=== PATIENT | male | born 1965 ===

== ENCOUNTER 2016-08-01 16:55 | Inpatient (IN) | payer OTHER ==
[2016-08-01] MEDS ORDERED: SODIUM CHLORIDE 0.9% 1,000 ML IV STA ×2 (17:42)
[2016-08-01] MEDS ORDERED: PANTOPRAZOLE 40 MG/10 ML VIAL IVP STA (17:42)
[2016-08-01] MEDS ORDERED: HYDROmorphone 1 MG/ML 1 ML SYRINGE IVP STA ×3 (17:42→20:09)
[2016-08-01] MEDS ORDERED: METOCLOPRAMIDE 5 MG/ML 2 ML VIAL IVP STA (17:42)
[2016-08-01 18:05] LABS: Basophils # (A) 0.1 k/uL (0-0.2); Basophils % (A) 0 %; CH 32.2; Eosinophils # (A) 0.1 k/uL (0-0.7); Eosinophils % (A) 1 %; HCT 42.8 % (39.0-53.0); HDW 2.71; HGB 14.6 gm/dL (13.0-17.5); Luc # (Auto) 0.19; Luc % (Auto) 1; Lymphocytes # (A) 3.1 k/uL (1.0-4.8); Lymphocytes % (A) 17 %; MCH 31.6 pg (25.0-35.0); MCHC 34.1 g/dL (31.0-37.0); MCV 92.5 fL (80.0-100.0); Mean Platelet Volume 9.6; Monocytes # (A) 0.9 k/uL (0-1.0); Monocytes % (A) 5 %; Neutrophils # (A) 14.1 k/uL (1.3-7.7); Neutrophils % (A) 76 %; RBC 4.63 m/uL (4.30-5.90); RDW 12.3 % (11.5-15.5); WBC 18.5 k/uL (3.8-10.6); WBC (Perox) 17.97
[2016-08-01 18:11] LABS: Appearance,Urine Clear (Clear); Bilirubin,Urine Negative (Negative); Glucose,Urine (UA) Negative (Negative); Ketones,Urine Negative (Negative); Leukocyte Esterase,Urine Trace (Negative); Mucus,Urine Rare /hpf; Nitrite,Urine Negative (Negative); PH, Urine 6.5 (5.0-8.0); Particle Count 2218; Protein,Urine Trace (Negative); RBC,Urine 19 /hpf (0-5); Specific Gravity,Urine 1.019 (1.001-1.035); Squamous Epithelial Cell,Urine 1 /hpf (0-4); UA Billing (MACRO vs. MICRO) MICRO; WBC,Urine 2 /hpf (0-5)
[2016-08-01 18:15] LABS: ALT 33 U/L (21-72); AST 21 U/L (17-59); Alkaline Phosphatase 75 U/L (38-126); Amylase 42 U/L (30-110); Anion Gap 11 mmol/L; Blood Urea Nitrogen 9 mg/dL (9-20); Calcium 9.3 mg/dL (8.4-10.2); Carbon Dioxide 23 mmol/L (22-30); Chloride 105 mmol/L (98-107); Glucose 114 mg/dL (74-99); Non-African American GFR(MDRD) >60 (>60 ml/min/1.73 sqM); Potassium 3.8 mmol/L (3.5-5.1); Sodium 139 mmol/L (137-145); Total Bilirubin 0.7 mg/dL (0.2-1.3); Total Protein 7.5 g/dL (6.3-8.2)
--- NOTE | 2016-08-01 18:34 | XR ---
EXAMINATION TYPE: XR abdomen 2V DATE OF EXAM: 08/01/2016 6:22 PM CLINICAL HISTORY: Left-sided abdominal pain for 3 days. TECHNIQUE: Supine and upright views of the abdomen are obtained COMPARISON: Abdominal x-ray series August 24, 2013. CT abdomen and pelvis August 25, 2013. FINDINGS: Scattered gas is seen in non-distended stomach and small bowel loops. Gas is seen in non- distended colon and rectum. No pneumoperitoneum is present. The lung bases are clear. No suspicious c alcifications are seen. IMPRESSION: Overall nonspecific felt to be nonobstructive bowel gas pattern.
[2016-08-01] MEDS ORDERED: IOHEXOL 350 MG/ML 25 ML BOTTLE (ORAL USE) PO PRN (18:54)
[2016-08-01] MEDS ORDERED: RX INFO: IV CONTRAST WAS GIVEN 1 EACH MISC MISCELLANE PRN (18:54)
--- NOTE | 2016-08-01 18:58 | ED ---
General Adult HPI - General Chief complaint: Abdominal Pain Stated complaint: Abd Pain Time Seen by Provider: 08/01/16 17:03 Source: patient, family, RN notes reviewed Mode of arrival: ambulatory Limitations: no limitations - History of Present Illness Initial comments: Chief complaint and history of present illness this is a 50-year-old male here with a complaint of left lower quadrant pain for 3 days. No nausea no vomiting has had diarrhea. No blood in the stool. Appetite on occasion makes her feel nauseated but not entirely loss. No change in urination no change in color of urine. - Related Data Home Medications Medication Instructions Recorded Confirmed Multivitamins, Thera [Multivitamin] 1 tab PO DAILY 08/01/16 08/01/16 Naproxen Sodium [Aleve] 440 mg PO BID PRN 08/01/16 08/01/16 Allergies Allergy/AdvReac Type Severity Reaction Status Date / Time No Known Allergies Allergy Verified 08/01/16 18:11 Review of Systems ROS Statement: Those systems with pertinent positive or pertinent negative responses have been documented in the HPI. Review of systems no headache or visual acuity changes no chest pain or shortness of breath. He has discomfort to the left lower quadrant sometimes wraps around towards the left lower back area. No complaint of a neuro deficits. Appetite slightly decreased. He's had diarrhea. No difficulty urinating. All systems otherwise reviewed. Past medical problems stomach ulcer with surgery for same. Surgeries as noted above stomach ulcer. This happened over 20 years ago. Family history sister had stomach cancer. Patient denies ALLERGIES she does smoke strongly encouraged to stop denies alcohol use. ROS Other: All systems not noted in ROS Statement are negative. Past Medical History Past Medical History: No Reported History History of Any Multi-Drug Resistant Organisms: None Reported Additional Past Surgical History / Comment(s): ulcer surgery Past Psychological History: No Psychological Hx Reported Smoking Status: Current every day smoker Past Alcohol Use History: Rare Past Drug Use History: None Reported General Exam - General Exam Comments Initial Comments: General: The patient is awake and alert, walking slowly and holding his hand on his left lower quadrant. Vital signs temp 99.5 pulse 105 respiratory rate 20 pulse ox 90 % room air blood pressure 134/88. Patient elevated systolic and diastolic noted. The patient has low-grade fever and is in pain. He will also be following up with a family physician and X1 to 4 weeks. Eye: Pupils are equal, round and reactive to light, extra-ocular movements are intact ; there is normal conjunctiva bilaterally. No signs of icterus. Ears, nose, mouth and throat: There are moist mucous membranes and no oral lesions. Neck: The neck is supple, there is no tenderness or JVD. Cardiovascular: There is a regular rate and rhythm. No murmur, rub or gallop is appreciated. Respiratory: Lungs are clear to auscultation, respirations are non-labored, breath sounds are equal. No wheezes, stridor, rales, or rhonchi. Gastrointestinal: Voluntary guarding with rebound or referred pain to the left side of the abdomen. Unable to push hard enough to discern any organomegaly. Decreased bowel sounds. He does report she had diarrhea for several days. Back: There is no tenderness to palpation in the midline. There is no obvious deformity. No rashes noted. Musculoskeletal: Normal ROM, no tenderness, There is no pedal edema. There is no calf tenderness or swelling. Sensation intact. Pulses equal bilaterally 2+. Neurological: No neuro deficits complained of or noted. Skin: Skin is warm and dry and no rashes or lesions are noted. Limitations: no limitations Course Vital Signs 08/01/16 08/01/16 16:58 18:50 Temperature 99.5 F 97.9 F Pulse Rate 115 H 95 Respiratory 20 16 Rate Blood Pressure 134/88 121/80 O2 Sat by Pulse 98 96 Oximetry Medical Decision Making - Medical Decision Making Medical decision making; the patient's white count is elevated 18.5 hemoglobin 14 hematocrit of 42. Urine shows red blood cells 19 and 2 WBCs. No signs of infection. Potassium is 3.8 BUN 9 creatinine 0.9 the GFR greater than 60. Glucose 114. X-ray of the abdomen was done and reviewed by radiologist his overall impression is; overall nonobstructive bowel gas pattern. As read by Dr. ruiz CT of the abdomen was done with IV and oral contrast. The findings include liver is diffusely hypodense suggesting fatty infiltration. There are several subcentimeter low density lesions that are too small for further characterization for presumed benign. Pancreas no significant abnormality is seen. Kidneys there is a simple appearing 1.5 assist posteriorly mid to lower pole level left kidney. Additional 7 cm low dense lesions scattered throughout the left kidney 2 small to further characterize and presumed benign. Bowel; the oral contrast reaches level of the terminal ileum. There is no suspicious small or large bowel dilatation seen. There is some diverticula scattered throughout the colon most pronounced at sigmoid colon level. There is mild to moderate ill-defined fluid and fat stranding in the proximal sigmoid colon in the left upper pelvis centered axial image 73. CT findings are consistent with acute diverticulitis. Moderate wall thickening at this level is present. No free air is seen. No well formed stool fluid collection or abscess is noted. Impression; there is fairly moderate acute diverticulitis in the proximal sigmoid colon. No free air or well-formed abscess is present. As read by Dr. ruiz The case discussed with Dr. Felix on-call for the [facility]. Patient be admitted to his service with antibiotics include Levaquin and Flagyl and pain medication. - Lab Data Result diagrams: 08/01/16 17:20 08/01/16 17:20 Lab Results 08/01/16 08/01/16 08/01/16 Range/Units 17:20 17:20 17:20 WBC 18.5 H (3.8-10.6) k/uL RBC 4.63 (4.30-5.90) m/uL Hgb 14.6 (13.0-17.5) gm/dL Hct 42.8 (39.0-53.0) % MCV 92.5 (80.0-100.0) fL MCH 31.6 (25.0-35.0) pg MCHC 34.1 (31.0-37.0) g/dL RDW 12.3 (11.5-15.5) % Plt Count 202 (150-450) k/uL Neutrophils % 76 % Lymphocytes % 17 % Monocytes % 5 % Eosinophils % 1 % Basophils % 0 % Neutrophils # 14.1 H (1.3-7.7) k/uL Lymphocytes # 3.1 (1.0-4.8) k/uL Monocytes # 0.9 (0-1.0) k/uL Eosinophils # 0.1 (0-0.7) k/uL Basophils # 0.1 (0-0.2) k/uL Sodium 139 (137-145) mmol/L Potassium 3.8 (3.5-5.1) mmol/L Chloride 105 (98-107) mmol/L Carbon Dioxide 23 (22-30) mmol/L Anion Gap 11 mmol/L BUN 9 (9-20) mg/dL Creatinine 0.90 (0.66-1.25) mg/dL Est GFR (MDRD) Af Amer >60 (>60 ml/min/1.73 sqM) Est GFR (MDRD) Non-Af >60 (>60 ml/min/1.73 sqM) Glucose 114 H (74-99) mg/dL Plasma Lactic Acid John 1.2 (0.7-2.0) mmol/L Calcium 9.3 (8.4-10.2) mg/dL Total Bilirubin 0.7 (0.2-1.3) mg/dL AST 21 (17-59) U/L ALT 33 (21-72) U/L Alkaline Phosphatase 75 (38-126) U/L Total Protein 7.5 (6.3-8.2) g/dL Albumin 4.3 (3.5-5.0) g/dL Amylase 42 (30-110) U/L Lipase 51 (23-300) U/L Urine Color Urine Appearance (Clear) Urine pH (5.0-8.0) Ur Specific [place] (1.001-1.035) Urine Protein (Negative) Urine Glucose (UA) (Negative) Urine Ketones (Negative) Urine Blood (Negative) Urine Nitrate (Negative) Urine Bilirubin (Negative) Urine Urobilinogen (<2.0) mg/dL Ur Leukocyte Esterase (Negative) Urine RBC (0-5) /hpf Urine WBC (0-5) /hpf Ur Squamous Epith Cells (0-4) /hpf Urine Mucus (None) /hpf 08/01/16 Range/Units 17:20 WBC (3.8-10.6) k/uL RBC (4.30-5.90) m/uL Hgb (13.0-17.5) gm/dL Hct (39.0-53.0) % MCV (80.0-100.0) fL MCH (25.0-35.0) pg MCHC (31.0-37.0) g/dL RDW (11.5-15.5) % Plt Count (150-450) k/uL Neutrophils % % Lymphocytes % % Monocytes % % Eosinophils % % Basophils % % Neutrophils # (1.3-7.7) k/uL Lymphocytes # (1.0-4.8) k/uL Monocytes # (0-1.0) k/uL Eosinophils # (0-0.7) k/uL Basophils # (0-0.2) k/uL Sodium (137-145) mmol/L Potassium (3.5-5.1) mmol/L Chloride (98-107) mmol/L Carbon Dioxide (22-30) mmol/L Anion Gap mmol/L BUN (9-20) mg/dL Creatinine (0.66-1.25) mg/dL Est GFR (MDRD) Af Amer (>60 ml/min/1.73 sqM) Est GFR (MDRD) Non-Af (>60 ml/min/1.73 sqM) Glucose (74-99) mg/dL Plasma Lactic Acid John (0.7-2.0) mmol/L Calcium (8.4-10.2) mg/dL Total Bilirubin (0.2-1.3) mg/dL AST (17-59) U/L ALT (21-72) U/L Alkaline Phosphatase (38-126) U/L Total Protein (6.3-8.2) g/dL Albumin (3.5-5.0) g/dL Amylase (30-110) U/L Lipase (23-300) U/L Urine Color Yellow Urine Appearance Clear (Clear) Urine pH 6.5 (5.0-8.0) Ur Specific [place] 1.019 (1.001-1.035) Urine Protein Trace H (Negative) Urine Glucose (UA) Negative (Negative) Urine Ketones Negative (Negative) Urine Blood Trace H (Negative) Urine Nitrate Negative (Negative) Urine Bilirubin Negative (Negative) Urine Urobilinogen 3.0 (<2.0) mg/dL Ur Leukocyte Esterase Trace H (Negative) Urine RBC 19 H (0-5) /hpf Urine WBC 2 (0-5) /hpf Ur Squamous Epith Cells 1 (0-4) /hpf Urine Mucus Rare H (None) /hpf Disposition Clinical Impression: Acute diverticulitis of intestine Disposition: ADMITTED IP TO THIS [facility] Condition: Stable
--- NOTE | 2016-08-01 21:33 | CT ---
EXAMINATION TYPE: CT abdomen pelvis w con DATE OF EXAM: 08/01/2016 9:17 PM COMPARISON: None. HISTORY: LT side ABD pain x3 days. Hx of stomach ulcer surgery CT DLP: 1514.00 mGycm Automated exposure control for dose reduction was used. TECHNIQUE: Helical acquisition of images was performed from the lung bases through the pelvis. CONTRAST: Performed with Oral Contrast and with IV Contrast, patient injected with 100 mL of Omnipaque 300. FINDINGS: LUNG BASES: Linear atelectatic change in left lung base is present.. LIVER/GB: Liver is diffusely hypodense suggesting fatty infiltration. There are several subcentimet er low dense lesions that are too small to further characterize but presumed benign. PANCREAS: No significant abnormality is seen. SPLEEN: No significant abnormality is seen. ADRENALS: No significant abnormality is seen. KIDNEYS: There is a simple appearing 1.5 cm cyst posteriorly mid to lower pole level left kidney. Add itional subcentimeter low dense lesions scattered throughout left kidney are too small to further pedro luis racterize per presumed benign. REPRODUCTIVE ORGANS: Central zone calcification is seen in normal size prostate gland URINARY BLADDER: No significant abnormality is seen. PELVIC ADENOPATHY: None visualized. OSSEOUS STRUCTURES: Multilevel spurring in the spine is present. BOWEL: The oral contrast reaches level of the terminal ileum. There is no suspicious small or large bowel dilatation seen. There are some diverticula scattered throughout the colon most pronounced at s igmoid colon level. There is mild to moderate ill-defined fluid and fat stranding in the proximal sig moid colon in the left upper pelvis centered axial image 73. CT findings are consistent with acute di verticulitis. Moderate wall thickening at this level is present. No free air is seen. No well-formed fluid collection or abscess is noted. IMPRESSION: THERE IS FAIRLY MODERATE ACUTE DIVERTICULITIS IN THE PROXIMAL SIGMOID COLON. NO FREE AIR OR WELL-FORM ED ABSCESS IS PRESENT.
[2016-08-01] MEDS ORDERED: metroNIDAZOLE-NS PMX 500 MG in SALINE 1 100ML.BAG IVPB STA (22:22)
[2016-08-01] MEDS ORDERED: LEVOFLOXACIN 500MG-D5W PMX 500 MG in DEXTROSE/WATER 1 100ML.BAG IVPB STA (22:22)
[2016-08-01] MEDS ORDERED: NALOXONE 0.4 MG/ML 1 ML VIAL IV PRN (22:23)
[2016-08-01] MEDS: metroNIDAZOLE-NS PMX 500 MG in SALINE 1 100ML.BAG IVPB SCH (22:35)
[2016-08-01] MEDS: HYDROmorphone 1 MG/ML 1 ML SYRINGE IV PRN (23:06)
[2016-08-02 00:20] VITALS: BMI 64.8
[2016-08-02] MEDS ORDERED: diphenhydrAMINE 50 MG/ML 1 ML VIAL IVP PRN (01:11)
[2016-08-02] MEDS: LEVOFLOXACIN 500MG-D5W PMX 500 MG in DEXTROSE/WATER 1 100ML.BAG IVPB SCH ×2 (01:35→21:09)
[2016-08-02] MEDS: SODIUM CHLORIDE 0.9% 1,000 ML IV SCH ×4 (01:37→19:27)
[2016-08-02] MEDS ORDERED: methylPREDNISolone SOD SUCCI 125 MG/2 ML VIAL IV STA (02:28)
[2016-08-02] MEDS: diphenhydrAMINE 50 MG/ML 1 ML VIAL IVP SCH ×5 (03:21→22:56)
[2016-08-02] MEDS: HYDROmorphone 1 MG/ML 1 ML SYRINGE IV PRN (07:38)
[2016-08-02 08:28] LABS: Basophils % (A) 0 %; CH 31.8; CHCM 34.3; Eosinophils % (A) 0 %; HCT 40.6 % (39.0-53.0); HDW 2.62; HGB 13.8 gm/dL (13.0-17.5); Luc # (Auto) 0.07; Luc % (Auto) 1; Lymphocytes # (A) 1.3 k/uL (1.0-4.8); Lymphocytes % (A) 12 %; MCH 31.7 pg (25.0-35.0); MCHC 34.1 g/dL (31.0-37.0); MCV 92.9 fL (80.0-100.0); Mean Platelet Volume 8.4; Monocytes # (A) 0.2 k/uL (0-1.0); Monocytes % (A) 2 %; Neutrophils # (A) 9.2 k/uL (1.3-7.7); Neutrophils % (A) 86 %; RBC 4.37 m/uL (4.30-5.90); RDW 12.2 % (11.5-15.5); WBC 10.7 k/uL (3.8-10.6)
[2016-08-02 08:34] LABS: ALT 34 U/L (21-72); AST 20 U/L (17-59); Alkaline Phosphatase 66 U/L (38-126); Anion Gap 11 mmol/L; Blood Urea Nitrogen 11 mg/dL (9-20); Calcium 8.9 mg/dL (8.4-10.2); Carbon Dioxide 22 mmol/L (22-30); Chloride 108 mmol/L (98-107); Glucose 121 mg/dL (74-99); Non-African American GFR(MDRD) >60 (>60 ml/min/1.73 sqM); Sodium 141 mmol/L (137-145); Total Bilirubin 0.9 mg/dL (0.2-1.3); Total Protein 6.8 g/dL (6.3-8.2)
[2016-08-02] MEDS: metroNIDAZOLE-NS PMX 500 MG in SALINE 1 100ML.BAG IVPB SCH ×4 (12:09→22:56)
[2016-08-02] MEDS: PANTOPRAZOLE 40 MG/10 ML VIAL IVP SCH (12:10)
[2016-08-02] MEDS: KETOROLAC 30 MG/ML 1 ML VIAL IVP PRN ×2 (14:35→21:21)
--- NOTE | 2016-08-02 15:29 | HP ---
DATE OF ADMISSION: Patient is a 50-year-old gentleman with no significant past medical history, came in with left lower quadrant abdominal pain, sharp in nature /, which is better now and patient was found to have sigmoid diverticulitis and patient denied any constipation. Patient was having diarrhea, which improved at this point of time. Patient denied any nausea or vomiting and patient denied any fever, chills and patient is found to have moderate amount of diverticulitis because of which I believe he will need one more day of IV antibiotics. Patient had leukocytosis which improved and patient appears to have had sepsis from diverticulitis, which improved at this point of time. The patient's pain did significantly improve. There are some issues regarding his pain medication. Patient has started itching because of Dilaudid that is being discontinued and patient was started on ketorolac. Patient is also on proton pump inhibitor. REVIEW OF SYSTEMS: CONSTITUTIONAL: No fever, no malaise, no fatigue. HEENT: No recent visual problems or hearing problems. Denied any sore throat. CARDIOVASCULAR: No chest pain, orthopnea, PND, no palpitations, no syncope. PULMONARY: No shortness of breath, no cough, no hemoptysis. GASTROINTESTINAL: As described in HPI. NEUROLOGICAL: No headaches, no weakness, no numbness. HEMATOLOGICAL: Denies any bleeding or petechiae. GENITOURINARY: Denies any burning micturition, frequency, or urgency. MUSCULOSKELETAL/RHEUMATOLOGICAL: Denies any joint pain, swelling, or any muscle pain. ENDOCRINE: Denies any polyuria or polydipsia. The rest of the 14 point review of systems is negative. Home medications include multivitamin and naproxen. ALLERGIES: No known allergies and possible allergy to DILAUDID which is itching. PAST MEDICAL HISTORY: None. PAST SURGICAL HISTORY: Ulcer surgery. SOCIAL HISTORY: Patient does smoke a pack per day. Denied any alcohol abuse or any other any drug abuse. FAMILY HISTORY: A sister with stomach cancer. PHYSICAL EXAMINATION: Temperature 97.8, pulse of 92, respiratory rate of 16, blood pressure is 109/68, saturating at 96% on room air. ABDOMINAL EXAMINATION: Left lower quadrant minimal abdominal tenderness. No rebound or rigidity. No hepatic organomegaly or splenomegaly. GENERAL: The patient is alert and oriented x3, not in any acute distress. Well developed, well nourished. HEENT: Pupils are round and equally reacting to light. EOMI. No scleral icterus. No conjunctival pallor. Normocephalic, atraumatic. No pharyngeal erythema. No thyromegaly. CARDIOVASCULAR: S1 and S2 present. No murmurs, rubs, or gallops. PULMONARY: Chest is clear to auscultation, no wheezing or crackles. MUSCULOSKELETAL: No joint swelling or deformity. EXTREMITIES: No cyanosis, clubbing, or pedal edema. NEUROLOGICAL: Gross neurological examination did not reveal any focal deficits. SKIN: No rashes. LABORATORY DATA: CBC and BMP are abnormal for elevated WBC count of 18,500 which has come down to 10,700 and patient's chloride is elevated because of IV normal saline and which we are going to continue. Although accelerated, it is in acceptable limits. Patient is on metronidazole and levofloxacin. ASSESSMENT AND PLAN: 1. Sepsis secondary to sigmoid diverticulitis which appears to be improving and patient is on IV antibiotics in the form of levofloxacin and metronidazole. If patient improves, patient can be discharged tomorrow. Will advance the diet to soft diet at this time. Dietary counseling was provided for diverticulitis. 2. Leukocytosis due to assessment #1. 3. Nicotine abuse history, counseling was provided regarding that. 4. Diarrhea secondary to diverticulitis, which improved. Patient's primary care physician: None.
[2016-08-02] MEDS ORDERED: HYDROcodone/APAP 5-325MG 1 EACH TAB PO PRN (17:01)
[2016-08-03] MEDS: metroNIDAZOLE-NS PMX 500 MG in SALINE 1 100ML.BAG IVPB SCH ×2 (05:35→11:21)
[2016-08-03] MEDS: diphenhydrAMINE 50 MG/ML 1 ML VIAL IVP SCH ×2 (05:35→12:00)
[2016-08-03] MEDS: KETOROLAC 30 MG/ML 1 ML VIAL IVP PRN (05:40)
[2016-08-03 07:32] VITALS: BP 136/78; PULSE 65; RESP 20; TEMP 96.9
[2016-08-03] MEDS: PANTOPRAZOLE 40 MG/10 ML VIAL IVP SCH (11:16)
[2016-08-03] MEDS: SODIUM CHLORIDE 0.9% 1,000 ML IV SCH (14:25)
--- NOTE | 2016-08-04 08:20 | DS ---
DATE OF ADMISSION: 08/01/2016 DATE OF DISCHARGE: 08/03/2016 The patient is a 50-year-old admitted with sigmoid diverticulitis. Patient symptoms significantly improved and patient is clinically doing well and patient will be discharged on 10 more days, because of the moderate diverticulitis, we will go ahead and discharge him on 10 days of Metronidazole and ciprofloxacin. Patient will be discharged on Tramadol and the patient will be referred to Dr. Alfred. The patient was then examined on the day of discharge. Vital signs are stable. PHYSICAL EXAMINATION: GENERAL: The patient is alert and oriented x3, not in any acute distress. Well developed, well nourished. HEENT: Pupils are round and equally reacting to light. EOMI. No scleral icterus. No conjunctival pallor. Normocephalic, atraumatic. No pharyngeal erythema. No thyromegaly. CARDIOVASCULAR: S1 and S2 present. No murmurs, rubs, or gallops. PULMONARY: Chest is clear to auscultation, no wheezing or crackles. ABDOMEN: Soft, nontender, nondistended, normoactive bowel sounds. No palpable organomegaly. MUSCULOSKELETAL: No joint swelling or deformity. EXTREMITIES: No cyanosis, clubbing, or pedal edema. NEUROLOGICAL: Gross neurological examination did not reveal any focal deficits. SKIN: No rashes. FINAL DIAGNOSIS(ES): 1. Sepsis secondary to sigmoid diverticulitis improved symptoms. 2. Nicotine abuse history. 3. Diarrhea secondary to diverticulitis. DISCHARGE MEDICATIONS: 1. Ciprofloxacin 500 p.o. q.12 hourly for 10 days. 2. Metronidazole 500 p.o. q.8 hourly for 10 days. 3. Tramadol 50 p.o. q.4 hourly and since he is taking Metronidazole, if he is taking tramadol, patient cannot take naproxen. Patient will follow with Dr. Alfred in 3 to 7 days. Activity as tolerated. High fiber diet once the diverticulitis improves. Until then, patient will take soft diet.
== END 2016-08-03 14:30 | disposition home or self-care (01) | DRG 872 ==
LOC: EC 16:55 → 5MS5E 22:23
PROVIDERS: ADMIT Hospitalist; ATTEND Internal Medicine
DX: A41.9 Sepsis, unspecified organism (principal); K57.32 Diverticulitis of large intestine without perforation or abscess without bleeding; R19.7 Diarrhea, unspecified; N28.1 Cyst of kidney, acquired; R11.0 Nausea; T40.2X5A Adverse effect of other opioids, initial encounter; L29.9 Pruritus, unspecified; F17.200 Nicotine dependence, unspecified, uncomplicated; Z80.0 Family history of malignant neoplasm of digestive organs; Z88.5 Allergy status to narcotic agent; Z79.1 Long term (current) use of non-steroidal anti-inflammatories (NSAID); Z71.6 Tobacco abuse counseling; Z87.11 Personal history of peptic ulcer disease
CPT/HCPCS: 36415; 74020; 74177; 80053; 81001; 82150; 83605; 83690; 85025; 87086; 96361; 96365; 96375; 96376; 99285

== ENCOUNTER 2016-08-03 20:26 | Inpatient (IN) | payer OTHER ==
[2016-08-03] MEDS ORDERED: SODIUM CHLORIDE 0.9% 1,000 ML IV STA (21:06)
[2016-08-03] MEDS ORDERED: LEVOFLOXACIN 750MG-D5W PMX 750 MG in DEXTROSE/WATER 1 150ML.BAG IVPB STA (21:06)
[2016-08-03] MEDS ORDERED: ACETAMINOPHEN IV (For NPO) 1,000 MG in EMPTY BAG 1 BAG IVPB STA (21:10)
[2016-08-03] MEDS ORDERED: ACETAMINOPHEN TAB 500 MG TAB PO STA (21:16)
[2016-08-03] MEDS ORDERED: KETOROLAC 30 MG/ML 1 ML VIAL IVP STA (21:20)
[2016-08-03 21:23] LABS: Basophils # (A) 0.1 k/uL (0-0.2); Basophils % (A) 0 %; CH 32.3; CHCM 35.4; Eosinophils % (A) 0 %; HCT 42.2 % (39.0-53.0); HDW 2.69; HGB 14.5 gm/dL (13.0-17.5); Luc % (Auto) 1; Lymphocytes # (A) 2.3 k/uL (1.0-4.8); Lymphocytes % (A) 13 %; MCH 31.4 pg (25.0-35.0); MCHC 34.3 g/dL (31.0-37.0); MCV 91.6 fL (80.0-100.0); Mean Platelet Volume 9.1; Monocytes % (A) 6 %; Neutrophils # (A) 14.3 k/uL (1.3-7.7); Neutrophils % (A) 80 %; RBC 4.61 m/uL (4.30-5.90); RDW 12.3 % (11.5-15.5); WBC 17.8 k/uL (3.8-10.6); WBC (Perox) 17.95
--- NOTE | 2016-08-03 21:33 | XR ---
EXAMINATION TYPE: XR KUB DATE OF EXAM: 08/03/2016 9:29 PM COMPARISON: NONE HISTORY: Pain TECHNIQUE: Single supine KUB image of the abdomen is obtained FINDINGS: Small bowel demonstrates no evidence for dilatation or air fluid levels. Gas and fecal material is seen in non-distended colon. No convincing evidence for pneumoperitoneum. No unusual calcifications. The lung bases are clear. The osseous structures are intact. IMPRESSION: 1. Overall nonobstructive bowel gas pattern.
[2016-08-03 21:35] LABS: ALT 31 U/L (21-72); AST 17 U/L (17-59); Alkaline Phosphatase 61 U/L (38-126); Amylase 46 U/L (30-110); Anion Gap 13 mmol/L; Blood Urea Nitrogen 13 mg/dL (9-20); Carbon Dioxide 21 mmol/L (22-30); Chloride 105 mmol/L (98-107); Glucose 113 mg/dL (74-99); Non-African American GFR(MDRD) >60 (>60 ml/min/1.73 sqM); Potassium 3.9 mmol/L (3.5-5.1); Sodium 139 mmol/L (137-145); Total Bilirubin 0.6 mg/dL (0.2-1.3); Total Protein 6.9 g/dL (6.3-8.2)
[2016-08-03 21:36] LABS: Appearance,Urine Clear (Clear); Bilirubin,Urine Negative (Negative); Glucose,Urine (UA) Negative (Negative); Ketones,Urine Negative (Negative); Leukocyte Esterase,Urine Negative (Negative); Mucus,Urine Rare /hpf; Nitrite,Urine Negative (Negative); Particle Count 257; Protein,Urine Negative (Negative); RBC,Urine 4 /hpf (0-5); Specific Gravity,Urine 1.009 (1.001-1.035); Squamous Epithelial Cell,Urine <1 /hpf (0-4); UA Billing (MACRO vs. MICRO) MICRO; Urobilinogen,Urine <2.0 mg/dL (<2.0); WBC,Urine <1 /hpf (0-5)
[2016-08-03] MEDS ORDERED: RX INFO: IV CONTRAST WAS GIVEN 1 EACH MISC MISCELLANE PRN (21:50)
--- NOTE | 2016-08-03 22:15 | ED ---
Abdominal Pain HPI - General Chief Complaint: Abdominal Pain Stated Complaint: revisit Diverticulosis Pain Time Seen by Provider: 08/03/16 20:58 Source: patient, family, RN notes reviewed Mode of arrival: ambulatory Limitations: no limitations - History of Present Illness Initial Comments: Patient is a 80-year-old male presenting to the with a revisit for diverticulitis pain. Patient was admitted on Wednesday and discharged today. Patient reports that since he was discharged today he has been feeling worse. He states he took his at home pain medication however has not helped. He comes in today with a fever. States that the pain is mainly over the left lower quadrant and radiates more towards the suprapubic region. He denies any nausea or vomiting. He reports he has taken his antibiotics as directed. - Related Data Home Medications Medication Instructions Recorded Confirmed Multivitamins, Thera [Multivitamin] 1 tab PO DAILY 08/01/16 08/03/16 Previous Rx's Medication Instructions Recorded Ciprofloxacin HCl [Cipro] 500 mg PO Q12HR #20 tablet 08/03/16 metroNIDAZOLE [Flagyl] 500 mg PO Q8HR #30 tab 08/03/16 traMADol HCL [Ultram] 50 mg PO Q4HR PRN #30 tab 08/03/16 Allergies Allergy/AdvReac Type Severity Reaction Status Date / Time No Known Allergies Allergy Verified 08/03/16 20:48 Review of Systems ROS Statement: Those systems with pertinent positive or pertinent negative responses have been documented in the HPI. ROS Other: All systems not noted in ROS Statement are negative. Past Medical History Past Medical History: No Reported History Additional Past Medical History / Comment(s): diverticulitis History of Any Multi-Drug Resistant Organisms: None Reported Additional Past Surgical History / Comment(s): ulcer surgery Past Anesthesia/Blood Transfusion Reactions: No Reported Reaction Past Psychological History: No Psychological Hx Reported Smoking Status: Current every day smoker Past Alcohol Use History: Rare Past Drug Use History: None Reported - Past Family History Father Family Medical History: No Reported History Mother Family Medical History: CVA/TIA Sister(s) Family Medical History: Cancer Additional Family Medical History / Comment(s): pt sister from stomach cancer. General Exam - General Exam Comments Initial Comments: Patient is a 50-year-old male. He does appear to be in significant discomfort. Limitations: no limitations General appearance: alert, in no apparent distress Head exam: Present: atraumatic, normocephalic, normal inspection Eye exam: Present: normal appearance, PERRL, EOMI. Absent: scleral icterus, conjunctival injection, periorbital swelling ENT exam: Present: normal exam, mucous membranes moist Neck exam: Present: normal inspection. Absent: tenderness, meningismus, lymphadenopathy Respiratory exam: Present: normal lung sounds bilaterally. Absent: respiratory distress, wheezes, rales, rhonchi, stridor Cardiovascular Exam: Present: normal rhythm, tachycardia, normal heart sounds. Absent: systolic murmur, diastolic murmur, rubs, gallop, clicks GI/Abdominal exam: Present: soft, tenderness (She has significant tenderness of the left lower quadrant.), normal bowel sounds. Absent: distended, guarding, rebound, rigid Extremities exam: Present: normal inspection, full ROM, normal capillary refill. Absent: tenderness, pedal edema, joint swelling, calf tenderness Back exam: Present: normal inspection Neurological exam: Present: alert, oriented X3, CN II-XII intact Psychiatric exam: Present: normal affect, normal mood Skin exam: Present: warm, dry, intact, normal color. Absent: rash Course Vital Signs 08/03/16 08/03/16 20:35 23:39 Temperature 100.9 F H 99.1 F Pulse Rate 136 H 106 H Respiratory 20 20 Rate Blood Pressure 133/86 122/66 O2 Sat by Pulse 98 97 Oximetry Medical Decision Making - Medical Decision Making Patient is 48-year-old male presenting to the with left lower quadrant pain this is read as a for his diverticulitis. He was discharged today. He comes in with a fever for 100.2. Labs are obtained and reveal evidence of leukocytosis. This is a significant change from yesterday. His has a white count of 17.1. Patient was given a 2 L bolus due to tachycardia and sepsis protocol. He was also started on IV antibiotics. Dr. Bueno was consulted and did a physical exam of the patient. She was Significant abdominal tenderness. Pain she instructed to do CT abdomen and pelvis with IV contrast. CT abdomen and pelvis shows sigmoid diverticulitis with small amount of soft tissue air anterior and lateral to the sigmoid colon consistent with a perforation compared to exam 2 days ago. There is no drainable fluid collection. There is mild this dilation of the small bowel consistent with localized ileus adjacent to sigmoid colon. Patient will be taken to surgery tonight by Dr. Bueno. - Lab Data Result diagrams: 08/03/16 21:15 08/03/16 21:15 Lab Results 08/03/16 08/03/16 08/03/16 Range/Units 21:15 21:15 21:15 WBC 17.8 H (3.8-10.6) k/uL RBC 4.61 (4.30-5.90) m/uL Hgb 14.5 (13.0-17.5) gm/dL Hct 42.2 (39.0-53.0) % MCV 91.6 (80.0-100.0) fL MCH 31.4 (25.0-35.0) pg MCHC 34.3 (31.0-37.0) g/dL RDW 12.3 (11.5-15.5) % Plt Count 227 (150-450) k/uL Neutrophils % 80 % Lymphocytes % 13 % Monocytes % 6 % Eosinophils % 0 % Basophils % 0 % Neutrophils # 14.3 H (1.3-7.7) k/uL Lymphocytes # 2.3 (1.0-4.8) k/uL Monocytes # 1.0 (0-1.0) k/uL Eosinophils # 0.0 (0-0.7) k/uL Basophils # 0.1 (0-0.2) k/uL Sodium 139 (137-145) mmol/L Potassium 3.9 (3.5-5.1) mmol/L Chloride 105 (98-107) mmol/L Carbon Dioxide 21 L (22-30) mmol/L Anion Gap 13 mmol/L BUN 13 (9-20) mg/dL Creatinine 0.80 (0.66-1.25) mg/dL Est GFR (MDRD) Af Amer >60 (>60 ml/min/1.73 sqM) Est GFR (MDRD) Non-Af >60 (>60 ml/min/1.73 sqM) Glucose 113 H (74-99) mg/dL Plasma Lactic Acid John (0.7-2.0) mmol/L Calcium 9.0 (8.4-10.2) mg/dL Total Bilirubin 0.6 (0.2-1.3) mg/dL AST 17 (17-59) U/L ALT 31 (21-72) U/L Alkaline Phosphatase 61 (38-126) U/L Total Protein 6.9 (6.3-8.2) g/dL Albumin 4.1 (3.5-5.0) g/dL Amylase 46 (30-110) U/L Lipase 41 (23-300) U/L Urine Color Light Yellow Urine Appearance Clear (Clear) Urine pH 6.0 (5.0-8.0) Ur Specific Wisdom 1.009 (1.001-1.035) Urine Protein Negative (Negative) Urine Glucose (UA) Negative (Negative) Urine Ketones Negative (Negative) Urine Blood Trace H (Negative) Urine Nitrate Negative (Negative) Urine Bilirubin Negative (Negative) Urine Urobilinogen <2.0 (<2.0) mg/dL Ur Leukocyte Esterase Negative (Negative) Urine RBC 4 (0-5) /hpf Urine WBC <1 (0-5) /hpf Ur Squamous Epith Cells <1 (0-4) /hpf Urine Mucus Rare H (None) /hpf 08/03/16 Range/Units 21:15 WBC (3.8-10.6) k/uL RBC (4.30-5.90) m/uL Hgb (13.0-17.5) gm/dL Hct (39.0-53.0) % MCV (80.0-100.0) fL MCH (25.0-35.0) pg MCHC (31.0-37.0) g/dL RDW (11.5-15.5) % Plt Count (150-450) k/uL Neutrophils % % Lymphocytes % % Monocytes % % Eosinophils % % Basophils % % Neutrophils # (1.3-7.7) k/uL Lymphocytes # (1.0-4.8) k/uL Monocytes # (0-1.0) k/uL Eosinophils # (0-0.7) k/uL Basophils # (0-0.2) k/uL Sodium (137-145) mmol/L Potassium (3.5-5.1) mmol/L Chloride (98-107) mmol/L Carbon Dioxide (22-30) mmol/L Anion Gap mmol/L BUN (9-20) mg/dL Creatinine (0.66-1.25) mg/dL Est GFR (MDRD) Af Amer (>60 ml/min/1.73 sqM) Est GFR (MDRD) Non-Af (>60 ml/min/1.73 sqM) Glucose (74-99) mg/dL Plasma Lactic Acid John 1.8 (0.7-2.0) mmol/L Calcium (8.4-10.2) mg/dL Total Bilirubin (0.2-1.3) mg/dL AST (17-59) U/L ALT (21-72) U/L Alkaline Phosphatase (38-126) U/L Total Protein (6.3-8.2) g/dL Albumin (3.5-5.0) g/dL Amylase (30-110) U/L Lipase (23-300) U/L Urine Color Urine Appearance (Clear) Urine pH (5.0-8.0) Ur Specific Wisdom (1.001-1.035) Urine Protein (Negative) Urine Glucose (UA) (Negative) Urine Ketones (Negative) Urine Blood (Negative) Urine Nitrate (Negative) Urine Bilirubin (Negative) Urine Urobilinogen (<2.0) mg/dL Ur Leukocyte Esterase (Negative) Urine RBC (0-5) /hpf Urine WBC (0-5) /hpf Ur Squamous Epith Cells (0-4) /hpf Urine Mucus (None) /hpf - Radiology Data Radiology results: report reviewed CT abdomen and pelvis shows evidence of a perforated diverticula. Disposition Clinical Impression: Perforated diverticulum of large intestine, Peritonitis, Sepsis Disposition: ADMITTED IP TO THIS [facility] Referrals: None,Stated [Primary Care Provider] - 1-2 days Time of Disposition: 00:39
--- NOTE | 2016-08-03 22:22 | CT ---
EXAMINATION TYPE: CT abdomen pelvis w con DATE OF EXAM: 08/03/2016 10:10 PM COMPARISON: 08/11/2016 HISTORY: PT states of abdominal pain and distention. CT DLP: 1237.2 mGycm Automated exposure control for dose reduction was used. TECHNIQUE: Helical acquisition of images was performed from the lung bases through the pelvis. CONTRAST: Performed without Oral Contrast and with IV Contrast, patient injected with 100 mL of Omnipaque 300. FINDINGS: Lung bases are clear. There is no pleural effusion. There is a small hiatal hernia. There is a 1 cm c yst in the right lower liver. There are other smaller hepatic cysts. Bile ducts are not dilated. Sple en appears normal. There is no pancreatic mass. Gallbladder appears normal. There is no adrenal mass. Kidneys have normal size and contour. There is satisfactory contrast opacif ication. There is no hydronephrosis. There is no retroperitoneal adenopathy. There is extensive inflammatory changes around the sigmoid colon with numerous sigmoid diverticula. T here is some soft tissue air anterior and lateral to the proximal sigmoid colon. The bladder distends smoothly. There is no free fluid in the pelvis. There is no pelvic lymphadenopathy. There is mild di lation of the mid small bowel up to 3.5 cm. The bony structures are intact. CONCLUSION: There is sigmoid diverticulitis with a small amount of soft tissue air anterior and lateral to the si gmoid colon consistent with new perforation compared to exam 2 days ago. There is no drainable fluid collection. There is mild dilation of mid small bowel consistent with localized ileus adjacent to the sigmoid colon.
[2016-08-03] MEDS ORDERED: PIPERACILLIN-TAZOBACTAM 3.375 GM in DEXTROSE/WATER 1 50ML.BAG IVPB STA (22:33)
[2016-08-03] MEDS ORDERED: ACETAMINOPHEN IV (For NPO) 1,000 MG in EMPTY BAG 1 BAG IVPB ONE (23:02)
[2016-08-03] MEDS ORDERED: HEPARIN SODIUM,PORCINE 5,000 UNIT/ML 1 ML VIAL SQ ONE (23:02)
--- NOTE | 2016-08-03 23:02 | P.GSHP ---
History of Present Illness H&P Date: 08/03/16 Chief Complaint: Pneumoperitoneum, perforated diverticulitis with peritonitis The patient is a 50-year-old gentleman who was recently discharged from the hospital 3 PM this afternoon, approximately 8 hours ago after being admitted for diverticulitis. He had been placed on ciprofloxacin including Flagyl for oral antibiotics. Later on this evening he returned back to the emergency room with worsening abdominal pain. He presented with fevers including tachycardia. He describes this pain as being the most severe. He has a notable history of stomach ulcer surgery almost 14 years ago. His last colonoscopy was also 14 years ago for which he cannot recollect the details. Now, he presents with sepsis. A CT of the abdomen pelvis have confirmed new changes including perforated diverticulitis with pneumoperitoneum hence his re-admission. - Review of Systems Comment: CONSTITUTIONAL: Has fever and chills. HEENT: Denies any trouble with vision, hearing or nosebleeds. No difficulty swallowing. LYMPHATIC: The patient denies any lumps and bumps around the neck. ENDOCRINE: Denies any thyroid disorders. Has blood sugar glucose intolerance. RESPIRATORY: Denies pneumonia. Denies any troubles with breathing or dyspnea on exertion. CARDIOVASCULAR: Denies any chest pain, palpitations, or recent heart attacks. GASTROINTESTINAL: Has heart burn. Denies bright red blood per rectum. History of constipation and diarrhea. GENITOURINARY: Has recent blood in urine. No increased urinary frequency. MUSCULOSKELETAL: Has occassional back pain, stiffness, joint arthritis. NEUROLOGIC: Denies any numbness or tingling along the distal extremities. No seizure disorders or headaches. PSYCHIATRIC: Denies depression or suidical ideation. HEMATOLOGIC: Denies any abnormal bleeding or bruising. Past Medical History Past Medical History: No Reported History, GERD/Reflux Additional Past Medical History / Comment(s): Diverticulitis, gastric ulcer History of Any Multi-Drug Resistant Organisms: None Reported Additional Past Surgical History / Comment(s): Ulcer surgery, colonoscopy Past Anesthesia/Blood Transfusion Reactions: No Reported Reaction Past Psychological History: No Psychological Hx Reported Smoking Status: Current every day smoker Past Alcohol Use History: Rare Past Drug Use History: None Reported - Past Family History Father Family Medical History: No Reported History Mother Family Medical History: CVA/TIA Sister(s) Family Medical History: Cancer Additional Family Medical History / Comment(s): pt sister from stomach cancer. Medications and Allergies Home Medications Medication Instructions Recorded Confirmed Type Multivitamins, Thera [Multivitamin] 1 tab PO DAILY 08/01/16 08/03/16 History Allergies Allergy/AdvReac Type Severity Reaction Status Date / Time No Known Allergies Allergy Verified 08/03/16 20:48 Surgical - Exam Vital Signs Temp Pulse Resp BP Pulse Ox 100.9 F H 136 H 20 133/86 98 08/03/16 20:35 08/03/16 20:35 08/03/16 20:35 08/03/16 20:35 08/03/16 20:35 GENERAL: Well developed and in mild to moderate acute distress. HEENT: No sclera icterus. Extraocular movements grossly intact. Moist buccal mucosa. Head is atraumatic, normocephalic. Hears conversational speech. No nasal drainage. NECK: Supple without lymphadenopathy. No JV distention. CHEST: Non-labored respirations and equal bilateral excursions. CARDIOVASCULAR: Tachycardic. Palpable 2+ radial pulses. ABDOMEN: Distended with diffuse peritonitis including rigidity and guarding MUSCULOSKELETAL: No clubbing, cyanosis or edema. NEUROLOGIC: No focal or lateralizing signs. Cranial nerves II through XII grossly within normal limits. PSYCH: Appropriate affect. Alert and oriented to person, place and time. Results - Labs 08/03/16 21:15 08/03/16 21:15 Abnormal Lab Results - Last 24 Hours (Table) 08/03/16 08/03/16 08/03/16 Range/Units 21:15 21:15 21:15 WBC 17.8 H (3.8-10.6) k/uL Neutrophils # 14.3 H (1.3-7.7) k/uL Carbon Dioxide 21 L (22-30) mmol/L Glucose 113 H (74-99) mg/dL Urine Blood Trace H (Negative) Urine Mucus Rare H (None) /hpf Diabetes panel 08/03/16 Range/Units 21:15 Sodium 139 (137-145) mmol/L Potassium 3.9 (3.5-5.1) mmol/L Chloride 105 (98-107) mmol/L Carbon Dioxide 21 L (22-30) mmol/L BUN 13 (9-20) mg/dL Creatinine 0.80 (0.66-1.25) mg/dL Glucose 113 H (74-99) mg/dL Calcium 9.0 (8.4-10.2) mg/dL AST 17 (17-59) U/L ALT 31 (21-72) U/L Alkaline Phosphatase 61 (38-126) U/L Total Protein 6.9 (6.3-8.2) g/dL Albumin 4.1 (3.5-5.0) g/dL Calcium panel 08/03/16 Range/Units 21:15 Calcium 9.0 (8.4-10.2) mg/dL Albumin 4.1 (3.5-5.0) g/dL Pituitary panel 08/03/16 Range/Units 21:15 Sodium 139 (137-145) mmol/L Potassium 3.9 (3.5-5.1) mmol/L Chloride 105 (98-107) mmol/L Carbon Dioxide 21 L (22-30) mmol/L BUN 13 (9-20) mg/dL Creatinine 0.80 (0.66-1.25) mg/dL Glucose 113 H (74-99) mg/dL Calcium 9.0 (8.4-10.2) mg/dL Adrenal panel 08/03/16 Range/Units 21:15 Sodium 139 (137-145) mmol/L Potassium 3.9 (3.5-5.1) mmol/L Chloride 105 (98-107) mmol/L Carbon Dioxide 21 L (22-30) mmol/L BUN 13 (9-20) mg/dL Creatinine 0.80 (0.66-1.25) mg/dL Glucose 113 H (74-99) mg/dL Calcium 9.0 (8.4-10.2) mg/dL Total Bilirubin 0.6 (0.2-1.3) mg/dL AST 17 (17-59) U/L ALT 31 (21-72) U/L Alkaline Phosphatase 61 (38-126) U/L Total Protein 6.9 (6.3-8.2) g/dL Albumin 4.1 (3.5-5.0) g/dL - Imaging CT scan - abdomen: report reviewed, image reviewed CT scan - pelvis: report reviewed, image reviewed (Features are consistent with phlegmon including inflammatory changes, sigmoid colon and perforated diverticulitis with pneumoperitoneum for which are my personal interpretation.) Assessment and Plan (1) High risk for readmission Status: Acute (2) Perforation of sigmoid colon due to diverticulitis Status: Acute (3) Sepsis Status: Acute (4) Peritonitis (acute) generalized Status: Acute (5) Tobacco abuse Status: Chronic (6) Obesity (BMI 30.0-34.9) Status: Chronic Plan: 1. Surgical intervention with exploratory laparotomy with colostomy was described in detail. 2. Inpatient hospitalization over 2 nights. 3. DVT prophylaxis. 4. Broad-spectrum antibiotics. 5. Pulmonary toilet. 6. Tobacco cessation and counseling over 3 minutes. 7. Social work services for readmission and financial assistance. Time with Patient: Greater than 30
[2016-08-03] MEDS ORDERED: MORPHINE SULFATE 4 MG/ML SYRINGE IVP STA (23:22)
[2016-08-03] MEDS: SODIUM CHLORIDE 0.9% 1,000 ML IV SCH (23:31)
[2016-08-04] MEDS ORDERED: BUPIVACAIN-EPI 0.25%-1:200,000 30 ML VIAL SQ ONE ×2 (00:16→02:22)
[2016-08-04] MEDS ORDERED: NEOSTIGMINE 1 MG/ML 10 ML VIAL ONE (01:36)
[2016-08-04] MEDS ORDERED: KETOROLAC 30 MG/ML 1 ML VIAL ONE (01:36)
[2016-08-04] MEDS ORDERED: ROCURONIUM BROMIDE 10 MG/ML 10 ML VIAL IV ONE (01:36)
[2016-08-04] MEDS: metroNIDAZOLE-NS PMX 500 MG in SALINE 100 100ML.BAG IVPB ONE ×2 (01:36→05:56)
[2016-08-04] MEDS ORDERED: SODIUM CHLORIDE 0.9% 1,000 ML IV ONE ×3 (01:36→20:27)
[2016-08-04] MEDS ORDERED: ONDANSETRON 4 MG/2 ML VIAL ONE (01:36)
[2016-08-04] MEDS ORDERED: MIDAZOLAM 2 MG/2 ML VIAL ONE (01:36)
[2016-08-04] MEDS ORDERED: GLYCOPYRROLATE 0.2 MG/ML 2 ML VIAL ONE (01:36)
[2016-08-04] MEDS ORDERED: LIDOCAINE 1% INJ 10MG/ML (20 ML MDV) ONE (01:36)
[2016-08-04] MEDS ORDERED: PROPOFOL 10 MG/ML 20 ML VIAL IV ONE (01:36)
[2016-08-04] MEDS ORDERED: SUCCINYLCHOLINE CHLORIDE 100 MG/5 ML SYR IV ONE (01:36)
[2016-08-04] MEDS ORDERED: fentaNYL (PF) 50 MCG/ML 2 ML AMP ONE (01:36)
[2016-08-04] MEDS ORDERED: metroNIDAZOLE-NS PMX 500 MG/100 ML BAG ONE (01:36)
[2016-08-04] MEDS ORDERED: HYDROmorphone (PF) 1 MG/ML ONE (01:36)
[2016-08-04] MEDS ORDERED: SODIUM CHLORIDE 0.9% 1,000 ML BAG ONE (01:36)
[2016-08-04] MEDS ORDERED: LACTATED RINGERS 1,000 ML BAG IV ONE (01:36)
[2016-08-04] MEDS ORDERED: SODIUM CHLORIDE 0.9% 500 ML BAG ONE (01:36)
[2016-08-04] MEDS ORDERED: LACTATED RINGERS 1,000 ML IV ONE ×3 (02:09→04:58)
[2016-08-04] MEDS ORDERED: SODIUM CHLORIDE 0.9% 500 ML IV ONE (03:01)
[2016-08-04] MEDS: HYDROmorphone 1 MG/ML 1 ML SYRINGE IVP ONE ×2 (05:15→05:20)
[2016-08-04] MEDS ORDERED: BENZOCAINE/MENTHOL LOZENG 1 EACH LOZENGE MUCOUS MEM PRN (05:21)
[2016-08-04] MEDS ORDERED: ONDANSETRON 4 MG/2 ML VIAL IVP PRN (05:21)
[2016-08-04] MEDS ORDERED: KETOROLAC 30 MG/ML 1 ML VIAL IVP PRN ×2 (05:21→12:00)
--- NOTE | 2016-08-04 05:21 | P.OP ---
Date of Procedure: 08/04/16 Description of Procedure: DATE OF SERVICE: 08/04/2016 SURGEON: KERRI BILLINGS MD PREOPERATIVE DIAGNOSES: 1. Acute perforated diverticulitis. 2. Generalized peritonitis. 3. Pneumoperitoneum from perforated viscus. 4. Leukocytosis. 5. Tachycardia. 6. Sepsis from intraabdominal infection. 7. History of chronic constipation with chronic diverticulitis. 8. Obesity. 9. Body mass index 34.1. 10. Previous history of exploratory laparotomy. 11. History of active tobacco abuse. POSTOPERATIVE DIAGNOSES: 1. Acute perforated diverticulitis. 2. Generalized peritonitis. 3. Pneumoperitoneum from perforated viscus. 4. Leukocytosis. 5. Tachycardia. 6. Sepsis from intraabdominal infection. 7. History of chronic constipation with chronic diverticulitis. 8. Obesity. 9. Body mass index 34.1. 10. Previous history of exploratory laparotomy. 11. History of active tobacco abuse. 12. Incarcerated incisional ventral hernia epigastric 4 cm. 13. Severe intra-abdominal adhesions. ANESTHESIA: General. ESTIMATED BLOOD LOSS: 50 mL. SPECIMENS REMOVED: Sigmoid colon. COMPLICATIONS: None. OPERATION: 1. Extensive lysis of adhesions over 1 hour. 2. Exploratory laparotomy with sigmoid resection for perforated diverticulitis. 3. Descending colostomy. 4. Devitalized rectal stump. 5. Tara's procedure for perforated diverticulitis. 6. Peritoneal lavage over 3 liters. 7. Placement of intraabdominal #19 Melvin drain along the right lower pelvis. 8. Placement of 0.25 inch [place] drain along the subcutaneous tissue. 9. Repair of incarcerated incisional ventral hernia ventral hernia epigastric, 4 cm. 10. Mobilization of splenic flexure. INDICATIONS: The patient is a 50-year-old gentleman who presents with known history of acute diverticulitis. He was recently hospitalized for 2 days and was subsequently discharged. He then immediately returned to the emergency room with acute onset abdominal pain. Clinical exam was consistent with peritonitis along with sepsis. CT of the abdomen and pelvis confirmed phlegmon with perforated sigmoid diverticulitis. Emergent surgical intervention with laparotomy and colostomy were discussed. All questions were answered and risks were reviewed with the patient including his at bedside. Informed consent was obtained. DESCRIPTION: Patient was brought to the operating room. He was previously hydrated and started on IV antibiotics as well. The patient was placed in supine position whereby general induction was performed. Abdomen had been prepped and draped in the standard sterile fashion with placement of Leija catheter. After timeout protocol, #10 blade abdomen was used to enter along the midline along his previous scar from the xiphoid to the pubis. An incarcerated incisional ventral hernia with omentum of 4 cm was divided and released. Moderate and dense omental and peritoneal adhesions were found along the anterior abdominal wall and carefully lysed for over an hour using electro- Bovie cautery including LigaSure. Internal hernias were found along the transverse mesocolon and addressed using LigaSure as well. The peritoneum was entered whereby immediate purulent peritonitis was identified. Next, self-retaining Braulio retractor was placed with a bladder blade. Diverticular adhesions of the sigmoid colon to the pelvic wall were mobilized using electro- Bovie cautery including LigaSure. The descending colon was also mobilized along the white line of Toldt just proximal to the sigmoid colon. The sigmoid colon was mobilized along the medial and lateral attachments with care to avoid any injury to the ureters along the usual anatomical landmarks. The sigmoid colon was twisted and torturous from the chronicity and severity of his diverticulitis. Carefully the sigmoid colon was identified and mobilized, whereby pinpoint perforation along the right lateral posterior aspect of the mid sigmoid was encountered. Moderate inflammation was found along the mesentery including of the bowel wall which was also thickened. A phlegmon was along the sigmoid mesentery and disrupted. Given the severity of his diverticulitis, proposed dissection was made above the rectum to the mid descending colon. To allow additional length for the proposed ostomy, mobilization of the splenic flexure was difficult as he had a high splenic flexure along the left upper chest. Mobilization of splenic flexure was performed using LigaSure. Suture ligatures using 2-0 silk was performed to control for bleeding as well. A window was made along the mesentery and the colon was divided such that the descending colon was prepared for maturation of a colostomy for its proximal resection. Next, the rest of the colon was mobilized down to the rectum for its distal resection. Just distal to the edematous changes of the mesenteric thickened bowel wall, along the sigmoid colon, the rectum was encountered. At this point the rest of the sigmoid colon was further mobilized. Using a contour bowel stapler, the stapler was fired for division of the sigmoid specimen. Specimen was passed off and the area of perforation was marked using a 2-0 Prolene. Hemostasis was checked with electro Bovie cautery including LigaSure. Next, attention was brought to the delivering and creating of the descending colostomy. A point along the abdominal wall and rectus muscle was selected for his colostomy. Leonardo was used to elevate the skin and Bovie cautery was taken across in tangential manner to create the skin defect of approximately quarter-size. The fat of the skin was mobilized using a small rich. The rectus muscle was identified and scored with a cruciate scoring of electro- Bovie cautery. Next, using a muscle-splitting technique with a hemostat, the peritoneum was entered. The peritoneum was widened such that 3 fingerbreadths could pass for delivering and evaginating the descending portion of the colon through the skin. The abdominal cavity was copiously irrigated using 3 liters of warm normal saline solution until completely clear. Round number #19 Melvin drain was entered along the right lower abdomen and exited through the skin. The drain was placed along the pelvis as all irrigation fluid was accounted for. Next, the CARRIE drain was tacked along the skin using a 2-0 nylon. The midline incision was closed using double-stranded 0 PDS. The midline epigastric incarcerated hernia was repaired with closure of the abdomen. Quarter-inch Angela drain was placed along the bed of the wound to minimize risk of surgical site infection, as the case was dirty from perforated colon. The [place] drain was tacked along the inferior portion using 2-0 nylon. About the umbilicus interrupted 3-0 Vicryl dermal sutures were placed as to avoid any angi around the umbilicus. For the rest of the incision, stainless steel skin angi were applied. The midline incision was covered and attention was brought to maturation of the colostomy. The staple edge was divided and removed. Next quadrant sutures at 12 o'clock, 3 o'clock, 6 o'clock, and 9 o'clock position was made using serosa, mucosal and dermal bites using 3-0 Vicryl. Interrupted 3-0 Vicryl was placed in between all quadrants sutures to completely mature the ostomy. Hemostasis was checked. A Coloplast was then placed. All incisions and hemostasis was checked. Midline incision was dressed using Aquacel Ag OptiFoam dressing. CHG Tegaderm was placed over the CARRIE insertion site. At the end of the procedure, needle, sponge, and instrument count had been verified correct by operating room surgical technologist. The patient's family was updated on level of care. FINDINGS: 1. Perforated viscus along the sigmoid colon with gross purulence with peritonitis. 2. Perforation of sigmoid colon along the mid sigmoid with phlegmon along the sigmoid mesentery. 3. Incarcerated incisional hernia epigastric 4 cm. 4. Moderate omental adhesions from previous surgery adding additional hour to the case. 5. Severe diverticulitis involving the descending colon and sigmoid colon requiring a descending colostomy. 6. Mobilization of the splenic flexure performed for creation of the ostomy.
[2016-08-04] MEDS: HYDROmorphone 1 MG/ML 1 ML SYRINGE IVP PRN ×2 (07:34→10:39)
[2016-08-04] MEDS: metroNIDAZOLE-NS PMX 500 MG in SALINE 1 100ML.BAG IVPB SCH ×2 (07:35→17:49)
[2016-08-04] MEDS ORDERED: KETOROLAC 30 MG/ML 1 ML VIAL IVP STA (07:44)
[2016-08-04] MEDS: HEPARIN SODIUM,PORCINE 5,000 UNIT/ML 1 ML VIAL SQ SCH ×2 (07:49→17:47)
[2016-08-04] MEDS: METOCLOPRAMIDE 5 MG/ML 2 ML VIAL IVP SCH ×3 (07:49→17:49)
[2016-08-04] MEDS: SODIUM CHLORIDE 0.9% 1,000 ML IV SCH ×6 (07:53→22:23)
[2016-08-04 08:24] LABS: Basophils # (A) 0.1 k/uL (0-0.2); Basophils % (A) 0 %; CHCM 34.2; Eosinophils % (A) 0 %; HDW 2.67; HGB 13.4 gm/dL (13.0-17.5); Luc # (Auto) 0.11; Luc % (Auto) 1; Lymphocytes # (A) 1.5 k/uL (1.0-4.8); Lymphocytes % (A) 9 %; MCH 30.8 pg (25.0-35.0); MCHC 32.7 g/dL (31.0-37.0); MCV 94.2 fL (80.0-100.0); Mean Platelet Volume 8.7; Monocytes # (A) 0.9 k/uL (0-1.0); Monocytes % (A) 6 %; Neutrophils # (A) 13.7 k/uL (1.3-7.7); Neutrophils % (A) 84 %; RBC 4.35 m/uL (4.30-5.90); RDW 12.5 % (11.5-15.5); WBC 16.3 k/uL (3.8-10.6); WBC (Perox) 17.34
[2016-08-04 08:39] LABS: Anion Gap 9 mmol/L; Blood Urea Nitrogen 14 mg/dL (9-20); Calcium 8.2 mg/dL (8.4-10.2); Carbon Dioxide 23 mmol/L (22-30); Chloride 107 mmol/L (98-107); Glucose 116 mg/dL (74-99); Non-African American GFR(MDRD) >60 (>60 ml/min/1.73 sqM); Potassium 3.9 mmol/L (3.5-5.1); Sodium 139 mmol/L (137-145)
[2016-08-04] MEDS: diphenhydrAMINE 50 MG/ML 1 ML VIAL IVP PRN (09:26)
[2016-08-04] MEDS: PIPERACILLIN-TAZOBACTAM 3.375 GM in DEXTROSE/WATER 1 50ML.BAG IVPB SCH ×2 (09:28→19:43)
[2016-08-04] MEDS: FAMOTIDINE 20 MG/2 ML VIAL IV SCH ×2 (09:30→22:30)
[2016-08-04] MEDS: NICOTINE 21MG/24HR PATCH TRANSDERM SCH (09:32)
[2016-08-04] MEDS: ACETAMINOPHEN IV (For NPO) 1,000 MG in EMPTY BAG 1 BAG IVPB SCH ×2 (11:56→19:45)
[2016-08-04] MEDS: ALVIMOPAN 12 MG CAPSULE PO SCH ×2 (12:03→22:30)
[2016-08-04] MEDS ORDERED: MORPHINE PCA 30 MG/30 ML SYRINGE IV PRN (13:45)
[2016-08-04] MEDS ORDERED: NALOXONE 0.4 MG/ML 1 ML VIAL IV PRN ×2 (13:45→17:50)
--- NOTE | 2016-08-04 18:26 | P.PN ---
Subjective Principal diagnosis: Perforated diverticulitis with peritonitis The patient is a 50-year-old gentleman who is postop day 0 from perforated diverticulitis with peritonitis and sepsis him. Clinically he is doing remarkably well. His pain medication has been adjusted from Dilaudid which gives him itch. He's tolerating morphine PATENTS EXAMINER. He denies any active nausea. He has low appetite. Objective - Vital Signs Vital signs: Vital Signs Temp 98.9 F 08/04/16 14:40 Pulse 92 08/04/16 14:40 Resp 16 08/04/16 14:40 BP 110/81 08/04/16 14:40 Pulse Ox 96 08/04/16 16:49 Intake & Output 08/03/16 08/04/16 08/04/16 18:59 06:59 18:59 Intake Total 2500 Output Total 490 Balance 2009 Intake: IV 2500 Output: Drainage 90 Abdomen 90 Urine 350 Estimated Blood Loss 50 Other: Voiding Method Indwelling Catheter - Exam GENERAL: Well developed and in no acute distress. Pleasant. HEENT: No sclera icterus. Extraocular movements grossly intact. Moist buccal mucosa. Head is atraumatic, normocephalic. Hears conversational speech. No nasal drainage. NECK: Supple without lymphadenopathy. No JV distention. CHEST: Non-labored respirations and equal bilateral excursions. CARDIOVASCULAR: Regular rate and rhythm. Palpable 2+ radial pulses. ABDOMEN: Soft, mildly distended. Hypoactive bowel sounds. No peritonitis. Appropriate mild citlali-incisional tenderness. Serosanguineous dressing inferior aspect. Stoma patent, jia-colored with serosanguineous drainage. MUSCULOSKELETAL: No clubbing, cyanosis or edema. NEUROLOGIC: No focal or lateralizing signs. PSYCH: Appropriate affect. Alert and oriented to person, place and time. - Labs CBC & Chem 7: 08/04/16 08:04 08/04/16 08:04 Labs: Abnormal Lab Results - Last 24 Hours (Table) 08/04/16 08/04/16 Range/Units 08:04 08:04 WBC 16.3 H (3.8-10.6) k/uL Neutrophils # 13.7 H (1.3-7.7) k/uL Glucose 116 H (74-99) mg/dL Calcium 8.2 L (8.4-10.2) mg/dL Microbiology - Last 24 Hours (Table) 08/04/16 14:52 Anaerobic Culture - Preliminary Peritoneal Fluid Assessment and Plan (1) High risk for readmission Status: Acute (2) Perforation of sigmoid colon due to diverticulitis Status: Acute (3) Sepsis Status: Acute (4) Peritonitis (acute) generalized Status: Acute (5) Tobacco abuse Status: Chronic (6) Obesity (BMI 30.0-34.9) Status: Chronic (7) S/P colectomy Status: Acute (8) Colostomy status Status: Acute Plan: 1. He has done very well compared to last night. 2. PATENTS EXAMINER has been started with morphine for which he's tolerating. 3. He has dark urine for which IV fluid boluses recommended. We'll discontinue Leija catheter tomorrow morning. 4. Continue with IV antibiotics. Cultures will be adjusted pending microbiology reports. 5. Await bowel function. 6. Medicine team consult to from his initial hospitalization. 7. CARRIE teaching and management. 8. Stoma nurse education. 9. Social work consult regarding financial assistance.
[2016-08-04] MEDS: MORPHINE PCA 30 MG/30 ML SYRINGE IV PRN ×2 (18:52→23:04)
--- NOTE | 2016-08-04 23:00 | CONS ---
REASON FOR CONSULTATION: Pneumoperitoneum, antibiotic management. Patient is a 50-year-old gentleman who was discharged from the hospital by me yesterday. Patient presented with sigmoid diverticulitis with significant improvement. Shortly after discharge, even before he left the hospital garage, patient started having severe abdominal pain and patient has peritoneal signs of rebound and rigidity. Patient was started on Zosyn and CT of the abdomen was obtained, which showed perforation in the bend of the sigmoid colon area with free air. Patient underwent emergent laparotomy. Patient was severely septic when he came in because of the bowel perforation. REVIEW OF SYSTEMS: CONSTITUTIONAL: No fever, no malaise, no fatigue. HEENT: No recent visual problems or hearing problems. Denied any sore throat. CARDIOVASCULAR: No chest pain, orthopnea, PND, no palpitations, no syncope. PULMONARY: No shortness of breath, no cough, no hemoptysis. GASTROINTESTINAL: As described in HPI. NEUROLOGICAL: No headaches, no weakness, no numbness. HEMATOLOGICAL: Denies any bleeding or petechiae. GENITOURINARY: Denies any burning micturition, frequency, or urgency. MUSCULOSKELETAL/RHEUMATOLOGICAL: Denies any joint pain, swelling, or any muscle pain. ENDOCRINE: Denies any polyuria or polydipsia. The rest of the 14 point review of systems is negative. Medications were reviewed. Home medications include: 1. Ciprofloxacin. 2. Metronidazole and 3. Hoffmeister for pain. FAMILY HISTORY: Mother had CVA, TIAs. Sister with cancer. SOCIAL HISTORY: Smoker, smokes about 1 pack per day. Denied any alcohol abuse or any drug abuse. PAST MEDICAL HISTORY: Gastroesophageal reflux disease, diverticulitis, peptic ulcer disease. PHYSICAL EXAMINATION: VITAL SIGNS: Pulse of 94, respiratory rate of 18, blood pressure is 130/78, saturating at 93% on 3L of O2 by nasal cannula. PHYSICAL EXAMINATION: GENERAL: The patient is alert and oriented x3, not in any acute distress. Well developed, well nourished. HEENT: Pupils are round and equally reacting to light. EOMI. No scleral icterus. No conjunctival pallor. Normocephalic, atraumatic. No pharyngeal erythema. No thyromegaly. CARDIOVASCULAR: S1 and S2 present. No murmurs, rubs, or gallops. PULMONARY: Chest is clear to auscultation, no wheezing or crackles. ABDOMEN: Patient's abdomen is still a little bit tender. Patient did not have any peritoneal signs now, with sluggish bowel sounds. MUSCULOSKELETAL: No joint swelling or deformity. EXTREMITIES: No cyanosis, clubbing, or pedal edema. NEUROLOGICAL: Gross neurological examination did not reveal any focal deficits. SKIN: No rashes. LABORATORY DATA: CBC, CMP are abnormal for elevated WBC count of 17,800. ASSESSMENT: 1. Severe sepsis secondary to peritonitis and perforated sigmoid colon. Zosyn as mentioned above. 2. Continued nicotine use. 3. Obesity. 4. Sigmoid diverticulitis. PLAN: Continue with broad-spectrum antibiotics, IV fluids and patient is on morphine GOLD MARKER pump for pain because of uncontrolled pain in spite of Dilaudid. Thanks for letting me participate in the patient's care. Will continue to follow the patient.
[2016-08-05] MEDS: ACETAMINOPHEN IV (For NPO) 1,000 MG in EMPTY BAG 1 BAG IVPB SCH ×2 (00:10→06:25)
[2016-08-05] MEDS: METOCLOPRAMIDE 5 MG/ML 2 ML VIAL IVP SCH ×5 (00:48→23:28)
[2016-08-05] MEDS: HEPARIN SODIUM,PORCINE 5,000 UNIT/ML 1 ML VIAL SQ SCH ×4 (00:49→23:28)
[2016-08-05] MEDS: metroNIDAZOLE-NS PMX 500 MG in SALINE 1 100ML.BAG IVPB SCH ×4 (00:49→23:28)
[2016-08-05] MEDS: diphenhydrAMINE 50 MG/ML 1 ML VIAL IVP PRN (01:01)
[2016-08-05] MEDS: PIPERACILLIN-TAZOBACTAM 3.375 GM in DEXTROSE/WATER 1 50ML.BAG IVPB SCH ×4 (02:02→23:28)
[2016-08-05] MEDS ORDERED: METOPROLOL TARTRATE 50 MG TAB PO STA (04:42)
[2016-08-05] MEDS: MORPHINE PCA 30 MG/30 ML SYRINGE IV PRN ×4 (05:25→19:01)
[2016-08-05] MEDS: SODIUM CHLORIDE 0.9% 1,000 ML IV SCH ×5 (05:38→20:02)
[2016-08-05 07:15] LABS: Basophils # (A) 0.1 k/uL (0-0.2); Basophils % (A) 0 %; CH 31.1; CHCM 32.2; Eosinophils % (A) 0 %; HCT 40.5 % (39.0-53.0); HDW 2.73; HGB 12.9 gm/dL (13.0-17.5); Luc # (Auto) 0.14; Luc % (Auto) 1; Lymphocytes # (A) 1.4 k/uL (1.0-4.8); Lymphocytes % (A) 9 %; MCH 31.1 pg (25.0-35.0); MCHC 31.9 g/dL (31.0-37.0); MCV 97.3 fL (80.0-100.0); Mean Platelet Volume 8.5; Monocytes % (A) 6 %; Neutrophils # (A) 12.9 k/uL (1.3-7.7); Neutrophils % (A) 83 %; RBC 4.16 m/uL (4.30-5.90); RDW 12.4 % (11.5-15.5); WBC 15.5 k/uL (3.8-10.6); WBC (Perox) 16.44
[2016-08-05] MEDS: FAMOTIDINE 20 MG/2 ML VIAL IV SCH ×2 (08:00→20:02)
[2016-08-05] MEDS: NICOTINE 21MG/24HR PATCH TRANSDERM SCH (08:01)
[2016-08-05] MEDS: MAGNESIUM SULFATE-D5W PMX 1 GM in DEXTROSE/WATER 1 100ML.BAG IVPB SCH ×3 (08:33→12:54)
[2016-08-05] MEDS ORDERED: METOPROLOL TARTRATE 50 MG TAB PO SCH ×2 (09:00→12:00)
[2016-08-05] MEDS ORDERED: TAMSULOSIN 0.4 MG CAP.ER.24H PO STA (12:32)
--- NOTE | 2016-08-05 12:40 | P.PN ---
Subjective Principal diagnosis: Perforated diverticulitis with peritonitis The patient is a 50-year-old gentleman who is postop day 1 from perforated diverticulitis with peritonitis and sepsis. Overnight, he spiked temperatures and became tachycardic however still comfortable. This morning he reports feeling a passage of flatus through his stoma. He denies any moderate abdominal pain. His pain is controlled with the C WPF DEVELOPER. He is ambulating. He received fluid boluses overnight. He reports minimal appetite. Overall, he is doing extraordinarily well over the last 48 hours. He is using his incentive spirometer. His family is at bedside. Objective - Vital Signs Vital signs: Vital Signs Temp 99.0 F 08/05/16 07:00 Pulse 110 H 08/05/16 07:00 Resp 16 08/05/16 07:00 BP 123/79 08/05/16 07:00 Pulse Ox 94 L 08/05/16 07:00 Intake & Output 08/04/16 08/05/16 08/05/16 18:59 06:59 18:59 Intake Total 3200 Output Total 160 1430 700 Balance -160 1770 -700 Intake: IV 3200 Sodium Chloride 0.9% 1, 2200 000 ml @ 200 mls/hr IV . Q5H CAMACHO Rx#:[id number] Sodium Chloride 0.9% 1, 1000 000 ml @ 999 mls/hr IV . Q1H1M ONE Rx#:[id number] Output: Drainage 160 290 Abdomen 160 220 Lower Abdomen 0 70 Urine 1140 700 Uretheral (Leija) 1140 700 Other: Voiding Method Indwelling Catheter Indwelling Catheter - Exam GENERAL: Well developed and in no acute distress. Pleasant. HEENT: No sclera icterus. Extraocular movements grossly intact. Moist buccal mucosa. Head is atraumatic, normocephalic. Hears conversational speech. No nasal drainage. NECK: Supple without lymphadenopathy. No JV distention. CHEST: Non-labored respirations and equal bilateral excursions. CARDIOVASCULAR: Tachycardic. Palpable 2+ radial pulses. ABDOMEN: Soft, with minimal distention. No peritoneal signs. Stoma dark red color and viable with serosanguineous drainage. A smear of stool noted along the os of the ostomy. Dressing with serosanguineous drainage and Dixon along the inferior aspect. CARRIE serous than sanguinous. MUSCULOSKELETAL: No clubbing, cyanosis or edema. NEUROLOGIC: No focal or lateralizing signs. - Labs CBC & Chem 7: 08/05/16 06:33 08/04/16 08:04 Labs: Abnormal Lab Results - Last 24 Hours (Table) 08/05/16 Range/Units 06:33 WBC 15.5 H (3.8-10.6) k/uL RBC 4.16 L (4.30-5.90) m/uL Hgb 12.9 L (13.0-17.5) gm/dL Neutrophils # 12.9 H (1.3-7.7) k/uL Microbiology - Last 24 Hours (Table) 08/04/16 14:52 Anaerobic Culture - Preliminary Peritoneal Fluid Assessment and Plan (1) High risk for readmission Status: Acute (2) Perforation of sigmoid colon due to diverticulitis Status: Acute (3) Sepsis Status: Acute (4) Peritonitis (acute) generalized Status: Acute (5) Tobacco abuse Status: Chronic (6) Obesity (BMI 30.0-34.9) Status: Chronic (7) S/P colectomy Status: Acute (8) Colostomy status Status: Acute (9) Tachycardia Status: Acute (10) Fever Status: Acute Plan: 1. He had moderate dehydration however with IV fluid boluses his urine output has improved as well as his tachycardia has improved. 2. Start of clear liquid diet. 3. As his heart rate was maintained over 120s for 4-6 hours, he has been started on metoprolol with excellent response. 4. Currently microbiology results are pending to address his IV antibiotics. 5. Pending social work services for indigent care. 6. Continue with CARRIE drain for moderate peritoneal fluid as expected from abdominal lavage. 7. Discontinue Leija. 8. Change antibiotic dressings including a long CARRIE site with CHG Tegaderm. 9. With his remarkable recovery, disposition pending resolution of leukocytosis and tolerating liquid diet. 10. Stoma education and stoma nurse for ostomy care. 11. Anticipated hospitalization and disposition home in another 4-5 days. 12. Sepsis is controlled.
--- NOTE | 2016-08-05 21:29 | P.PN ---
Progress Note - Text Patient reevaluated this evening. He had small emesis with liquids. Stoma care nurse education was performed. I discussed with him adjustment of his morphine with start of oral pain meds. He has expected ileus for which diet will be cautiously administered.
[2016-08-05] MEDS ORDERED: HYDROcodone/APAP 7.5-325MG 1 EACH TAB PO ONE (21:32)
[2016-08-05] MEDS: KETOROLAC 30 MG/ML 1 ML VIAL IVP SCH (23:29)
[2016-08-06] MEDS: 0.9% NACL WITH KCL 20 MEQ/L 1,000 ML IV SCH ×2 (01:39→10:59)
[2016-08-06] MEDS: diphenhydrAMINE 50 MG/ML 1 ML VIAL IVP PRN ×2 (02:27→10:59)
[2016-08-06] MEDS: MORPHINE PCA 30 MG/30 ML SYRINGE IV PRN ×2 (03:18→10:58)
[2016-08-06] MEDS: METOCLOPRAMIDE 5 MG/ML 2 ML VIAL IVP SCH ×4 (05:18→22:58)
[2016-08-06] MEDS: KETOROLAC 30 MG/ML 1 ML VIAL IVP SCH ×2 (05:18→12:30)
[2016-08-06 07:14] LABS: Basophils % (A) 0 %; CH 31.3; CHCM 33.2; Eosinophils # (A) 0.4 k/uL (0-0.7); Eosinophils % (A) 3 %; HDW 2.77; HGB 12.3 gm/dL (13.0-17.5); Luc % (Auto) 1; Lymphocytes # (A) 2.1 k/uL (1.0-4.8); Lymphocytes % (A) 15 %; MCH 30.6 pg (25.0-35.0); MCHC 32.4 g/dL (31.0-37.0); MCV 94.6 fL (80.0-100.0); Mean Platelet Volume 7.4; Monocytes # (A) 0.9 k/uL (0-1.0); Monocytes % (A) 6 %; Neutrophils # (A) 10.3 k/uL (1.3-7.7); Neutrophils % (A) 74 %; RBC 4.01 m/uL (4.30-5.90); RDW 12.1 % (11.5-15.5); WBC 13.9 k/uL (3.8-10.6); WBC (Perox) 15.26
[2016-08-06] MEDS ORDERED: TAMSULOSIN 0.4 MG CAP.ER.24H PO SCH (08:30)
[2016-08-06] MEDS ORDERED: METOPROLOL TARTRATE 50 MG TAB PO SCH ×2 (09:00)
[2016-08-06] MEDS: NICOTINE 21MG/24HR PATCH TRANSDERM SCH (10:59)
[2016-08-06] MEDS: metroNIDAZOLE-NS PMX 500 MG in SALINE 1 100ML.BAG IVPB SCH ×3 (11:00→22:58)
[2016-08-06] MEDS: HEPARIN SODIUM,PORCINE 5,000 UNIT/ML 1 ML VIAL SQ SCH ×3 (11:00→22:59)
[2016-08-06] MEDS: FAMOTIDINE 20 MG/2 ML VIAL IV SCH (11:01)
[2016-08-06] MEDS: PIPERACILLIN-TAZOBACTAM 3.375 GM in DEXTROSE/WATER 1 50ML.BAG IVPB SCH ×3 (12:40→22:58)
[2016-08-06] MEDS ORDERED: HYDROCORTISONE 1% CREAM 30 GM TUBE TOPICAL PRN (13:05)
[2016-08-06 13:51] LABS: Anion Gap 10 mmol/L; Blood Urea Nitrogen 9 mg/dL (9-20); Calcium 7.8 mg/dL (8.4-10.2); Carbon Dioxide 23 mmol/L (22-30); Chloride 104 mmol/L (98-107); Glucose 106 mg/dL (74-99); Non-African American GFR(MDRD) >60 (>60 ml/min/1.73 sqM); Potassium 3.5 mmol/L (3.5-5.1); Sodium 137 mmol/L (137-145)
--- NOTE | 2016-08-06 15:35 | P.PN ---
Subjective Principal diagnosis: Perforated diverticulitis with peritonitis and sepsis The patient is a 50-year-old gentleman who is postop day 2 from perforated diverticulitis with peritonitis and sepsis. His sepsis is resolving. He is ambulating much. No reports of nausea and vomiting today. No further fevers. He is urinating well. His pain is under better control. He is tolerating liquid diet. His stoma is working. Objective - Vital Signs Vital signs: Vital Signs Temp 96.8 F L 08/06/16 07:00 Pulse 93 08/06/16 07:00 Resp 16 08/06/16 07:00 BP 145/96 08/06/16 07:00 Pulse Ox 94 L 08/06/16 07:00 Intake & Output 08/05/16 08/06/16 08/06/16 18:59 06:59 18:59 Intake Total 1750 0 Output Total 1170 1925 280 Balance 580 -1925 -280 Intake: IV 1300 Sodium Chloride 0.9% 1, 1300 000 ml @ 200 mls/hr IV . Q5H [facility] Rx#:[id number] Intake, IV Titration 450 Amount Magnesium Sulfate-D5w Pmx 300 1 gm In Dextrose/Water 1 100ml.bag @ 100 mls/hr IVPB Q1H [facility] Rx#: [id number] Piperacillin-Tazobactam 3 50 .375 gm In Dextrose/Water 1 50ml.bag @ 12.5 mls/hr IVPB Q8HR [facility] Rx#: [id number] metroNIDAZOLE-NS PMX 500 100 mg In Saline 1 100ml.bag @ 100 mls/hr IVPB Q8HR [facility] Rx#:[id number] Oral 0 Output: Drainage 70 275 80 Lower Abdomen 70 275 80 Urine 1100 1650 200 Uretheral (Leija) 1100 Other: Voiding Method Indwelling Catheter Toilet Urinal # Voids 1 - Exam GENERAL: Well developed and in no acute distress. Pleasant. HEENT: No sclera icterus. Extraocular movements grossly intact. Moist buccal mucosa. Head is atraumatic, normocephalic. Hears conversational speech. No nasal drainage. NECK: Supple without lymphadenopathy. No JV distention. CHEST: Non-labored respirations and equal bilateral excursions. CARDIOVASCULAR: Regular rate. Palpable 2+ radial pulses. ABDOMEN: Soft without distention. Stoma dark red color and viable with serosanguineous drainage. Minimal air in ostomy appliance. Midline incision dressing was changed with serosanguineous drainage from Angela along the inferior abdomen. No signs of infection. CARRIE serous. MUSCULOSKELETAL: No clubbing, cyanosis or edema. NEUROLOGIC: No focal or lateralizing signs. SKIN: Erythema from nicotine patches including rash along posterior upper arm along the left side. - Labs CBC & Chem 7: 08/06/16 06:42 08/06/16 13:19 Labs: Abnormal Lab Results - Last 24 Hours (Table) 08/06/16 08/06/16 Range/Units 06:42 13:19 WBC 13.9 H (3.8-10.6) k/uL RBC 4.01 L (4.30-5.90) m/uL Hgb 12.3 L (13.0-17.5) gm/dL Hct 38.0 L (39.0-53.0) % Neutrophils # 10.3 H (1.3-7.7) k/uL Creatinine 0.62 L (0.66-1.25) mg/dL Glucose 106 H (74-99) mg/dL Calcium 7.8 L (8.4-10.2) mg/dL Microbiology - Last 24 Hours (Table) 08/04/16 14:52 Anaerobic Culture - Preliminary Peritoneal Fluid Assessment and Plan (1) High risk for readmission Status: Acute (2) Perforation of sigmoid colon due to diverticulitis Status: Acute (3) Sepsis Status: Acute (4) Peritonitis (acute) generalized Status: Acute (5) Tobacco abuse Status: Chronic (6) Obesity (BMI 30.0-34.9) Status: Chronic (7) S/P colectomy Status: Acute (8) Colostomy status Status: Acute (9) Tachycardia Status: Acute (10) Fever Status: Acute (11) Adverse reaction to nicotine patch Status: Acute Plan: 1. His tachycardia is resolved without additional medications. 2. His fever is also resolved. 3. His ostomy has flatus without moderate stool. 4. He is starting to tolerate liquid diet. We'll advance to full liquid diet. 5. Postoperative diet was discussed in detail. 6. CARRIE tube is discontinued in the office versus prior to discharge. 7. I personally discussed the care plan of the patient with the bacteriologist medical, Dr. Tay. Patient has remarkably recovered from sepsis. Anticipated discharge pending resolution of leukocytosis. 8. He has developed an ALLERGY to nicotine patch which has been discontinued. Hydrocortisone cream ordered per medicine team. 9. Disposition in 48 hours.
[2016-08-06] MEDS ORDERED: POTASSIUM CHLORIDE ER 20 MEQ TAB.ER PO STA (15:53)
--- NOTE | 2016-08-06 16:08 | P.PN ---
Subjective Date of service 08/05/2016. Personal being dictated for Dr. Tay Interval history: This is a 50-year-old gentleman admitted with severe sepsis secondary to peritonitis, perforated sigmoid colon, and multiple other medical issues in a patient who continues to smoke. Maintained on Zosyn, IV fluid hydration. Last night spiked fever of 100.7,, tachycardic, received fluid boluses. 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 Mild tachycardia today, heart rates in the 110s, blood pressure stable with MAP in the 90s. IV fluids running at 200 MLS per hour. No stooling in ostomy, passing flatus. Minimal intake of clears, denies nausea or emesis.Incentive spirometer up to 2500.ambulating , tolerating exertion well .denies chest pain, palpitations or increased shortness of breath. TSH 1.39. Magnesium 1.6. T-max 100.7, leukocytosis improving. Peritoneal fluid cultures pending, preliminary blood cultures negative. Objective - Vital Signs Vital signs: Vital Signs Temp 99.0 F 08/05/16 07:00 Pulse 92 08/05/16 13:10 Resp 16 08/05/16 07:00 BP 140/92 08/05/16 13:10 Pulse Ox 94 L 08/05/16 07:00 Intake & Output 08/04/16 08/05/16 08/05/16 18:59 06:59 18:59 Intake Total 3200 Output Total 160 1430 1100 Balance -160 1770 -1100 Intake: IV 3200 Sodium Chloride 0.9% 1, 2200 000 ml @ 200 mls/hr IV . Q5H [facility] Rx#:[id number] Sodium Chloride 0.9% 1, 1000 000 ml @ 999 mls/hr IV . Q1H1M [facility] Rx#:[id number] Output: Drainage 160 290 Abdomen 160 220 Lower Abdomen 0 70 Urine 1140 1100 Uretheral (Leija) 1140 1100 Other: Voiding Method Indwelling Catheter Indwelling Catheter - Exam PHYSICAL EXAM: VITAL SIGNS: As above GENERAL: [Sitting up in bed, no acute distress] HEENT: [Pupils equal conjunctiva normal.] NECK: [Supple, no JVD] RESPIRATORY EFFORT:[Normal] LUNGS: [Clear to auscultation, no wheezing, no crackles, no rhonchi] CARDIOVASCULAR[regular S1 and S2, tachycardic, no murmurs rubs or gallops, no edema] GI: [Abdomen soft, mildly distended, status post surgery, abdominal dressing- reinforced, ostomy with minimal serosanguineous drainage , [place] & CARRIE drains present, hypoactive bowel sounds.] PSYCH: [Alert and oriented -3, mood and affect normal.] NEURO: No focal deficits, moves all 4 extremities, strength and sensation grossly intact - Labs CBC & Chem 7: 08/06/16 06:42 08/06/16 13:19 Labs: Abnormal Lab Results - Last 24 Hours (Table) 08/05/16 Range/Units 06:33 WBC 15.5 H (3.8-10.6) k/uL RBC 4.16 L (4.30-5.90) m/uL Hgb 12.9 L (13.0-17.5) gm/dL Neutrophils # 12.9 H (1.3-7.7) k/uL Microbiology - Last 24 Hours (Table) 08/04/16 14:52 Anaerobic Culture - Preliminary Peritoneal Fluid Assessment and Plan Plan: 1. [Severe sepsis, secondary to peritonitis and perforated sigmoid colon, status post colectomy]. 2. [Continued nicotine use]. 3. [Obesity, BMI 30.3]. 4. [Sigmoid diverticulitis]. 5. [Tachycardia multifactorial secondary to expected hypovolemia related to abdominal surgery, pain, continue with pain management and IV fluid resuscitation. 6. [Hypomagnesemia]. Plan: Continue on current medication regime ,monitoring and symptomatic treatment. Tachycardia improving with IV fluid hydration, maintain IV fluids at 200 MLS per hour. No beta blockers, needs fluid resuscitation. Magnesium supplements as ordered. Aggressive pulmonary toileting, reinstructed patient to use every hour 10 while awake. Increase ambulation as tolerated. Smoking cessation readdressed. Continue following cultures closely. The impression and plan of care has been dictated as directed. : I performed a H&P examination of this patient and discussed the same with the dictator. I agree with the dictator's note. Any additional findings/opinions/ etc. will be noted.
--- NOTE | 2016-08-06 16:30 | P.PN ---
Subjective Date of service 08/06/2016. Personal being dictated for Dr. Tay Interval history: This is a 50-year-old gentleman admitted with severe sepsis secondary to peritonitis, perforated sigmoid colon, and multiple other medical issues in a patient who continues to smoke. Maintained on Zosyn, IV fluid hydration. Fevers subsided, tachycardia resolved. Pain better controlled today. No stooling in ostomy, passing flatus. Last night had a small emesis. Today ,25% intake of clears, denies nausea or emesis.Incentive spirometer up to 3000.ambulating , tolerating exertion well . Received ostomy teaching yesterday.Denies chest pain, palpitations or increased shortness of breath. Afebrile, WBC 13.9. Potassium 3.5. Objective - Vital Signs Vital signs: Vital Signs Temp 96.8 F L 08/06/16 07:00 Pulse 93 08/06/16 07:00 Resp 16 08/06/16 07:00 BP 145/96 08/06/16 07:00 Pulse Ox 94 L 08/06/16 07:00 Intake & Output 08/05/16 08/06/16 08/06/16 18:59 06:59 18:59 Intake Total 1750 0 Output Total 1170 1925 280 Balance 580 -1925 -280 Intake: IV 1300 Sodium Chloride 0.9% 1, 1300 000 ml @ 200 mls/hr IV . Q5H [facility] Rx#:[id number] Intake, IV Titration 450 Amount Magnesium Sulfate-D5w Pmx 300 1 gm In Dextrose/Water 1 100ml.bag @ 100 mls/hr IVPB Q1H [facility] Rx#: [id number] Piperacillin-Tazobactam 3 50 .375 gm In Dextrose/Water 1 50ml.bag @ 12.5 mls/hr IVPB Q8HR [facility] Rx#: [id number] metroNIDAZOLE-NS PMX 500 100 mg In Saline 1 100ml.bag @ 100 mls/hr IVPB Q8HR [facility] Rx#:[id number] Oral 0 Output: Drainage 70 275 80 Lower Abdomen 70 275 80 Urine 1100 1650 200 Uretheral (Leija) 1100 Other: Voiding Method Indwelling Catheter Toilet Urinal # Voids 1 - Exam PHYSICAL EXAM: VITAL SIGNS: As above GENERAL: [Sitting up in bed, no acute distress] HEENT: [Pupils equal conjunctiva normal.] NECK: [Supple, no JVD] RESPIRATORY EFFORT:[Normal] LUNGS: [Clear to auscultation, no wheezing, no crackles, no rhonchi] CARDIOVASCULAR[regular S1 and S2, tachycardic, no murmurs rubs or gallops, no edema] GI: [Abdomen soft, mildly distended, status post surgery, abdominal dressing, ostomy with minimal serosanguineous drainage , [place] & CARIRE drains present with serosanguineous drainage, hypoactive bowel sounds.] EXTREMITIES: Rash on bilateral arms, greater on left, itchy, clear drainage; redness at previous nicotine patch sites PSYCH: [Alert and oriented -3, mood and affect normal.] NEURO: No focal deficits, moves all 4 extremities, strength and sensation grossly intact - Labs CBC & Chem 7: 08/06/16 06:42 08/06/16 13:19 Labs: Abnormal Lab Results - Last 24 Hours (Table) 08/06/16 08/06/16 Range/Units 06:42 13:19 WBC 13.9 H (3.8-10.6) k/uL RBC 4.01 L (4.30-5.90) m/uL Hgb 12.3 L (13.0-17.5) gm/dL Hct 38.0 L (39.0-53.0) % Neutrophils # 10.3 H (1.3-7.7) k/uL Creatinine 0.62 L (0.66-1.25) mg/dL Glucose 106 H (74-99) mg/dL Calcium 7.8 L (8.4-10.2) mg/dL Microbiology - Last 24 Hours (Table) 08/04/16 14:52 Anaerobic Culture - Preliminary Peritoneal Fluid Assessment and Plan Plan: 1. [Severe sepsis, secondary to peritonitis and perforated sigmoid colon, status post colectomy]. 2. [Continued nicotine use]. 3. [Obesity, BMI 30.3]. 4. [Sigmoid diverticulitis]. 5. [Tachycardia multifactorial secondary to expected hypovolemia related to abdominal surgery, pain, continue with pain management and IV fluid resuscitation, resolved. 6. [Hypomagnesemia]. 7. Hypokalemia 8. Rash, bilateral arms, suspect contact/ALLERGIC dermatitis. Plan: Continue on current medication regime ,monitoring and symptomatic treatment. Hydrocortisone topical cream to rash, along with Benadryl .Maintain IV fluid hydration. Potassium supplements ordered. Close monitoring of electrolytes with repeat labs ordered for a.m. Aggressive pulmonary toileting, IS reinforced. Increase ambulation as tolerated. Pain management as per surgery.Continue following cultures closely. The impression and plan of care has been dictated as directed. : I performed a H&P examination of this patient and discussed the same with the dictator. I agree with the dictator's note. Any additional findings/opinions/ etc. will be noted.
[2016-08-06] MEDS: IBUPROFEN 600 MG TAB PO SCH ×2 (17:12→22:58)
[2016-08-06] MEDS: POTASSIUM CHLORIDE 20 MEQ, LIDOCAINE 2% INJ 20 MG in SODIUM CHLORIDE 0.9% 100 ML IVPB SCH ×2 (17:18→20:26)
[2016-08-06] MEDS ORDERED: KETOROLAC 30 MG/ML 1 ML VIAL IVP STA (19:00)
[2016-08-06] MEDS: MORPHINE SULFATE 4 MG/ML SYRINGE IVP PRN ×2 (19:03→23:31)
[2016-08-06] MEDS: ONDANSETRON 4 MG/2 ML VIAL IVP SCH ×2 (19:20→22:58)
[2016-08-07] MEDS: MORPHINE SULFATE 4 MG/ML SYRINGE IVP PRN ×4 (02:34→21:02)
[2016-08-07] MEDS: METOCLOPRAMIDE 5 MG/ML 2 ML VIAL IVP SCH ×4 (05:42→23:36)
[2016-08-07] MEDS: ONDANSETRON 4 MG/2 ML VIAL IVP SCH ×4 (05:42→17:21)
[2016-08-07 07:24] LABS: Basophils % (A) 0 %; CH 31.5; CHCM 34.3; Eosinophils # (A) 0.4 k/uL (0-0.7); Eosinophils % (A) 3 %; HCT 39.6 % (39.0-53.0); Luc # (Auto) 0.11; Luc % (Auto) 1; Lymphocytes # (A) 1.4 k/uL (1.0-4.8); Lymphocytes % (A) 10 %; MCH 30.3 pg (25.0-35.0); MCHC 32.9 g/dL (31.0-37.0); MCV 92.1 fL (80.0-100.0); Mean Platelet Volume 7.8; Monocytes % (A) 7 %; Neutrophils # (A) 10.4 k/uL (1.3-7.7); Neutrophils % (A) 78 %; RDW 12.2 % (11.5-15.5); WBC 13.2 k/uL (3.8-10.6); WBC (Perox) 13.76
[2016-08-07] MEDS: metroNIDAZOLE-NS PMX 500 MG in SALINE 1 100ML.BAG IVPB SCH ×3 (07:42→23:39)
[2016-08-07] MEDS: IBUPROFEN 600 MG TAB PO SCH ×2 (07:42→16:11)
[2016-08-07] MEDS: HEPARIN SODIUM,PORCINE 5,000 UNIT/ML 1 ML VIAL SQ SCH ×2 (07:42→16:21)
[2016-08-07] MEDS: FAMOTIDINE 20 MG TAB PO SCH (07:42)
[2016-08-07 07:47] LABS: Anion Gap 9 mmol/L; Blood Urea Nitrogen 7 mg/dL (9-20); Carbon Dioxide 24 mmol/L (22-30); Chloride 105 mmol/L (98-107); Glucose 103 mg/dL (74-99); Non-African American GFR(MDRD) >60 (>60 ml/min/1.73 sqM); Potassium 3.9 mmol/L (3.5-5.1); Sodium 138 mmol/L (137-145)
[2016-08-07] MEDS ORDERED: 0.9% NACL WITH KCL 20 MEQ/L 1,000 ML IV SCH (08:00)
[2016-08-07] MEDS: PIPERACILLIN-TAZOBACTAM 3.375 GM in DEXTROSE/WATER 1 50ML.BAG IVPB SCH ×2 (09:15→16:23)
[2016-08-07] MEDS: METOPROLOL TARTRATE 25 MG TAB PO SCH ×2 (13:13→21:12)
[2016-08-07] MEDS: HYDROCORTISONE 1% CREAM 30 GM TUBE TOPICAL SCH (16:11)
[2016-08-07 16:38] LABS: Basophils % (A) 0 %; CH 31.8; CHCM 34.7; Eosinophils # (A) 0.4 k/uL (0-0.7); Eosinophils % (A) 3 %; HCT 38.2 % (39.0-53.0); HDW 2.82; HGB 12.8 gm/dL (13.0-17.5); Luc # (Auto) 0.12; Luc % (Auto) 1; Lymphocytes # (A) 1.5 k/uL (1.0-4.8); Lymphocytes % (A) 12 %; MCH 30.7 pg (25.0-35.0); MCHC 33.4 g/dL (31.0-37.0); MCV 92.1 fL (80.0-100.0); Mean Platelet Volume 7.7; Monocytes % (A) 8 %; Neutrophils # (A) 9.3 k/uL (1.3-7.7); Neutrophils % (A) 76 %; RBC 4.15 m/uL (4.30-5.90); RDW 12.1 % (11.5-15.5); WBC 12.2 k/uL (3.8-10.6); WBC (Perox) 13.09
[2016-08-07] MEDS ORDERED: SODIUM CHLORIDE 0.9% 1,000 ML IV ONE (16:57)
--- NOTE | 2016-08-07 17:03 | P.PN ---
Subjective Principal diagnosis: Perforated diverticulitis with peritonitis and sepsis The patient is a 50-year-old gentleman who is postop day 3 from perforated diverticulitis with peritonitis and sepsis. Overnight, he had emesis and intolerance to full liquid diet as result of milk exposure. He became tachycardic. He reports that this morning he had more pain than yesterday. He has minimal appetite as he does not like his food choices. He is ambulating more than 4 times daily. He has some flatus in his ostomy. No reports of fevers or chills. He has nausea controlled with antiemetics. Objective - Vital Signs Vital signs: Vital Signs Temp 97.8 F 08/07/16 15:00 Pulse 101 H 08/07/16 16:00 Resp 16 08/07/16 16:00 BP 130/92 08/07/16 15:00 Pulse Ox 96 08/07/16 15:00 Intake & Output 08/06/16 08/07/16 08/07/16 18:59 06:59 18:59 Intake Total 240 Output Total 281 743 1738 Balance -995 -925 -1060 Intake: Oral 240 Output: Drainage 545 175 100 Abdomen 0 60 Lower Abdomen 545 175 40 Urine 153 535 3134 Stool 50 Other: Voiding Method Toilet Toilet Urinal Urinal # Voids 1 - Exam GENERAL: Well developed and in no acute distress. Pleasant. HEENT: No sclera icterus. Extraocular movements grossly intact. Moist buccal mucosa. Head is atraumatic, normocephalic. Hears conversational speech. No nasal drainage. NECK: Supple without lymphadenopathy. No JV distention. CHEST: Non-labored respirations and equal bilateral excursions. CARDIOVASCULAR: Tachycardic. Palpable 2+ radial pulses. ABDOMEN: Soft without distention. Stoma edges now pink with mproved color compared to yesterday. Ostomy mucosa is sloughing along the os as to be expected. Ostomy appliance with serosanguineous drainage and minimal flatus. Midline incision without erythema. Joss[place] intact. [place] drain intact. CARRIE is serous and sanguinous. MUSCULOSKELETAL: No clubbing, cyanosis or edema. NEUROLOGIC: No focal or lateralizing signs. SKIN: Rash along the arm moderately improved. - Labs CBC & Chem 7: 08/08/16 06:52 08/08/16 06:52 Labs: Abnormal Lab Results - Last 24 Hours (Table) 08/07/16 08/07/16 08/07/16 Range/Units 06:56 06:56 16:11 WBC 13.2 H 12.2 H (3.8-10.6) k/uL RBC 4.15 L (4.30-5.90) m/uL Hgb 12.8 L (13.0-17.5) gm/dL Hct 38.2 L (39.0-53.0) % Neutrophils # 10.4 H 9.3 H (1.3-7.7) k/uL BUN 7 L (9-20) mg/dL Glucose 103 H (74-99) mg/dL Calcium 8.0 L (8.4-10.2) mg/dL Microbiology - Last 24 Hours (Table) 08/04/16 14:52 Anaerobic Culture - Preliminary Peritoneal Fluid Assessment and Plan (1) High risk for readmission Status: Acute (2) Perforation of sigmoid colon due to diverticulitis Status: Acute (3) Sepsis Status: Acute (4) Peritonitis (acute) generalized Status: Acute (5) Tobacco abuse Status: Chronic (6) Obesity (BMI 30.0-34.9) Status: Chronic (7) S/P colectomy Status: Acute (8) Colostomy status Status: Acute (9) Tachycardia Status: Acute (10) Fever Status: Acute (11) Adverse reaction to nicotine patch Status: Acute (12) Essential hypertension Status: Acute Plan: 1. Medicine has now placed the patient on metoprolol from previous discussion. 2. Patient is not surgically clear for discharge given rebound tachycardia and rebound abdominal pain with trial of full liquid diet. 3. Will adjust diet to lactose-free including bariatric full liquid high- protein diet. Family may also bring in food of similar consistency. 4. Patient still has persistent leukocytosis as to be expected with history of sepsis. I have resent CARRIE cultures for bacterial organisms and adjustment of antibiotics. 5. Adjustment of pain medications to include [place] which he has tolerated in the past. 6. He has been placed back on Entereg protocol. 7. He is a high risk for readmission for history of sepsis and previous peritonitis. 8. Discharge pending vital signs stability with tolerance of pain medication including diet and normalization of leukocytosis.
--- NOTE | 2016-08-07 17:09 | P.PN ---
Subjective Date of service 08/07/2016. Personal being dictated for Dr. Tay Interval history: This is a 50-year-old gentleman admitted with severe sepsis secondary to peritonitis, perforated sigmoid colon, and multiple other medical issues. Maintained on Zosyn, IV fluid hydration. Despite fluid resuscitation, mild tachycardia resumed this morning .Less pain today. Passing flatus and serosanguineous drainage in colostomy bag. 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 Rash on arms improving .no further emesis, consuming 25% of full liquids, without nausea or emesis.Incentive Ambulating in hallway, multiple laps , tolerating exertion well. Preliminary peritoneal fluid cultures and blood cultures negative. Afebrile, leukocytosis improving. Objective - Vital Signs Vital signs: Vital Signs Temp 97.8 F 08/07/16 15:00 Pulse 101 H 08/07/16 15:00 Resp 16 08/07/16 15:00 BP 130/92 08/07/16 15:00 Pulse Ox 96 08/07/16 15:00 Intake & Output 08/06/16 08/07/16 08/07/16 18:59 06:59 18:59 Intake Total 240 Output Total 995 925 515 Balance -995 -925 -275 Intake: Oral 240 Output: Drainage 545 175 40 Abdomen 0 Lower Abdomen 545 175 40 Urine 450 750 450 Stool 25 Other: Voiding Method Toilet Toilet Urinal Urinal # Voids 1 - Exam PHYSICAL EXAM: VITAL SIGNS: As above GENERAL: [Sitting up in bed, no acute distress] HEENT: [Pupils equal conjunctiva normal.] NECK: [Supple, no JVD] RESPIRATORY EFFORT:[Normal] LUNGS: [Clear to auscultation, no wheezing, no crackles, no rhonchi] CARDIOVASCULAR[regular S1 and S2, tachycardic, no murmurs rubs or gallops, no edema] GI: [Abdomen soft, mildly distended, status post surgery, abdominal dressing, ostomy with serosanguineous drainage , [place] & CARRIE drains,hypoactive bowel sounds. EXTREMITIES: Rash on bilateral arms, greater on left, significantly improved PSYCH: [Alert and oriented -3, mood and affect normal.] NEURO: No focal deficits, moves all 4 extremities, strength and sensation grossly intact - Labs CBC & Chem 7: 08/07/16 16:11 08/07/16 06:56 Labs: Abnormal Lab Results - Last 24 Hours (Table) 08/07/16 08/07/16 08/07/16 Range/Units 06:56 06:56 16:11 WBC 13.2 H 12.2 H (3.8-10.6) k/uL RBC 4.15 L (4.30-5.90) m/uL Hgb 12.8 L (13.0-17.5) gm/dL Hct 38.2 L (39.0-53.0) % Neutrophils # 10.4 H 9.3 H (1.3-7.7) k/uL BUN 7 L (9-20) mg/dL Glucose 103 H (74-99) mg/dL Calcium 8.0 L (8.4-10.2) mg/dL Microbiology - Last 24 Hours (Table) 08/04/16 14:52 Anaerobic Culture - Preliminary Peritoneal Fluid Assessment and Plan Plan: 1. [Severe sepsis, secondary to peritonitis and perforated sigmoid colon, status post colectomy]. 2. [Continued nicotine use]. 3. [Obesity, BMI 30.3]. 4. [Sigmoid diverticulitis]. 5. [Tachycardia despite pain management and the fluid resuscitation. 6. [Hypomagnesemia]. 7. Hypokalemia 8. Rash, bilateral arms, suspect contact/ALLERGIC dermatitis. Plan: Continue on current medication regime , topical hydrocortisone , monitoring and symptomatic treatment. In addition to maintaining IV fluid hydration, we'll initiate beta adeola for now, anticipate can be weaned off in the outpatient setting. Aggressive pulmonary toileting, IS reinforced. Increase ambulation as tolerated. Pain management as per surgery.Continue following cultures closely. The impression and plan of care has been dictated as directed. : I performed a H&P examination of this patient and discussed the same with the dictator. I agree with the dictator's note. Any additional findings/opinions/ etc. will be noted.
[2016-08-07] MEDS: KETOROLAC 30 MG/ML 1 ML VIAL IVP SCH ×2 (17:18→23:33)
[2016-08-07] MEDS: HYDROcodone/APAP 5-325MG 1 EACH TAB PO SCH ×2 (17:19→23:33)
[2016-08-07] MEDS: 0.9% NACL WITH KCL 40 MEQ/L 1,000 ML IV SCH ×2 (17:36→21:00)
[2016-08-07] MEDS: ALVIMOPAN 12 MG CAPSULE PO SCH (21:12)
[2016-08-08] MEDS: HEPARIN SODIUM,PORCINE 5,000 UNIT/ML 1 ML VIAL SQ SCH ×4 (00:25→23:36)
[2016-08-08] MEDS: ONDANSETRON 4 MG/2 ML VIAL IVP SCH ×5 (01:47→23:28)
[2016-08-08] MEDS: PIPERACILLIN-TAZOBACTAM 3.375 GM in DEXTROSE/WATER 1 50ML.BAG IVPB SCH ×3 (01:50→15:49)
[2016-08-08] MEDS: 0.9% NACL WITH KCL 40 MEQ/L 1,000 ML IV SCH ×3 (03:58→16:49)
[2016-08-08] MEDS: KETOROLAC 30 MG/ML 1 ML VIAL IVP SCH ×4 (06:22→23:25)
[2016-08-08] MEDS: HYDROcodone/APAP 5-325MG 1 EACH TAB PO SCH ×4 (06:22→23:24)
[2016-08-08] MEDS: METOCLOPRAMIDE 5 MG/ML 2 ML VIAL IVP SCH ×4 (06:24→23:31)
[2016-08-08 07:02] LABS: Basophils % (A) 0 %; CH 31.3; CHCM 33.7; Eosinophils # (A) 0.5 k/uL (0-0.7); Eosinophils % (A) 4 %; HCT 37.6 % (39.0-53.0); HDW 2.81; HGB 12.6 gm/dL (13.0-17.5); Luc # (Auto) 0.21; Luc % (Auto) 2; Lymphocytes # (A) 1.8 k/uL (1.0-4.8); Lymphocytes % (A) 15 %; MCH 31.4 pg (25.0-35.0); MCHC 33.6 g/dL (31.0-37.0); MCV 93.4 fL (80.0-100.0); Monocytes # (A) 0.9 k/uL (0-1.0); Monocytes % (A) 7 %; Neutrophils # (A) 8.9 k/uL (1.3-7.7); Neutrophils % (A) 73 %; RBC 4.02 m/uL (4.30-5.90); RDW 12.1 % (11.5-15.5); WBC 12.3 k/uL (3.8-10.6)
[2016-08-08 07:34] LABS: ALT 33 U/L (21-72); AST 23 U/L (17-59); Alkaline Phosphatase 53 U/L (38-126); Anion Gap 9 mmol/L; Blood Urea Nitrogen 6 mg/dL (9-20); Calcium 7.9 mg/dL (8.4-10.2); Carbon Dioxide 21 mmol/L (22-30); Chloride 107 mmol/L (98-107); Glucose 83 mg/dL (74-99); Non-African American GFR(MDRD) >60 (>60 ml/min/1.73 sqM); Potassium 4.1 mmol/L (3.5-5.1); Sodium 137 mmol/L (137-145); Total Bilirubin 0.6 mg/dL (0.2-1.3)
--- NOTE | 2016-08-08 08:58 | P.DS ---
Providers Date of admission: 08/04/16 00:39 Expected date of discharge: 08/10/16 Attending physician: Estrella Raphael Consults: 08/04/16 07:51 Consult Physician Urgent Consulting Provider: Jose Tay Consult Reason/Comments: MEDICAL MANAGEMENT/ PAIN Do you want consulting provider notified?: Yes Primary care physician: Stated None - Discharge Diagnosis(es) (1) High risk for readmission Current Visit: Yes Status: Acute (2) Perforation of sigmoid colon due to diverticulitis Current Visit: Yes Status: Acute (3) Sepsis Current Visit: Yes Status: Acute (4) Peritonitis (acute) generalized Current Visit: Yes Status: Acute (5) Tobacco abuse Current Visit: Yes Status: Chronic (6) Obesity (BMI 30.0-34.9) Current Visit: Yes Status: Chronic (7) S/P colectomy Current Visit: Yes Status: Acute (8) Colostomy status Current Visit: Yes Status: Acute (9) Tachycardia Current Visit: Yes Status: Acute (10) Fever Current Visit: Yes Status: Acute (11) Adverse reaction to nicotine patch Current Visit: Yes Status: Acute (12) Essential hypertension Current Visit: Yes Status: Acute (13) Lactose intolerance in adult Current Visit: Yes Status: Acute Hospital Course: POSTOPERATIVE DIAGNOSES: 1. Acute perforated diverticulitis. 2. Generalized peritonitis. 3. Pneumoperitoneum from perforated viscus. 4. Leukocytosis. 5. Tachycardia. 6. Sepsis from intraabdominal infection. 7. History of chronic constipation with chronic diverticulitis. 8. Obesity. 9. Body mass index 34.1. 10. Previous history of exploratory laparotomy. 11. History of active tobacco abuse. 12. Incarcerated incisional ventral hernia epigastric 4 cm. 13. Severe intra-abdominal adhesions. COURSE: The patient is a 50-year-old gentleman who presents with known history of acute diverticulitis. He was recently hospitalized for 2 days and was discharged. He then immediately returned to the emergency room the same day with acute onset abdominal pain. Clinical exam was consistent with peritonitis along with sepsis. CT of the abdomen and pelvis confirmed phlegmon with perforated sigmoid diverticulitis. Emergent surgical intervention with laparotomy and colostomy were performed. Postoperatively, he had tachycardia controlled with IV fluid hydration including placement of metoprolol for newly diagnosed hypertension. Additionally, social work services were provided for incision care. Ostomy teaching ostomy nurse education was performed. Diet was adjusted for his lactose intolerance. Pain medications were adjusted for his intolerance to Dilaudid. He felt well prior to discharge. He was tolerating soft diet. He demonstrated understanding of changing his own ostomy appliance. His white blood cell count was also improving daily after exposure to Solu-Medrol. Prior to discharge, discharge instructions including no lifting over 4 pounds in 4 weeks were reviewed. His CARRIE drain and [place] drains will be discontinued in the office. [place] will also be discontinued in the office. He may sponge bath however no showering or bath tub soaks. Pertinent Studies: CT of the abdomen and pelvis demonstrated perforated diverticulitis. Procedures: OPERATION: 1. Extensive lysis of adhesions over 1 hour. 2. Exploratory laparotomy with sigmoid resection for perforated diverticulitis. 3. Descending colostomy. 4. Devitalized rectal stump. 5. Tara's procedure for perforated diverticulitis. 6. Peritoneal lavage over 3 liters. 7. Placement of intraabdominal #19 Melvin drain along the right lower pelvis. 8. Placement of 0.25 inch Angela drain along the subcutaneous tissue. 9. Repair of incarcerated incisional ventral hernia ventral hernia epigastric, 4 cm. 10. Mobilization of splenic flexure. Patient Condition at Discharge: Fair Plan - Discharge Summary New Discharge Prescriptions: Hydrocodone/Acetaminophen [[place] 5-325] 1 - 2 each PO Q6HR PRN #60 tab PRN Reason: Pain Ibuprofen [Motrin] 600 mg PO Q8HR PRN #30 tab PRN Reason: Pain Metoprolol Tartrate [Lopressor] 50 mg PO BID #60 tab Discharge Medication List Multivitamins, Thera [Multivitamin] 1 tab PO DAILY 08/01/16 [History] Ciprofloxacin HCl [Cipro] 500 mg PO Q12HR #20 tablet 08/03/16 [Rx] metroNIDAZOLE [Flagyl] 500 mg PO Q8HR #30 tab 08/03/16 [Rx] Ibuprofen [Motrin] 600 mg PO Q8HR PRN #30 tab 08/06/16 [Rx] Hydrocodone/Acetaminophen [[place] 5-325] 1 - 2 each PO Q6HR PRN #60 tab 08/08/16 [Rx] Metoprolol Tartrate [Lopressor] 50 mg PO BID #60 tab 08/09/16 [Rx] Follow up Appointment(s)/Referral(s): None,Stated [Primary Care Provider] - 1-2 days Estrella Raphael MD [STAFF PHYSICIAN] - 08/11/16 3:00 pm Patient Instructions/Handouts: Metoprolol (By mouth), Hydrocodone/ Acetaminophen (By mouth), Ibuprofen (By mouth), How to Stop Smoking (DC), Diverticulitis (GEN), Colostomy Care (GEN), High Protein Diet (GEN), Cigarette Smoking and Your Health (GEN) Activity/Diet/Wound Care/Special Instructions: No lifting over 4 pounds in 4 weeks. Full liquid diet including high protein shakes between 20-35 g 3 times daily. Drain to be discontinued by surgeon. May sponge bath. No bath tub soaks. Colostomy Care Instructions Last date of colostomy pouch: Current ostomy pouch # Current ostomy flange Discharge Disposition: HOME SELF-CARE
[2016-08-08] MEDS: METOPROLOL TARTRATE 25 MG TAB PO SCH (09:14)
[2016-08-08] MEDS: FAMOTIDINE 20 MG TAB PO SCH (09:14)
[2016-08-08] MEDS: ALVIMOPAN 12 MG CAPSULE PO SCH ×2 (09:15→20:18)
[2016-08-08] MEDS: HYDROCORTISONE 1% CREAM 30 GM TUBE TOPICAL SCH (09:15)
[2016-08-08 11:09] VITALS: BMI 30.2
[2016-08-08] MEDS: metroNIDAZOLE-NS PMX 500 MG in SALINE 1 100ML.BAG IVPB SCH ×3 (11:35→23:39)
[2016-08-08] MEDS: MORPHINE SULFATE 4 MG/ML SYRINGE IVP PRN ×2 (12:50→17:52)
--- NOTE | 2016-08-08 16:19 | PN ---
Patient is a 50-year-old admitted with peritonitis from sigmoid colon rupture and patient is on Zosyn. Patient is clinically doing well. Does have bowel sounds. Patient's pain is fairly well controlled and patient is tolerating full liquid diet. REVIEW OF SYSTEMS: CARDIOVASCULAR: No chest pain, no orthopnea, no PND, no palpitations. PULMONARY: Denied any shortness of breath. No cough or hemoptysis. GASTROINTESTINAL: No diarrhea, nausea or vomiting. No abdominal pain. Normoactive bowel sounds. NEUROLOGIC: No headaches, no weakness, no numbness. Medications were reviewed. PHYSICAL EXAMINATION: Temperature 97.0, pulse 107, respiratory rate of 16, blood pressure is 143/88, saturating at 95% on room air. GENERAL: The patient is alert and oriented x3, not in any acute distress. Well developed, well nourished. HEENT: Pupils are round and equally reacting to light. EOMI. No scleral icterus. No conjunctival pallor. Normocephalic, atraumatic. No pharyngeal erythema. No thyromegaly. CARDIOVASCULAR: S1 and S2 present, tachycardiac. Patient appears to have sinus tachycardia. PULMONARY: Chest is clear to auscultation, no wheezing or crackles. ABDOMINAL EXAMINATION: Bowel sounds are present. Patient's surgical site area appears to be clean. No rebound or rigidity. MUSCULOSKELETAL: No joint swelling or deformity. EXTREMITIES: No cyanosis, clubbing, or pedal edema. NEUROLOGICAL: Gross neurological examination did not reveal any focal deficits. SKIN: No rashes. ASSESSMENT AND PLAN: 1. Severe sepsis secondary to peritonitis, which improved. 2. Morbid obesity. 3. Tachycardia, unexplained. Patient's metoprolol dose will be increased. I do not believe patient has dehydration or sepsis at this point of time. In spite of which, patient remained tachycardic. TSH is essentially within normal limits. I do not believe patient has pulmonary embolism, although the patient is already on deep venous thrombosis prophylaxis. 4. Bilateral arms allergic rash, allergic dermatitis, which improved with topical corticosteroid, which is probably related to latex.
[2016-08-08] MEDS: diphenhydrAMINE 50 MG/ML 1 ML VIAL IVP PRN (20:18)
[2016-08-08] MEDS: METOPROLOL TARTRATE 50 MG TAB PO SCH (20:18)
[2016-08-08] MEDS ORDERED: diphenhydrAMINE 50 MG/ML 1 ML VIAL IVP STA (20:45)
[2016-08-08] MEDS ORDERED: methylPREDNISolone SOD SUCCI 125 MG/2 ML VIAL IV STA (20:46)
[2016-08-09] MEDS: PIPERACILLIN-TAZOBACTAM 3.375 GM in DEXTROSE/WATER 1 50ML.BAG IVPB SCH ×4 (01:28→23:52)
[2016-08-09] MEDS: 0.9% NACL WITH KCL 40 MEQ/L 1,000 ML IV SCH ×2 (03:54→12:47)
[2016-08-09] MEDS: diphenhydrAMINE 50 MG/ML 1 ML VIAL IVP PRN (04:42)
[2016-08-09] MEDS: KETOROLAC 30 MG/ML 1 ML VIAL IVP SCH ×4 (05:27→23:51)
[2016-08-09] MEDS: HYDROcodone/APAP 5-325MG 1 EACH TAB PO SCH ×2 (05:27→11:02)
[2016-08-09] MEDS: ONDANSETRON 4 MG/2 ML VIAL IVP SCH ×4 (06:12→23:51)
[2016-08-09] MEDS: METOCLOPRAMIDE 5 MG/ML 2 ML VIAL IVP SCH ×4 (06:14→23:51)
[2016-08-09] MEDS: HEPARIN SODIUM,PORCINE 5,000 UNIT/ML 1 ML VIAL SQ SCH ×3 (08:44→23:51)
[2016-08-09] MEDS: HYDROCORTISONE 1% CREAM 30 GM TUBE TOPICAL SCH (08:44)
[2016-08-09] MEDS: ALVIMOPAN 12 MG CAPSULE PO SCH ×2 (08:44→19:42)
[2016-08-09] MEDS: metroNIDAZOLE-NS PMX 500 MG in SALINE 1 100ML.BAG IVPB SCH ×3 (08:44→22:44)
[2016-08-09] MEDS: METOPROLOL TARTRATE 50 MG TAB PO SCH ×2 (08:45→19:41)
[2016-08-09] MEDS: FAMOTIDINE 20 MG TAB PO SCH (08:45)
[2016-08-09] MEDS: MORPHINE SULFATE 4 MG/ML SYRINGE IVP PRN (08:46)
[2016-08-09 09:53] LABS: Basophils # (A) 0.1 k/uL (0-0.2); Basophils % (A) 1 %; CH 31.4; CHCM 34.2; Eosinophils # (A) 0.1 k/uL (0-0.7); Eosinophils % (A) 0 %; HCT 39.1 % (39.0-53.0); HDW 2.76; HGB 12.9 gm/dL (13.0-17.5); Luc # (Auto) 0.11; Luc % (Auto) 1; Lymphocytes # (A) 1.4 k/uL (1.0-4.8); Lymphocytes % (A) 10 %; MCH 30.3 pg (25.0-35.0); MCHC 32.9 g/dL (31.0-37.0); MCV 92.1 fL (80.0-100.0); Monocytes # (A) 0.7 k/uL (0-1.0); Monocytes % (A) 5 %; Neutrophils # (A) 11.6 k/uL (1.3-7.7); Neutrophils % (A) 83 %; RBC 4.25 m/uL (4.30-5.90); RDW 12.3 % (11.5-15.5); WBC 13.9 k/uL (3.8-10.6); WBC (Perox) 14.49
--- NOTE | 2016-08-09 13:18 | P.PN ---
Subjective Principal diagnosis: S/P Devries procedure 50 years old male status post Tara procedure for perforated sigmoid diverticulitis. Pain is well controlled. No nausea or vomiting. Tolerating full liquid diet. Ostomy is productive. CARRIE drain has serosanguineous output. Leukocytosis 13.9, may be secondary to steroid injection given yesterday for rash. Otherwise patient reports no new complaints. Objective - Vital Signs Vital signs: Vital Signs Temp 98.2 F 08/09/16 07:00 Pulse 85 08/09/16 07:00 Resp 16 08/09/16 07:00 BP 161/85 08/09/16 07:00 Pulse Ox 95 08/09/16 07:00 Intake & Output 08/08/16 08/09/16 08/09/16 18:59 06:59 18:59 Intake Total 480 1050 720 Output Total 550 2260 240 Balance -70 -1210 480 Weight 92.986 kg Intake: Intake, IV Titration 1050 Amount 0.9% NaCl with KCl 40 Meq 1050 /l 1,000 ml @ 150 mls/hr IV .Q6H40M [facility] Rx#: [id number] Oral 480 720 Output: Drainage 150 240 40 Abdomen 200 Lower Abdomen 150 40 40 Urine 400 2020 200 Other: Voiding Method Urinal # Bowel Movements 1 2 - Exam Gen.: Patient is alert and oriented to time place and person and cooperative with exam. He is ambulatory in hallways. Chest: Bilaterally clear sounds present. Abdomen: CARRIE drain has serous drainage. Midline incision clean dry and intact. Hamilton drain in the low part of the incision. Ostomy is pink and productive - Labs CBC & Chem 7: 08/09/16 09:44 08/08/16 06:52 Labs: Abnormal Lab Results - Last 24 Hours (Table) 08/09/16 Range/Units 09:44 WBC 13.9 H (3.8-10.6) k/uL RBC 4.25 L (4.30-5.90) m/uL Hgb 12.9 L (13.0-17.5) gm/dL Neutrophils # 11.6 H (1.3-7.7) k/uL Microbiology - Last 24 Hours (Table) 08/04/16 14:52 Anaerobic Culture - Final Peritoneal Fluid 08/07/16 14:00 Gram Stain - Preliminary Peritoneal Fluid Body Fluid Culture - Preliminary Assessment and Plan (1) Obesity (BMI 30.0-34.9) Status: Chronic (2) Acute diverticulitis of intestine Status: Acute Plan: 1. Regular diet 2. Oral pain medications 3. Hep-Lock IV 4. Check CBC in a.m. If leukocytosis shows downward trend, plan discharge in a.m. on 08/10/2016 5. Continue Zosyn and Flagyl 6. Continue DVT and GI prophylaxis
[2016-08-09] MEDS: HYDROcodone/APAP 7.5-325MG 1 EACH TAB PO PRN ×3 (15:57→23:52)
--- NOTE | 2016-08-09 19:05 | PN ---
Patient is with sigmoid colitis followed by sigmoid colon rupture and patient underwent laparotomy and Angela drain in the lower border of the incision. Patient is otherwise clinically doing well. Patient from medical perspective can be discharged whenever Primary Service Surgery is okay with that. REVIEW OF SYSTEMS: CARDIOVASCULAR: No chest pain, no orthopnea, no PND, no palpitations. PULMONARY: Denied any shortness of breath. No cough or hemoptysis. GASTROINTESTINAL: No diarrhea, nausea or vomiting. No abdominal pain. Normoactive bowel sounds. NEUROLOGIC: No headaches, no weakness, no numbness. DERMATOLOGIC: Patient has a rash which appears to be secondary to lying in the bed for long time. Does not appear to be an allergic reaction, although he has an allergic rash in bilateral upper limbs. Medications were reviewed. On physical examination, vital signs, temperature 98.0, pulse of 71, respiratory rate of 16, blood pressure is 110/63, saturating at 93% on room air. GENERAL: The patient is alert and oriented x3, not in any acute distress. Well developed, well nourished. HEENT: Pupils are round and equally reacting to light. EOMI. No scleral icterus. No conjunctival pallor. Normocephalic, atraumatic. No pharyngeal erythema. No thyromegaly. CARDIOVASCULAR: S1 and S2 present. No murmurs, rubs, or gallops. PULMONARY: Chest is clear to auscultation, no wheezing or crackles. ABDOMEN: As described in the interval history. MUSCULOSKELETAL: No joint swelling or deformity. EXTREMITIES: No cyanosis, clubbing, or pedal edema. NEUROLOGICAL: Gross neurological examination did not reveal any focal deficits. DERMATOLOGIC: As described in HPI. ASSESSMENT AND PLAN: 1. Severe sepsis secondary to peritonitis which resolved and patient is on antibiotics as per Primary Service. Patient underwent a laparotomy. 2. Morbid obesity. 3. Tachycardia, unexplained, improved with symptomatic management with metoprolol. 4. Bilateral allergic rash in the arms which is secondary to allergic dermatitis improving with topical corticosteroid.
[2016-08-10] MEDS: 0.9% NACL WITH KCL 40 MEQ/L 1,000 ML IV SCH ×3 (02:30→05:20)
[2016-08-10] MEDS: METOCLOPRAMIDE 5 MG/ML 2 ML VIAL IVP SCH (05:00)
[2016-08-10] MEDS: HYDROcodone/APAP 7.5-325MG 1 EACH TAB PO PRN (05:00)
[2016-08-10] MEDS: KETOROLAC 30 MG/ML 1 ML VIAL IVP SCH ×2 (05:00→11:44)
[2016-08-10] MEDS: ONDANSETRON 4 MG/2 ML VIAL IVP SCH (05:00)
[2016-08-10 05:20] VITALS: RESP 16
[2016-08-10 06:55] LABS: Basophils # (A) 0.1 k/uL (0-0.2); Basophils % (A) 1 %; CH 31.1; CHCM 34.4; Eosinophils # (A) 0.5 k/uL (0-0.7); Eosinophils % (A) 3 %; HCT 36.9 % (39.0-53.0); HDW 2.74; HGB 12.1 gm/dL (13.0-17.5); Luc # (Auto) 0.18; Luc % (Auto) 1; Lymphocytes # (A) 3.3 k/uL (1.0-4.8); Lymphocytes % (A) 24 %; MCH 29.9 pg (25.0-35.0); MCHC 32.9 g/dL (31.0-37.0); MCV 90.9 fL (80.0-100.0); Mean Platelet Volume 7.8; Monocytes % (A) 7 %; Neutrophils # (A) 8.7 k/uL (1.3-7.7); Neutrophils % (A) 63 %; RBC 4.06 m/uL (4.30-5.90); RDW 12.4 % (11.5-15.5); WBC 13.8 k/uL (3.8-10.6); WBC (Perox) 14.14
[2016-08-10 07:26] VITALS: BP 127/80; PULSE 82; TEMP 97.7
[2016-08-10] MEDS ORDERED: SODIUM CHLORIDE 0.9% 1,000 ML IV SCH (07:45)
[2016-08-10] MEDS ORDERED: PIPERACILLIN-TAZOBACTAM 3.375 GM in DEXTROSE/WATER 1 50ML.BAG IVPB SCH (08:00)
[2016-08-10] MEDS: HYDROCORTISONE 1% CREAM 30 GM TUBE TOPICAL SCH (08:06)
[2016-08-10] MEDS: ALVIMOPAN 12 MG CAPSULE PO SCH (08:06)
[2016-08-10] MEDS: FAMOTIDINE 20 MG TAB PO SCH (08:06)
[2016-08-10] MEDS: METOPROLOL TARTRATE 50 MG TAB PO SCH (08:06)
[2016-08-10] MEDS: HEPARIN SODIUM,PORCINE 5,000 UNIT/ML 1 ML VIAL SQ SCH (08:06)
--- NOTE | 2016-08-10 09:32 | P.PN ---
Subjective Principal diagnosis: Perforated diverticulitis with peritonitis and sepsis The patient is a 50-year-old gentleman who is postop day 6 from perforated diverticulitis with peritonitis and sepsis. "I feel great." He tolerated a cheese sandwich last night. No reports of fevers or chills. Leukocytosis is secondary to Solu-Medrol. He is able to change his own ostomy appliance. He is tolerating his diet. No reports of nausea or vomiting. Objective - Vital Signs Vital signs: Vital Signs Temp 97.7 F 08/10/16 07:00 Pulse 82 08/10/16 07:00 Resp 16 08/10/16 07:00 BP 127/80 08/10/16 07:00 Pulse Ox 99 08/10/16 07:00 Intake & Output 08/09/16 08/10/16 08/10/16 18:59 06:59 18:59 Intake Total 1400 700 Output Total 660 70 400 Balance 740 630 -400 Intake: Intake, IV Titration 600 Amount 0.9% NaCl with KCl 40 Meq 450 /l 1,000 ml @ 150 mls/hr IV .Q6H40M [facility] Rx#: [id number] Piperacillin-Tazobactam 3 50 .375 gm In Dextrose/Water 1 50ml.bag @ 12.5 mls/hr IVPB Q8HR [facility] Rx#: [id number] metroNIDAZOLE-NS PMX 500 100 mg In Saline 1 100ml.bag @ 100 mls/hr IVPB Q8HR [facility] Rx#:[id number] Oral 800 700 Output: Drainage 60 70 Abdomen 20 70 Lower Abdomen 40 Urine 600 400 Other: # Voids 1 # Bowel Movements 2 - Exam GENERAL: Well developed and in no acute distress. Pleasant. HEENT: No sclera icterus. Extraocular movements grossly intact. Moist buccal mucosa. Head is atraumatic, normocephalic. Hears conversational speech. No nasal drainage. NECK: Supple without lymphadenopathy. No JV distention. CHEST: Non-labored respirations and equal bilateral excursions. CARDIOVASCULAR: Regular rate, regular rhythm Palpable 2+ radial pulses. ABDOMEN: Soft. Nontender. Minimal distention. Midline dressing clean dry and intact. CARRIE serous. Ostomy patent and functioning with stool and flatus. MUSCULOSKELETAL: No clubbing, cyanosis or edema. NEUROLOGIC: No focal or lateralizing signs. SKIN: Rash along the body resolved. - Labs CBC & Chem 7: 08/10/16 06:28 08/08/16 06:52 Labs: Abnormal Lab Results - Last 24 Hours (Table) 08/09/16 08/10/16 Range/Units 09:44 06:28 WBC 13.9 H 13.8 H (3.8-10.6) k/uL RBC 4.25 L 4.06 L (4.30-5.90) m/uL Hgb 12.9 L 12.1 L (13.0-17.5) gm/dL Hct 36.9 L (39.0-53.0) % Neutrophils # 11.6 H 8.7 H (1.3-7.7) k/uL Microbiology - Last 24 Hours (Table) 08/07/16 14:00 Gram Stain - Preliminary Peritoneal Fluid Body Fluid Culture - Preliminary Assessment and Plan (1) High risk for readmission Status: Acute (2) Perforation of sigmoid colon due to diverticulitis Status: Acute (3) Sepsis Status: Acute (4) Peritonitis (acute) generalized Status: Acute (5) Tobacco abuse Status: Chronic (6) Obesity (BMI 30.0-34.9) Status: Chronic (7) S/P colectomy Status: Acute (8) Colostomy status Status: Acute (9) Tachycardia Status: Acute (10) Fever Status: Acute (11) Adverse reaction to nicotine patch Status: Acute (12) Essential hypertension Status: Acute (13) Lactose intolerance in adult Status: Acute Plan: 1. Leukocytosis is secondary to Solu-Medrol. We'll repeat CBC today for discharge to follow as white blood cell count improves. 2. I've gone over discharge instructions including high protein diet. 3. She demonstrated understanding of this change of his ostomy appliance. 4. Also, antibiotics were prematurely discontinued. He will get his last dose of antibiotics now prior to discharge. Continue with oral antibiotics for additional 7-10 days. 5. Follow-up in the office tomorrow for discontinuance of CARRIE and Angela drain.
[2016-08-10] MEDS: metroNIDAZOLE-NS PMX 500 MG in SALINE 1 100ML.BAG IVPB SCH ×2 (09:44→11:44)
--- NOTE | 2016-08-10 10:06 | P.PN ---
Subjective Date of service 08/10/2016. Personal being dictated for Dr. Tay Interval history: This is a 50-year-old gentleman admitted with severe sepsis secondary to peritonitis, perforated sigmoid colon, and multiple other medical issues. Significant improvement. Afebrile, ambulating, tolerating exertion well. Improving diet intake with no nausea vomiting, functioning ostomy. Pain controlled. Surgery discharging patient today. Objective - Vital Signs Vital signs: Vital Signs Temp 97.7 F 08/10/16 07:00 Pulse 82 08/10/16 07:00 Resp 16 08/10/16 07:00 BP 127/80 08/10/16 07:00 Pulse Ox 99 08/10/16 07:00 Intake & Output 08/09/16 08/10/16 08/10/16 18:59 06:59 18:59 Intake Total 1400 700 Output Total 660 70 400 Balance 740 630 -400 Intake: Intake, IV Titration 600 Amount 0.9% NaCl with KCl 40 Meq 450 /l 1,000 ml @ 150 mls/hr IV .Q6H40M [facility] Rx#: [id number] Piperacillin-Tazobactam 3 50 .375 gm In Dextrose/Water 1 50ml.bag @ 12.5 mls/hr IVPB Q8HR [facility] Rx#: [id number] metroNIDAZOLE-NS PMX 500 100 mg In Saline 1 100ml.bag @ 100 mls/hr IVPB Q8HR [facility] Rx#:[id number] Oral 800 700 Output: Drainage 60 70 Abdomen 20 70 Lower Abdomen 40 Urine 600 400 Other: # Voids 1 # Bowel Movements 2 - Exam PHYSICAL EXAM: VITAL SIGNS: As above GENERAL: [Standing up at bedside, no acute distress] HEENT: [Pupils equal conjunctiva normal.] NECK: [Supple, no JVD] RESPIRATORY EFFORT:[Normal] LUNGS: [Clear to auscultation, no wheezing, no crackles, no rhonchi] CARDIOVASCULAR[regular S1 and S2, no murmurs rubs or gallops, no edema] GI: [Abdomen soft, mildly distended, status post surgery, functioning ostomy with stool , CARRIE with serous drainage, positive bowel sounds. EXTREMITIES: Rash on bilateral arms, significantly improved PSYCH: [Alert and oriented -3, mood and affect normal.] NEURO: No focal deficits, moves all 4 extremities, strength and sensation grossly intact Microbiology 08/03/16 21:15 Blood Blood Culture - Final No Growth after 144 hours 08/07/16 14:00 Peritoneal Fluid Gram Stain - Preliminary 08/07/16 14:00 Peritoneal Fluid Body Fluid Culture - Preliminary 08/04/16 14:52 Peritoneal Fluid Anaerobic Culture - Final 08/03/16 14:52 Peritoneal Fluid Gram Stain - Final 08/03/16 14:52 Peritoneal Fluid Wound Culture - Final - Labs CBC & Chem 7: 08/10/16 06:28 08/08/16 06:52 Labs: Abnormal Lab Results - Last 24 Hours (Table) 08/09/16 08/10/16 Range/Units 09:44 06:28 WBC 13.9 H 13.8 H (3.8-10.6) k/uL RBC 4.25 L 4.06 L (4.30-5.90) m/uL Hgb 12.9 L 12.1 L (13.0-17.5) gm/dL Hct 36.9 L (39.0-53.0) % Neutrophils # 11.6 H 8.7 H (1.3-7.7) k/uL Microbiology - Last 24 Hours (Table) 08/07/16 14:00 Gram Stain - Preliminary Peritoneal Fluid Body Fluid Culture - Preliminary Assessment and Plan Plan: 1. [Severe sepsis, secondary to peritonitis-resolved ,perforated sigmoid colon, status post colectomy]. 2. [Continued nicotine use]. 3. [Obesity, BMI 30.3]. 4. [Sigmoid diverticulitis]. 5. [Tachycardia despite pain management and the fluid resuscitation, improved with symptomatic management with beta adeola. 6. [Hypomagnesemia]. 7. Hypokalemia 8. Rash, bilateral arms, ALLERGIC dermatitis, significantly improved on topical corticosteroids. Plan: Continue on current medication regime ,monitoring and symptomatic treatment. F/U CBC pending. Patient being discharged this morning by surgery. Pain management and antibiotics as per surgery. Patient to follow-up with Dr. Alfred, PCP in one week. The impression and plan of care has been dictated as directed. : I performed a H&P examination of this patient and discussed the same with the dictator. I agree with the dictator's note. Any additional findings/opinions/ etc. will be noted.
[2016-08-10] MEDS: PIPERACILLIN-TAZOBACTAM 3.375 GM in DEXTROSE/WATER 1 50ML.BAG IVPB SCH (11:00)
[2016-08-10 11:44] LABS: Basophils # (A) 0.1 k/uL (0-0.2); Basophils % (A) 1 %; CH 31.3; CHCM 33.8; Eosinophils # (A) 0.5 k/uL (0-0.7); Eosinophils % (A) 4 %; HCT 39.9 % (39.0-53.0); HDW 2.72; Luc # (Auto) 0.15; Luc % (Auto) 1; Lymphocytes # (A) 3.2 k/uL (1.0-4.8); Lymphocytes % (A) 22 %; MCH 30.4 pg (25.0-35.0); MCHC 32.6 g/dL (31.0-37.0); MCV 93.2 fL (80.0-100.0); Mean Platelet Volume 7.7; Monocytes # (A) 0.9 k/uL (0-1.0); Monocytes % (A) 6 %; Neutrophils # (A) 9.6 k/uL (1.3-7.7); Neutrophils % (A) 67 %; RBC 4.29 m/uL (4.30-5.90); RDW 12.5 % (11.5-15.5); WBC 14.5 k/uL (3.8-10.6); WBC (Perox) 15.02
[2016-08-10] MEDS ORDERED: MULTIVITAMINS, THERA 1 EACH TAB PO SCH (12:00)
[2016-08-10] MEDS ORDERED: HYDROcodone/APAP 5-325MG 1 EACH TAB PO SCH (12:00)
== END 2016-08-10 15:25 | disposition home or self-care (01) | DRG 854 ==
LOC: EC 20:26 → 3SUR 08-04 00:39 → EC 08-04 00:40
PROVIDERS: ADMIT Surgery Plastic and Reconstructive Surgery; ATTEND Surgery Plastic and Reconstructive Surgery
PROC: 0D1M0Z4 Bypass Descending Colon to Cutaneous, Open Approach (ICD-10-PCS; 2016-08-04)
PROC: 0WQF0ZZ Repair Abdominal Wall, Open Approach (ICD-10-PCS; 2016-08-04)
PROC: 0DNS0ZZ (ICD-10-PCS; 2016-08-04)
PROC: 0DNW0ZZ Release Peritoneum, Open Approach (ICD-10-PCS; 2016-08-04)
PROC: 0DNN0ZZ Release Sigmoid Colon, Open Approach (ICD-10-PCS; 2016-08-04)
PROC: 0DTN0ZZ Resection of Sigmoid Colon, Open Approach (ICD-10-PCS; principal; 2016-08-04 00:01)
DX: A41.9 Sepsis, unspecified organism (principal); K43.0 Incisional hernia with obstruction, without gangrene; K66.8 Other specified disorders of peritoneum; K57.20 Diverticulitis of large intestine with perforation and abscess without bleeding; E83.42 Hypomagnesemia; K66.0 Peritoneal adhesions (postprocedural) (postinfection); R65.20 Severe sepsis without septic shock; E87.6 Hypokalemia; E86.0 Dehydration; T40.2X5A Adverse effect of other opioids, initial encounter; T38.0X5A Adverse effect of glucocorticoids and synthetic analogues, initial encounter; T44.1X5A Adverse effect of other parasympathomimetics [cholinergics], initial encounter; R11.10 Vomiting, unspecified; L29.9 Pruritus, unspecified; K21.9 Gastro-esophageal reflux disease without esophagitis; D72.829 Elevated white blood cell count, unspecified; R00.0 Tachycardia, unspecified; L23.9 Allergic contact dermatitis, unspecified cause; I10 Essential (primary) hypertension; E73.9 Lactose intolerance, unspecified; K59.09 Other constipation; F17.210 Nicotine dependence, cigarettes, uncomplicated; Z80.0 Family history of malignant neoplasm of digestive organs; Z82.3 Family history of stroke; Z87.11 Personal history of peptic ulcer disease; Z79.2 Long term (current) use of antibiotics; Z79.891 Long term (current) use of opiate analgesic; Z79.899 Other long term (current) drug therapy; Z88.5 Allergy status to narcotic agent; Z88.8 Allergy status to other drugs, medicaments and biological substances; Z86.19 Personal history of other infectious and parasitic diseases; Z71.6 Tobacco abuse counseling; Z98.0 Intestinal bypass and anastomosis status
CPT/HCPCS: 36415; 74000; 74177; 80048; 80053; 81001; 82150; 83605; 83690; 83735; 84443; 85025; 87040; 87070; 87075; 87205; 88307; 93005; 94760; 94762; 96361; 96365; 96367; 96375; 99285

== ENCOUNTER 2016-08-11 21:35 | Inpatient (IN) | payer OTHER ==
--- NOTE | 2016-08-11 22:15 | ED ---
General Adult HPI - General Chief complaint: Abdominal Pain Stated complaint: Colostomy complication Time Seen by Provider: 08/11/16 21:55 Source: patient Mode of arrival: ambulatory Limitations: no limitations - History of Present Illness Initial comments: This is a 50-year-old male who presents emergency department for evaluation of his stoma. The patient had a perforated diverticulitis and had a colectomy with colostomy placement. The patient had the surgery done approximately one week ago. He states that over the last 24 hours he is noticed that the ostomy seems to be pulling away from the skin. He states that the stitches have popped. He did see Dr. Bueno this morning however did not have it evaluated at that time. Patient was concerned about the way that it looks suicide come emergency department. He denies any fevers or chills. No increased pain. No other complaints. - Related Data Home Medications Medication Instructions Recorded Confirmed Multivitamins, Thera [Multivitamin] 1 tab PO DAILY 08/01/16 08/11/16 Hydrocodone/Acetaminophen [Herbster 1 - 2 tab PO Q6HR PRN 08/11/16 08/11/16 5-325] Previous Rx's Medication Instructions Recorded Ciprofloxacin HCl [Cipro] 500 mg PO Q12HR #20 tablet 08/03/16 metroNIDAZOLE [Flagyl] 500 mg PO Q8HR #30 tab 08/03/16 Ibuprofen [Motrin] 600 mg PO Q8HR PRN #30 tab 08/06/16 Metoprolol Tartrate [Lopressor] 50 mg PO BID #60 tab 08/09/16 Allergies Allergy/AdvReac Type Severity Reaction Status Date / Time hydromorphone [From Dilaudid] AdvReac Itching Verified 08/11/16 22:10 nicotine AdvReac Itching Verified 08/11/16 22:10 Review of Systems ROS Statement: Those systems with pertinent positive or pertinent negative responses have been documented in the HPI. ROS Other: All systems not noted in ROS Statement are negative. Past Medical History Past Medical History: No Reported History Additional Past Medical History / Comment(s): Pt recently admitted 08/01/15 with sepsis 2ndary to sigmoid diverticuliti/diarrhea. Other hx: diverticulitis, chronic constipation. Colostomy. History of Any Multi-Drug Resistant Organisms: None Reported Past Surgical History: Bowel Resection Additional Past Surgical History / Comment(s): exploratory laparotomy lysis of extensive adhesions/sigmoid resection/decending colostomy/repair incisional ventral hernia. Other surgical hx: 2001 Exploratory laparotomy with ulcer repair, EGD/colonoscopy. Past Anesthesia/Blood Transfusion Reactions: No Reported Reaction Past Psychological History: No Psychological Hx Reported Additional Psychological History / Comment(s): Pt resides alone. His significant other will stay with him while he recuperates from surgery. He is independent. Smoking Status: Current every day smoker Past Alcohol Use History: Rare Additional Past Alcohol Use History / Comment(s): Pt started smoking in 1998. Past Drug Use History: None Reported - Past Family History Father Family Medical History: No Reported History Additional Family Medical History / Comment(s): Father when pt was young of unknown reason. Mother Family Medical History: CVA/TIA Sister(s) Family Medical History: Cancer Additional Family Medical History / Comment(s): pt sister from stomach cancer. General Exam - General Exam Comments Initial Comments: Constitutional: Awake alert Appears comfortable Head: Normocephalic atraumatic Eyes: no conjunctival injection No scleral icterus EOMI Neck: No JVD Supple Heart: Regular rate rhythm normal S1-S2 no murmurs Lungs: Clear to auscultation bilaterally No wheezing No rales Abdomen: Soft nondistended nontender, there is multiple sutures that have been ruptured on the inferior aspect of the stoma from approximately the 9 o'clock position all the way to the 3 or 4 o'clock position. There is stool within the space between the skin and the edge of the stoma with underlying soft tissue. There is no surrounding erythema. There is no tenderness on examination. The ostomy has good output. Extremities: Non edematous DP pulses intact Radial pulses intact Neuro: A&Ox3 No focal neurologic deficits Psych: Appropriate mood and affect Limitations: no limitations Course Vital Signs 08/11/16 21:47 Temperature 97.6 F Pulse Rate 91 Respiratory 18 Rate Blood Pressure 101/76 O2 Sat by Pulse 96 Oximetry Medical Decision Making - Medical Decision Making Is a 50-year-old male presents emergency department for ostomy malfunction. Appears that the dermal sutures have ruptured. I spoke with Dr. Enamorado who recommends placement in observation so that she can evaluate him in the morning. He likely needs revision. We'll place in observation for monitoring. All questions answered. - Lab Data Result diagrams: 08/11/16 22:30 08/11/16 22:30 Lab Results 08/11/16 08/11/16 08/11/16 Range/Units 22:30 22:30 22:30 WBC 15.6 H (3.8-10.6) k/uL RBC 4.59 (4.30-5.90) m/uL Hgb 14.0 (13.0-17.5) gm/dL Hct 41.8 (39.0-53.0) % MCV 91.0 (80.0-100.0) fL MCH 30.5 (25.0-35.0) pg MCHC 33.5 (31.0-37.0) g/dL RDW 12.6 (11.5-15.5) % Plt Count 384 (150-450) k/uL Neutrophils % 63 % Lymphocytes % 25 % Monocytes % 7 % Eosinophils % 3 % Basophils % 1 % Neutrophils # 9.7 H (1.3-7.7) k/uL Lymphocytes # 3.9 (1.0-4.8) k/uL Monocytes # 1.2 H (0-1.0) k/uL Eosinophils # 0.4 (0-0.7) k/uL Basophils # 0.1 (0-0.2) k/uL PT 12.2 H (9.0-12.0) sec INR 1.2 (<1.1) APTT 25.9 (22.0-30.0) sec Sodium 134 L (137-145) mmol/L Potassium 4.3 (3.5-5.1) mmol/L Chloride 103 (98-107) mmol/L Carbon Dioxide 23 (22-30) mmol/L Anion Gap 8 mmol/L BUN 18 (9-20) mg/dL Creatinine 0.77 (0.66-1.25) mg/dL Est GFR (MDRD) Af Amer >60 (>60 ml/min/1.73 sqM) Est GFR (MDRD) Non-Af >60 (>60 ml/min/1.73 sqM) Glucose 108 H (74-99) mg/dL Calcium 8.8 (8.4-10.2) mg/dL Disposition Clinical Impression: Malfunction of colostomy Disposition: ADMITTED IP TO THIS HOSP Condition: Stable
[2016-08-11 22:46] LABS: Basophils # (A) 0.1 k/uL (0-0.2); Basophils % (A) 1 %; CH 31.5; CHCM 34.7; Eosinophils # (A) 0.4 k/uL (0-0.7); Eosinophils % (A) 3 %; HCT 41.8 % (39.0-53.0); HDW 2.66; Luc # (Auto) 0.24; Luc % (Auto) 2; Lymphocytes # (A) 3.9 k/uL (1.0-4.8); Lymphocytes % (A) 25 %; MCH 30.5 pg (25.0-35.0); MCHC 33.5 g/dL (31.0-37.0); Mean Platelet Volume 7.8; Monocytes # (A) 1.2 k/uL (0-1.0); Monocytes % (A) 7 %; Neutrophils # (A) 9.7 k/uL (1.3-7.7); Neutrophils % (A) 63 %; RBC 4.59 m/uL (4.30-5.90); RDW 12.6 % (11.5-15.5); WBC 15.6 k/uL (3.8-10.6); WBC (Perox) 14.64
[2016-08-11 22:48] LABS: Anion Gap 8 mmol/L; Blood Urea Nitrogen 18 mg/dL (9-20); Calcium 8.8 mg/dL (8.4-10.2); Carbon Dioxide 23 mmol/L (22-30); Chloride 103 mmol/L (98-107); Glucose 108 mg/dL (74-99); INR 1.2 (<1.1); Non-African American GFR(MDRD) >60 (>60 ml/min/1.73 sqM); Partial Thromboplastin Time 25.9 sec (22.0-30.0); Potassium 4.3 mmol/L (3.5-5.1); Prothrombin Time 12.2 sec (9.0-12.0); Sodium 134 mmol/L (137-145)
[2016-08-11] MEDS ORDERED: NALOXONE 0.4 MG/ML 1 ML VIAL IV PRN (22:54)
[2016-08-11] MEDS ORDERED: HYDROcodone/APAP 7.5-325MG 1 EACH TAB PO ONE (23:14)
[2016-08-12 01:03] VITALS: BMI 29.7
[2016-08-12] MEDS ORDERED: MORPHINE SULFATE 2 MG/ML SYRINGE IVP STA (08:37)
--- NOTE | 2016-08-12 08:50 | P.GSHP ---
History of Present Illness H&P Date: 08/12/16 Chief Complaint: Ostomy malfunction The patient is a 50-year-old gentleman who is 1 week out from an emergency Devries's procedure for perforated diverticulitis with sepsis. He was discharged from the hospital 2 days ago with antibiotics. At his previous hospitalization, he was exposed to steroids per medicine team for rash. He was seen in the office yesterday afternoon without complaints of his ostomy. His ostomy mucosa was sloughing however the edges of the ostomy was pink and viable. He then went home and attempted to change his ostomy and then noted new separation along his ostomy skin edge. His ostomy is still functioning. No reports fevers or chills. No reports of abdominal pain. He's tolerating diet. His Gerry drain and CARRIE drains were discontinued in the office yesterday. He now has come back in for separation along the skin edges of his ostomy. - Review of Systems Comment: CONSTITUTIONAL: Denies any fever or chills. Denies recent weight loss or weight gain. HEENT: Denies any trouble with vision, hearing or nosebleeds. No difficulty swallowing. LYMPHATIC: The patient denies any lumps and bumps around the neck. ENDOCRINE: Denies any thyroid disorders. Denies any blood sugar glucose intolerance. RESPIRATORY: Denies pneumonia. Denies any troubles with breathing or dyspnea on exertion. CARDIOVASCULAR: Denies any chest pain, palpitations, or recent heart attacks. GASTROINTESTINAL: He is tolerating diet. No reports of blood in his ostomy. GENITOURINARY: Denies any blood in urine or increased urinary frequency. MUSCULOSKELETAL: Denies any back pain, stiffness or joint arthritis. NEUROLOGIC: Denies any numbness or tingling along the distal extremities. No seizure disorders or headaches. PSYCHIATRIC: Denies depression or suidical ideation. HEMATOLOGIC: Denies any abnormal bleeding or bruising. Past Medical History Past Medical History: Hypertension Additional Past Medical History / Comment(s): Pt recently admitted 08/01/15 with sepsis 2ndary to sigmoid diverticuliti/diarrhea. Other hx: diverticulitis, chronic constipation. Colostomy. History of Any Multi-Drug Resistant Organisms: None Reported Past Surgical History: Bowel Resection Additional Past Surgical History / Comment(s): 08/04/16 exploratory laparotomy lysis of extensive adhesions/sigmoid resection/decending colostomy/repair incisional ventral hernia. Other surgical hx: 2001 Exploratory laparotomy with ulcer repair, EGD/colonoscopy. Past Anesthesia/Blood Transfusion Reactions: No Reported Reaction Past Psychological History: No Psychological Hx Reported Additional Psychological History / Comment(s): Pt resides alone. His significant other will stay with him while he recuperates from surgery. He is independent. Smoking Status: Current every day smoker Past Alcohol Use History: Rare Additional Past Alcohol Use History / Comment(s): Pt started smoking in 1998. Past Drug Use History: None Reported - Past Family History Father Family Medical History: No Reported History Additional Family Medical History / Comment(s): Father when pt was young of unknown reason. Mother Family Medical History: CVA/TIA Sister(s) Family Medical History: Cancer Additional Family Medical History / Comment(s): pt sister from stomach cancer. Medications and Allergies Home Medications Medication Instructions Recorded Confirmed Type Multivitamins, Thera [Multivitamin] 1 tab PO DAILY 08/01/16 08/11/16 History Hydrocodone/Acetaminophen [Patten 1 - 2 tab PO Q6HR PRN 08/11/16 08/11/16 History 5-325] Allergies Allergy/AdvReac Type Severity Reaction Status Date / Time hydromorphone [From Dilaudid] AdvReac Itching Verified 08/11/16 22:10 nicotine AdvReac Itching Verified 08/11/16 22:10 Surgical - Exam Vital Signs Temp Pulse Resp BP Pulse Ox 97.6 F 91 18 101/76 96 08/11/16 21:47 08/11/16 21:47 08/11/16 21:47 08/11/16 21:47 08/11/16 21:47 GENERAL: Well developed and in no acute distress. HEENT: No sclera icterus. Extraocular movements grossly intact. Moist buccal mucosa. Head is atraumatic, normocephalic. Hears conversational speech. No nasal drainage. NECK: Supple without lymphadenopathy. No JV distention. CHEST: Non-labored respirations and equal bilateral excursions. CARDIOVASCULAR: Regular rate and rhythm. Palpable 2+ radial pulses. ABDOMEN: Soft, nontender. Nondistended. Ostomy skin edge completely retracted. Ostomy is pink viable and functioning. MUSCULOSKELETAL: No clubbing, cyanosis or edema. NEUROLOGIC: No focal or lateralizing signs. PSYCH: Appropriate affect. Alert and oriented to person, place and time. Results - Labs 08/12/16 10:25 08/11/16 22:30 Assessment and Plan (1) Patient's noncompliance with other medical treatment and regimen Status: Acute (2) Acute diverticulitis of intestine Status: Chronic (3) Colostomy status Status: Chronic (4) Essential hypertension Status: Chronic (5) High risk for readmission Status: Chronic (6) Lactose intolerance in adult Status: Chronic (7) Perforated diverticulum of large intestine Status: Chronic (8) S/P colectomy Status: Chronic (9) Sepsis Status: Chronic (10) Obesity (BMI 30.0-34.9) Status: Chronic (11) Tobacco abuse Status: Chronic (12) Dehiscence of wound of skin Status: Acute (13) Dehiscence of surgical wound Status: Acute Plan: 1. I reviewed his medications, the patient was strictly advised to take his antibiotics at home, yet this is missing from his current medication list. His most recent medical reconciliation does not demonstrate that he was taken his antibiotics despite being seen in the office. 2. He has history of tobacco use which increases risk for surgical and wound complications. 3. Recommend debridement of the ostomy site and revision. 4. Restart antibiotics. 5. Continue with education of ostomy care.
[2016-08-12] MEDS ORDERED: ONDANSETRON 4 MG/2 ML VIAL IVP PRN (08:57)
[2016-08-12] MEDS ORDERED: HYDROcodone/APAP 5-325MG 1 EACH TAB PO PRN (08:57)
[2016-08-12] MEDS ORDERED: METOCLOPRAMIDE 5 MG/ML 2 ML VIAL IVP PRN (08:57)
[2016-08-12] MEDS ORDERED: cefTRIAXone 2,000 MG in SODIUM CHLORIDE 0.9% 100 ML IVPB STA (09:10)
[2016-08-12] MEDS: SODIUM CHLORIDE 0.9% 1,000 ML IV SCH ×2 (09:19→22:09)
[2016-08-12] MEDS: KETOROLAC 30 MG/ML 1 ML VIAL IVP SCH ×3 (10:15→22:10)
[2016-08-12] MEDS: PANTOPRAZOLE 40 MG/10 ML VIAL IV SCH (10:15)
[2016-08-12 10:47] LABS: Basophils # (A) 0.2 k/uL (0-0.2); Basophils % (A) 1 %; CH 31.5; CHCM 33.7; Eosinophils # (A) 0.3 k/uL (0-0.7); Eosinophils % (A) 2 %; HCT 46.7 % (39.0-53.0); HDW 2.59; HGB 15.3 gm/dL (13.0-17.5); Luc # (Auto) 0.17; Luc % (Auto) 1; Lymphocytes # (A) 3.3 k/uL (1.0-4.8); Lymphocytes % (A) 22 %; MCH 30.6 pg (25.0-35.0); MCHC 32.6 g/dL (31.0-37.0); MCV 93.9 fL (80.0-100.0); Mean Platelet Volume 7.7; Monocytes # (A) 0.8 k/uL (0-1.0); Monocytes % (A) 6 %; Neutrophils # (A) 10.1 k/uL (1.3-7.7); Neutrophils % (A) 68 %; RBC 4.98 m/uL (4.30-5.90); RDW 12.4 % (11.5-15.5); WBC 14.9 k/uL (3.8-10.6); WBC (Perox) 15.29
[2016-08-12] MEDS: D5-0.45% NACL WITH KCL 20MEQ/L 1,000 ML IV SCH ×2 (15:04→22:06)
[2016-08-12] MEDS ORDERED: LACTATED RINGERS 1,000 ML IV SCH (16:45)
[2016-08-12] MEDS ORDERED: LIDOCAINE 1% INJ 10MG/ML (20 ML MDV) ONE (17:31)
[2016-08-12] MEDS ORDERED: MIDAZOLAM 2 MG/2 ML VIAL ONE (17:31)
[2016-08-12] MEDS ORDERED: SUCCINYLCHOLINE CHLORIDE 100 MG/5 ML SYR IV ONE (17:31)
[2016-08-12] MEDS ORDERED: HEPARIN SODIUM,PORCINE 5,000 UNIT/ML 1 ML VIAL ONE (17:31)
[2016-08-12] MEDS ORDERED: PHENYLEPHRINE-0.9% NACL SYG 1 MG/10 ML SYRINGE ONE (17:31)
[2016-08-12] MEDS ORDERED: NEOSTIGMINE 1 MG/ML 10 ML VIAL ONE (17:31)
[2016-08-12] MEDS ORDERED: fentaNYL (PF) 50 MCG/ML 2 ML AMP ONE (17:31)
[2016-08-12] MEDS ORDERED: ONDANSETRON 4 MG/2 ML VIAL ONE (17:31)
[2016-08-12] MEDS ORDERED: GLYCOPYRROLATE 0.2 MG/ML 2 ML VIAL ONE (17:31)
[2016-08-12] MEDS ORDERED: ROCURONIUM BROMIDE 10 MG/ML 10 ML VIAL IV ONE (17:31)
[2016-08-12] MEDS ORDERED: PROPOFOL 10 MG/ML 20 ML VIAL IV ONE (17:31)
--- NOTE | 2016-08-12 17:39 | P.HPADDEND ---
H&P Addendum H&P Addendum Date: 08/12/16 Patient's family at bedside. Additional history is provided. The patient reports that he has been smoking immediately after his operation and discharge home. Separately, he did start taking his new medications for his blood pressure as well as antibiotics. Benefits and risk of surgical intervention with ostomy revision was described including the possibility of open laparotomy and ileostomy were reviewed. Strict tobacco cessation was reviewed as smoking placed him at risk for mucocutaneous separation from his ostomy.
[2016-08-12] MEDS ORDERED: LACTATED RINGERS 1,000 ML IV ONE ×2 (17:45→18:39)
--- NOTE | 2016-08-12 19:41 | P.PCN ---
Date of Procedure: 08/12/16 Preoperative Diagnosis: Circumferential mucocutaneous separation along colostomy, recent colostomy status, history of tobacco use, previous history of perforated diverticulitis with sepsis Postoperative Diagnosis: Same Procedure(s) Performed: Open revision of descending colostomy Anesthesia: CAMRELO Surgeon: Estrella Raphael Estimated Blood Loss (ml): 10 Pathology: none sent Condition: stable Disposition: floor Operative Findings: Mucocutaneous separation along circumferential ostomy, recurrent diverticulitis attack along colostomy identified, ostomy completely viable without any intrusion into the peritoneum, ostomy revised with pursestring suture along skin with reinforced sutures circumferential leaving 3 cm ostomy. At the end of the case, demario stool with pink patent stoma and air in Coloplast identified. Patient was tolerating diet immediately postop.
[2016-08-12] MEDS: MORPHINE SULFATE 4 MG/ML SYRINGE IVP ONE ×3 (19:43→19:58)
[2016-08-12] MEDS ORDERED: diphenhydrAMINE 50 MG/ML 1 ML VIAL IVP ONE (19:45)
[2016-08-12] MEDS ORDERED: MORPHINE SULFATE 4 MG/ML SYRINGE IVP ONE (19:53)
[2016-08-12 22:58] VITALS: RESP 16
[2016-08-12] MEDS: AMPICILLIN-SULBACTAM 3 GM in SODIUM CHLORIDE 0.9% 100 ML IVPB SCH (23:55)
[2016-08-13] MEDS: KETOROLAC 30 MG/ML 1 ML VIAL IVP SCH ×2 (02:33→08:54)
[2016-08-13] MEDS: AMPICILLIN-SULBACTAM 3 GM in SODIUM CHLORIDE 0.9% 100 ML IVPB SCH (06:13)
[2016-08-13] MEDS: D5-0.45% NACL WITH KCL 20MEQ/L 1,000 ML IV SCH ×2 (07:26→11:35)
[2016-08-13] MEDS: SODIUM CHLORIDE 0.9% 1,000 ML IV SCH (07:27)
--- NOTE | 2016-08-13 07:29 | OP ---
DATE OF SERVICE: 08/12/2016 SURGEON: KERRI BILLINGS MD THERMAL MOLDER: NONE. PREOPERATIVE DIAGNOSES: 1. Mucocutaneous separation of descending colostomy. 2. Previous history of abdominal sepsis secondary to perforated diverticulitis. 3. Descending colostomy status, subsequent visits. 4. Personal history of tobacco use. 5. Obesity. 6. Body mass index 30. POSTOPERATIVE DIAGNOSES: 1. Mucocutaneous separation of descending colostomy. 2. Previous history of abdominal sepsis secondary to perforated diverticulitis. 3. Descending colostomy status, subsequent visits. 4. Personal history of tobacco use. 5. Obesity. 6. Body mass index 30. 7. Recurrent descending diverticulitis. OPERATION: Open revision of descending colostomy. ANESTHESIA: General. ESTIMATED BLOOD LOSS: 10 mL. SPECIMENS REMOVED: None. COMPLICATIONS: None. OPERATIVE FINDINGS: 1. The ostomy is actually quite viable of the mucosa; however, the edges had completely retracted from the skin edge. 2. Features of fat necrosis at the 5 o'clock to 6 o'clock position was identified. 3. As he did not have an ostomy appliance, moderate stool was found even along the skin and midline incision, which was cleaned. 4. After revision of ostomy, the ostomy diameter was consistent with 3 cm, pink and viable stoma. 5. At the end of the case, flatus including stool had emanated from his ostomy and had been functioning. INDICATION: Jackson Polo is a 50-year-old gentleman who presented a little of a week ago with life-threatening sepsis from a perforated diverticulitis. This case was complicated such that he had previous abdominal surgery, including diffuse peritonitis with sepsis. His stoma was created after mobilization of the splenic flexure; however, his personal comorbidities included active tobacco use as well as obesity. Prior to his recent discharge from the hospital approximately 2 days prior, his ostomy was functioning and he demonstrated understanding of changing his ostomy. He then presented to the hospital within the last 12 to 24 hours with new separation along the skin edge of his colostomy. He had confirmed restarting tobacco use, which had also placed him at risk. He was then brought back to the operating room for revision of his ostomy. Benefits and risks of the procedure including bleeding, infection, need for open exploratory laparotomy with placement of an ileostomy and bowel resection were reviewed at length. Informed consent was obtained. DESCRIPTION OF THE PROCEDURE: Patient was brought into the operating room, laid in supine position. After general induction, a Leija catheter was placed. The abdomen was cleansed and his stoma. The midline incision was still intact with angi. A timeout protocol was confirmed with the surgical team before starting. Initial attention was brought to the ostomy whereby 3 L normal saline pulse lavage was used to clean the subcutaneous tissue including refreshing the skin edges of the ostomy. Further inspection demonstrated mild fat necrosis between the 3 o'clock to 6 o'clock position. The actual mucosa of the ostomy was completely viable, pink and patent. The ostomy was also somewhat fibrosed and upon closer inspection was consistent with recurrent diverticulitis attack. With this combination of ischemia from smoking as well as sepsis and diverticulitis, this also confirmed reason for mucocutaneous separation. As the skin was copiously cleaned and debrided of any nonviable tissue, attention was brought to the wide disc space of the ostomy of the skin which was modified using a pursestring suture of #1 Prolene. Deep skin thickness bites was made circumferentially around the ostomy site to close the space. Next, attention was brought to maturation of the ostomy. Using 2-0 Vicryl along the 12 o'clock, 6 o'clock, 3 o'clock and 9 o'clock position, deep bites of mucosa to skin and serosa was placed in a buried fashion. A running suture of 3-0 Vicryl was placed in a similar fashion from mucosa to the skin and deep dermis from the 9 o'clock to 3 o'clock position. Similarly, the stoma was also reinforced and closed along the skin edges at the 3 o'clock to 9 o'clock position. Careful inspection of the ostomy demonstrated a widely patent stoma whereby easily a thumb could enter along the os of the stoma. The skin edges were viable as well as the mucosa was pink and patent. The final maturation of the stoma confirmed a skin level colostomy. Hemostasis had been confirmed and the skin had been cleansed. An Optifoam antibiotic dressing was cut in a paimiut and placed around the actual ostomy site. The midline incision had also been cleansed in a similar fashion whereby Optifoam dressing was placed. A Coloplast appliance was cut and placed over the ostomy which had been newly matured. At the end of the procedure, needle, sponge, and instrument count had been verified correct by the surgical services assistant. Immediately, green soft stool as well as flatus had expressed through the colostomy confirming a matured and functioning colostomy. Intraoperative findings were discussed with the patient's family including his high risk of ischemia from smoking, including his personal history of obesity, previous history of sepsis, which will be carefully watched. Separately, the patient did have intermittent complaints of right upper quadrant abdominal pain, which will also be evaluated for potential cholecystitis. The patient was transferred to the post anesthesia care unit in stable condition. He was immediately started on diet and tolerating crackers. The patient's family was pleased with the level of care. RHONDA
[2016-08-13 07:57] VITALS: BP 127/77; PULSE 95; TEMP 98.1
[2016-08-13 08:01] LABS: ALT 34 U/L (21-72); AST 17 U/L (17-59); Alkaline Phosphatase 51 U/L (38-126); Anion Gap 12 mmol/L; Blood Urea Nitrogen 15 mg/dL (9-20); Carbon Dioxide 20 mmol/L (22-30); Chloride 108 mmol/L (98-107); Glucose 107 mg/dL (74-99); Magnesium 1.9 mg/dL (1.6-2.3); Non-African American GFR(MDRD) >60 (>60 ml/min/1.73 sqM); Potassium 4.8 mmol/L (3.5-5.1); Sodium 140 mmol/L (137-145); Total Bilirubin 0.4 mg/dL (0.2-1.3); Total Protein 6.7 g/dL (6.3-8.2)
[2016-08-13] MEDS: PANTOPRAZOLE 40 MG/10 ML VIAL IV SCH (08:54)
[2016-08-13 12:12] LABS: Basophils # (A) 0.1 k/uL (0-0.2); Basophils % (A) 0 %; CH 31.3; CHCM 33.6; Eosinophils % (A) 0 %; HCT 39.5 % (39.0-53.0); HGB 13.1 gm/dL (13.0-17.5); Luc # (Auto) 0.14; Luc % (Auto) 1; Lymphocytes # (A) 3.3 k/uL (1.0-4.8); Lymphocytes % (A) 17 %; MCH 30.8 pg (25.0-35.0); MCHC 33.1 g/dL (31.0-37.0); MCV 93.3 fL (80.0-100.0); Mean Platelet Volume 7.3; Monocytes # (A) 0.7 k/uL (0-1.0); Monocytes % (A) 4 %; Neutrophils # (A) 14.6 k/uL (1.3-7.7); Neutrophils % (A) 78 %; RBC 4.23 m/uL (4.30-5.90); RDW 12.4 % (11.5-15.5); WBC 18.7 k/uL (3.8-10.6); WBC (Perox) 18.56
--- NOTE | 2016-08-13 12:52 | P.PN ---
Subjective Principal diagnosis: Mucocutaneous separation along stoma Patient is postoperative day 1 status post washout, debridement and correction of mucocutaneous separation along descending colostomy. He is ambulating. No reports of abdominal pain. No reports of fevers. He's tolerating diet. He is actually very eager to go home immediately. I have asked him to at least stay until evaluation by the ostomy nurse and to address all questions in the presence of all consultants. Objective - Vital Signs Vital signs: Vital Signs Temp 98.1 F 08/13/16 07:57 Pulse 95 08/13/16 08:00 Resp 16 08/13/16 08:00 BP 127/77 08/13/16 07:57 Pulse Ox 95 08/13/16 07:57 Intake & Output 08/12/16 08/13/16 08/13/16 18:59 06:59 18:59 Intake Total 1600 590 360 Output Total 510 1740 Balance 1090 -1150 360 Weight 93.894 kg Intake: IV 1600 0 Oral 590 360 Output: Urine 500 1740 Estimated Blood Loss 10 Other: Voiding Method Urinal Urinal # Voids 3 - Exam GENERAL: Well developed and in no acute distress. Pleasant. HEENT: No sclera icterus. Extraocular movements grossly intact. Moist buccal mucosa. Head is atraumatic, normocephalic. Hears conversational speech. No nasal drainage. CHEST: Non-labored respirations and equal bilateral excursions. CARDIOVASCULAR: Regular rate and rhythm. Palpable 2+ radial pulses. ABDOMEN: Soft, nontender. Nondistended. At bedside, dressing and stomal appliance was discontinued by ostomy nurse. Ostomy is flush with skin and without separation of skin edges. No recurrence of mucocutaneous separation. Stoma is viable pink and functioning with flatus and stool. MUSCULOSKELETAL: No clubbing, cyanosis or edema. NEURO: Cranial nerves II through XII grossly intact. - Labs CBC & Chem 7: 08/13/16 11:37 08/13/16 07:31 Labs: Abnormal Lab Results - Last 24 Hours (Table) 08/13/16 08/13/16 Range/Units 07:31 11:37 WBC 18.7 H (3.8-10.6) k/uL RBC 4.23 L (4.30-5.90) m/uL Neutrophils # 14.6 H (1.3-7.7) k/uL Chloride 108 H (98-107) mmol/L Carbon Dioxide 20 L (22-30) mmol/L Glucose 107 H (74-99) mg/dL Assessment and Plan (1) Patient's noncompliance with other medical treatment and regimen Status: Acute (2) Acute diverticulitis of intestine Status: Chronic (3) Colostomy status Status: Chronic (4) Essential hypertension Status: Chronic (5) High risk for readmission Status: Chronic (6) Lactose intolerance in adult Status: Chronic (7) Perforated diverticulum of large intestine Status: Chronic (8) S/P colectomy Status: Chronic (9) Sepsis Status: Chronic (10) Obesity (BMI 30.0-34.9) Status: Chronic (11) Tobacco abuse Status: Chronic (12) Colostomy complication Status: Acute (13) Dehiscence of wound of skin Status: Acute Plan: 1. At bedside, his significant other including ostomy nurse were present. Full discussion of potential complication of his ostomy were reviewed. 2. With his history and severity of his diverticulitis, some diverticulitis changes were identified along his ostomy however controlled. 3. I reviewed with him and his family that any further complications of his colostomy will require exploratory laparotomy and ileostomy placement along the right lower abdomen. 4. Strict tobacco cessation was described in detail. Alternatives including nicotine free electronic cigarettes were also reviewed. 5. As his blood pressure is controlled without metoprolol, his medication has not been continued. 6. Review of his labs included white blood cell count were described. He'll continue with outpatient antibiotics with close observation of his ostomy. 7. Although alternatives of continued hospitalization was described, the patient was adamant to go home along with his family. At this point, he is hemodynamically stable.
--- NOTE | 2016-08-13 18:51 | P.DS ---
Providers Date of admission: 08/12/16 12:54 Expected date of discharge: 08/13/16 Attending physician: Estrella Raphael Primary care physician: Stated None - Discharge Diagnosis(es) (1) Patient's noncompliance with other medical treatment and regimen Status: Acute (2) Acute diverticulitis of intestine Status: Chronic (3) Colostomy status Status: Chronic (4) Essential hypertension Status: Chronic (5) High risk for readmission Status: Chronic (6) Lactose intolerance in adult Status: Chronic (7) Perforated diverticulum of large intestine Status: Chronic (8) S/P colectomy Status: Chronic (9) Sepsis Status: Chronic (10) Obesity (BMI 30.0-34.9) Status: Chronic (11) Tobacco abuse Status: Chronic (12) Colostomy complication Status: Acute (13) Dehiscence of wound of skin Status: Acute Hospital Course: The patient is a 50-year-old gentleman who initially presented to the hospital more than a week ago with diverticulitis. He was then discharged and return to the ER within 24 hours with perforated diverticulitis and sepsis. His history is complicated by lack of health insurance including medical compliance. From his most recent hospitalization less than 3 days ago, strict tobacco cessation was described to him and his family. Additionally, ostomy education was reviewed. Despite being seen in the office the following day after discharge, the patient immediately return to the emergency room with new separation of his ostomy along the skin edges. He denied any abdominal pain or peritonitis. He was taken back to the operating room with revision of his ostomy. Ostomy nurse education was performed prior to discharge. Additional observation was reviewed however, the patient was adamant to go home. He and his family were strictly forewarned to avoid any nicotine products as this may compromise blood supply to his present ostomy. Alternatives including full exploratory laparotomy with ileostomy was described to the patient and ostomy nurse who was present at bedside. Prior to discharge, the patient was tolerating diet, he was ambulating his ostomy was patent, pink and functioning, and he and family verbalized understanding of the instructions including risks of discharge. Procedures: Revision of descending colostomy. Patient Condition at Discharge: Stable Plan - Discharge Summary Discharge Medication List Multivitamins, Thera [Multivitamin] 1 tab PO DAILY 08/01/16 [History] Ciprofloxacin HCl [Cipro] 500 mg PO Q12HR #20 tablet 08/03/16 [Rx] metroNIDAZOLE [Flagyl] 500 mg PO Q8HR #30 tab 08/03/16 [Rx] Ibuprofen [Motrin] 600 mg PO Q8HR PRN #30 tab 08/06/16 [Rx] Hydrocodone/Acetaminophen [Temple 5-325] 1 - 2 tab PO Q6HR PRN 08/11/16 [History] Follow up Appointment(s)/Referral(s): Estrella Raphael MD [STAFF PHYSICIAN] - 08/25/16 3:20 pm Patient Instructions/Handouts: Diverticulitis (DC), Colostomy Care (DC) Activity/Diet/Wound Care/Special Instructions: Colostomy Care Instructions Ostomy ApplIance Changed on : 08/13/2016 Patient recently discharged from [facility] on 08/10/2016 with numerous ostomy care supplies (Pouches, powder, skin preps, etc) Patient also is soon to receive additional ostomy supplies from [employer] for Colostomy Care Needs. Expected to arrive by Wednesday08.14.2016 Current ostomy supplies form [facility]: One piece cut to fit [employer] # [id number] Skin prep to peristomal skin area Appliance to be changed every 3- 5 days Pouch to be emptied when it is 1/2 to 1`/3 full in the toilet Patient sent home additional one piece cut to fit #[id number] one piece [employer] and [employer] one piece cut to fit without filter Discharge Disposition: HOME SELF-CARE
== END 2016-08-13 13:26 | disposition home or self-care (01) | DRG 907 ==
LOC: EC 21:35 → 5MS5E 22:54 → OBSVTOIN 08-12 12:54
PROVIDERS: ADMIT Surgery Plastic and Reconstructive Surgery; ATTEND Surgery Plastic and Reconstructive Surgery
PROC: 0WQFXZ2 Repair Abdominal Wall, Stoma, External Approach (ICD-10-PCS; principal; 2016-08-12 10:25)
PROC: 0JD83ZZ Extraction of Abdomen Subcutaneous Tissue and Fascia, Percutaneous Approach (ICD-10-PCS; principal; 2016-08-12 10:25)
DX: T81.31XA Disruption of external operation (surgical) wound, not elsewhere classified, initial encounter (principal); A41.9 Sepsis, unspecified organism; K94.03 Colostomy malfunction; K57.20 Diverticulitis of large intestine with perforation and abscess without bleeding; I10 Essential (primary) hypertension; T44.7X6A Underdosing of beta-adrenoreceptor antagonists, initial encounter; T36.8X6A Underdosing of other systemic antibiotics, initial encounter; T37.3X6A Underdosing of other antiprotozoal drugs, initial encounter; K59.09 Other constipation; M79.89 Other specified soft tissue disorders; E66.9 Obesity, unspecified; R10.11 Right upper quadrant pain; E73.9 Lactose intolerance, unspecified; F17.200 Nicotine dependence, unspecified, uncomplicated; Z90.49 Acquired absence of other specified parts of digestive tract; Z80.0 Family history of malignant neoplasm of digestive organs; Z79.891 Long term (current) use of opiate analgesic; Z79.899 Other long term (current) drug therapy; Z87.19 Personal history of other diseases of the digestive system; Z87.11 Personal history of peptic ulcer disease; Z86.19 Personal history of other infectious and parasitic diseases; Z88.5 Allergy status to narcotic agent; Z91.048 Other nonmedicinal substance allergy status; Z71.6 Tobacco abuse counseling; Z82.3 Family history of stroke; Z91.128 Patient's intentional underdosing of medication regimen for other reason; Z91.14 Patient's other noncompliance with medication regimen; Z91.19 Patient's noncompliance with other medical treatment and regimen; Z68.30 Body mass index [BMI] 30.0-30.9, adult; Y83.3 Surgical operation with formation of external stoma as the cause of abnormal reaction of the patient, or of later complication, without mention of misadventure at the time of the procedure
CPT/HCPCS: 36415; 80048; 80053; 83735; 85025; 85610; 85730; 99284

== ENCOUNTER 2017-01-10 20:48 | Inpatient (IN) | payer OTHER ==
[2017-01-10] MEDS ORDERED: SODIUM CHLORIDE 0.9% 1,000 ML IV ONE (22:25)
[2017-01-10] MEDS ORDERED: ONDANSETRON 4 MG/2 ML VIAL IVP STA (22:25)
[2017-01-10] MEDS ORDERED: KETOROLAC 30 MG/ML 1 ML VIAL IVP STA (22:27)
--- NOTE | 2017-01-10 22:32 | ED ---
Abdominal Pain HPI - General Chief Complaint: Abdominal Pain Stated Complaint: Abd pain Time Seen by Provider: 01/10/17 22:10 Source: patient, RN notes reviewed Mode of arrival: ambulatory Limitations: no limitations - History of Present Illness Initial Comments: Patient is a 51-year-old male presents emergency room for elevation of abdominal pain. Patient had a colostomy bag placed in July due to perforated diverticula. Patient states over the past 2 days he has been having worsening pain in his abdomen. Patient states he's been having worsening pain around the ostomy site. Patient states he's had increased output in his ostomy bag. Patient states he's been nauseous with vomiting. Patient states been taking Aleve at home with no relief of symptoms. Patient denies fevers or chills. Patient denies chest pain or shortness of breath. Patient denies headache or dizziness. Patient states he's having constant 10 out of 10 pain. Patient denies new foods. Patient denies taking new medications. On reevaluation of patient, he did admit that he has been drinking for the past 10 days and stopped yesterday morning. Patient's is not present with patient. Patient's states that patient has been very stressed over the past week and has been drinking heavily. Patient's states that patient does not usually drink daily besides this past week. - Related Data Home Medications Medication Instructions Recorded Confirmed Multivitamins, Thera [Multivitamin 1 tab PO DAILY 01/10/17 01/10/17 (formulary)] Naproxen Sodium [Aleve] 440 mg PO DAILY PRN 01/10/17 01/10/17 Allergies Allergy/AdvReac Type Severity Reaction Status Date / Time hydromorphone [From Dilaudid] AdvReac Itching Verified 01/10/17 22:01 nicotine AdvReac Itching Verified 01/10/17 22:01 Review of Systems ROS Statement: Those systems with pertinent positive or pertinent negative responses have been documented in the HPI. ROS Other: All systems not noted in ROS Statement are negative. Past Medical History Past Medical History: Hypertension Additional Past Medical History / Comment(s): Pt recently admitted 08/01/15 with sepsis 2ndary to sigmoid diverticuliti/diarrhea. Other hx: diverticulitis, chronic constipation. Colostomy. History of Any Multi-Drug Resistant Organisms: None Reported Past Surgical History: Bowel Resection Additional Past Surgical History / Comment(s): 08/04/16 exploratory laparotomy lysis of extensive adhesions/sigmoid resection/decending colostomy/repair incisional ventral hernia. Other surgical hx: 2002 Exploratory laparotomy with ulcer repair, EGD/colonoscopy. Past Anesthesia/Blood Transfusion Reactions: No Reported Reaction Past Psychological History: No Psychological Hx Reported Smoking Status: Current every day smoker Past Alcohol Use History: Rare Past Drug Use History: None Reported - Past Family History Father Family Medical History: No Reported History Additional Family Medical History / Comment(s): Father when pt was young of unknown reason. Mother Family Medical History: CVA/TIA Sister(s) Family Medical History: Cancer Additional Family Medical History / Comment(s): pt sister from stomach cancer. General Exam - General Exam Comments Initial Comments: Laying in exam room, uncomfortable secondary to pain Limitations: no limitations General appearance: alert Head exam: Present: atraumatic, normocephalic, normal inspection Eye exam: Present: normal appearance ENT exam: Present: normal exam Neck exam: Present: normal inspection Respiratory exam: Present: normal lung sounds bilaterally. Absent: respiratory distress Cardiovascular Exam: Present: regular rate, normal rhythm, normal heart sounds GI/Abdominal exam: Present: soft, tenderness (Diffuse tenderness on palpating over her abdomen), other (Colostomy bag in place. Formed, brown, fecal material in the bag. ) Extremities exam: Present: normal inspection Back exam: Present: normal inspection Neurological exam: Present: alert, oriented X3, CN II-XII intact, normal gait Psychiatric exam: Present: normal affect, normal mood Skin exam: Present: warm, dry, intact, normal color. Absent: rash Course Vital Signs 01/10/17 01/10/17 01/11/17 21:11 23:38 03:04 Temperature 97.6 F 98.0 F Pulse Rate 75 79 67 Pulse Rate [ Pulse Oximetery ] Respiratory 18 16 16 Rate Blood Pressure 122/79 129/79 114/70 Blood Pressure [Left Arm] O2 Sat by Pulse 98 99 95 Oximetry 01/11/17 03:41 Temperature 98.4 F Pulse Rate Pulse Rate [ 101 H Pulse Oximetery ] Respiratory 16 Rate Blood Pressure Blood Pressure 142/70 [Left Arm] O2 Sat by Pulse 98 Oximetry Medical Decision Making - Medical Decision Making Patient is a 51-year-old male presents emergency room for evaluation of abdominal pain. Patient also noted to be intoxicated. Serum alcohol level 227. CT abdomen/pelvis significant for omental infarct. Patient will be admitted for alcohol withdrawal and pain control. Patient will be consult with Dr. Raphael - Lab Data Result diagrams: 01/10/17 22:30 01/10/17 22:30 Lab Results 01/10/17 01/10/17 01/10/17 Range/Units 22:30 22:30 22:30 WBC 10.6 (3.8-10.6) k/uL RBC 4.62 (4.30-5.90) m/uL Hgb 14.6 (13.0-17.5) gm/dL Hct 40.4 (39.0-53.0) % MCV 87.3 (80.0-100.0) fL MCH 31.5 (25.0-35.0) pg MCHC 36.1 (31.0-37.0) g/dL RDW 13.2 (11.5-15.5) % Plt Count 124 L (150-450) k/uL Neutrophils % 52 % Lymphocytes % 40 % Monocytes % 4 % Eosinophils % 1 % Basophils % 0 % Neutrophils # 5.5 (1.3-7.7) k/uL Lymphocytes # 4.2 (1.0-4.8) k/uL Monocytes # 0.5 (0-1.0) k/uL Eosinophils # 0.1 (0-0.7) k/uL Basophils # 0.0 (0-0.2) k/uL Sodium 143 (137-145) mmol/L Potassium 3.4 L (3.5-5.1) mmol/L Chloride 105 (98-107) mmol/L Carbon Dioxide 22 (22-30) mmol/L Anion Gap 16 mmol/L BUN 5 L (9-20) mg/dL Creatinine 0.70 (0.66-1.25) mg/dL Est GFR (MDRD) Af Amer >60 (>60 ml/min/1.73 sqM) Est GFR (MDRD) Non-Af >60 (>60 ml/min/1.73 sqM) Glucose 108 H (74-99) mg/dL Calcium 9.6 (8.4-10.2) mg/dL Total Bilirubin 0.6 (0.2-1.3) mg/dL AST 119 H (17-59) U/L ALT 120 H (21-72) U/L Alkaline Phosphatase 87 (38-126) U/L Total Protein 7.1 (6.3-8.2) g/dL Albumin 4.2 (3.5-5.0) g/dL Amylase 37 (30-110) U/L Lipase 107 (23-300) U/L Urine Color Urine Appearance (Clear) Urine pH (5.0-8.0) Ur Specific [place] (1.001-1.035) Urine Protein (Negative) Urine Glucose (UA) (Negative) Urine Ketones (Negative) Urine Blood (Negative) Urine Nitrite (Negative) Urine Bilirubin (Negative) Urine Urobilinogen (<2.0) mg/dL Ur Leukocyte Esterase (Negative) Serum Alcohol 227 mg/dL 01/10/17 Range/Units 23:52 WBC (3.8-10.6) k/uL RBC (4.30-5.90) m/uL Hgb (13.0-17.5) gm/dL Hct (39.0-53.0) % MCV (80.0-100.0) fL MCH (25.0-35.0) pg MCHC (31.0-37.0) g/dL RDW (11.5-15.5) % Plt Count (150-450) k/uL Neutrophils % % Lymphocytes % % Monocytes % % Eosinophils % % Basophils % % Neutrophils # (1.3-7.7) k/uL Lymphocytes # (1.0-4.8) k/uL Monocytes # (0-1.0) k/uL Eosinophils # (0-0.7) k/uL Basophils # (0-0.2) k/uL Sodium (137-145) mmol/L Potassium (3.5-5.1) mmol/L Chloride (98-107) mmol/L Carbon Dioxide (22-30) mmol/L Anion Gap mmol/L BUN (9-20) mg/dL Creatinine (0.66-1.25) mg/dL Est GFR (MDRD) Af Amer (>60 ml/min/1.73 sqM) Est GFR (MDRD) Non-Af (>60 ml/min/1.73 sqM) Glucose (74-99) mg/dL Calcium (8.4-10.2) mg/dL Total Bilirubin (0.2-1.3) mg/dL AST (17-59) U/L ALT (21-72) U/L Alkaline Phosphatase (38-126) U/L Total Protein (6.3-8.2) g/dL Albumin (3.5-5.0) g/dL Amylase (30-110) U/L Lipase (23-300) U/L Urine Color Light Yellow Urine Appearance Clear (Clear) Urine pH 6.5 (5.0-8.0) Ur Specific [place] 1.005 (1.001-1.035) Urine Protein Negative (Negative) Urine Glucose (UA) Negative (Negative) Urine Ketones Negative (Negative) Urine Blood Negative (Negative) Urine Nitrite Negative (Negative) Urine Bilirubin Negative (Negative) Urine Urobilinogen <2.0 (<2.0) mg/dL Ur Leukocyte Esterase Negative (Negative) Serum Alcohol mg/dL - Radiology Data Radiology results: report reviewed, image reviewed Disposition Clinical Impression: Omental infarction, Alcohol intoxication Disposition: ADMITTED IP TO THIS [facility] Condition: Stable Decision Date: 01/11/17
[2017-01-10] MEDS ORDERED: HYDROmorphone 1 MG/ML 1 ML SYRINGE IVP STA (22:33)
[2017-01-10] MEDS ORDERED: LORazepam 2 MG/ML SYRINGE IV STA (22:48)
[2017-01-10 22:55] LABS: Basophils % (A) 0 %; CH 32.3; CHCM 37.1; Eosinophils # (A) 0.1 k/uL (0-0.7); Eosinophils % (A) 1 %; HCT 40.4 % (39.0-53.0); HGB 14.6 gm/dL (13.0-17.5); Luc # (Auto) 0.33; Luc % (Auto) 3; Lymphocytes # (A) 4.2 k/uL (1.0-4.8); Lymphocytes % (A) 40 %; MCH 31.5 pg (25.0-35.0); MCHC 36.1 g/dL (31.0-37.0); MCV 87.3 fL (80.0-100.0); Mean Platelet Volume 7.5; Monocytes # (A) 0.5 k/uL (0-1.0); Monocytes % (A) 4 %; Neutrophils # (A) 5.5 k/uL (1.3-7.7); Neutrophils % (A) 52 %; RBC 4.62 m/uL (4.30-5.90); RDW 13.2 % (11.5-15.5); WBC 10.6 k/uL (3.8-10.6); WBC (Perox) 10.32
[2017-01-10 23:06] LABS: ALT 120 U/L (21-72); AST 119 U/L (17-59); Alkaline Phosphatase 87 U/L (38-126); Amylase 37 U/L (30-110); Anion Gap 16 mmol/L; Blood Urea Nitrogen 5 mg/dL (9-20); Calcium 9.6 mg/dL (8.4-10.2); Carbon Dioxide 22 mmol/L (22-30); Chloride 105 mmol/L (98-107); Glucose 108 mg/dL (74-99); Non-African American GFR(MDRD) >60 (>60 ml/min/1.73 sqM); Potassium 3.4 mmol/L (3.5-5.1); Sodium 143 mmol/L (137-145); Total Bilirubin 0.6 mg/dL (0.2-1.3); Total Protein 7.1 g/dL (6.3-8.2)
--- NOTE | 2017-01-10 23:17 | XR ---
EXAM: XR Abdomen, 1 View CLINICAL HISTORY: Reason: pain TECHNIQUE: Frontal supine view of the abdomen/pelvis. COMPARISON: 08/03/2016 FINDINGS: Intraperitoneal space: There is paucity of bowel gas in the central abdomen. No pneumatosis or pneumoperitoneum. Gastrointestinal tract: Gas and stool are present in the nondilated colon. Bones/joints: Transitional lumbar anatomy with partial sacralization of L5. No acute osseous abnormality. IMPRESSION: Nonspecific bowel gas pattern. No pneumatosis or pneumoperitoneum.
[2017-01-11 00:16] LABS: Appearance,Urine Clear (Clear); Bilirubin,Urine Negative (Negative); Glucose,Urine (UA) Negative (Negative); Ketones,Urine Negative (Negative); Leukocyte Esterase,Urine Negative (Negative); Nitrite,Urine Negative (Negative); PH, Urine 6.5 (5.0-8.0); Protein,Urine Negative (Negative); Specific Gravity,Urine 1.005 (1.001-1.035); UA Billing (MACRO vs. MICRO) CHEM; Urobilinogen,Urine <2.0 mg/dL (<2.0)
[2017-01-11] MEDS ORDERED: THIAMINE 100 MG/ML 2 ML VIAL IM STA (00:33)
[2017-01-11] MEDS ORDERED: RX INFO: IV CONTRAST WAS GIVEN 1 EACH MISC MISCELLANE PRN (00:34)
[2017-01-11] MEDS: LORazepam 2 MG/ML SYRINGE IV PRN ×4 (00:39→11:51)
--- NOTE | 2017-01-11 01:51 | CT ---
EXAM: CT Abdomen and Pelvis With Intravenous Contrast CLINICAL HISTORY: Reason: Pain TECHNIQUE: Axial computed tomography images of the abdomen and pelvis with intravenous contrast. CTDI is 15.60, 15.60 mGy and DLP is 1440 mGy-cm. This CT exam was performed using one or more of the following dose reduction techniques: automated exposure control, adjustment of the mA and/or kV according to patient size, and/or use of iterative reconstruction technique. COMPARISON: 08/03/2016 FINDINGS: Lower thorax: Small hiatal hernia. ABDOMEN: Liver: The liver is diffusely hypodense suggestive of diffuse hepatic steatosis. Gallbladder and bile ducts: Unremarkable. No calcified stones. Pancreas: Unremarkable. Spleen: Unremarkable. Adrenals: Unremarkable. Kidneys and ureters: Unremarkable. No solid mass. No hydronephrosis. Stomach and bowel: Status post partial colectomy and Devries's pouch. Left lower quadrant colostomy with fat-containing peristomal hernia. Bowel is nondilated. Appendix: The appendix is not identified. PELVIS: Bladder: Unremarkable. Reproductive: Unremarkable as visualized. ABDOMEN and PELVIS: Intraperitoneal space: Nonspecific haziness of the fat in the anterior mid abdomen is concerning for an omental infarct. No free fluid or free air. Bones/joints: No acute osseous abnormality. Soft tissues: Small fat-containing left inguinal hernia. Diastases of the rectus musculature. Vasculature: Unremarkable. No abdominal aortic aneurysm. Lymph nodes: Unremarkable. No enlarged lymph nodes. IMPRESSION: Nonspecific stranding of the fat in the anterior mid abdomen is concerning for an omental infarct. Status post interval hemicolectomy and left lower quadrant colostomy. Fat-containing peristomal hernia. No bowel obstruction, free fluid, or free air.
[2017-01-11] MEDS ORDERED: NALOXONE 0.4 MG/ML 1 ML VIAL IV PRN (02:25)
[2017-01-11] MEDS: SODIUM CHLORIDE 0.9% 1,000 ML IV SCH ×2 (02:58→11:53)
[2017-01-11] MEDS: KETOROLAC 30 MG/ML 1 ML VIAL IVP SCH ×4 (05:37→23:11)
[2017-01-11] MEDS: ONDANSETRON 4 MG/2 ML VIAL IVP PRN (08:51)
--- NOTE | 2017-01-11 13:32 | P.GSCN ---
History of Present Illness Consult date: 01/11/17 Reason for Consult: Abdominal pain History of present illness: 51-year-old male being seen at the request of the attending for a surgical eval in a patient who presented on the day of admission to the emergency room with a chief complaint of developing abdominal pain. Patient has poor past medical history recall. Patient was admitted to the emergency room with acute alcohol intoxication currently receiving CIWA with the use of Ativan per protocol for impending DTs. Patient states his last drink of alcohol was 2 days prior patient states that he been having pain points to the left mid abdominal wall as to the reference point patient states he's had pain there "for some time describes it as a burning sensation rubs his abdomen states sometimes it makes it feel better. Patient has an ostomy left mid abdomen scant amount of stool noted from the ostomy stoma no stool noted in the bag nursing reports that patient had a moderate amount of stool in the ostomy bag earlier in the day. No family present. Patient has a past surgical history of diverticulitis perforated with sepsis in July 2016 with an ostomy. Patient returned to the emergency room within 24 hours after being discharged with new separation of the ostomy along the edges. Patient was stabilized dehiscence of the wound was addressed and ostomy education was provided. Questioning patient about follow- up patient states he's not certain when he is seen a physician last. Currently the patient is resting in bed sedated from Ativan for the impending DTs does arouse with verbal stimuli no facial grimacing with palpitation to the abdominal wall the white count on the was 10.7 platelets 124 CAT scan of the abdomen and pelvis obtained on the show nonspecific stranding of the fat in the anterior mid abdomen concerning for a omental infarct. Review of Systems Essentially unremarkable except as mentioned in the present illness Past Medical History Past Medical History: Hypertension Additional Past Medical History / Comment(s): Pt recently admitted 08/01/15 with sepsis 2ndary to sigmoid diverticuliti/diarrhea. Other hx: diverticulitis, chronic constipation. Colostomy. History of Any Multi-Drug Resistant Organisms: None Reported Past Surgical History: Bowel Resection Additional Past Surgical History / Comment(s): 08/04/16 exploratory laparotomy lysis of extensive adhesions/sigmoid resection/decending colostomy/repair incisional ventral hernia. Other surgical hx: 2001 Exploratory laparotomy with ulcer repair, EGD/colonoscopy. Past Anesthesia/Blood Transfusion Reactions: No Reported Reaction Past Psychological History: No Psychological Hx Reported Smoking Status: Current every day smoker Past Alcohol Use History: Rare Past Drug Use History: None Reported - Past Family History Father Family Medical History: No Reported History Additional Family Medical History / Comment(s): Father when pt was young of unknown reason. Mother Family Medical History: CVA/TIA Sister(s) Family Medical History: Cancer Additional Family Medical History / Comment(s): pt sister from stomach cancer. Medications and Allergies Home Medications Medication Instructions Recorded Confirmed Type Multivitamins, Thera [Multivitamin 1 tab PO DAILY 01/10/17 01/10/17 History (formulary)] Naproxen Sodium [Aleve] 440 mg PO DAILY PRN 01/10/17 01/10/17 History Allergies Allergy/AdvReac Type Severity Reaction Status Date / Time hydromorphone [From Dilaudid] AdvReac Itching Verified 01/10/17 22:01 nicotine AdvReac Itching Verified 01/10/17 22:01 Surgical - Exam Vital Signs Temp Pulse Resp BP Pulse Ox 97.6 F 75 18 122/79 98 01/10/17 21:11 01/10/17 21:11 01/10/17 21:11 01/10/17 21:11 01/10/17 21:11 GENERAL APPEARANCE: 51-year-old male patient is sedated does arouse to verbal stimuli oriented, in no acute distress. VITAL SIGNS: Reviewed HEENT: Head is normocephalic and atraumatic. Pupils are equal and reactive. The nares are patent. Oropharynx is clear without lesions. NECK: Supple without lymphadenopathy. Traches midline. HEART: S1, S2. Regular rate and rhythm. Denying chest pain when questioning no murmur noted LUNGS: No crackles or wheezes are heard. Adequate air movement bilaterally on room air no cough noted ABDOMEN: Soft, nontender, nondistended No peritoneal signs. No palpable organomegaly or masses. Ostomy left lower quadrant scant amount of stool noted from the stoma bowel tones present no reports of nausea vomiting states urinating no difficulty slight tenderness to the left lower quadrant stoma pink EXTREMITIES: Normal skin color and turgor. No cyanosis, rash, ulceration, clubbing or edema. Radial pedal pulses are 2/4 bilaterally. No tremors noted NEUROLOGICAL: No focal deficits. Strength and sensation are grossly intact. Results - Labs 01/12/17 06:44 01/12/17 06:44 Abnormal Lab Results - Last 24 Hours (Table) 01/10/17 01/10/17 Range/Units 22:30 22:30 Plt Count 124 L (150-450) k/uL Potassium 3.4 L (3.5-5.1) mmol/L BUN 5 L (9-20) mg/dL Glucose 108 H (74-99) mg/dL AST 119 H (17-59) U/L ALT 120 H (21-72) U/L Diabetes panel 01/10/17 Range/Units 22:30 Sodium 143 (137-145) mmol/L Potassium 3.4 L (3.5-5.1) mmol/L Chloride 105 (98-107) mmol/L Carbon Dioxide 22 (22-30) mmol/L BUN 5 L (9-20) mg/dL Creatinine 0.70 (0.66-1.25) mg/dL Glucose 108 H (74-99) mg/dL Calcium 9.6 (8.4-10.2) mg/dL AST 119 H (17-59) U/L ALT 120 H (21-72) U/L Alkaline Phosphatase 87 (38-126) U/L Total Protein 7.1 (6.3-8.2) g/dL Albumin 4.2 (3.5-5.0) g/dL Calcium panel 01/10/17 Range/Units 22:30 Calcium 9.6 (8.4-10.2) mg/dL Albumin 4.2 (3.5-5.0) g/dL Pituitary panel 01/10/17 Range/Units 22:30 Sodium 143 (137-145) mmol/L Potassium 3.4 L (3.5-5.1) mmol/L Chloride 105 (98-107) mmol/L Carbon Dioxide 22 (22-30) mmol/L BUN 5 L (9-20) mg/dL Creatinine 0.70 (0.66-1.25) mg/dL Glucose 108 H (74-99) mg/dL Calcium 9.6 (8.4-10.2) mg/dL Adrenal panel 01/10/17 Range/Units 22:30 Sodium 143 (137-145) mmol/L Potassium 3.4 L (3.5-5.1) mmol/L Chloride 105 (98-107) mmol/L Carbon Dioxide 22 (22-30) mmol/L BUN 5 L (9-20) mg/dL Creatinine 0.70 (0.66-1.25) mg/dL Glucose 108 H (74-99) mg/dL Calcium 9.6 (8.4-10.2) mg/dL Total Bilirubin 0.6 (0.2-1.3) mg/dL AST 119 H (17-59) U/L ALT 120 H (21-72) U/L Alkaline Phosphatase 87 (38-126) U/L Total Protein 7.1 (6.3-8.2) g/dL Albumin 4.2 (3.5-5.0) g/dL Assessment and Plan Plan: Impression Present on admission abdominal pain with a CAT scan of the abdomen pelvis showing nonspecific stranding of the fat in the anterior mid abdomen concern for omental infarct Present on admission acute alcohol intoxication Present on admission severe electrolyte abnormality hypokalemia Elevated AST and ALT mild Thrombocytopenia platelets 124 suspect related to alcoholism Chronic alcoholism Essential hypertension History of July 2016 Acute diverticulitis of the intestine Obesity BMI 29 Status post colectomy with ostomy July 2016 Current every day smoker greater than a 20 year history COPD probable undiagnosed 08/04/2016 exploratory laparotomy lysis of adhesions sigmoid resection descending colostomy with repair of ventral hernia Patient's noncompliance with medical treatment in managing Plan Continue to treat in pending DTs with CIWA protocol using Ativan Continue with the recommendations by medicine service defer to No surgical intervention warranted at this time medical management Patient may benefit from rehab for alcohol intoxication Repeat labs in the morning Ostomy care IV fluid for hydration Potassium to be replaced Thank you for allowing us to participate in the surgical care of your patient will follow clinical course closely further recommendations pending The above dictated assessment and findings were discussed with dr Raphael Impression and the plan of care have been dictated as directed. Shaylee Madrid nurse practitioner acting as a scribe for dr Raphael
[2017-01-11] MEDS: POTASSIUM CHLORIDE ER 20 MEQ TAB.ER PO SCH ×2 (15:26→17:49)
[2017-01-11] MEDS: THIAMINE 100 MG TAB PO SCH (17:49)
--- NOTE | 2017-01-11 20:16 | HP ---
DATE OF ADMISSION: CHIEF COMPLAINT: Abdominal pain. HISTORY OF PRESENTING ILLNESS: This is a 51-year-old gentleman with a history of alcohol abuse. He has been sober for about one year. He comes into the hospital with complaints of abdominal pain. Patient apparently has had some hardship in the family about a week ago and started binge-drinking thereafter. Patient states that he has been drinking about 3 pints of Bacardi daily; states that he has significant abdominal pain. Pain is about 8 to 9 out of 10 in his right lower quadrant of the abdomen. Denies having any increased ostomy output, fevers, chills, chest pain, difficulty in breathing. Patient does state that he has a significant amount of shaking and trembling at this time. His last drink was within the last 24 hours. Patient has a history of perforated diverticulum, status post ostomy placement. REVIEW OF SYSTEMS: Fourteen-point review of system was done; none pertinent other than what was mentioned above. Home medications include multivitamin, Naprosyn. ALLERGIES: DILAUDID and NICOTINE. Past medical history includes complicated diverticulitis. SURGICAL HISTORY: Colostomy placement with sigmoid resection. SOCIAL HISTORY: Smokes cigarettes daily. Has been drinking excessively over the last one week. FAMILY HISTORY: Not pertinent to the current admission. PHYSICAL EXAM: VITALS: Temperature is 97.6, heart rate 75, respiratory rate 18, blood pressure 122/79. Saturating 98% on room air. GENERAL APPEARANCE: Patient is drowsy. States he has a headache. NECK: Supple. No JVD. PUPILS: Equal, round and reactive to light and accommodation. Extraocular movements are intact. LUNGS: Good air movement. Clear to auscultation. No rhonchi, wheezing or crackles. HEART: S1, S2 heard. Regular rate and rhythm. No murmurs appreciated. ABDOMEN: Ostomy noted on the left hemiabdomen. Focal tenderness in the right hemiabdomen. No rebound tenderness. Bowel sounds are intact. Stoma appears within normal limits. NEURO: No focal motor or sensory deficits noted. LOWER EXTREMITIES: No edema noted. LABORATORY DATA: Hemoglobin 14.6, hematocrit 40.4, white count 10.6, platelets 124. Sodium 143, potassium 3.4, chloride 105, bicarb 22. BUN 5, creatinine 0.70. ASSESSMENT AND PLAN: 1. Abdominal pain secondary to omental fat entrapment. 2. Acute alcohol intoxication. 3. Thrombocytopenia secondary to above. 4. Hypokalemia. 5. History of complicated diverticulitis. PLAN: Patient's CIWA score is about 16. Will add Librium to patient's medications. Patient states that he would go back to drinking when discharged home. Apparently he has been working on ostomy reversal; however, patient has not had access to insurance, as he lost his job. Patient states that he was doing well a week ago; inciting event was trauma in the family. Denies having any suicidal or homicidal ideation. Will continue monitoring for the next 24 hours. Will need pain control in regards to the omentum stranding. Will have Case Management evaluate the patient as well in order to pursue possibility of Medicaid application. Patient could likely be discharged home in the next 24 hours with a Librium taper.
[2017-01-12] MEDS: SODIUM CHLORIDE 0.9% 1,000 ML IV SCH ×3 (04:24→16:59)
[2017-01-12] MEDS: KETOROLAC 30 MG/ML 1 ML VIAL IVP SCH ×4 (05:23→23:05)
[2017-01-12 07:14] LABS: Basophils % (A) 0 %; CH 32.2; CHCM 35.8; Eosinophils # (A) 0.3 k/uL (0-0.7); Eosinophils % (A) 5 %; HCT 38.3 % (39.0-53.0); HDW 2.85; HGB 13.2 gm/dL (13.0-17.5); Luc # (Auto) 0.14; Luc % (Auto) 2; Lymphocytes # (A) 2.5 k/uL (1.0-4.8); Lymphocytes % (A) 35 %; MCH 31.1 pg (25.0-35.0); MCHC 34.4 g/dL (31.0-37.0); MCV 90.4 fL (80.0-100.0); Mean Platelet Volume 7.3; Monocytes # (A) 0.4 k/uL (0-1.0); Monocytes % (A) 5 %; Neutrophils # (A) 3.7 k/uL (1.3-7.7); Neutrophils % (A) 53 %; RBC 4.24 m/uL (4.30-5.90); RDW 13.8 % (11.5-15.5); WBC 7.1 k/uL (3.8-10.6); WBC (Perox) 7.39
[2017-01-12 07:27] LABS: ALT 98 U/L (21-72); AST 85 U/L (17-59); Alkaline Phosphatase 68 U/L (38-126); Anion Gap 7 mmol/L; Blood Urea Nitrogen 8 mg/dL (9-20); Carbon Dioxide 22 mmol/L (22-30); Chloride 109 mmol/L (98-107); Glucose 98 mg/dL (74-99); Magnesium 1.7 mg/dL (1.6-2.3); Non-African American GFR(MDRD) >60 (>60 ml/min/1.73 sqM); Potassium 3.6 mmol/L (3.5-5.1); Sodium 138 mmol/L (137-145); Total Bilirubin 1.1 mg/dL (0.2-1.3); Total Protein 5.9 g/dL (6.3-8.2)
[2017-01-12] MEDS: LORazepam 2 MG/ML SYRINGE IV PRN ×3 (07:27→10:20)
--- NOTE | 2017-01-12 08:20 | P.PN ---
Progress Note - Text Patient is seen and evaluated. He is well known to me from perforated diverticulitis July 2016. In fact, he was just hospitalized at [facility] over the weekend for alcohol intoxication as well as omental infarct. He comes back to the hospital again with alcohol intoxication. Given his recurrent hospitalization and alcohol intoxication, he might benefit from referral to treatment Center. He has chronic depression and may benefit from psych evaluation. As for omental infarct, expectant management. No surgical intervention. He has elevated LFTs however do recommend an ultrasound of the right upper quadrant as well.
[2017-01-12] MEDS: THIAMINE 100 MG TAB PO SCH ×2 (12:28→16:58)
--- NOTE | 2017-01-12 13:09 | P.PN ---
Subjective 51-year-old male being seen and examined. Patient is arousable more awake this morning patient does state feels depressed and anxious and discouraged over his ostomy sometimes "I don't feel like I can deal with it "sometimes this is what causes me to drink alcoholic don't drink alcohol every day alcohol is really not an issue with me patient states abdominal pain improved reports no nausea vomiting no difficulty in urinating tolerating a diet Objective - Vital Signs Vital signs: Vital Signs Temp 98.3 F 01/12/17 07:00 Pulse 68 01/12/17 07:00 Resp 16 01/12/17 11:37 BP 130/73 01/12/17 07:00 Pulse Ox 98 01/12/17 07:00 Intake & Output 01/11/17 01/12/17 01/12/17 18:59 06:59 18:59 Intake Total 800 1400 360 Balance 800 1400 360 Intake: Intake, IV Titration 800 1150 Amount Sodium Chloride 0.9% 1, 800 1150 000 ml @ 100 mls/hr IV . Q10H CAMACHO Rx#:[id number] Oral 250 360 Other: Voiding Method Toilet # Voids 2 - Exam Physical exam 51-year-old male resting in bed oriented 3 states abdominal pain significantly improved Lungs essentially clear adequate air movement Heart S1-S2 audible regular Abdomen ostomy left lower quadrant moderate amount of stool stoma pink not distended nontender bowel sounds present nontender Extremities no edema - Labs CBC & Chem 7: 01/12/17 06:44 01/12/17 06:44 Labs: Abnormal Lab Results - Last 24 Hours (Table) 01/12/17 01/12/17 Range/Units 06:44 06:44 RBC 4.24 L (4.30-5.90) m/uL Hct 38.3 L (39.0-53.0) % Plt Count 113 L (150-450) k/uL Chloride 109 H (98-107) mmol/L BUN 8 L (9-20) mg/dL Calcium 8.0 L (8.4-10.2) mg/dL AST 85 H (17-59) U/L ALT 98 H (21-72) U/L Total Protein 5.9 L (6.3-8.2) g/dL Albumin 3.2 L (3.5-5.0) g/dL Assessment and Plan Plan: Impression Present on admission abdominal pain with a CAT scan of the abdomen pelvis showing nonspecific stranding of the fat in the anterior mid abdomen concern for omental infarct treat medically no surgical intervention Present on admission acute alcohol intoxication Present on admission severe electrolyte abnormality hypokalemia Elevated AST and ALT mild improved Thrombocytopenia platelets 124 suspect related to alcoholism Chronic alcoholism Essential hypertension History of July 2016 Acute diverticulitis of the intestine Obesity BMI 29 Status post colectomy with ostomy July 2016 Current every day smoker greater than a 20 year history COPD probable undiagnosed 08/04/2016 exploratory laparotomy lysis of adhesions sigmoid resection descending colostomy with repair of ventral hernia Patient's noncompliance with medical treatment in managing Plan Continue to treat in pending DTs with CIWA protocol using Ativan Continue with the recommendations by medicine service defer to No surgical intervention warranted at this time medical management Patient may benefit from rehab for alcohol intoxication Repeat labs in the morning Ostomy care IV fluid for hydration Potassium to be replaced Follow-up on ultrasound the abdomen Thank you for allowing us to participate in the surgical care of your patient will follow clinical course closely further recommendations pending The above dictated assessment and findings were discussed with dr Raphael Impression and the plan of care have been dictated as directed. Shaylee Madrid nurse practitioner acting as a scribe for dr Raphael
[2017-01-12] MEDS: POTASSIUM CHLORIDE ER 20 MEQ TAB.ER PO SCH ×2 (15:25→16:58)
--- NOTE | 2017-01-12 17:04 | US ---
EXAMINATION TYPE: US gallbladder DATE OF EXAM: 01/12/2017 COMPARISON: Previous study dated 08/25/2013 CLINICAL HISTORY: elevated LFTS. EXAM MEASUREMENTS: Liver Length: 17.9 cm Gallbladder Wall: 0.2 cm CBD: 0.3 cm Right Kidney: 12.6 x 5.0 x 5.3 cm Pancreas: Obscured by bowel gas Liver: Increased attenuation, decreased visualization of vessels suggestive of fatty infiltrate, hep atomegaly Gallbladder: wnl Evidence for sonographic Mancera's sign: No CBD: wnl Right Kidney: wnl The pancreas is obscured. The liver is mildly enlarged measuring 18 cm. It is echogenic and likely fatty infiltrated. Gallbladder is unremarkable without cholelithiasis. The gallbladder wall measures 1.6 mm. Distal comm on hepatic duct measures 3.2 mm. The right kidney is normal. Visualized portions of aorta and IVC are normal. IMPRESSION: MILD HEPATOMEGALY AND FATTY INFILTRATION OF THE LIVER.
--- NOTE | 2017-01-12 18:45 | P.PN ---
Subjective Date of service 01/12/2017. Personal being dictated for Dr. Tay Interval history: This 51-year-old gentleman admitted with abdominal pain, it acute alcohol intoxication and multiple other medical issues. Maintained on CIWA protocol, requiring 2 mg so far this morning. Continues to have shakiness , DTs, hallucinating seeing shadows on the ceiling. Tolerating diet. Abdominal pain improving. Denies chest pain, palpitations or increasing shortness of breath. Evaluated by surgery, recommendations noted -nonsurgical Gallbladder ultrasound reporting without cholelithiasis, mild hepatomegaly and fatty liver. LFTs improving. Objective - Vital Signs Vital signs: Vital Signs Temp 98.0 F 01/12/17 13:38 Pulse 89 01/12/17 13:38 Resp 17 01/12/17 13:38 BP 153/94 01/12/17 13:38 Pulse Ox 96 01/12/17 13:38 Intake & Output 01/11/17 01/12/17 01/12/17 18:59 06:59 18:59 Intake Total 800 1400 360 Output Total 800 Balance 800 1400 -440 Intake: Intake, IV Titration 800 1150 Amount Sodium Chloride 0.9% 1, 800 1150 000 ml @ 100 mls/hr IV . Q10H CAMACHO Rx#:[id number] Oral 250 360 Output: Urine 800 Other: Voiding Method Toilet # Voids 2 - Exam PHYSICAL EXAM: VITAL SIGNS: As above GENERAL: [Sleeping in bed, easily arousable] HEENT: [Pupils equal conjunctiva normal. Oral mucosa dry] NECK: [Supple, no JVD] RESPIRATORY EFFORT:[ Normal] LUNGS: [Essentially clear, no wheezes rhonchi or crackles] CARDIOVASCULAR[ regular S1 and S2, no murmurs rubs or gallops, no edema] GI: [Abdomen soft, Functioning LLQ ostomy present, right upper quadrant tenderness, positive bowel sounds. No guarding, no rigidity] PSYCH: [Alert and oriented -2, anxious] NEURO: [No focal deficits, shakiness slowly improving but continues to have hallucinations as mentioned above] - Labs CBC & Chem 7: 01/12/17 06:44 01/12/17 06:44 Labs: Abnormal Lab Results - Last 24 Hours (Table) 01/12/17 01/12/17 Range/Units 06:44 06:44 RBC 4.24 L (4.30-5.90) m/uL Hct 38.3 L (39.0-53.0) % Plt Count 113 L (150-450) k/uL Chloride 109 H (98-107) mmol/L BUN 8 L (9-20) mg/dL Calcium 8.0 L (8.4-10.2) mg/dL AST 85 H (17-59) U/L ALT 98 H (21-72) U/L Total Protein 5.9 L (6.3-8.2) g/dL Albumin 3.2 L (3.5-5.0) g/dL Assessment and Plan Plan: 1. Abdominal pain secondary to omental fat entrapment 2. Acute alcohol intoxication with DTs 3. Thrombocytopenia secondary to above 4. Hypokalemia 5. History of complicated diverticulitis Plan: Continue on current medication regime ,monitoring and symptomatic treatment. Maintain IV fluid hydration,CIWA protocol. Close monitoring of LFTs and electrolytes with repeat labs ordered for a.m. Discharge planning in progress pending DTs resolution. Further recommendations to follow. The impression and plan of care has been dictated as directed. : I performed a H&P examination of this patient and discussed the same with the dictator. I agree with the dictator's note. Any additional findings/opinions/ etc. will be noted.
[2017-01-13] MEDS: LORazepam 2 MG/ML SYRINGE IV PRN ×3 (01:49→08:37)
[2017-01-13] MEDS: KETOROLAC 30 MG/ML 1 ML VIAL IVP SCH (05:17)
[2017-01-13 07:49] VITALS: BP 117/80; PULSE 69; RESP 18; TEMP 97.9
[2017-01-13 08:05] LABS: ALT 85 U/L (21-72); AST 60 U/L (17-59); Alkaline Phosphatase 70 U/L (38-126); Anion Gap 8 mmol/L; Blood Urea Nitrogen 9 mg/dL (9-20); Calcium 9.5 mg/dL (8.4-10.2); Carbon Dioxide 23 mmol/L (22-30); Chloride 109 mmol/L (98-107); Glucose 102 mg/dL (74-99); Non-African American GFR(MDRD) >60 (>60 ml/min/1.73 sqM); Potassium 3.7 mmol/L (3.5-5.1); Sodium 140 mmol/L (137-145); Total Bilirubin 0.7 mg/dL (0.2-1.3); Total Protein 6.1 g/dL (6.3-8.2)
[2017-01-13] MEDS: ONDANSETRON 4 MG/2 ML VIAL IVP PRN (08:41)
--- NOTE | 2017-01-13 17:41 | P.DS ---
Providers Date of admission: 01/13/17 08:33 Expected date of discharge: 01/13/17 Attending physician: MD Dr. Jasvir Wood Consults: 01/11/17 02:26 Consult Physician Urgent Consulting Provider: Estrella Raphael Consult Reason/Comments: Omental infarction Do you want consulting provider notified?: Yes Primary care physician: Stated None Dr. Alfred Hospital Course: 1. Abdominal pain secondary to omental fat entrapment,no surgical intervention as per surgery. 2. Acute alcohol intoxication with DTs, improved 3. Thrombocytopenia secondary to above 4. History of complicated diverticulitis. Hospital course:This 51-year-old gentleman admitted with abdominal pain, it acute alcohol intoxication and multiple other medical issues. Maintained on CIWA protocol, IV fluids, librium.Evaluated by surgery, recommendations noted - nonsurgical.Gallbladder ultrasound reporting without cholelithiasis, mild hepatomegaly and fatty liver.Significant clinical improvement. Alcohol cessation & AA support/resource rediscussed with patient. Patient is being discharge home in a stable condition with a guarded prognosis. The impression and plan of care has been dictated as directed as a scribe. : I performed a H&P examination of this patient and discussed the same with the dictator. I agree with the dictator's note. Any additional findings/opinions/ etc. will be noted. Patient Condition at Discharge: Stable Plan - Discharge Summary New Discharge Prescriptions: New Thiamine [Vitamin B-1] 100 mg PO DAILY #30 tab LORazepam [Ativan] 1 mg PO TID #20 tab Continue Multivitamins, Thera [Multivitamin (formulary)] 1 tab PO DAILY No Action Naproxen Sodium [Aleve] 440 mg PO DAILY PRN PRN Reason: Pain Discharge Medication List Multivitamins, Thera [Multivitamin (formulary)] 1 tab PO DAILY 01/10/17 [History ] Naproxen Sodium [Aleve] 440 mg PO DAILY PRN 01/10/17 [History] LORazepam [Ativan] 1 mg PO TID #20 tab 01/13/17 [Rx] Thiamine [Vitamin B-1] 100 mg PO DAILY #30 tab 01/13/17 [Rx] Follow up Appointment(s)/Referral(s): Leti Alfred MD [REFERRING] - 01/18/17 10:30 am Estrella Raphael MD [STAFF PHYSICIAN] - As Needed Ambulatory/Diagnostic Orders: Comprehensive Metabolic Panel [LAB.AMB] Time Frame: 3 Days, Location: Determined By Patient Patient Instructions/Handouts: Lorazepam (By mouth), Thiamine (By mouth), Diverticulitis (DC), Alcohol Intoxication (DC) Activity/Diet/Wound Care/Special Instructions: Diet cardiac Activity: Limited until follow up Discharge Disposition: HOME SELF-CARE
== END 2017-01-13 12:55 | disposition home or self-care (01) | DRG 394 ==
LOC: EC 20:48 → 3SUR 01-11 02:25 → 5MS5E 01-12 21:30 → OBSVTOIN 01-13 08:33
PROVIDERS: ADMIT Internal Medicine; ATTEND Internal Medicine
DX: K45.8 Other specified abdominal hernia without obstruction or gangrene (principal); F10.221 Alcohol dependence with intoxication delirium; D69.59 Other secondary thrombocytopenia; E87.6 Hypokalemia; F17.210 Nicotine dependence, cigarettes, uncomplicated; I10 Essential (primary) hypertension; J44.9 Chronic obstructive pulmonary disease, unspecified; E66.9 Obesity, unspecified; K59.09 Other constipation; Z68.29 Body mass index [BMI] 29.0-29.9, adult; K57.90 Diverticulosis of intestine, part unspecified, without perforation or abscess without bleeding; Z91.19 Patient's noncompliance with other medical treatment and regimen; Z93.3 Colostomy status; Z88.5 Allergy status to narcotic agent
CPT/HCPCS: 36415; 74000; 74177; 76705; 80053; 80320; 81003; 82150; 83690; 83735; 85025; 96361; 96372; 96374; 96375; 96376; 99285

== ENCOUNTER 2017-01-23 11:29 | Emergency (ER) | payer OTHER ==
[2017-01-23 11:36] VITALS: RESP 20; TEMP 99.2
[2017-01-23] MEDS ORDERED: LORazepam 1 MG TAB PO STA (12:16)
--- NOTE | 2017-01-23 12:39 | ED ---
General Adult HPI - General Source: patient, RN notes reviewed Mode of arrival: ambulatory Limitations: no limitations <Anne Mooney - Last Filed: 01/23/17 13:37> <Leandro Stapleton - Last Filed: 01/23/17 15:31> - General Chief complaint: Recheck/Abnormal Lab/Rx Stated complaint: high blood pressure/shakey Time Seen by Provider: 01/23/17 11:53 - History of Present Illness Initial comments: 51-year-old male presents to the emergency department chief complaint of alcohol withdrawal. Patient states alcoholic and he recently quit alcohol 4 days ago. Patient states that he is having a difficult time sleeping since then he's having some shakiness. Patient denies any seizures or any history of seizures and alcohol withdrawal. Patient states he's been sober for about 4 days. Patient states he's also under a lot of stress recently had a child that was warranted 24 weeks and he is concerned about this child. He states that he does suffer from some anxiety as well. Patient states these having hard time sleeping due to these 2 components. Patient states he does not see a counselor. Patient denies any suicidal or homicidal ideation at this time and does not want to see psychiatry he just wants something to help him with his withdrawal which she believes will help his be able to sleep. Patient's is at the bedside and states that he does have a lot of anxiety regarding his current life stressors. Patient denies any recent fever, chills, shortness of breath, chest pain, back pain, abdominal pain, nausea vomiting, numbness or tingling, dysuria or hematuria, constipation or diarrhea, headaches or visual changes, or any other current symptoms. (Anne Mooney) - Related Data Home Medications Medication Instructions Recorded Confirmed Multivitamins, Thera [Multivitamin 1 tab PO DAILY 01/23/17 01/23/17 (formulary)] Previous Rx's Medication Instructions Recorded chlordiazePOXIDE HCl [Librium] 25 mg PO DIRECTED 6 Days 01/23/17 Allergies Allergy/AdvReac Type Severity Reaction Status Date / Time hydromorphone [From Dilaudid] Allergy Itching Verified 01/23/17 12:48 nicotine Allergy Itching Verified 01/23/17 12:48 Review of Systems ROS Other: All systems not noted in ROS Statement are negative. <Anne Mooney - Last Filed: 01/23/17 13:37> ROS Other: All systems not noted in ROS Statement are negative. <Leandro Stapleton - Last Filed: 01/23/17 15:31> ROS Statement: Those systems with pertinent positive or pertinent negative responses have been documented in the HPI. Past Medical History Past Medical History: Hypertension Additional Past Medical History / Comment(s): Pt recently admitted 08/01/15 with sepsis 2ndary to sigmoid diverticuliti/diarrhea. Other hx: diverticulitis, chronic constipation. Colostomy. History of Any Multi-Drug Resistant Organisms: None Reported Past Surgical History: Bowel Resection Additional Past Surgical History / Comment(s): 08/04/16 exploratory laparotomy lysis of extensive adhesions/sigmoid resection/decending colostomy/repair incisional ventral hernia. Other surgical hx: 2001 Exploratory laparotomy with ulcer repair, EGD/colonoscopy. Past Anesthesia/Blood Transfusion Reactions: No Reported Reaction Past Psychological History: No Psychological Hx Reported Smoking Status: Current every day smoker Past Alcohol Use History: Rare Past Drug Use History: None Reported - Past Family History Father Family Medical History: No Reported History Additional Family Medical History / Comment(s): Father when pt was young of unknown reason. Mother Family Medical History: CVA/TIA Sister(s) Family Medical History: Cancer Additional Family Medical History / Comment(s): pt sister from stomach cancer. <Anne Mooney - Last Filed: 01/23/17 13:37> General Exam Limitations: no limitations General appearance: alert, in no apparent distress Head exam: Present: atraumatic, normocephalic, normal inspection Eye exam: Present: normal appearance, PERRL, EOMI. Absent: scleral icterus, conjunctival injection, periorbital swelling Neck exam: Present: normal inspection. Absent: tenderness, meningismus, lymphadenopathy Respiratory exam: Present: normal lung sounds bilaterally. Absent: respiratory distress, wheezes, rales, rhonchi, stridor Cardiovascular Exam: Present: regular rate, normal rhythm, normal heart sounds. Absent: systolic murmur, diastolic murmur, rubs, gallop, clicks Extremities exam: Present: normal inspection, full ROM, normal capillary refill. Absent: tenderness, pedal edema, joint swelling, calf tenderness Back exam: Present: normal inspection Neurological exam: Present: alert, oriented X3 Psychiatric exam: Present: normal affect, normal mood, anxious. Absent: homicidal ideation, suicidal ideation Skin exam: Present: warm, dry, intact, normal color. Absent: rash <Anne Mooney - Last Filed: 01/23/17 13:37> Medical Decision Making <Anne Mooney - Last Filed: 01/23/17 13:37> <Leandro Stapleton - Last Filed: 01/23/17 15:31> - Medical Decision Making 51-year-old male presents to the emergency department with a chief complaint of alcohol withdrawal. At this time we will start patient on Librium. He is having a lot of anxiety did offer psychiatric services. This time patient is not seeking this treatment. At this time we give the patient Ativan did help with his anxiety and symptoms. We will start him on Librium for home. We did discuss follow-up with his doctor and he was given psychiatric referral. The patient stated that he understood the is in agreement plan and all questions have been answered. He will be discharged. (Anne Mooney) 51-year-old male presenting with chief complaint of alcohol withdrawal. Patient is initially mildly tachycardic without other vital signs are stable. He is given Ativan in the emergency department. Reevaluation is feeling much better. Heart rate is normal. Blood pressure is stable. Patient will be discharged with prescription for Librium. Patient and his are agreeable with this plan. They're instructed on when to return to the emergency department. (Leandro Stapleton) Disposition Time of Disposition: 13:38 <Anne Mooney - Last Filed: 01/23/17 13:37> <Leandro Stapleton - Last Filed: 01/23/17 15:31> Clinical Impression: Alcohol withdrawal, Anxiety Disposition: HOME SELF-CARE Condition: Stable Instructions: Alcohol Withdrawal (ED) Additional Instructions: Please use medication as discussed. Please follow up with family doctor if symptoms have not improved over the next two days. Please return to the emergency room if your symptoms increase or worsen or for any other concerns. Prescriptions: chlordiazePOXIDE HCl [Librium] 25 mg PO DIRECTED 6 Days Referrals: Margy Schwartz MD [STAFF PHYSICIAN] - 1-2 days
[2017-01-23 14:14] VITALS: BP 133/87; PULSE 95
== END 2017-01-23 14:14 | disposition home or self-care (01) ==
LOC: EC 11:29
DX: F10.239 Alcohol dependence with withdrawal, unspecified (principal); F41.9 Anxiety disorder, unspecified; I10 Essential (primary) hypertension; R00.0 Tachycardia, unspecified; F17.200 Nicotine dependence, unspecified, uncomplicated; Z79.899 Other long term (current) drug therapy; Z88.5 Allergy status to narcotic agent; Z88.8 Allergy status to other drugs, medicaments and biological substances
CPT/HCPCS: 99283

== ENCOUNTER 2017-02-03 11:22 | Emergency (ER) | payer OTHER ==
[2017-02-03] MEDS ORDERED: chlordiazePOXIDE 25 MG CAP PO STA (12:02)
--- NOTE | 2017-02-03 12:07 | ED ---
General Adult HPI - General Chief complaint: Alcohol Stated complaint: POSS WITHDRAWALS SHAKING, UNABLE TO SLEEP Time Seen by Provider: 02/03/17 11:32 Source: patient, RN notes reviewed, old records reviewed Mode of arrival: ambulatory Limitations: no limitations - History of Present Illness Initial comments: 51-year-old male presents emergency Department chief complaint of alcohol draw and increased stressors in his life. Patient reports he has been making statements that he wants to kill himself. Patient adamantly denies suicidal ideations to myself and other staff. relates that they've recently had a child who was born one-pound and is currently in the NICU at [facility]. Patient reports that the patient has not been dealing with the stress well. Patient reports he has had multiple losses in his life including deaths of multiple family members. Patient has been drinking for the past 5 weeks and last drink was yesterday. Patient is currently going through withdrawals and has been complaining of shakiness. Patient has no fever or chills. He does have history of a colostomy, after a perforated diverticulum in July of this past year. Patient reports that he has not been eating much and has not slept well in many weeks. He reports that whenever he closes his eyes he's been having auditory and visual hallucinations. Patient will not relate exactly what he is seeing. - Related Data Previous Rx's Medication Instructions Recorded LORazepam [Ativan] 1 mg PO TID #15 tab 02/03/17 Allergies Allergy/AdvReac Type Severity Reaction Status Date / Time hydromorphone [From Dilaudid] Allergy Itching Verified 02/03/17 11:44 nicotine Allergy Itching Verified 02/03/17 11:44 Review of Systems ROS Statement: Those systems with pertinent positive or pertinent negative responses have been documented in the HPI. ROS Other: All systems not noted in ROS Statement are negative. Past Medical History Past Medical History: Hypertension Additional Past Medical History / Comment(s): Pt recently admitted 08/01/15 with sepsis 2ndary to sigmoid diverticuliti/diarrhea. Other hx: diverticulitis, chronic constipation. Colostomy. History of Any Multi-Drug Resistant Organisms: None Reported Past Surgical History: Bowel Resection Additional Past Surgical History / Comment(s): 08/04/16 exploratory laparotomy lysis of extensive adhesions/sigmoid resection/decending colostomy/repair incisional ventral hernia. Other surgical hx: 2001 Exploratory laparotomy with ulcer repair, EGD/colonoscopy. Past Anesthesia/Blood Transfusion Reactions: No Reported Reaction Past Psychological History: No Psychological Hx Reported Smoking Status: Current every day smoker Past Alcohol Use History: Daily, Heavy Past Drug Use History: None Reported - Past Family History Father Family Medical History: No Reported History Additional Family Medical History / Comment(s): Father when pt was young of unknown reason. Mother Family Medical History: CVA/TIA Sister(s) Family Medical History: Cancer Additional Family Medical History / Comment(s): pt sister from stomach cancer. General Exam - General Exam Comments Initial Comments: 51-year-old male. is currently shaking. Limitations: no limitations General appearance: alert, in no apparent distress Head exam: Present: atraumatic, normocephalic, normal inspection Eye exam: Present: normal appearance, PERRL, EOMI. Absent: scleral icterus, conjunctival injection, periorbital swelling ENT exam: Present: normal exam, mucous membranes moist Neck exam: Present: normal inspection. Absent: tenderness, meningismus, lymphadenopathy Respiratory exam: Present: normal lung sounds bilaterally. Absent: respiratory distress, wheezes, rales, rhonchi, stridor Cardiovascular Exam: Present: regular rate, normal rhythm, normal heart sounds. Absent: systolic murmur, diastolic murmur, rubs, gallop, clicks GI/Abdominal exam: Present: soft, normal bowel sounds, other (Evidence of colostomy bag.). Absent: distended, tenderness, guarding, rebound, rigid Extremities exam: Present: normal inspection, full ROM, normal capillary refill. Absent: tenderness, pedal edema, joint swelling, calf tenderness Back exam: Present: normal inspection Neurological exam: Present: alert, oriented X3, CN II-XII intact Psychiatric exam: Present: normal affect, normal mood Skin exam: Present: warm, dry, intact, normal color. Absent: rash Course Vital Signs 02/03/17 11:25 Temperature 98.4 F Pulse Rate 114 H Respiratory 18 Rate Blood Pressure 134/91 O2 Sat by Pulse 93 L Oximetry Medical Decision Making - Medical Decision Making 51-year-old male presents emergency Department chief complaint of alcohol draw and increased stressors in his life. Patient reports he has been making statements that he wants to kill himself. Patient adamantly denies suicidal ideations to myself and other staff. relates that they've recently had a child who was born one-pound and is currently in the NICU at [facility]. Patient reports that the patient has not been dealing with the stress well. Patient reports he has had multiple losses in his life including deaths of multiple family members. Patient has been drinking for the past 5 weeks and last drink was yesterday. Patient was evaluated by EPS states the symptoms are related to withdrawal. Patient denies any suicidal ideations to them. Patient was given a Librium in the emergency department. Patient was evaluated by EPS he states that he is fit for outpatient treatment. Patient will be discharged at this time with a prescription for Ativan for alcohol withdrawals. Discussed close follow-up with outpatient psychiatric services. Patient agrees to treatment plan will comply. Return parameters were discussed. - Lab Data Lab Results 02/03/17 Range/Units 13:13 Urine Opiates Screen Not Detected (NotDetected) Ur Oxycodone Screen Not Detected (NotDetected) Urine Methadone Screen Not Detected (NotDetected) Ur Propoxyphene Screen Not Detected (NotDetected) Ur Barbiturates Screen Not Detected (NotDetected) U Tricyclic Antidepress Not Detected (NotDetected) Ur Phencyclidine Scrn Not Detected (NotDetected) Ur Amphetamines Screen Not Detected (NotDetected) U Methamphetamines Scrn Not Detected (NotDetected) U Benzodiazepines Scrn Detected H (NotDetected) Urine Cocaine Screen Not Detected (NotDetected) U Marijuana (THC) Screen Not Detected (NotDetected) Disposition Clinical Impression: Alcohol withdrawal, Depression Disposition: HOME SELF-CARE Condition: Good Instructions: Alcohol Withdrawal (ED) Additional Instructions: Patient advised to follow-up with outpatient psychiatric services. Take the medication as directed. Follow-up with primary care physician as well. Return to the emergency department if any alarming signs or symptoms occur. Prescriptions: LORazepam [Ativan] 1 mg PO TID #15 tab Referrals: None,Stated [Primary Care Provider] - 1-2 days Time of Disposition: 13:53
[2017-02-03] MEDS ORDERED: LORazepam 1 MG TAB PO STA (13:48)
[2017-02-03 14:27] VITALS: BP 120/76; PULSE 85; RESP 20; TEMP 97.7
== END 2017-02-03 14:30 | disposition home or self-care (01) ==
LOC: EC 11:22
DX: F10.239 Alcohol dependence with withdrawal, unspecified (principal); F32.9 Major depressive disorder, single episode, unspecified; F17.200 Nicotine dependence, unspecified, uncomplicated; Z88.5 Allergy status to narcotic agent; Z91.048 Other nonmedicinal substance allergy status; Z93.3 Colostomy status
CPT/HCPCS: 80306; 82075; 99285

== ENCOUNTER 2017-02-05 20:54 | Emergency (ER) | payer OTHER ==
[2017-02-05 21:01] VITALS: TEMP 97.7
[2017-02-05] MEDS ORDERED: ONDANSETRON 4 MG/2 ML VIAL IVP STA (21:38)
[2017-02-05] MEDS ORDERED: SODIUM CHLORIDE 0.9% 1,000 ML IV STA ×2 (21:38)
[2017-02-05] MEDS ORDERED: PANTOPRAZOLE 40 MG/10 ML VIAL IVP STA (21:38)
[2017-02-05] MEDS ORDERED: LORazepam 2 MG/ML SYRINGE IV STA (21:40)
[2017-02-05 22:33] LABS: Basophils # (A) 0.1 k/uL (0-0.2); Basophils % (A) 1 %; CH 32.3; CHCM 34.9; Eosinophils # (A) 0.1 k/uL (0-0.7); Eosinophils % (A) 1 %; HCT 43.2 % (39.0-53.0); HDW 2.72; HGB 15.1 gm/dL (13.0-17.5); Luc # (Auto) 0.21; Luc % (Auto) 2; Lymphocytes # (A) 3.6 k/uL (1.0-4.8); Lymphocytes % (A) 38 %; MCH 32.4 pg (25.0-35.0); MCHC 34.9 g/dL (31.0-37.0); MCV 92.8 fL (80.0-100.0); Mean Platelet Volume 7.9; Monocytes # (A) 0.4 k/uL (0-1.0); Monocytes % (A) 5 %; Neutrophils % (A) 53 %; RBC 4.66 m/uL (4.30-5.90); WBC 9.5 k/uL (3.8-10.6); WBC (Perox) 9.11
[2017-02-05 22:41] LABS: INR 1.2 (<1.2); Partial Thromboplastin Time 26.4 sec (22.0-30.0); Prothrombin Time 11.7 sec (9.0-12.0)
[2017-02-05 22:58] LABS: ALT 86 U/L (21-72); AST 76 U/L (17-59); Alkaline Phosphatase 82 U/L (38-126); Amylase 47 U/L (30-110); Anion Gap 16 mmol/L; Blood Urea Nitrogen 2 mg/dL (9-20); Calcium 9.4 mg/dL (8.4-10.2); Carbon Dioxide 22 mmol/L (22-30); Chloride 109 mmol/L (98-107); Glucose 99 mg/dL (74-99); Non-African American GFR(MDRD) >60 (>60 ml/min/1.73 sqM); Potassium 3.2 mmol/L (3.5-5.1); Sodium 147 mmol/L (137-145); Total Bilirubin 0.5 mg/dL (0.2-1.3); Total Protein 7.3 g/dL (6.3-8.2)
[2017-02-05 23:02] LABS: Alcohol 267 mg/dL
--- NOTE | 2017-02-06 00:11 | XR ---
EXAM: XR Abdomen Complete With XR Chest CLINICAL HISTORY: Reason: abd pain TECHNIQUE: Frontal view of the chest, frontal view of the abdomen/pelvis and upright view of the abdomen. COMPARISON: 01/10/2017. FINDINGS: Lungs: Unremarkable. No consolidation. Pleural space: Unremarkable. No pneumothorax. Heart: Unremarkable. No cardiomegaly. Mediastinum: Unremarkable. Intraperitoneal space: No free air. Gastrointestinal tract: Unremarkable. No dilation. Bones/joints: Minimal osteoarthropathy involving both hips suggested. IMPRESSION: Nonspecific bowel gas pattern without evidence of obstruction. No pneumatosis or pneumoperitoneum.
[2017-02-06] MEDS ORDERED: LORazepam 2 MG/ML SYRINGE IM STA (00:32)
[2017-02-06] MEDS ORDERED: POTASSIUM CHLORIDE ER 20 MEQ TAB.ER PO STA (00:32)
--- NOTE | 2017-02-06 00:48 | ED ---
General Adult HPI - General Source: patient, police Mode of arrival: ambulatory Limitations: no limitations <Leandro Alvarado - Last Filed: 02/06/17 06:10> <Leandro Robins - Last Filed: 02/06/17 10:24> - General Chief complaint: Psychiatric Symptoms Stated complaint: mental health Time Seen by Provider: 02/05/17 21:12 - History of Present Illness Initial comments: This 51-year-old male presents with alcohol intoxication. He apparently has bring drinking heavily for the last 5 weeks per his significant other. He apparently was brought in by the police [email or web address]. He has apparently been stating that he wants to kill himself. He appears quite intoxicated at this time and is very poor historian. He is complaining of some abdominal pain. He has a long history of alcohol abuse and is been here multiple times previously for similar. He apparently does have a history of a colostomy and his significant other states that he ripped his colostomy bag off twice today. She is unsure how much he had to drink. The significant other did petitioned the patient for suicidal ideations. No other complaints or modifying factors but once again history is somewhat limited due to intoxication. (Leandro Alvarado ) - Related Data Home Medications Medication Instructions Recorded Confirmed Thiamine [Vitamin B-1] 100 mg PO DAILY 02/05/17 02/05/17 Previous Rx's Medication Instructions Recorded LORazepam [Ativan] 1 mg PO TID #15 tab 02/03/17 LORazepam [Ativan] 1 mg PO TID #15 tab 02/06/17 cloNIDine HCL [Catapres] 0.1 mg PO BID #10 tab 02/06/17 Allergies Allergy/AdvReac Type Severity Reaction Status Date / Time hydromorphone [From Dilaudid] Allergy Itching Verified 02/05/17 21:01 nicotine Allergy Itching Verified 02/05/17 21:01 Review of Systems ROS Other: All systems not noted in ROS Statement are negative. <Leandro Alvarado - Last Filed: 02/06/17 06:10> ROS Other: All systems not noted in ROS Statement are negative. <Leandro Robins - Last Filed: 02/06/17 10:24> ROS Statement: Those systems with pertinent positive or pertinent negative responses have been documented in the HPI. Past Medical History Past Medical History: Hypertension Additional Past Medical History / Comment(s): Pt recently admitted 08/01/15 with sepsis 2ndary to sigmoid diverticuliti/diarrhea. Other hx: diverticulitis, chronic constipation. Colostomy. History of Any Multi-Drug Resistant Organisms: None Reported Past Surgical History: Bowel Resection Additional Past Surgical History / Comment(s): 08/04/16 exploratory laparotomy lysis of extensive adhesions/sigmoid resection/decending colostomy/repair incisional ventral hernia. Other surgical hx: 2002 Exploratory laparotomy with ulcer repair, EGD/colonoscopy. Past Anesthesia/Blood Transfusion Reactions: No Reported Reaction Past Psychological History: No Psychological Hx Reported Smoking Status: Current every day smoker Past Alcohol Use History: Daily, Heavy Past Drug Use History: None Reported - Past Family History Father Family Medical History: No Reported History Additional Family Medical History / Comment(s): Father when pt was young of unknown reason. Mother Family Medical History: CVA/TIA Sister(s) Family Medical History: Cancer Additional Family Medical History / Comment(s): pt sister from stomach cancer. <Leandro Alvarado - Last Filed: 02/06/17 06:10> General Exam Limitations: no limitations <Leandro Alvarado - Last Filed: 02/06/17 06:10> <Leandro Robins Last Filed: 02/06/17 10:24> - General Exam Comments Initial Comments: GENERAL: The patient is well nourished and well hydrated. VITAL SIGNS: Heart rate, blood pressure, respiratory rate reviewed as recorded in nurse's notes. EYES: Pupils are round and reactive. Extraocular movements are intact. No conjunctival / lid redness or swelling. ENT: No external evidence of injury, swelling, or ecchymosis. Airway is patent. Throat is clear. NECK: Nontender. No swelling or evidence of injury. No subcutaneous emphysema. Trachea is midline. No thyroid mass. HEART: Regular rate and rhythm. Good peripheral pulses. LUNGS/CHEST: Breath sounds clear and equal bilaterally. No rales, rhonchi, or wheezes. No ecchymosis, subcutaneous emphysema, or tenderness. ABDOMEN: There may be some mild diffuse tenderness. Colostomy bag is present in the lower abdomen. No palpable masses or organomegaly. No peritoneal signs. No abdominal wall swelling or ecchymosis. EXTREMITIES: No extremity tenderness. Normal muscle tone and function. No thoracolumbar tenderness. NEUROLOGIC: Patient appears intoxicated. He is ambulatory without any difficulty and is moving all extremities without any difficulty. SKIN: No abrasions or ecchymosis is noted. No induration or masses noted. PSYCHIATRIC: Alert but appears intoxicated. He is quite belligerent through ER course. (Leandro Alvarado) Course <Leandro Alvarado - Last Filed: 02/06/17 06:10> <Leandro Robins - Last Filed: 02/06/17 10:24> Vital Signs 02/05/17 02/06/17 02/06/17 20:57 03:09 07:37 Temperature 97.7 F Pulse Rate 118 H 74 Respiratory 20 18 16 Rate Blood Pressure 114/75 102/55 O2 Sat by Pulse 94 L 90 L Oximetry - Reevaluation(s) Reevaluation #1: 02/06/17 10:21 The patient was evaluated by the psychiatric service and currently is not a risk to himself or anyone else he is not suicidal or homicidal. Patient is refusing rehab but he is afraid of possible going into withdrawals he will get appropriate medication for this. (Leandro Robins) Medical Decision Making - Lab Data Result diagrams: 02/05/17 22:20 02/05/17 22:20 <Leandro Alvarado - Last Filed: 02/06/17 06:10> - Lab Data Result diagrams: 02/05/17 22:20 02/05/17 22:20 <Leandro Robins - Last Filed: 02/06/17 10:24> - Medical Decision Making The patient was seen and examined. All diagnostics were reviewed. An IV is established and he is initially hydrated. He later does report out his own IV. The EKG shows a normal sinus rhythm at a rate of 92. There is no acute ST-T wave changes identified. The TX interval is 146, QRS duration is 112, and the QTc interval is 474. The laboratory does show that he is mildly hypokalemic and he received some potassium. He also has a significantly elevated alcohol level. The x-ray of the abdomen and chest does not show any acute process. He is given 2 mg of Ativan IV initially as he is quite belligerent in the emergency department. He later receives 2 mg of Ativan IM. He is resting quietly on recheck. Is felt as though he would require further sobering and then recheck on his psychiatric state once over. Further care will be passed on to upcoming shift. (Leandro Alvarado) - Lab Data Lab Results 02/05/17 02/05/17 02/05/17 Range/Units 22:20 22:20 22:20 WBC 9.5 (3.8-10.6) k/uL RBC 4.66 (4.30-5.90) m/uL Hgb 15.1 (13.0-17.5) gm/dL Hct 43.2 (39.0-53.0) % MCV 92.8 (80.0-100.0) fL MCH 32.4 (25.0-35.0) pg MCHC 34.9 (31.0-37.0) g/dL RDW 15.0 (11.5-15.5) % Plt Count 235 D (150-450) k/uL Neutrophils % 53 % Lymphocytes % 38 % Monocytes % 5 % Eosinophils % 1 % Basophils % 1 % Neutrophils # 5.0 (1.3-7.7) k/uL Lymphocytes # 3.6 (1.0-4.8) k/uL Monocytes # 0.4 (0-1.0) k/uL Eosinophils # 0.1 (0-0.7) k/uL Basophils # 0.1 (0-0.2) k/uL PT 11.7 (9.0-12.0) sec INR 1.2 H (<1.2) APTT 26.4 (22.0-30.0) sec Sodium 147 H (137-145) mmol/L Potassium 3.2 L (3.5-5.1) mmol/L Chloride 109 H (98-107) mmol/L Carbon Dioxide 22 (22-30) mmol/L Anion Gap 16 mmol/L BUN 2 L (9-20) mg/dL Creatinine 0.80 (0.66-1.25) mg/dL Est GFR (MDRD) Af Amer >60 (>60 ml/min/1.73 sqM) Est GFR (MDRD) Non-Af >60 (>60 ml/min/1.73 sqM) Glucose 99 (74-99) mg/dL Calcium 9.4 (8.4-10.2) mg/dL Total Bilirubin 0.5 (0.2-1.3) mg/dL AST 76 H (17-59) U/L ALT 86 H (21-72) U/L Alkaline Phosphatase 82 (38-126) U/L Total Protein 7.3 (6.3-8.2) g/dL Albumin 4.4 (3.5-5.0) g/dL Amylase 47 (30-110) U/L Lipase 103 (23-300) U/L Serum Alcohol 267 mg/dL Disposition <Leandro Alvarado - Last Filed: 02/06/17 06:10> <Leandro Robins - Last Filed: 02/06/17 10:24> Clinical Impression: Alcohol intoxication, Alcohol abuse, Hypokalemia, Abdominal pain, Suicidal ideation, Adjustment reaction Disposition: HOME SELF-CARE Condition: Good Instructions: Abuse of Alcohol (ED), Alcohol Use Disorder (ED), Mood Disorders (ED) Prescriptions: cloNIDine HCL [Catapres] 0.1 mg PO BID #10 tab LORazepam [Ativan] 1 mg PO TID #15 tab Referrals: None,Stated [Primary Care Provider] - 1-2 days
[2017-02-06 10:38] VITALS: BP 128/82; PULSE 97; RESP 18
== END 2017-02-06 10:38 | disposition home or self-care (01) ==
LOC: EC 20:54
DX: F43.20 Adjustment disorder, unspecified (principal); F10.129 Alcohol abuse with intoxication, unspecified; E87.6 Hypokalemia; R10.84 Generalized abdominal pain; F17.200 Nicotine dependence, unspecified, uncomplicated; Z79.899 Other long term (current) drug therapy; Z88.5 Allergy status to narcotic agent; Z88.8 Allergy status to other drugs, medicaments and biological substances; Z87.19 Personal history of other diseases of the digestive system; Z98.890 Other specified postprocedural states; Z93.3 Colostomy status
CPT/HCPCS: 99284; 96374; 96375; 96361; 96372; 36415; 93005; 80053; 82150; 83690; 85025; 85610; 85730; 80320; 74022; J2060 ×2; J2405

== ENCOUNTER 2018-07-16 08:01 | Inpatient (IN) | payer OTHER ==
[2018-07-16] MEDS ORDERED: SODIUM CHLORIDE 0.9% 1,000 ML IV STA (08:19)
[2018-07-16] MEDS ORDERED: LORazepam 2 MG/ML INJ IV STA (08:19)
[2018-07-16] MEDS ORDERED: ONDANSETRON 4 MG/2 ML VIAL IVP STA (08:19)
[2018-07-16] MEDS ORDERED: MORPHINE SULFATE 4 MG/ML SYRINGE IV STA (08:19)
--- NOTE | 2018-07-16 08:25 | ED ---
Abdominal Pain HPI - General Chief Complaint: Abdominal Pain Stated Complaint: ABDOMINAL PAIN Time Seen by Provider: 07/16/18 08:14 Source: patient, RN notes reviewed, old records reviewed Mode of arrival: ambulatory Limitations: no limitations - History of Present Illness Initial Comments: 52-year-old male patient with past medical history significant for hypertension , chronic alcohol abuse, and complicated diverticulitis with subsequent colostomy placement presents to the emergency department today for evaluation of abdominal pain surrounding his colostomy site. Patient states he has had increasing pain over the last 3 days. Describes the pain as a sharp stabbing pain. He denies any radiation of the pain to his back. States he is nauseated and has had episodes of vomiting. States that his stool output has been normal with no hematochezia or melena. He has had no hematemesis. He denies fevers or chills. States he is having some dysuria but denies any hematuria, urinary frequency, urinary urgency. Patient states his last alcoholic beverage was yesterday. Patient denies any recent rash, shortness breath, chest pain, numbness, tingling, dizziness, weakness, headache, visual changes, or any other complaints. - Related Data Home Medications Medication Instructions Recorded Confirmed Doxylamine Succinate [Unisom] 25 mg PO HS PRN 07/16/18 07/16/18 Naproxen Sodium [Aleve] 220 mg PO DAILY PRN 07/16/18 07/16/18 Allergies Allergy/AdvReac Type Severity Reaction Status Date / Time hydromorphone [From Dilaudid] Allergy Itching Verified 07/16/18 12:15 nicotine Allergy Itching Verified 07/16/18 12:15 Review of Systems ROS Statement: Those systems with pertinent positive or pertinent negative responses have been documented in the HPI. ROS Other: All systems not noted in ROS Statement are negative. Past Medical History Past Medical History: Hypertension Additional Past Medical History / Comment(s): Pt recently admitted 08/01/15 with sepsis 2ndary to sigmoid diverticuliti/diarrhea. Other hx: diverticulitis, chronic constipation. Colostomy. History of Any Multi-Drug Resistant Organisms: None Reported Past Surgical History: Bowel Resection Additional Past Surgical History / Comment(s): 08/04/16 exploratory laparotomy lysis of extensive adhesions/sigmoid resection/decending colostomy/repair incisional ventral hernia. Other surgical hx: 2002 Exploratory laparotomy with ulcer repair, EGD/colonoscopy. Past Anesthesia/Blood Transfusion Reactions: No Reported Reaction Past Psychological History: No Psychological Hx Reported Smoking Status: Current every day smoker Past Alcohol Use History: Daily, Heavy Past Drug Use History: None Reported - Past Family History Father Family Medical History: No Reported History Additional Family Medical History / Comment(s): Father when pt was young of unknown reason. Mother Family Medical History: CVA/TIA Sister(s) Family Medical History: Cancer Additional Family Medical History / Comment(s): pt sister from stomach cancer. General Exam Limitations: no limitations General appearance: alert, in no apparent distress, other (This is a well- developed, well-nourished adult male patient in no acute distress. Vital signs upon presentation are temperature 97.7F, pulse 100, respirations 24, blood pressure 107/80, pulse ox 96% on room air.) Eye exam: Present: normal appearance, PERRL, EOMI. Absent: scleral icterus, conjunctival injection, periorbital swelling ENT exam: Present: normal exam, normal oropharynx, mucous membranes moist Respiratory exam: Present: normal lung sounds bilaterally. Absent: respiratory distress, wheezes, rales, rhonchi, stridor Cardiovascular Exam: Present: regular rate, normal rhythm, normal heart sounds. Absent: systolic murmur, diastolic murmur, rubs, gallop, clicks GI/Abdominal exam: Present: soft, tenderness (Tenderness surrounding the colostomy), normal bowel sounds, hernia (Patient has a large ventral hernia), other (Colostomy present over the left lower quadrant). Absent: distended, guarding, rebound, rigid Neurological exam: Present: alert, oriented X3, CN II-XII intact Psychiatric exam: Present: normal affect, normal mood Skin exam: Present: warm, dry, intact, normal color. Absent: rash Course Vital Signs 07/16/18 07/16/18 07/16/18 08:09 11:37 13:40 Temperature 97.7 F 98.6 F Pulse Rate 100 98 100 Respiratory 24 18 18 Rate Blood Pressure 107/80 139/79 118/83 O2 Sat by Pulse 96 96 94 L Oximetry Medical Decision Making - Medical Decision Making 42-year-old male patient presents to the emergency department today for evaluation of abdominal pain starting his colostomy. Physical examination did reveal large abdominal hernia. Labs reviewed and did reveal elevated white blood cell count at 10.8, plasma lactic acid of 4.1, mild transaminitis with a total bilirubin of 1.5. Alcohol is 140. Patient was given 2 doses of pain medication here in the emergency department, continued complaining of pain. He is tender over the abdomen. Changes on computed tomography scan which include a complex incisional hernia we will admit to the hospital with surgical consult. Did discuss findings, results, and plan with the patient, he is agreeable. - Lab Data Result diagrams: 07/16/18 09:00 07/16/18 09:00 Lab Results 07/16/18 07/16/18 07/16/18 Range/Units 09:00 09:00 09:00 WBC 10.8 H (3.8-10.6) k/uL RBC 5.16 (4.30-5.90) m/uL Hgb 15.3 (13.0-17.5) gm/dL Hct 44.9 (39.0-53.0) % MCV 87.0 (80.0-100.0) fL MCH 29.6 (25.0-35.0) pg MCHC 34.0 (31.0-37.0) g/dL RDW 12.5 (11.5-15.5) % Plt Count 213 (150-450) k/uL Neutrophils % 53 % Lymphocytes % 38 % Monocytes % 5 % Eosinophils % 2 % Basophils % 1 % Neutrophils # 5.7 (1.3-7.7) k/uL Lymphocytes # 4.1 (1.0-4.8) k/uL Monocytes # 0.6 (0-1.0) k/uL Eosinophils # 0.2 (0-0.7) k/uL Basophils # 0.1 (0-0.2) k/uL Sodium 139 (137-145) mmol/L Potassium 3.8 (3.5-5.1) mmol/L Chloride 100 (98-107) mmol/L Carbon Dioxide 22 (22-30) mmol/L Anion Gap 17 mmol/L BUN 13 (9-20) mg/dL Creatinine 0.70 (0.66-1.25) mg/dL Est GFR (CKD-EPI)AfAm >90 (>60 ml/min/1.73 sqM) Est GFR (CKD-EPI)NonAf >90 (>60 ml/min/1.73 sqM) Glucose 142 H (74-99) mg/dL Lactic Ac Sepsis Rflx Plasma Lactic Acid John 4.1 H* (0.7-2.0) mmol/L Calcium 8.8 (8.4-10.2) mg/dL Total Bilirubin 1.5 H (0.2-1.3) mg/dL AST 148 H (17-59) U/L ALT 89 H (21-72) U/L Alkaline Phosphatase 115 (38-126) U/L Total Protein 7.6 (6.3-8.2) g/dL Albumin 4.3 (3.5-5.0) g/dL Amylase 47 (30-110) U/L Lipase 92 (23-300) U/L Urine Color Urine Appearance (Clear) Urine pH (5.0-8.0) Ur Specific [place] (1.001-1.035) Urine Protein (Negative) Urine Glucose (UA) (Negative) Urine Ketones (Negative) Urine Blood (Negative) Urine Nitrite (Negative) Urine Bilirubin (Negative) Urine Urobilinogen (<2.0) mg/dL Ur Leukocyte Esterase (Negative) Urine RBC (0-5) /hpf Urine WBC (0-5) /hpf Ur Squamous Epith Cells (0-4) /hpf Urine Bacteria (None) /hpf Urine Mucus (None) /hpf Serum Alcohol 141 mg/dL 07/16/18 07/16/18 07/16/18 Range/Units 10:18 10:45 11:05 WBC (3.8-10.6) k/uL RBC (4.30-5.90) m/uL Hgb (13.0-17.5) gm/dL Hct (39.0-53.0) % MCV (80.0-100.0) fL MCH (25.0-35.0) pg MCHC (31.0-37.0) g/dL RDW (11.5-15.5) % Plt Count (150-450) k/uL Neutrophils % % Lymphocytes % % Monocytes % % Eosinophils % % Basophils % % Neutrophils # (1.3-7.7) k/uL Lymphocytes # (1.0-4.8) k/uL Monocytes # (0-1.0) k/uL Eosinophils # (0-0.7) k/uL Basophils # (0-0.2) k/uL Sodium (137-145) mmol/L Potassium (3.5-5.1) mmol/L Chloride (98-107) mmol/L Carbon Dioxide (22-30) mmol/L Anion Gap mmol/L BUN (9-20) mg/dL Creatinine (0.66-1.25) mg/dL Est GFR (CKD-EPI)AfAm (>60 ml/min/1.73 sqM) Est GFR (CKD-EPI)NonAf (>60 ml/min/1.73 sqM) Glucose (74-99) mg/dL Lactic Ac Sepsis Rflx Y Plasma Lactic Acid John 2.9 H* (0.7-2.0) mmol/L Calcium (8.4-10.2) mg/dL Total Bilirubin (0.2-1.3) mg/dL AST (17-59) U/L ALT (21-72) U/L Alkaline Phosphatase (38-126) U/L Total Protein (6.3-8.2) g/dL Albumin (3.5-5.0) g/dL Amylase (30-110) U/L Lipase (23-300) U/L Urine Color Yellow Urine Appearance Clear (Clear) Urine pH 6.5 (5.0-8.0) Ur Specific [place] 1.032 (1.001-1.035) Urine Protein 1+ H (Negative) Urine Glucose (UA) 1+ H (Negative) Urine Ketones 1+ H (Negative) Urine Blood Moderate H (Negative) Urine Nitrite Negative (Negative) Urine Bilirubin Negative (Negative) Urine Urobilinogen <2.0 (<2.0) mg/dL Ur Leukocyte Esterase Negative (Negative) Urine RBC 2 (0-5) /hpf Urine WBC 3 (0-5) /hpf Ur Squamous Epith Cells <1 (0-4) /hpf Urine Bacteria Rare H (None) /hpf Urine Mucus Rare H (None) /hpf Serum Alcohol mg/dL - Radiology Data Radiology results: report reviewed, image reviewed CT abdomen and pelvis with contrast was obtained. Report was reviewed in its entirety. Impression by Dr. Lara shows left-sided abdominal colostomy with a fatty parastomal hernia slightly increased in size, no measuring 9.0 cm wide versus 7.3 cm wide on 01/11/2017. A very short loop of small bowel also extends into the hernia sac. Incisional changes along the anterior abdominal wall new large complex incisional hernias containing fat. The abdominal wall defect measures up to 7.4 centimeters wide and 8.8 cm craniocaudal. An additional new right paramedian mid abdominal wall hernia containing omental fat (Hernia sac 4.6 cm and hernia neck 2.2 cm wide) to see. Prominent urinary bladder distention up to 14 cm. Correlate to ensure that this represents voluntary retention. Mild hepatomegaly (80.9 cm) with Annabelle hepatic steatosis. Small hiatal hernia. Disposition Clinical Impression: Abdominal pain, Incisional hernia, Dehydration, Alcohol intoxication Disposition: ADMITTED IP TO THIS [facility] Condition: Serious Decision to Admit Reason: Admit from EC Decision Date: 07/16/18 Decision Time: 11:54
[2018-07-16 09:25] LABS: ALT 89 U/L (21-72); AST 148 U/L (17-59); Albumin 4.3 g/dL (3.5-5.0); Alkaline Phosphatase 115 U/L (38-126); Amylase 47 U/L (30-110); Anion Gap 17 mmol/L; Blood Urea Nitrogen 13 mg/dL (9-20); Calcium 8.8 mg/dL (8.4-10.2); Carbon Dioxide 22 mmol/L (22-30); Chloride 100 mmol/L (98-107); Glucose 142 mg/dL (74-99); Lipase 92 U/L (23-300); Potassium 3.8 mmol/L (3.5-5.1); Sodium 139 mmol/L (137-145); Total Bilirubin 1.5 mg/dL (0.2-1.3); Total Protein 7.6 g/dL (6.3-8.2)
[2018-07-16 09:34] LABS: Basophils # (A) 0.1 k/uL (0-0.2); Basophils % (A) 1 %; Eosinophils # (A) 0.2 k/uL (0-0.7); Eosinophils % (A) 2 %; HCT 44.9 % (39.0-53.0); HGB 15.3 gm/dL (13.0-17.5); Lymphocytes # (A) 4.1 k/uL (1.0-4.8); Lymphocytes % (A) 38 %; MCH 29.6 pg (25.0-35.0); Mean Platelet Volume 7.3; Monocytes # (A) 0.6 k/uL (0-1.0); Monocytes % (A) 5 %; Neutrophils # (A) 5.7 k/uL (1.3-7.7); Neutrophils % (A) 53 %; Platelet Count 213 k/uL (150-450); RBC 5.16 m/uL (4.30-5.90); RDW 12.5 % (11.5-15.5); WBC 10.8 k/uL (3.8-10.6)
[2018-07-16 09:37] LABS: Alcohol 141 mg/dL
[2018-07-16] MEDS ORDERED: SODIUM CHLORIDE 0.9% 1,000 ML IV ONE (09:38)
--- NOTE | 2018-07-16 09:43 | CT ---
EXAMINATION TYPE: CT abdomen pelvis w con DATE OF EXAM: 07/16/2018 COMPARISON: 01/11/2017 HISTORY: 52-year-old male with abdominal pain TECHNIQUE: Contiguous axial scanning of the abdomen and pelvis following administration of 100 ml Iso mayra 300 IV contrast. Delayed images through the kidneys and coronal/sagittal reconstructions perform ed. CT DLP: 1397.8 mGycm Automated exposure control for dose reduction was used. FINDINGS: Heart normal size without pericardial effusion. Lung bases clear without pleural effusion. Small hiatal hernia. Liver enlarged measuring 18.9 cm with marked diffuse low-attenuation. No focal lesion seen. Gallbladder borderline hydropic and 4.0 cm wide without any abnormal wall thickening or surrounding i nflammation. Portal venous system is patent. No biliary ductal dilatation. Adrenal glands, right kidney, spleen, and pancreas appear within normal limits. 2 cortical cysts redemonstrated in left kidney measuring up to 1.8 cm. No dilated small bowel, free fluid, or free air. No mesenteric or retroperitoneal lymphadenopathy. Mild stool burden with left abdominal descending/sigmoid colostomy. There is a fatty parastomal herni a measuring 9.0 cm wide versus 7.3 cm wide on 01/11/2017. A very short loop of small bowel extends int o the hernia sac as well. Postsurgical changes along the anterior abdominal wall with large complex incisional hernias now pres ent containing primarily fat. The neck of the abdominal wall defect measuring up to 7.4 cm wide and 8 .8 cm craniocaudal. Additional right paramedian ventral wall abdominal wall hernia at the level of the umbilicus contains omental fat measuring 4.6 cm with the hernia neck measuring 2.2 cm wide. Bladder prominently urine distended measuring up to 14.0 cm craniocaudal. Left paramedian central pro static calcification noted in the prostate gland measuring 3.8 cm wide. Mildly patulous left inguinal canal. No abnormal fluid collection the pelvis or pelvic lymphadenopathy. Bones: Right L5 hemisacralization with an assimilation joint. Mild multilevel degenerative disc disea se. IMPRESSION: 1. LEFT-SIDED ABDOMINAL COLOSTOMY WITH A FATTY PARASTOMAL HERNIA SLIGHTLY INCREASED IN SIZE, NOW RAFFI URING 9.0 CM WIDE VERSUS 7.3 CM WIDE ON 01/11/2017. A VERY SHORT LOOP OF SMALL BOWEL ALSO EXTENDS INTO THE HERNIA SAC. 2. INCISIONAL CHANGES ALONG THE ANTERIOR ABDOMINAL WALL WITH NEW LARGE COMPLEX INCISIONAL HERNIAS CON TAINING FAT. THE ABDOMINAL WALL DEFECT MEASURES UP TO 7.4 CM WIDE AND 8.8 CM CRANIOCAUDAL. 3. AN ADDITIONAL NEW RIGHT PARAMEDIAN MID ABDOMINAL WALL HERNIA CONTAINING OMENTAL FAT (HERNIA SAC 4. 6 CM AND HERNIA NECK 2.2 CM WIDE). 4. PROMINENT URINARY BLADDER DISTENTION UP TO 14.0 CM. CORRELATE TO ENSURE THAT THIS REPRESENTS VOLUN TARY RETENTION. 5. MILD HEPATOMEGALY (18.9 CM) WITH MARKED HEPATIC STEATOSIS. 5. SMALL HIATAL HERNIA.
[2018-07-16 10:46] LABS: Appearance,Urine Clear (Clear); Bacteria,Urine Rare /hpf; Bilirubin,Urine Negative (Negative); Blood,Urine Moderate (Negative); Color,Urine Yellow; Glucose,Urine (UA) 1+ (Negative); Ketones,Urine 1+ (Negative); Leukocyte Esterase,Urine Negative (Negative); Mucus,Urine Rare /hpf; Nitrite,Urine Negative (Negative); PH, Urine 6.5 (5.0-8.0); Protein,Urine 1+ (Negative); RBC,Urine 2 /hpf (0-5); Specific Gravity,Urine 1.032 (1.001-1.035); Squamous Epithelial Cell,Urine <1 /hpf (0-4); Urobilinogen,Urine <2.0 mg/dL (<2.0); WBC,Urine 3 /hpf (0-5)
[2018-07-16] MEDS ORDERED: MORPHINE SULFATE 4 MG/ML SYRINGE IVP STA (10:52)
[2018-07-16] MEDS ORDERED: NALOXONE 0.4 MG/ML 1 ML VIAL IV PRN (11:51)
[2018-07-16] MEDS ORDERED: THIAMINE 100 MG/ML 2 ML VIAL IM STA (11:53)
[2018-07-16] MEDS ORDERED: SODIUM CHLORIDE 0.9% 1,000 ML with MVI, ADULT NO.4 WITH VIT K 10 ML, THIAMINE 100 MG, F... IV ONE ×4 (11:53)
[2018-07-16] MEDS: LORazepam 2 MG/ML INJ IV PRN ×5 (12:04→23:28)
[2018-07-16] MEDS: THIAMINE 100 MG TAB PO SCH (17:37)
--- NOTE | 2018-07-16 18:30 | HP ---
HISTORY AND PHYSICAL CHIEF COMPLAINT: Abdominal pain. HISTORY OF PRESENT ILLNESS: This is the first admission for this 52-year-old male. He has a colostomy from previous diverticulitis. He came to the emergency room when he started to develop lower abdominal pain with nausea and vomiting. He has had no diarrhea. In the emergency room, he had a CT the abdomen which demonstrated his colostomy and a parastomal hernia. He had other evidence of ventral hernias. Urinary bladder was distended and had hepatomegaly and a small hiatal hernia. His laboratory studies demonstrated a lactic acid of 4.1 and then down to 2.9. White count was 10,800 and liver enzymes were slightly elevated, but he is a heavy drinker. The urine was unremarkable. REVIEW OF SYSTEMS: He denies any headaches, neurologic problems, difficulty with vision or hearing, chest pain, cough, hemoptysis, heart disease, murmurs, rheumatic fever, ulcer disease, hematemesis, jaundice, renal disease, renal failure, hematuria, dysuria, urgency, diabetes, etc. Past medical history, family history and personal and social history unremarkable otherwise. He is not allergic to any medication and the only surgery he has had is regarding the colon and his colostomy. He does not take any medications except Naprosyn. PHYSICAL EXAM: Temperature is 98.6, pulse is 100, blood pressure 118/83. In general he appeared to be slightly overweight and in some discomfort. Lymph nodes not enlarged. Head, ears, eyes, nose, mouth, and throat were normal and neck veins not distended. Chest is clear. Cardiac exam is normal. Abdomen is protuberant, he had a colostomy in the left side and there was evidence of fairly large ventral hernia on the left side. Bowel sounds present. Extremities normal. Neurological is intact. IMPRESSION: 1. Abdominal pain, etiology unknown. 2. History of diverticulitis with colostomy. PLAN: 1. Bed rest. 2. IV fluids. 3. Monitor abdominal findings. 4. Possible surgery consult. MMODL / IJN: [id number] /
[2018-07-17] MEDS: LORazepam 2 MG/ML INJ IV PRN ×8 (01:35→23:41)
[2018-07-17 06:16] LABS: Basophils % (A) 0 %; Eosinophils # (A) 0.3 k/uL (0-0.7); Eosinophils % (A) 3 %; HCT 39.8 % (39.0-53.0); HGB 13.3 gm/dL (13.0-17.5); Lymphocytes # (A) 1.9 k/uL (1.0-4.8); Lymphocytes % (A) 22 %; MCH 29.6 pg (25.0-35.0); MCHC 33.3 g/dL (31.0-37.0); MCV 88.8 fL (80.0-100.0); Mean Platelet Volume 7.7; Monocytes # (A) 0.4 k/uL (0-1.0); Monocytes % (A) 4 %; Neutrophils # (A) 6.1 k/uL (1.3-7.7); Neutrophils % (A) 70 %; Platelet Count 158 k/uL (150-450); RBC 4.48 m/uL (4.30-5.90); RDW 12.4 % (11.5-15.5); WBC 8.7 k/uL (3.8-10.6)
[2018-07-17 06:30] LABS: ALT 74 U/L (21-72); AST 93 U/L (17-59); Albumin 3.3 g/dL (3.5-5.0); Alkaline Phosphatase 81 U/L (38-126); Anion Gap 4 mmol/L; Blood Urea Nitrogen 13 mg/dL (9-20); Calcium 8.1 mg/dL (8.4-10.2); Carbon Dioxide 27 mmol/L (22-30); Chloride 105 mmol/L (98-107); Glucose 146 mg/dL (74-99); Potassium 3.8 mmol/L (3.5-5.1); Sodium 136 mmol/L (137-145)
--- NOTE | 2018-07-17 10:08 | P.GSCN ---
History of Present Illness Consult date: 07/17/18 Reason for Consult: Incisional hernia History of present illness: We were consulted to see this patient for incisional hernias. Patient is a heavy alcoholic. He has been having episodes of nausea and vomiting. He presents to the hospital complaining of abdominal pain. He describes nausea and intermittent vomiting. He describes bulging along his incision sites. Patient has a stoma present. A lainez had previous colonic surgery by Dr. Bueno. No fevers. Ostomy functioning. CAT scan performed shows incisional hernias that were present previously but slightly enlarged. No evidence of obstruction seen. Review of Systems The patient denies any acute changes in vision or hearing, no dysphagia or odynophagia, no chest pain or shortness of breath, no dysuria or hematuria, no headache, no runny nose, no rectal bleeding or melena, no unexplained weight loss Past Medical History Past Medical History: Hypertension Additional Past Medical History / Comment(s): Pt recently admitted 08/01/15 with sepsis 2ndary to sigmoid diverticuliti/diarrhea. Other hx: diverticulitis, chronic constipation. Colostomy. History of Any Multi-Drug Resistant Organisms: None Reported Past Surgical History: Bowel Resection Additional Past Surgical History / Comment(s): 08/04/16 exploratory laparotomy lysis of extensive adhesions/sigmoid resection/decending colostomy/repair incisional ventral hernia. Other surgical hx: 2001 Exploratory laparotomy with ulcer repair, EGD/colonoscopy. Past Anesthesia/Blood Transfusion Reactions: No Reported Reaction Past Psychological History: No Psychological Hx Reported Smoking Status: Current every day smoker Past Alcohol Use History: Daily, Heavy Past Drug Use History: None Reported - Past Family History Father Family Medical History: No Reported History Additional Family Medical History / Comment(s): Father when pt was young of unknown reason. Mother Family Medical History: CVA/TIA Sister(s) Family Medical History: Cancer Additional Family Medical History / Comment(s): pt sister from stomach cancer. Medications and Allergies Home Medications Medication Instructions Recorded Confirmed Type Doxylamine Succinate [Unisom] 25 mg PO HS PRN 07/16/18 07/16/18 History Naproxen Sodium [Aleve] 220 mg PO DAILY PRN 07/16/18 07/16/18 History Allergies Allergy/AdvReac Type Severity Reaction Status Date / Time hydromorphone [From Dilaudid] Allergy Itching Verified 07/16/18 12:15 nicotine Allergy Itching Verified 07/16/18 12:15 Surgical - Exam Vital Signs Temp Pulse Resp BP Pulse Ox 97.7 F 100 24 107/80 96 07/16/18 08:09 07/16/18 08:09 07/16/18 08:09 07/16/18 08:09 07/16/18 08:09 Physical exam: General: Well-developed, well-nourished HEENT: Normocephalic, sclerae nonicteric Abdomen: Multiple incisional hernias, all of them are easily reducible and not particularly tender, left-sided ostomy functioning, nondistended Extremities: No edema Neuro: Alert and oriented Results - Labs 07/17/18 05:48 07/17/18 05:48 Abnormal Lab Results - Last 24 Hours (Table) 07/16/18 07/16/18 07/17/18 Range/Units 10:18 10:45 05:48 Sodium 136 L (137-145) mmol/L Glucose 146 H (74-99) mg/dL Plasma Lactic Acid John 2.9 H* (0.7-2.0) mmol/L Calcium 8.1 L (8.4-10.2) mg/dL Total Bilirubin 2.0 H (0.2-1.3) mg/dL AST 93 H (17-59) U/L ALT 74 H (21-72) U/L Total Protein 6.0 L (6.3-8.2) g/dL Albumin 3.3 L (3.5-5.0) g/dL Urine Protein 1+ H (Negative) Urine Glucose (UA) 1+ H (Negative) Urine Ketones 1+ H (Negative) Urine Blood Moderate H (Negative) Urine Bacteria Rare H (None) /hpf Urine Mucus Rare H (None) /hpf Diabetes panel 07/17/18 Range/Units 05:48 Sodium 136 L (137-145) mmol/L Potassium 3.8 (3.5-5.1) mmol/L Chloride 105 (98-107) mmol/L Carbon Dioxide 27 (22-30) mmol/L BUN 13 (9-20) mg/dL Creatinine 0.70 (0.66-1.25) mg/dL Glucose 146 H (74-99) mg/dL Calcium 8.1 L (8.4-10.2) mg/dL AST 93 H (17-59) U/L ALT 74 H (21-72) U/L Alkaline Phosphatase 81 (38-126) U/L Total Protein 6.0 L (6.3-8.2) g/dL Albumin 3.3 L (3.5-5.0) g/dL Calcium panel 07/17/18 Range/Units 05:48 Calcium 8.1 L (8.4-10.2) mg/dL Albumin 3.3 L (3.5-5.0) g/dL Pituitary panel 07/17/18 Range/Units 05:48 Sodium 136 L (137-145) mmol/L Potassium 3.8 (3.5-5.1) mmol/L Chloride 105 (98-107) mmol/L Carbon Dioxide 27 (22-30) mmol/L BUN 13 (9-20) mg/dL Creatinine 0.70 (0.66-1.25) mg/dL Glucose 146 H (74-99) mg/dL Calcium 8.1 L (8.4-10.2) mg/dL Adrenal panel 07/17/18 Range/Units 05:48 Sodium 136 L (137-145) mmol/L Potassium 3.8 (3.5-5.1) mmol/L Chloride 105 (98-107) mmol/L Carbon Dioxide 27 (22-30) mmol/L BUN 13 (9-20) mg/dL Creatinine 0.70 (0.66-1.25) mg/dL Glucose 146 H (74-99) mg/dL Calcium 8.1 L (8.4-10.2) mg/dL Total Bilirubin 2.0 H (0.2-1.3) mg/dL AST 93 H (17-59) U/L ALT 74 H (21-72) U/L Alkaline Phosphatase 81 (38-126) U/L Total Protein 6.0 L (6.3-8.2) g/dL Albumin 3.3 L (3.5-5.0) g/dL Assessment and Plan (1) Abdominal pain Narrative/Plan: 52-year-old male with multiple incisional hernias. No surgical intervention planned in the short-term. Patient will require further workup for possible elective colostomy reversal and hernia repair by Dr. Bueno. Will resume diet. May discharge if tolerates. Current Visit: Yes Status: Acute Code(s): R10.9 - UNSPECIFIED ABDOMINAL PAIN SNOMED Code(s): 27691348
[2018-07-17] MEDS: THIAMINE 100 MG TAB PO SCH ×2 (12:22→17:11)
--- NOTE | 2018-07-17 13:13 | PN ---
PROGRESS NOTE CHIEF COMPLAINT: Abdominal pain. HISTORY OF PRESENT ILLNESS: This gentleman has been seen by surgery, but he is not a candidate for any type of procedure. He has ventral hernias. He is going into DTs. PHYSICAL EXAM: He is somewhat tremulous and agitated. Chest is clear. Cardiac exam demonstrates tachycardia at 105. IMPRESSION: 1. Abdominal pain. 2. Ventral hernia. 3. Delirium tremens. PLAN: Continue on CIWA protocol and watch for further alcohol withdrawal problems. He will be given Desyrel for sleep. MMODL / IJN: [id number] /
[2018-07-17] MEDS ORDERED: traZODone HCL 50 MG TAB PO SCH (21:00)
[2018-07-18] MEDS: LORazepam 2 MG/ML INJ IV PRN ×4 (02:09→11:45)
--- NOTE | 2018-07-18 10:15 | P.PN ---
Subjective Progress Note Date: 07/18/18 Principal diagnosis: Incisional hernia Patient states he is doing better. Nausea and vomiting are improved. Pain likewise improved. He is afebrile. He is tolerating a full liquid diet currently. Objective - Vital Signs Vital signs: Vital Signs Temp 98.5 F 07/18/18 04:27 Pulse 104 H 07/18/18 04:29 Resp 17 07/18/18 04:29 BP 114/72 07/18/18 04:27 Pulse Ox 95 07/18/18 04:27 Intake & Output 07/17/18 07/18/18 07/18/18 18:59 06:59 18:59 Intake Total 1298 360 Balance 1298 360 Weight 90.5 kg Intake: IV 700 20 0.9 normal saline 700 20 Oral 598 340 Other: Voiding Method Indwelling Catheter Toilet Urinal # Voids 4 - Exam Abdomen: Soft, nondistended, hernias reducible - Labs CBC & Chem 7: 07/17/18 05:48 07/17/18 05:48 Labs: Microbiology - Last 24 Hours (Table) 07/16/18 09:00 Blood Culture - Preliminary Blood No Growth after 24 hours Assessment and Plan (1) Abdominal pain Narrative/Plan: Continue ambulation. Advance diet as tolerated. Outpatient follow-up with Dr. Bueno. Current Visit: Yes Status: Acute Code(s): R10.9 - UNSPECIFIED ABDOMINAL PAIN SNOMED Code(s): 74483636
[2018-07-18 11:23] VITALS: RESP 20
[2018-07-18] MEDS: THIAMINE 100 MG TAB PO SCH (11:44)
[2018-07-18 12:09] VITALS: BP 134/80; PULSE 106; TEMP 98.4
--- NOTE | 2018-07-19 08:20 | DS ---
DISCHARGE SUMMARY CHIEF COMPLAINT: Abdominal pain. HISTORY OF PRESENT ILLNESS AND PHYSICAL EXAM: Details of this man's history and physical can be found in the initial workup. LABORATORY STUDIES: While he was in the hospital he had laboratory studies, details of which can be found in the laboratory section of his chart. COURSE IN HOSPITAL: After admission he was placed on bedrest, started on intravenous fluids and seen by surgery for his abdominal pain, which was thought likely to be related to his many ventral hernias. He then went into s, but was doing well and felt that he could go home on the . FINAL DIAGNOSES: 1. Abdominal pain. 2. Multiple ventral herniae. 3. Alcoholism. 4. Delirium tremens. OPERATIONS: None. CONSULTATION: Surgery. He is improved. MMODL / IJN: [id number] /
== END 2018-07-18 13:47 | disposition home or self-care (01) | DRG 394 ==
LOC: EC 08:01 → 3SCARD 12:32 → 4SSUR 07-18 04:08
PROVIDERS: ADMIT Family Medicine; ATTEND Family Medicine
DX: K43.2 Incisional hernia without obstruction or gangrene (principal); F10.231 Alcohol dependence with withdrawal delirium; F10.221 Alcohol dependence with intoxication delirium; R16.0 Hepatomegaly, not elsewhere classified; K43.5 Parastomal hernia without obstruction or gangrene; K44.9 Diaphragmatic hernia without obstruction or gangrene; E86.0 Dehydration; I10 Essential (primary) hypertension; K59.09 Other constipation; Y90.6 Blood alcohol level of 120-199 mg/100 ml; F17.210 Nicotine dependence, cigarettes, uncomplicated; Z71.6 Tobacco abuse counseling; Z88.5 Allergy status to narcotic agent; Z93.3 Colostomy status; Z86.19 Personal history of other infectious and parasitic diseases; Z88.8 Allergy status to other drugs, medicaments and biological substances; Z82.3 Family history of stroke; Z80.0 Family history of malignant neoplasm of digestive organs
CPT/HCPCS: 36415; 51702; 74177; 80053; 80320; 81001; 82150; 83605; 83690; 85025; 87040; 96361; 96365; 96372; 96375; 96376; 99285

== ENCOUNTER 2018-09-04 14:27 | Emergency (ER) | payer OTHER ==
[2018-09-04 14:43] VITALS: TEMP 98.3
--- NOTE | 2018-09-04 15:34 | ED ---
General Adult HPI - General Chief complaint: Extremity Injury, Upper Stated complaint: Hand numbness Time Seen by Provider: 09/04/18 15:15 Source: patient, RN notes reviewed Mode of arrival: ambulatory Limitations: no limitations - History of Present Illness Initial comments: 53-year-old male presents to the emergency department for a chief complaint of fourth and fifth digit numbness in the right upper extremity 3 weeks. Patient states that about 4 weeks ago he was at [facility] and had multiple IVs put in. Patient states about 2 days after this he started to feel tingling in his right upper extremity. Patient states that about 3 weeks ago he has been unable to open his right fourth and fifth he states he also has tingling pain extending from the right elbow to the right fourth and fifth digit. He admits to decreased sensation. Patient does admit to pain near the medial epicondyles of the right elbow. He denies other injuries.Patient has no other complaints at this time including shortness of breath, chest pain, abdominal pain, nausea or vomiting, headache, or visual changes. - Related Data Home Medications Medication Instructions Recorded Confirmed Naproxen Sodium [Aleve] 440 mg PO DAILY 09/04/18 09/04/18 Allergies Allergy/AdvReac Type Severity Reaction Status Date / Time hydromorphone [From Dilaudid] Allergy Itching Verified 09/04/18 15:24 nicotine Allergy Itching Verified 09/04/18 15:24 Review of Systems ROS Statement: Those systems with pertinent positive or pertinent negative responses have been documented in the HPI. ROS Other: All systems not noted in ROS Statement are negative. Past Medical History Past Medical History: Hypertension Additional Past Medical History / Comment(s): Pt recently admitted 08/01/15 with sepsis 2ndary to sigmoid diverticuliti/diarrhea. Other hx: diverticulitis, chronic constipation. Colostomy. History of Any Multi-Drug Resistant Organisms: None Reported Past Surgical History: Bowel Resection Additional Past Surgical History / Comment(s): 08/04/16 exploratory laparotomy lysis of extensive adhesions/sigmoid resection/decending colostomy/repair incisional ventral hernia. Other surgical hx: 2001 Exploratory laparotomy with ulcer repair, EGD/colonoscopy. Past Anesthesia/Blood Transfusion Reactions: No Reported Reaction Past Psychological History: No Psychological Hx Reported Smoking Status: Current every day smoker Past Alcohol Use History: Daily, Heavy Past Drug Use History: None Reported - Past Family History Father Family Medical History: No Reported History Additional Family Medical History / Comment(s): Father when pt was young of unknown reason. Mother Family Medical History: CVA/TIA Sister(s) Family Medical History: Cancer Additional Family Medical History / Comment(s): pt sister from stomach cancer. General Exam Limitations: no limitations General appearance: alert, in no apparent distress Head exam: Present: atraumatic, normocephalic, normal inspection Eye exam: Present: normal appearance, PERRL, EOMI. Absent: scleral icterus, conjunctival injection, periorbital swelling ENT exam: Present: normal exam, mucous membranes moist Neck exam: Present: normal inspection. Absent: tenderness, meningismus, lymphadenopathy Respiratory exam: Present: normal lung sounds bilaterally. Absent: respiratory distress, wheezes, rales, rhonchi, stridor Cardiovascular Exam: Present: regular rate, normal rhythm, normal heart sounds. Absent: systolic murmur, diastolic murmur, rubs, gallop, clicks Extremities exam: Present: normal capillary refill (Capillary refill less than 2 seconds and radial pulse 2+), other (Tingling and tenderness noted to the medial aspect of the palmar and dorsal right hand as well as the fourth and fifth digits. Tenderness noted to the ulnar notch of the right elbow. Positive Froment sign. Full strength and ROM in the right shoulder. No drift up the R upper extremity.). Absent: full ROM (Patient able to somewhat flex and extend the right fourth and fifth digit at MCP joints however unable to perform abduction of the 4th and 5th digits. Digits are held together.), joint swelling (no edema or eryhtema noted to the arm) Neurological exam: Present: alert, oriented X3, CN II-XII intact, normal gait Expanded Patient oriented to: Present: person, place, time Speech: Present: receptive aphasia Cranial nerves: EOM's Intact: Normal, Tongue Deviation: Normal, Nystagmus: Normal, Facial Sensation: Normal Cerebellar function: Finger to Nose: Normal Upper motor neuron: Pronator Drift: Normal Sensory exam: Upper Extremity Light Touch: Normal, Upper Extremity Pin Prick: Normal, Lower Extremity Light Touch: Normal, Lower Extremity Pin Prick: Normal Motor strength exam: RUE: 5, LUE: 5, RLE: 5, LLE: 5 Eye Response: (4) open spontaneously Motor Response: (6) obeys commands Verbal Response: (5) oriented Gerard Total: 15 Course Vital Signs 09/04/18 09/04/18 14:41 15:52 Temperature 98.3 F Pulse Rate 82 Respiratory 181 H 18 Rate Blood Pressure 159/90 O2 Sat by Pulse 98 Oximetry Medical Decision Making - Medical Decision Making 53-year-old male presents to the emergency department for a chief complaint of medial right hand tingling. Patient states this started about 3 weeks ago. Patient unable to abductor his right fourth and fifth digits. He does have some flexion intact at the MCP joints of the fourth and fifth digits. Sensation is intact although somewhat diminished in patient does have a feeling of pins and needles in those digits. Patient does have pain noted to the ulnar notch. He states a shooting pain will shoot down his forearm at times. Given specific distribution this is likely a peripheral nerve involvement. No other focal neuro deficits. X-rays of the hand and forearm are negative. Patient at this time will follow up outpatient however I did discuss returning if he has any worsening symptoms. He will follow up with both primary, orthopedics, and neurology. Discussed returning here if he has any worsening symptoms. Disposition Clinical Impression: Peripheral nerve dysfunction Disposition: HOME SELF-CARE Condition: Good Instructions (If sedation given, give patient instructions): Cubital Tunnel Syndrome (ED), Paresthesia (ED) Additional Instructions: Please follow-up with primary care as well as orthopedics and neurology tomorrow. Please return here if you have any worsening symptoms. Is patient prescribed a controlled substance at d/c from ED?: No Referrals: Leti Alfred MD [REFERRING] - 1-2 days Tyler Quintanilla MD [STAFF PHYSICIAN] - 1-2 days Zhao Overton MD [Medical Doctor] - 1-2 days Time of Disposition: 18:40
--- NOTE | 2018-09-04 18:05 | XR ---
EXAMINATION TYPE: XR hand complete RT DATE OF EXAM: 09/04/2018 COMPARISON: None HISTORY: Pain and numbness in right hand TECHNIQUE: 3 views right hand FINDINGS: No acute fractures are evident. Joint spaces are preserved. Soft tissues are normal. An old fracture the fifth metacarpal is present. IMPRESSION: 1. No acute osseous abnormality.
--- NOTE | 2018-09-04 18:06 | XR ---
EXAMINATION TYPE: XR forearm RT DATE OF EXAM: 09/04/2018 COMPARISON: None HISTORY: Numbness in right hand TECHNIQUE: 2 view right forearm FINDINGS: No acute fractures are evident. Radius aligns normally with the humerus. Ulnar negative tesfaye iance is present. IMPRESSION: 1. No acute osseous abnormality right forearm
[2018-09-04 18:48] VITALS: BP 146/91; PULSE 69; RESP 16
== END 2018-09-04 18:47 | disposition home or self-care (01) ==
LOC: EC 14:27
DX: G64 Other disorders of peripheral nervous system (principal); F17.200 Nicotine dependence, unspecified, uncomplicated; Z79.1 Long term (current) use of non-steroidal anti-inflammatories (NSAID); Z88.8 Allergy status to other drugs, medicaments and biological substances; Z88.5 Allergy status to narcotic agent; Z93.3 Colostomy status
CPT/HCPCS: 99284

== ENCOUNTER 2020-04-06 20:07 | Emergency (ER) | payer OTHER ==
--- NOTE | 2020-04-06 20:25 | ED ---
General Adult HPI - General Source: patient, family Mode of arrival: ambulatory Limitations: no limitations <Jordan Dalton - Last Filed: 04/07/20 00:01> <Josemanuel Bhardwaj - Last Filed: 04/08/20 09:19> - General Chief complaint: Abdominal Pain Stated complaint: Abd Pain Time Seen by Provider: 04/06/20 20:23 - History of Present Illness Initial comments: Patient presents the ED with his fianc for evaluation. Patient states that he has had lower abdominal and rectal pain for the past 2 days or so. Patient states that he has also had the urgency to have a bowel movement for the past 2 days, and he reports having a mix of watery stool and pink colored discharge with attempted bowel movement. Patient states that he has had a colostomy for the past 3 years or so, and he states that he has not had any rectal bowel movements since having his colostomy surgery. Patient denies trauma or injury, fever or chills, headache, focal neuro deficit, chest pain, dyspnea, dizziness, upper abdominal pain, back or flank pain, nausea or vomiting, dysuria/hematuria/urinary frequency/urinary symptoms, or any other symptoms or complaints. (Jordan Dalton) - Related Data Home Medications Medication Instructions Recorded Confirmed Naproxen Sodium [Aleve] 220 mg PO BID PRN 09/04/18 04/06/20 Previous Rx's Medication Instructions Recorded Hydrocodone/Acetaminophen [Danforth 1 each PO Q6HR PRN #15 tab 04/07/20 5-325] Hydrocortisone [Anusol-Hc] 30 gm TP BID #30 g 04/07/20 Allergies Allergy/AdvReac Type Severity Reaction Status Date / Time hydromorphone [From Dilaudid] Allergy Itching Verified 04/06/20 22:08 nicotine Allergy Itching Verified 04/06/20 22:08 Review of Systems ROS Other: All systems not noted in ROS Statement are negative. <Jordan Dalton - Last Filed: 04/07/20 00:01> ROS Other: All systems not noted in ROS Statement are negative. <Josemanuel Bhardwaj - Last Filed: 04/08/20 09:19> ROS Statement: Those systems with pertinent positive or pertinent negative responses have been documented in the HPI. Past Medical History Past Medical History: Hypertension Additional Past Medical History / Comment(s): Pt recently admitted 08/01/15 with sepsis 2ndary to sigmoid diverticuliti/diarrhea. Other hx: diverticulitis, chronic constipation. Colostomy. History of Any Multi-Drug Resistant Organisms: None Reported Past Surgical History: Bowel Resection Additional Past Surgical History / Comment(s): 08/04/16 exploratory laparotomy lysis of extensive adhesions/sigmoid resection/decending colostomy/repair incisional ventral hernia. Other surgical hx: 2001 Exploratory laparotomy with ulcer repair, EGD/colonoscopy. Past Anesthesia/Blood Transfusion Reactions: No Reported Reaction Past Psychological History: No Psychological Hx Reported Smoking Status: Current every day smoker Past Alcohol Use History: Daily, Heavy Past Drug Use History: None Reported - Past Family History Father Family Medical History: No Reported History Additional Family Medical History / Comment(s): Father when pt was young of unknown reason. Mother Family Medical History: CVA/TIA Sister(s) Family Medical History: Cancer Additional Family Medical History / Comment(s): pt sister from stomach cancer. <Jordan Dalton - Last Filed: 04/07/20 00:01> General Exam Limitations: no limitations General appearance: alert, in no apparent distress Head exam: Present: atraumatic, normocephalic Eye exam: Present: normal appearance, EOMI ENT exam: Present: mucous membranes moist Neck exam: Present: other (Trachea is in midline) Respiratory exam: Present: normal lung sounds bilaterally. Absent: respiratory distress, wheezes, rales, rhonchi Cardiovascular Exam: Present: regular rate, normal rhythm, normal heart sounds, other (Normal radial pulses bilaterally) GI/Abdominal exam: Present: soft, hypoactive bowel sounds, other (Large midline ventral surgical scar; ventral hernias; moderate suprapubic and right lower quadrant tenderness; + colostomy). Absent: guarding, rebound Rectal exam: Present: normal rectal tone, tenderness Extremities exam: Absent: tenderness, pedal edema Back exam: Absent: CVA tenderness (R), CVA tenderness (L) Neurological exam: Present: alert, oriented X3. Absent: motor sensory deficit Psychiatric exam: Present: normal affect, normal mood Skin exam: Present: warm, dry, intact, normal color <Jordan Dalton - Last Filed: 04/07/20 00:01> Course <Jordan Dalton - Last Filed: 04/07/20 00:01> Vital Signs 04/06/20 04/06/20 20:16 22:52 Temperature 98.3 F 97.7 F Pulse Rate 99 68 Respiratory 18 16 Rate Blood Pressure 147/87 108/89 O2 Sat by Pulse 99 99 Oximetry - Reevaluation(s) Reevaluation #1: 04/07/20 00:01 Patient was endorsed to Dr. Bhardwaj (secondary to end of my shift) with his CT abdomen/pelvis with IV contrast report still pending. Dr. Bhardwaj to follow up on the patient's CT report and to take over care of the patient at this time. Patient's labs are pertinent for mild leukocytosis (13.2). (Jordan Dalton) Medical Decision Making - Lab Data Result diagrams: 04/06/20 20:42 04/06/20 20:42 <Jordan Dalton - Last Filed: 04/07/20 00:01> - Lab Data Result diagrams: 04/06/20 20:42 04/06/20 20:42 <Josemanuel Bhardwaj - Last Filed: 04/08/20 09:19> - Medical Decision Making Patient is reevaluated following the studies and medication. He is feeling markedly better Case discussed with Dr. Wakefield, covering for Dr. Bueno. We will treat patient and have him follow in the clinic with Dr. Bueno. Discussed appropriate further care and follow-up as well as return parameters. (Leroy Bhardwaj [facility]) - Lab Data Lab Results 04/06/20 04/06/20 04/06/20 Range/Units 20:42 20:42 20:42 WBC 13.2 H (3.8-10.6) k/uL RBC 4.97 (4.30-5.90) m/uL Hgb 15.3 (13.0-17.5) gm/dL Hct 45.5 (39.0-53.0) % MCV 91.7 (80.0-100.0) fL MCH 30.8 (25.0-35.0) pg MCHC 33.6 (31.0-37.0) g/dL RDW 12.4 (11.5-15.5) % Plt Count 236 (150-450) k/uL Neutrophils % 54 % Lymphocytes % 35 % Monocytes % 6 % Eosinophils % 2 % Basophils % 1 % Neutrophils # 7.1 (1.3-7.7) k/uL Lymphocytes # 4.7 (1.0-4.8) k/uL Monocytes # 0.8 (0-1.0) k/uL Eosinophils # 0.3 (0-0.7) k/uL Basophils # 0.1 (0-0.2) k/uL Sodium 140 (137-145) mmol/L Potassium 4.0 (3.5-5.1) mmol/L Chloride 109 H (98-107) mmol/L Carbon Dioxide 23 (22-30) mmol/L Anion Gap 8 mmol/L BUN 17 (9-20) mg/dL Creatinine 0.95 (0.66-1.25) mg/dL Est GFR (CKD-EPI)AfAm >90 (>60 ml/min/1.73 sqM) Est GFR (CKD-EPI)NonAf 90 (>60 ml/min/1.73 sqM) Glucose 176 H (74-99) mg/dL Plasma Lactic Acid John (0.7-2.0) mmol/L Calcium 9.5 (8.4-10.2) mg/dL Total Bilirubin 0.4 (0.2-1.3) mg/dL AST 26 (17-59) U/L ALT 24 (4-49) U/L Alkaline Phosphatase 69 (38-126) U/L Total Protein 7.0 (6.3-8.2) g/dL Albumin 4.2 (3.5-5.0) g/dL Lipase 91 (23-300) U/L Urine Color Yellow Urine Appearance Clear (Clear) Urine pH 6.5 (5.0-8.0) Ur Specific Sibley 1.022 (1.001-1.035) Urine Protein Negative (Negative) Urine Glucose (UA) Negative (Negative) Urine Ketones Negative (Negative) Urine Blood Negative (Negative) Urine Nitrite Negative (Negative) Urine Bilirubin Negative (Negative) Urine Urobilinogen 4.0 (<2.0) mg/dL Ur Leukocyte Esterase Trace H (Negative) Urine RBC 7 H (0-5) /hpf Urine WBC 5 (0-5) /hpf Ur Squamous Epith Cells 3 (0-4) /hpf Urine Mucus Rare H (None) /hpf Stool Occult Blood (Negative) Blood Type Blood Type Confirm Blood Type Recheck Bld Type Recheck Status Antibody Screen Spec Expiration Date 04/06/20 04/06/20 04/06/20 Range/Units 20:42 20:42 20:48 WBC (3.8-10.6) k/uL RBC (4.30-5.90) m/uL Hgb (13.0-17.5) gm/dL Hct (39.0-53.0) % MCV (80.0-100.0) fL MCH (25.0-35.0) pg MCHC (31.0-37.0) g/dL RDW (11.5-15.5) % Plt Count (150-450) k/uL Neutrophils % % Lymphocytes % % Monocytes % % Eosinophils % % Basophils % % Neutrophils # (1.3-7.7) k/uL Lymphocytes # (1.0-4.8) k/uL Monocytes # (0-1.0) k/uL Eosinophils # (0-0.7) k/uL Basophils # (0-0.2) k/uL Sodium (137-145) mmol/L Potassium (3.5-5.1) mmol/L Chloride (98-107) mmol/L Carbon Dioxide (22-30) mmol/L Anion Gap mmol/L BUN (9-20) mg/dL Creatinine (0.66-1.25) mg/dL Est GFR (CKD-EPI)AfAm (>60 ml/min/1.73 sqM) Est GFR (CKD-EPI)NonAf (>60 ml/min/1.73 sqM) Glucose (74-99) mg/dL Plasma Lactic Acid John 1.4 (0.7-2.0) mmol/L Calcium (8.4-10.2) mg/dL Total Bilirubin (0.2-1.3) mg/dL AST (17-59) U/L ALT (4-49) U/L Alkaline Phosphatase (38-126) U/L Total Protein (6.3-8.2) g/dL Albumin (3.5-5.0) g/dL Lipase (23-300) U/L Urine Color Urine Appearance (Clear) Urine pH (5.0-8.0) Ur Specific Sibley (1.001-1.035) Urine Protein (Negative) Urine Glucose (UA) (Negative) Urine Ketones (Negative) Urine Blood (Negative) Urine Nitrite (Negative) Urine Bilirubin (Negative) Urine Urobilinogen (<2.0) mg/dL Ur Leukocyte Esterase (Negative) Urine RBC (0-5) /hpf Urine WBC (0-5) /hpf Ur Squamous Epith Cells (0-4) /hpf Urine Mucus (None) /hpf Stool Occult Blood Negative (Negative) Blood Type O Positive Blood Type Confirm Blood Type Recheck No Previous Record Bld Type Recheck Status CABO Indicated Antibody Screen NEGATIVE Spec Expiration Date 04/09/2020 - 234104/07/20 Range/Units 01:01 WBC (3.8-10.6) k/uL RBC (4.30-5.90) m/uL Hgb (13.0-17.5) gm/dL Hct (39.0-53.0) % MCV (80.0-100.0) fL MCH (25.0-35.0) pg MCHC (31.0-37.0) g/dL RDW (11.5-15.5) % Plt Count (150-450) k/uL Neutrophils % % Lymphocytes % % Monocytes % % Eosinophils % % Basophils % % Neutrophils # (1.3-7.7) k/uL Lymphocytes # (1.0-4.8) k/uL Monocytes # (0-1.0) k/uL Eosinophils # (0-0.7) k/uL Basophils # (0-0.2) k/uL Sodium (137-145) mmol/L Potassium (3.5-5.1) mmol/L Chloride (98-107) mmol/L Carbon Dioxide (22-30) mmol/L Anion Gap mmol/L BUN (9-20) mg/dL Creatinine (0.66-1.25) mg/dL Est GFR (CKD-EPI)AfAm (>60 ml/min/1.73 sqM) Est GFR (CKD-EPI)NonAf (>60 ml/min/1.73 sqM) Glucose (74-99) mg/dL Plasma Lactic Acid John (0.7-2.0) mmol/L Calcium (8.4-10.2) mg/dL Total Bilirubin (0.2-1.3) mg/dL AST (17-59) U/L ALT (4-49) U/L Alkaline Phosphatase (38-126) U/L Total Protein (6.3-8.2) g/dL Albumin (3.5-5.0) g/dL Lipase (23-300) U/L Urine Color Urine Appearance (Clear) Urine pH (5.0-8.0) Ur Specific Sibley (1.001-1.035) Urine Protein (Negative) Urine Glucose (UA) (Negative) Urine Ketones (Negative) Urine Blood (Negative) Urine Nitrite (Negative) Urine Bilirubin (Negative) Urine Urobilinogen (<2.0) mg/dL Ur Leukocyte Esterase (Negative) Urine RBC (0-5) /hpf Urine WBC (0-5) /hpf Ur Squamous Epith Cells (0-4) /hpf Urine Mucus (None) /hpf Stool Occult Blood (Negative) Blood Type Blood Type Confirm O Positive Blood Type Recheck Bld Type Recheck Status Antibody Screen Spec Expiration Date Disposition <Jordan Dalton - Last Filed: 04/07/20 00:01> Is patient prescribed a controlled substance at d/c from ED?: No <Josemanuel Bhardwaj - Last Filed: 04/08/20 09:19> Clinical Impression: Abdominal pain Disposition: HOME SELF-CARE Condition: Fair Instructions (If sedation given, give patient instructions): Abdominal Pain (ED) Prescriptions: Hydrocortisone [Anusol-Hc] 30 gm TP BID #30 g Hydrocodone/Acetaminophen [Danforth 5-325] 1 each PO Q6HR PRN #15 tab PRN Reason: Pain Referrals: None,Stated [Primary Care Provider] - 1-2 days Estrella Raphael MD [STAFF PHYSICIAN] - 1-2 days
[2020-04-06] MEDS ORDERED: SODIUM CHLORIDE 0.9% 1,000 ML IV STA (20:36)
[2020-04-06] MEDS ORDERED: MORPHINE SULFATE 4 MG/ML SYRINGE IV STA (20:36)
[2020-04-06 21:05] LABS: Basophils # (A) 0.1 k/uL (0-0.2); Basophils % (A) 1 %; Eosinophils # (A) 0.3 k/uL (0-0.7); Eosinophils % (A) 2 %; HCT 45.5 % (39.0-53.0); HGB 15.3 gm/dL (13.0-17.5); Lymphocytes # (A) 4.7 k/uL (1.0-4.8); Lymphocytes % (A) 35 %; MCH 30.8 pg (25.0-35.0); MCHC 33.6 g/dL (31.0-37.0); MCV 91.7 fL (80.0-100.0); Mean Platelet Volume 8.8; Monocytes # (A) 0.8 k/uL (0-1.0); Monocytes % (A) 6 %; Neutrophils # (A) 7.1 k/uL (1.3-7.7); Neutrophils % (A) 54 %; Platelet Count 236 k/uL (150-450); RBC 4.97 m/uL (4.30-5.90); RDW 12.4 % (11.5-15.5); WBC 13.2 k/uL (3.8-10.6)
[2020-04-06 21:06] LABS: ALT 24 U/L (4-49); AST 26 U/L (17-59); African American GFR (CKD) >90 (>60 ml/min/1.73 sqM); Albumin 4.2 g/dL (3.5-5.0); Alkaline Phosphatase 69 U/L (38-126); Anion Gap 8 mmol/L; Blood Urea Nitrogen 17 mg/dL (9-20); Calcium 9.5 mg/dL (8.4-10.2); Carbon Dioxide 23 mmol/L (22-30); Chloride 109 mmol/L (98-107); Glucose 176 mg/dL (74-99); Non-African American GFR(CKD) 90 (>60 ml/min/1.73 sqM); Sodium 140 mmol/L (137-145); Total Bilirubin 0.4 mg/dL (0.2-1.3)
[2020-04-06 22:11] LABS: Appearance,Urine Clear (Clear); Bilirubin,Urine Negative (Negative); Blood,Urine Negative (Negative); Color,Urine Yellow; Glucose,Urine (UA) Negative (Negative); Ketones,Urine Negative (Negative); Leukocyte Esterase,Urine Trace (Negative); Mucus,Urine Rare /hpf; Nitrite,Urine Negative (Negative); PH, Urine 6.5 (5.0-8.0); Protein,Urine Negative (Negative); RBC,Urine 7 /hpf (0-5); Specific Gravity,Urine 1.022 (1.001-1.035); Squamous Epithelial Cell,Urine 3 /hpf (0-4); WBC,Urine 5 /hpf (0-5)
[2020-04-06 22:54] VITALS: BP 108/89; PULSE 68; RESP 16; TEMP 97.7
--- NOTE | 2020-04-07 00:08 | CT ---
EXAMINATION TYPE: CT abdomen pelvis w con DATE OF EXAM: 04/06/2020 COMPARISON: 07/16/2018 HISTORY: Abd Pain CT DLP: 1780.50 mGycm Automated exposure control for dose reduction was used. CONTRAST: Performed with IV Contrast, patient injected with 100 mL of Isovue 300. Lung bases are clear. There is no pleural effusion. Heart size is normal. There is 1 cm cyst in the superior right lobe of the liver. There are other smaller hepatic cysts. Sp perry is intact. Stomach is intact. There is no pancreatic mass. Gallbladder appears normal. There is no adrenal mass. Kidneys show satisfactory contrast opacification. There is no hydronephrosi s. Ureters are not dilated. There is no retroperitoneal adenopathy. Bladder distends smoothly. There is no inguinal hernia. There is 1 cm prostate calcification. There is no free fluid in the pelvis. Appendix is not seen. There is no sign of thickened appendix. There is no mesenteric edema. There is no ascites. There is no free air. There is a colostomy in the left mid abdomen. There is also peristo mal hernia that contains small bowel loops. There is ventral hernia that contains transverse colon. T here is no evidence of a bowel obstruction. Lumbar vertebra have normal spacing and alignment. There is no compression fracture. Posterior elemen ts are intact. The bony pelvis appears intact. Hip joints are intact. IMPRESSION: Left side peristomal hernia containing small bowel. No bowel obstruction. Ventral hernia. Parastomal hernia and multifocal ventral hernia appear not significantly different than old CT scan.
[2020-04-07] MEDS ORDERED: MORPHINE SULFATE 4 MG/ML SYRINGE IV STA ×2 (00:42→02:13)
== END 2020-04-07 02:47 | disposition home or self-care (01) ==
LOC: EC 20:07
DX: R10.30 Lower abdominal pain, unspecified (principal); F17.200 Nicotine dependence, unspecified, uncomplicated; Z88.5 Allergy status to narcotic agent; Z88.8 Allergy status to other drugs, medicaments and biological substances; Z93.3 Colostomy status; Z98.890 Other specified postprocedural states
CPT/HCPCS: 36415; 86900; 86901; 80053; 83605; 83690; 85025; 86850; 82272; 81001; 74177; 99284; 96374; 96376 ×2; 96361 ×4; J2270 ×2; Q9967

== ENCOUNTER 2022-07-20 14:22 | Inpatient (IN) | payer OTHER ==
[2022-07-20] MEDS ORDERED: LORazepam 2 MG/ML INJ IV STA ×2 (15:08→19:44)
[2022-07-20] MEDS ORDERED: SODIUM CHLORIDE 0.9% 1,000 ML IV STA (15:09)
[2022-07-20 15:34] LABS: Glucose,Whole Blood 185 mg/dL (70-110)
[2022-07-20 15:34] LABS: Basophils # (A) 0.2 k/uL (0-0.2); Basophils % (A) 1 %; Eosinophils # (A) 0.1 k/uL (0-0.7); Eosinophils % (A) 1 %; HCT 48.4 % (39.0-53.0); Lymphocytes % (A) 33 %; MCH 31.2 pg (25.0-35.0); MCHC 35.2 g/dL (31.0-37.0); MCV 88.8 fL (80.0-100.0); Mean Platelet Volume 8.3; Monocytes # (A) 0.8 k/uL (0-1.0); Monocytes % (A) 6 %; Neutrophils # (A) 8.9 k/uL (1.3-7.7); Neutrophils % (A) 58 %; Platelet Count 235 k/uL (150-450); RBC 5.45 m/uL (4.30-5.90); RDW 12.1 % (11.5-15.5); WBC 15.3 k/uL (3.8-10.6)
[2022-07-20 15:36] LABS: Appearance,Urine Clear (Clear); Bilirubin,Urine Negative (Negative); Blood,Urine Moderate (Negative); Color,Urine Yellow; Glucose,Urine (UA) 3+ (Negative); Ketones,Urine Negative (Negative); Leukocyte Esterase,Urine Negative (Negative); Mucus,Urine Rare /hpf; Nitrite,Urine Negative (Negative); Protein,Urine 1+ (Negative); RBC,Urine 1 /hpf (0-5); Specific Gravity,Urine 1.008 (1.001-1.035); Squamous Epithelial Cell,Urine <1 /hpf (0-4); Urobilinogen,Urine <2.0 mg/dL (<2.0); WBC,Urine <1 /hpf (0-5)
[2022-07-20] MEDS ORDERED: DIPH,PERTUS(ACELL)TETVAC-LF 0.5 ML VIAL IM ONE (15:41)
[2022-07-20] MEDS ORDERED: LIDOCAINE 1% INJ 10MG/ML (30 ML VIAL-PF) SQ ONE (15:41)
[2022-07-20 15:44] LABS: INR 1.1 (<1.2); Prothrombin Time 11.3 sec (9.0-12.0)
[2022-07-20 15:45] LABS: ALT 47 U/L (4-49); AST 63 U/L (17-59); African American GFR (CKD) >90 (>60 ml/min/1.73 sqM); Albumin 4.8 g/dL (3.5-5.0); Alkaline Phosphatase 114 U/L (38-126); Anion Gap 19 mmol/L; Blood Urea Nitrogen 9 mg/dL (9-20); Calcium 8.4 mg/dL (8.4-10.2); Carbon Dioxide 18 mmol/L (22-30); Chloride 104 mmol/L (98-107); Glucose 189 mg/dL (74-99); Non-African American GFR(CKD) >90 (>60 ml/min/1.73 sqM); Phosphorus 3.9 mg/dL (2.5-4.5); Potassium 3.6 mmol/L (3.5-5.1); Sodium 141 mmol/L (137-145); Total Bilirubin 1.1 mg/dL (0.2-1.3)
[2022-07-20 15:47] LABS: Amphetamine Screen,Urine Not Detected (NotDetected); Barbiturate Screen,Urine Not Detected (NotDetected); Benzodiazepines Screen,Urine Not Detected (NotDetected); Cocaine Screen,Urine Not Detected (NotDetected); Methadone Screen, Urine Not Detected (NotDetected); Opiate Screen,Urine Not Detected (NotDetected); Oxycodone Screen, Urine Not Detected (NotDetected); Phencyclidine Screen,Urine Not Detected (NotDetected); Tricyclic Antidepressant,Urine Not Detected (NotDetected); Urn Cannabinoid Scrn Not Detected (NotDetected)
[2022-07-20 15:54] LABS: Alcohol 336 mg/dL
--- NOTE | 2022-07-20 16:10 | ED ---
General Adult HPI - General Chief complaint: Alcohol Stated complaint: Alcohol Time Seen by Provider: 07/20/22 15:02 Source: patient, EMS Mode of arrival: EMS - History of Present Illness Initial comments: Patient is a 56-year-old male with history of daily heavy alcohol abuse, hy pertension, and bowel resection presenting via EMS after head injury. Patient was at [facility] when he fell and hit his head due to being intoxicated. EMS was called and he was brought here for evaluation. During assessment patient is requesting "something to help the shaking". There is a bit of a language barrier, patient speaks Albanian and Thai. He is difficult to obtain history from. - Related Data Home Medications Medication Instructions Recorded Confirmed No Known Home Medications 07/20/22 07/20/22 Allergies Allergy/AdvReac Type Severity Reaction Status Date / Time hydromorphone [From Dilaudid] Allergy Itching Verified 07/20/22 16:24 nicotine Allergy Itching Verified 07/20/22 16:24 Review of Systems ROS Statement: Those systems with pertinent positive or pertinent negative responses have been documented in the HPI. ROS Other: All systems not noted in ROS Statement are negative. Past Medical History Past Medical History: Hypertension Additional Past Medical History / Comment(s): Pt recently admitted 08/01/15 with sepsis 2ndary to sigmoid diverticuliti/diarrhea. Other hx: diverticulitis, chronic constipation. Colostomy. History of Any Multi-Drug Resistant Organisms: None Reported Past Surgical History: Bowel Resection Additional Past Surgical History / Comment(s): 08/04/16 exploratory laparotomy lysis of extensive adhesions/sigmoid resection/decending colostomy/repair incisional ventral hernia. Other surgical hx: 2001 Exploratory laparotomy with ulcer repair, EGD/colonoscopy. Past Anesthesia/Blood Transfusion Reactions: No Reported Reaction Past Psychological History: No Psychological Hx Reported Smoking Status: Current every day smoker Past Alcohol Use History: Daily, Heavy Past Drug Use History: None Reported - Past Family History Father Family Medical History: No Reported History Additional Family Medical History / Comment(s): Father when pt was young of unknown reason. Mother Family Medical History: CVA/TIA Sister(s) Family Medical History: Cancer Additional Family Medical History / Comment(s): pt sister from stomach cancer. General Exam Limitations: language barrier, altered mental status General appearance: appears intoxicated Head exam: Present: normocephalic, other (Laceration to face ). Absent: atraumatic Eye exam: Present: normal appearance, PERRL, EOMI. Absent: scleral icterus, conjunctival injection, periorbital swelling Neck exam: Present: normal inspection, full ROM Respiratory exam: Present: normal lung sounds bilaterally. Absent: respiratory distress, wheezes, rales, rhonchi, stridor Cardiovascular Exam: Present: normal rhythm, tachycardia, normal heart sounds. Absent: systolic murmur, diastolic murmur, rubs, gallop, clicks Neurological exam: Present: altered Skin exam: Present: warm, diaphoretic Expanded Type of lesion: Present: laceration (Large facial laceration) Course Vital Signs 07/20/22 07/20/22 07/20/22 14:28 15:41 18:13 Temperature 97.1 F L 97.2 F L Pulse Rate 111 H 122 H Respiratory 20 18 18 Rate Blood Pressure 131/97 121/83 O2 Sat by Pulse 97 94 L Oximetry 07/20/22 07/20/22 07/20/22 20:19 20:20 21:48 Temperature 98.8 F Pulse Rate 116 H Respiratory 18 Rate Blood Pressure 121/95 O2 Sat by Pulse 88 L 92 L Oximetry 07/20/22 07/20/22 21:58 22:14 Temperature Pulse Rate 131 H 116 H Respiratory 18 Rate Blood Pressure 105/69 O2 Sat by Pulse 95 Oximetry EKG Findings - EKG Comments: EKG Findings:: Sinus tachycardia. ventricular rate 127. IN interval 136. QRS 102. QT 324. QTC 399. No ST deviation. EKG is interpreted by myself Procedures - Laceration Laceration #1 Consent Obtained: verbal consent Indication: laceration Site: face Size (cm): 4 Description: linear Depth: simple, single layer Anesthetic Used: lidocaine 1%, without epi Anesthesia Technique: local infiltration Type of Sutures: nylon Size of Sutures: 6-0 Number of Sutures: 4 Technique: simple, interrupted Patient Tolerated Procedure: well Medical Decision Making - Medical Decision Making Patient is a 56-year-old male with history of daily heavy alcohol consumption presenting for evaluation. Patient was at [employer] publicly intoxicated when he fell hitting his head on a shelf. The store called EMS who transported the patient to the ER. There is a laceration to the forehead. Patient denies any chest pain or difficulty breathing. He is requesting medication to help him "stop shaking". He is difficult to obtain history from. CT of the brain, cervical spine, and facial bones shows no acute process. Wound is repaired, see procedure note. Patient is started on Ativan according to CIWA scale. Serum alcohol is 336. Patient will be admitted for alcohol intoxication. I spoke with Dr. Carrera from [facility] who accepted admission. I discussed this case with my attending Dr. Whatley - Lab Data Result diagrams: 07/20/22 15:23 07/20/22 15:23 Lab Results 07/20/22 07/20/22 07/20/22 Range/Units 15:23 15:23 15:23 WBC 15.3 H (3.8-10.6) k/uL RBC 5.45 (4.30-5.90) m/uL Hgb 17.0 (13.0-17.5) gm/dL Hct 48.4 (39.0-53.0) % MCV 88.8 (80.0-100.0) fL MCH 31.2 (25.0-35.0) pg MCHC 35.2 (31.0-37.0) g/dL RDW 12.1 (11.5-15.5) % Plt Count 235 (150-450) k/uL MPV 8.3 Neutrophils % 58 % Lymphocytes % 33 % Monocytes % 6 % Eosinophils % 1 % Basophils % 1 % Neutrophils # 8.9 H (1.3-7.7) k/uL Lymphocytes # 5.0 H (1.0-4.8) k/uL Monocytes # 0.8 (0-1.0) k/uL Eosinophils # 0.1 (0-0.7) k/uL Basophils # 0.2 (0-0.2) k/uL PT 11.3 (9.0-12.0) sec INR 1.1 (<1.2) Sodium (137-145) mmol/L Potassium (3.5-5.1) mmol/L Chloride (98-107) mmol/L Carbon Dioxide (22-30) mmol/L Anion Gap mmol/L BUN (9-20) mg/dL Creatinine (0.66-1.25) mg/dL Est GFR (CKD-EPI)AfAm (>60 ml/min/1.73 sqM) Est GFR (CKD-EPI)NonAf (>60 ml/min/1.73 sqM) Glucose (74-99) mg/dL POC Glucose (mg/dL) (70-110) mg/dL POC Glu Direct Care Worker ID Calcium (8.4-10.2) mg/dL Phosphorus (2.5-4.5) mg/dL Magnesium (1.6-2.3) mg/dL Total Bilirubin (0.2-1.3) mg/dL AST (17-59) U/L ALT (4-49) U/L Alkaline Phosphatase (38-126) U/L Total Protein (6.3-8.2) g/dL Albumin (3.5-5.0) g/dL Urine Color Yellow Urine Appearance Clear (Clear) Urine pH 6.0 (5.0-8.0) Ur Specific [place] 1.008 (1.001-1.035) Urine Protein 1+ H (Negative) Urine Glucose (UA) 3+ H (Negative) Urine Ketones Negative (Negative) Urine Blood Moderate H (Negative) Urine Nitrite Negative (Negative) Urine Bilirubin Negative (Negative) Urine Urobilinogen <2.0 (<2.0) mg/dL Ur Leukocyte Esterase Negative (Negative) Urine RBC 1 (0-5) /hpf Urine WBC <1 (0-5) /hpf Ur Squamous Epith Cells <1 (0-4) /hpf Urine Mucus Rare H (None) /hpf Urine Opiates Screen (NotDetected) Ur Oxycodone Screen (NotDetected) Urine Methadone Screen (NotDetected) Ur Propoxyphene Screen (NotDetected) Ur Barbiturates Screen (NotDetected) U Tricyclic Antidepress (NotDetected) Ur Phencyclidine Scrn (NotDetected) Ur Amphetamines Screen (NotDetected) U Methamphetamines Scrn (NotDetected) U Benzodiazepines Scrn (NotDetected) Urine Cocaine Screen (NotDetected) U Marijuana (THC) Screen (NotDetected) Serum Alcohol mg/dL 07/20/22 07/20/22 07/20/22 Range/Units 15:23 15:23 15:31 WBC (3.8-10.6) k/uL RBC (4.30-5.90) m/uL Hgb (13.0-17.5) gm/dL Hct (39.0-53.0) % MCV (80.0-100.0) fL MCH (25.0-35.0) pg MCHC (31.0-37.0) g/dL RDW (11.5-15.5) % Plt Count (150-450) k/uL MPV Neutrophils % % Lymphocytes % % Monocytes % % Eosinophils % % Basophils % % Neutrophils # (1.3-7.7) k/uL Lymphocytes # (1.0-4.8) k/uL Monocytes # (0-1.0) k/uL Eosinophils # (0-0.7) k/uL Basophils # (0-0.2) k/uL PT (9.0-12.0) sec INR (<1.2) Sodium 141 (137-145) mmol/L Potassium 3.6 (3.5-5.1) mmol/L Chloride 104 (98-107) mmol/L Carbon Dioxide 18 L (22-30) mmol/L Anion Gap 19 mmol/L BUN 9 (9-20) mg/dL Creatinine 0.67 (0.66-1.25) mg/dL Est GFR (CKD-EPI)AfAm >90 (>60 ml/min/1.73 sqM) Est GFR (CKD-EPI)NonAf >90 (>60 ml/min/1.73 sqM) Glucose 189 H (74-99) mg/dL POC Glucose (mg/dL) 185 H (70-110) mg/dL POC Glu Direct Care Worker ID Angélica Jackson Calcium 8.4 (8.4-10.2) mg/dL Phosphorus 3.9 (2.5-4.5) mg/dL Magnesium 2.0 (1.6-2.3) mg/dL Total Bilirubin 1.1 (0.2-1.3) mg/dL AST 63 H (17-59) U/L ALT 47 (4-49) U/L Alkaline Phosphatase 114 (38-126) U/L Total Protein 8.0 (6.3-8.2) g/dL Albumin 4.8 (3.5-5.0) g/dL Urine Color Urine Appearance (Clear) Urine pH (5.0-8.0) Ur Specific [place] (1.001-1.035) Urine Protein (Negative) Urine Glucose (UA) (Negative) Urine Ketones (Negative) Urine Blood (Negative) Urine Nitrite (Negative) Urine Bilirubin (Negative) Urine Urobilinogen (<2.0) mg/dL Ur Leukocyte Esterase (Negative) Urine RBC (0-5) /hpf Urine WBC (0-5) /hpf Ur Squamous Epith Cells (0-4) /hpf Urine Mucus (None) /hpf Urine Opiates Screen Not Detected (NotDetected) Ur Oxycodone Screen Not Detected (NotDetected) Urine Methadone Screen Not Detected (NotDetected) Ur Propoxyphene Screen Not Detected (NotDetected) Ur Barbiturates Screen Not Detected (NotDetected) U Tricyclic Antidepress Not Detected (NotDetected) Ur Phencyclidine Scrn Not Detected (NotDetected) Ur Amphetamines Screen Not Detected (NotDetected) U Methamphetamines Scrn Not Detected (NotDetected) U Benzodiazepines Scrn Not Detected (NotDetected) Urine Cocaine Screen Not Detected (NotDetected) U Marijuana (THC) Screen Not Detected (NotDetected) Serum Alcohol 336 H* mg/dL 07/20/22 Range/Units 19:53 WBC (3.8-10.6) k/uL RBC (4.30-5.90) m/uL Hgb (13.0-17.5) gm/dL Hct (39.0-53.0) % MCV (80.0-100.0) fL MCH (25.0-35.0) pg MCHC (31.0-37.0) g/dL RDW (11.5-15.5) % Plt Count (150-450) k/uL MPV Neutrophils % % Lymphocytes % % Monocytes % % Eosinophils % % Basophils % % Neutrophils # (1.3-7.7) k/uL Lymphocytes # (1.0-4.8) k/uL Monocytes # (0-1.0) k/uL Eosinophils # (0-0.7) k/uL Basophils # (0-0.2) k/uL PT (9.0-12.0) sec INR (<1.2) Sodium (137-145) mmol/L Potassium (3.5-5.1) mmol/L Chloride (98-107) mmol/L Carbon Dioxide (22-30) mmol/L Anion Gap mmol/L BUN (9-20) mg/dL Creatinine (0.66-1.25) mg/dL Est GFR (CKD-EPI)AfAm (>60 ml/min/1.73 sqM) Est GFR (CKD-EPI)NonAf (>60 ml/min/1.73 sqM) Glucose (74-99) mg/dL POC Glucose (mg/dL) 160 H (70-110) mg/dL POC Glu Direct Care Worker ID Jason Courtney Calcium (8.4-10.2) mg/dL Phosphorus (2.5-4.5) mg/dL Magnesium (1.6-2.3) mg/dL Total Bilirubin (0.2-1.3) mg/dL AST (17-59) U/L ALT (4-49) U/L Alkaline Phosphatase (38-126) U/L Total Protein (6.3-8.2) g/dL Albumin (3.5-5.0) g/dL Urine Color Urine Appearance (Clear) Urine pH (5.0-8.0) Ur Specific [place] (1.001-1.035) Urine Protein (Negative) Urine Glucose (UA) (Negative) Urine Ketones (Negative) Urine Blood (Negative) Urine Nitrite (Negative) Urine Bilirubin (Negative) Urine Urobilinogen (<2.0) mg/dL Ur Leukocyte Esterase (Negative) Urine RBC (0-5) /hpf Urine WBC (0-5) /hpf Ur Squamous Epith Cells (0-4) /hpf Urine Mucus (None) /hpf Urine Opiates Screen (NotDetected) Ur Oxycodone Screen (NotDetected) Urine Methadone Screen (NotDetected) Ur Propoxyphene Screen (NotDetected) Ur Barbiturates Screen (NotDetected) U Tricyclic Antidepress (NotDetected) Ur Phencyclidine Scrn (NotDetected) Ur Amphetamines Screen (NotDetected) U Methamphetamines Scrn (NotDetected) U Benzodiazepines Scrn (NotDetected) Urine Cocaine Screen (NotDetected) U Marijuana (THC) Screen (NotDetected) Serum Alcohol mg/dL Disposition Clinical Impression: Alcohol intoxication, Head injury Disposition: ADMITTED IP TO THIS HOSP Condition: Fair Time of Disposition: 19:26 Decision to Admit Reason: Admit from EC Decision Date: 07/20/22 Decision Time: 19:26
--- NOTE | 2022-07-20 17:45 | CT ---
EXAMINATION TYPE: CT brain cspine wo con, CT facial bones wo con CT DLP: 1361 mGycm, Automated exposure control for dose reduction was used. DATE OF EXAM: 07/20/2022 5:08 PM COMPARISON: CT cervical spine 04/20/2011 CLINICAL INDICATION:Male, 56 years old with history of fall; Fall. TECHNIQUE: Brain: Multiple axial CT images of the brain were obtained without IV contrast. Cspine: Axial CT images from the skull base to the inferior aspect of T2 we obtained without intraven ous contrast. Coronal and sagittal reformatted images were also reviewed. CT facial, axial CT images with sagittal and coronal reformats. FINDINGS: Brain: Extra-axial spaces: No abnormal extra-axial fluid collections. Ventricular system: Within normal limits Cerebral parenchyma: No acute intraparenchymal hemorrhage or mass effect. The flecther-white junction is well differentiated. Cerebellum: Unremarkable. Mass effect: No evidence of midline shift. Intracranial vasculature: unremarkable Soft tissues: Normal. Calvarium/osseous structures: No depressed skull fracture. Paranasal sinuses and mastoid air cells: Mild scattered mucosal thickening and or secretions. Visualized orbits: Orbital contents are intact. Cervical spine: Fracture: None. Osseous structures: Multilevel degenerative disc disease changes with endplate spurring and disc oste ophyte complex's. Vertebral alignment: Within normal limits. Spinal canal/Neural Foramina: Disc osteophyte complexes at C6-C7 with at least mild spinal canal sten osis. No evidence for significant neural foraminal stenosis. Neck soft tissues: Prevertebral soft tissues are within normal limits. Other: The airway is patent. The lung apices are clear. IMPRESSION: 1. No acute intracranial process. 2. No facial bone fracture. No evidence of cervical spine fracture. 3. Mild multilevel degenerative disc disease.
[2022-07-20] MEDS ORDERED: LORazepam 2 MG/ML INJ IV PRN (18:27)
[2022-07-20] MEDS ORDERED: THIAMINE 100 MG/ML 2 ML VIAL IM STA (18:27)
[2022-07-20] MEDS: LORazepam 2 MG/ML INJ IV PRN ×4 (18:41→23:58)
[2022-07-20] MEDS ORDERED: NALOXONE 0.4 MG/ML 1 ML VIAL IV PRN (19:24)
[2022-07-20 19:56] LABS: Glucose,Whole Blood 160 mg/dL (70-110)
[2022-07-20] MEDS: SODIUM CHLORIDE 0.9% 1,000 ML IV SCH (19:56)
[2022-07-21] MEDS: LORazepam 2 MG/ML INJ IV PRN ×11 (01:29→21:53)
--- NOTE | 2022-07-21 03:07 | P.HPIM ---
History of Present Illness H&P Date: 07/20/22 Chief Complaint: alcohol intoxication 56 year old male with no known past medical history patient is intoxicated , and sometimes would speak in sinhala, unable to obtain meaningful history per ED record. he passed out at a drug store, and was brought in here. upon evaluation he was found to have a laceration of the bridge of the nose. ETOH level was 336. WBC 15 patient also found to have a colostomy , he is unable to tell me why he had that and when no other history is obtainable at this time Review of Systems unable to obtain due to alcohol intoxication and language barrier Past Medical History Past Medical History: Hypertension Additional Past Medical History / Comment(s): Pt admitted 08/01/15 with sepsis 2ndary to sigmoid diverticuliti/diarrhea. Other hx: diverticulitis, chronic constipation. Colostomy. History of Any Multi-Drug Resistant Organisms: None Reported Past Surgical History: Bowel Resection Additional Past Surgical History / Comment(s): 08/04/16 exploratory laparotomy lysis of extensive adhesions/sigmoid resection/decending colostomy/repair incisional ventral hernia. Other surgical hx: 2001 Exploratory laparotomy with ulcer repair, EGD/colonoscopy. Past Anesthesia/Blood Transfusion Reactions: No Reported Reaction Past Psychological History: No Psychological Hx Reported Additional Psychological History / Comment(s): Pt resides alone. He is independent. Pt unable to answer questions at this time d/t ETOH intoxication. Blood ETOH was 336 on 07/20/22. Smoking Status: Current every day smoker Past Alcohol Use History: Daily, Heavy Additional Past Alcohol Use History / Comment(s): pt has been sober for one y ear- started drinking again heavily the last ten days in 2018. Unclear of current ETOH status. Past Drug Use History: None Reported - Past Family History Father Family Medical History: No Reported History Additional Family Medical History / Comment(s): Father when pt was young of unknown reason. Mother Family Medical History: CVA/TIA Sister(s) Family Medical History: Cancer Additional Family Medical History / Comment(s): pt sister from stomach cancer. Medications and Allergies Home Medications Medication Instructions Recorded Confirmed Type No Known Home Medications 07/20/22 07/20/22 History Allergies Allergy/AdvReac Type Severity Reaction Status Date / Time hydromorphone [From Dilaudid] Allergy Itching Verified 07/20/22 16:24 nicotine Allergy Itching Verified 07/20/22 16:24 Physical Exam Vitals: Vital Signs Temp Pulse Pulse Resp BP BP Pulse Ox 07/21/22 01:11 121 H 21 118/83 93 L 07/21/22 00:21 123 H 20 124/104 95 07/20/22 23:52 114 H 92 L 07/20/22 22:14 116 H 18 95 07/20/22 21:58 131 H 105/69 07/20/22 21:48 98.8 F 07/20/22 20:20 92 L 07/20/22 20:19 116 H 18 121/95 88 L 07/20/22 18:13 97.2 F L 122 H 18 121/83 94 L 07/20/22 15:41 18 07/20/22 14:28 97.1 F L 111 H 20 131/97 97 Intake and Output 07/20/22 07/20/22 07/21/22 14:59 22:59 06:59 Other: Weight 106 kg 106 kg Constitutional: acutely intoxicated, language barrier Eyes: Anicteric sclerae, moist conjunctiva, Pupils equal round reactive to light ENMT: NC, laceration with sutures over the nasal bridge , no active bleeding Oropharynx clear, no erythema, or exudates Neck: Supple, no masses, or JVD No carotid bruits No thyromegaly Lungs: Clear to auscultation Clear to percussion Normal respiratory effort, no accessory muscle use Cardiovascular: Heart regular in rate and rhythm, No murmurs, gallops, or rubs No peripheral edema Abdominal: Soft Nontender, no guarding, rebound or rigidity Abdomen moving with respiration Normoactive bowel sounds colostomy bag in place with fecal material , no bleeding Skin: laceration over the bridge of the nose as noted above. otherwise, Normal temperature, tone, texture, turgor Extremities: No digital cyanosis No clubbing Pedal pulses intact and symmetrical Radial pulses intact and symmetrical No calf tenderness Psychiatric: acutely intoxicated, confused, oriented to self, language barrier Neuro unable to follow commands, however moving all extremities purposefully Lymphatics: no palpable cervical or supraclavicular lymph nodes Results CBC & Chem 7: 07/20/22 15:23 07/20/22 15:23 Labs: Abnormal Lab Results - Last 24 Hours (Table) 1207/20/22 07/20/22 Range/Units 15:23 15:23 15:23 WBC 15.3 H (3.8-10.6) k/uL Neutrophils # 8.9 H (1.3-7.7) k/uL Lymphocytes # 5.0 H (1.0-4.8) k/uL Carbon Dioxide 18 L (22-30) mmol/L Glucose 189 H (74-99) mg/dL POC Glucose (mg/dL) (70-110) mg/dL AST 63 H (17-59) U/L Urine Protein 1+ H (Negative) Urine Glucose (UA) 3+ H (Negative) Urine Blood Moderate H (Negative) Urine Mucus Rare H (None) /hpf Serum Alcohol 336 H* mg/dL 07/20/22 07/20/22 Range/Units 15:31 19:53 WBC (3.8-10.6) k/uL Neutrophils # (1.3-7.7) k/uL Lymphocytes # (1.0-4.8) k/uL Carbon Dioxide (22-30) mmol/L Glucose (74-99) mg/dL POC Glucose (mg/dL) 185 H 160 H (70-110) mg/dL AST (17-59) U/L Urine Protein (Negative) Urine Glucose (UA) (Negative) Urine Blood (Negative) Urine Mucus (None) /hpf Serum Alcohol mg/dL Thrombosis Risk Factor Assmnt - Choose All That Apply Any of the Below Risk Factors Present?: Yes Each Factor Represents 1 point: Age 41-60 years, Obesity (BMI >25) Other Risk Factors: No Other congenital or acquired thrombophilia - If yes, enter type in comment: No Thrombosis Risk Factor Assessment Total Risk Factor Score: 2 Thrombosis Risk Factor Assessment Level: Low Risk Assessment and Plan Assessment: acute severe alcohol intoxication fall precautions seizure precautions IVF hydration benzo per CIwA withdrawal precautions CT brain , CT cspine, CT face, no acute fractures thiamine daily full code DVT PPX mechanical
[2022-07-21] MEDS: SODIUM CHLORIDE 0.9% 1,000 ML IV SCH ×2 (06:46→18:39)
[2022-07-21 09:08] VITALS: BMI 33.5
[2022-07-21] MEDS ORDERED: PROCHLORPERAZINE INJ 10 MG/2 ML VIAL IVP PRN (09:18)
[2022-07-21] MEDS: THIAMINE 100 MG TAB PO SCH (11:29)
--- NOTE | 2022-07-21 19:26 | P.PN ---
Subjective Progress Note Date: 07/21/22 Hospital course: Patient is a 56-year-old male with a past medical history of daily alcohol abuse reportedly drinking 1 pint of whiskey and 6-8 beers daily 30 years and colostomy secondary to ulcerative colitis. Patient presented to the emergency department with alcohol intoxication and fall on 07/20/22. He underwent full evaluation in the emergency department. A CT head, face and cervical spine was completed. CT head negative for acute intercranial process. CT face negative for facial bone fractures and CT cervical spine showing no evidence of cervical spine fractures. Labs drawn revealing serum alcohol level was 336 and patient was found to have leukocytosis with WBC count of 15.3. Laceration to bridge of nose repaired with 5 sutures. Patient was started on aggressive IV fluid hydration and admitted under our services at this time. Overnight patient required greater than 8 mg of Ativan IVP for alcohol withdrawal. Admission transferred from observation to inpatient at this time. Physical exam: Patient seen and fully evaluated at bedside. Patient with active tremors, diaphoretic and tachycardic. Patient has received a total of 8 mg of Ativan overnight and transferred to inpatient at this time. Patient admits to drinking at least a pint of liquor along with 6-8 beers daily and has done so for the past 30 years. Patient reports he has never been to rehab and has never been fully detoxed. Patient states he would like to go to rehab tenderness was discussed with case management. Vital signs reviewed and stable. General: Nontoxic, no distress and appears stated age. Derm: Skin warm and dry, normal coloration for ethnicity. [address] to nasal bridge, laceration well approximated. Head: Atraumatic, normocephalic and symmetric. Eyes: EOMs intact, no lid lag, and anicteric sclera Mouth: no lip lesions, mucus membranes moist Cardiovascular: regular rate and rhythm with normal S1S2, stage III systolic murmur, positive posterior tibial pulses bilaterally, and cap refill < 2 seconds. Lungs: Respirations even, regular, and unlabored on room air. Lungs CTA bilaterally, no rhonchi, no rales, no wheezing, and no accessory muscle usage. Abdominal: soft, nontender to palpation, no guarding, no appreciable organomegaly. Colostomy in place. Ext: ROM intact. No gross muscle atrophy, no edema, no contractures Neuro: Speech clear, face symmetrical and CN II-XII grossly intact with no noted focal neuro deficits. Tremors noted.. Psych: Alert and oriented to person, place, time, and situation. Appropriate and pleasant affect. Assessment and Plan of Care: Alcohol withdrawal in active alcoholic -CIWA Protocol with symptom triggered medication management with benzodiazepines. -Continuous IV hydration. -Thiamine 100 mg twice a day -Multivitamin daily -Folate 1 mg daily -Seizure, fall, aspiration, and elopement precautions in place. -Urine drug screen negative -Continued close monitoring of electrolytes and replace as needed. -Telemetry monitoring. Fall with facial trauma -Laceration repair was completed in the emergency department with 5 sutures -TdAP Administered in the ER -CT head negative for acute intercranial process. -CT face negative for facial bone fractures. -CT cervical spine showing no evidence of cervical spine fractures. -Symptomatic care and pain regimen. -Fall precautions History of ulcerative colitis with colostomy -Colostomy care CODE STATUS: Full code DVT prophylaxis: Heparin Discussed with: Patient and RN Anticipated discharge date: Clinical course to determine Anticipated discharge place: Inpatient rehab A total of 37 minutes was spent on the care of this complex patient more than 50% of the time was spent in counseling and care coordination. Leroy Levine NP rendered care for this patient independently, reviewed the findings and plan as documented in the note above. I did not physically speak with or examine the patient on this date. Objective - Vital Signs Vital signs: Vital Signs Temp 98.4 F 07/21/22 14:00 Pulse 120 H 07/21/22 14:00 Resp 19 07/21/22 14:00 BP 132/70 07/21/22 14:00 Pulse Ox 94 L 07/21/22 14:00 FiO2 Intake & Output 07/21/22 07/21/22 07/22/22 06:59 18:59 06:59 Output Total 1300 Balance -1300 Weight 106 kg 106 kg Output: Urine 900 Stool 400 Other: Voiding Method Urinal # Voids 1 - Labs CBC & Chem 7: 07/22/22 06:53 07/22/22 06:53 Labs: Abnormal Lab Results - Last 24 Hours (Table) 07/20/22 Range/Units 19:53 POC Glucose (mg/dL) 160 H (70-110) mg/dL
[2022-07-21] MEDS: diazePAM 5 MG TAB PO SCH (19:33)
[2022-07-21] MEDS: HEPARIN SODIUM,PORCINE/PF 5,000 UNIT/0.5 ML SYRINGE SQ SCH (23:48)
[2022-07-22] MEDS: LORazepam 2 MG/ML INJ IV PRN ×3 (02:01→08:47)
[2022-07-22] MEDS: SODIUM CHLORIDE 0.9% 1,000 ML IV SCH (02:38)
[2022-07-22] MEDS: THIAMINE 100 MG TAB PO SCH (08:48)
[2022-07-22] MEDS: diazePAM 5 MG TAB PO SCH (08:48)
[2022-07-22] MEDS: HEPARIN SODIUM,PORCINE/PF 5,000 UNIT/0.5 ML SYRINGE SQ SCH (08:48)
[2022-07-22 09:03] VITALS: BP 135/95; PULSE 120; RESP 19; TEMP 98.5
[2022-07-22 10:25] LABS: African American GFR (CKD) 115.9 (60.0-200.0); Albumin/Globulin Ratio 1.7 (1.60-3.17); BUN/Creat Ratio 16.21 Ratio (12.00-20.00); Blood Urea Nitrogen 12.5 mg/dL (9.0-27.0); Calcium 8.8 mg/dL (8.7-10.3); Carbon Dioxide 23.2 mmol/L (20.0-27.5); Globulin 2.3 g/dL (1.6-3.3); Potassium 3.6 mmol/L (3.5-5.5); Total Bilirubin 2.1 mg/dL (0.30-1.20); Total Protein 6.3 g/dL (6.2-8.2)
[2022-07-22 10:26] LABS: HCT 41.5 % (39.6-50.0); MCH 31.8 pg (27.0-32.0); MCHC 36.1 g/dL (32.0-37.0); MCV 88.1 fL (80.0-97.0); Mean Platelet Volume 11.5 fL (9.5-12.2); NRBC Per 100 WBC 0 /100 WBCS (0.0-0.0); Platelet Count 160 X 10*3/uL (140-440); RBC 4.71 X 10*6/uL (4.40-5.60); RDW 11.9 % (11.5-14.5); WBC 11.37 X 10*3/uL (4.50-10.00)
--- NOTE | 2022-07-22 11:59 | P.DS ---
Providers Date of admission: 07/21/22 18:29 Expected date of discharge: 07/22/22 Attending physician: Marlen Carrera MD Primary care physician: Stated None Hospital Course: Discharge Diagnosis: Alcohol abuse resulting in withdrawal in active alcoholic. Patient was very adamant regarding discharge stating he changed his mind and no longer wants to attend inpatient drug and rehabilitation facility. Patient was demanding to be discharged or he was leaving AMA. Orders were placed for discharge per patient's request as medically he is stable at this time. Patient strongly encouraged to avoid any and all alcohol use and was provided with resources for outpatient community services and resources available to him if or when he does want to stop drinking alcohol. Fall with facial trauma. Laceration repair was completed in the emergency department with 5 sutures. TdAP Administered in the ER. Patient instructed he will need to return for suture removal in 5 days on 07/25/22. -CT head negative for acute intercranial process. -CT face negative for facial bone fractures. -CT cervical spine showing no evidence of cervical spine fractures. History of ulcerative colitis with colostomy Hospital Course: Patient is a 56-year-old male with a past medical history of daily alcohol abuse reportedly drinking 1 pint of whiskey and 6-8 beers daily 30 years and colostomy secondary to ulcerative colitis. Patient presented to the emergency department with alcohol intoxication and fall on 07/20/22. He underwent full evaluation in the emergency department. A CT head, face and cervical spine was completed. CT head negative for acute intercranial process. CT face negative for facial bone fractures and CT cervical spine showing no evidence of cervical spine fractures. Labs drawn revealing serum alcohol level was 336 and patient was found to have leukocytosis with WBC count of 15.3. Laceration to bridge of nose repaired with 5 sutures. Patient was started on aggressive IV fluid hydration and admitted under our services at this time. Overnight patient required greater than 8 mg of Ativan IVP for alcohol withdrawal. Admission t ransferred from observation to inpatient at this time. Patient again admitted overnight again requiring frequent dosing of Ativan and was placed on scheduled Valium. However patient stated he no longer wanted to go to rehab and was demanding discharge. Medically patient is stable and is clinically sober. Patient was demanding to be discharged or he was leaving AMA. Orders were placed for discharge per patient's request as medically he is stable at this time. Patient strongly encouraged to avoid any and all alcohol use and was provided with resources for outpatient community services and resources available to him if or when he does want to stop drinking alcohol. Patient was also instructed he will need to return for suture removal in 5 days on 07/25/22. Physical exam: Vital signs reviewed and stable. General: Nontoxic, no distress and appears stated age. Derm: Skin warm and dry, normal coloration for ethnicity. [address] to nasal bridge, laceration well approximated. Head: Atraumatic, normocephalic and symmetric. Eyes: EOMs intact, no lid lag, and anicteric sclera Mouth: no lip lesions, mucus membranes moist Cardiovascular: regular rate and rhythm with normal S1S2, stage III systolic murmur, positive posterior tibial pulses bilaterally, and cap refill < 2 seconds. Lungs: Respirations even, regular, and unlabored on room air. Lungs CTA bilaterally, no rhonchi, no rales, no wheezing, and no accessory muscle usage. Abdominal: soft, nontender to palpation, no guarding, no appreciable organomegaly. Colostomy in place. Ext: ROM intact. No gross muscle atrophy, no edema, no contractures Neuro: Speech clear, face symmetrical and CN II-XII grossly intact with no noted focal neuro deficits. Tremors noted.. Psych: Alert and oriented to person, place, time, and situation. Appropriate and pleasant affect. A total of 34 minutes of time were spent preparing this complex discharge summary. Pt was discharged on 07/22/22 at 11:57 AM. Leroy Levine NP rendered care for this patient independently, reviewed the findings and plan as documented in the note above. I did not physically speak with or examine the patient on this date. Patient Condition at Discharge: Stable Plan - Discharge Summary Discharge Rx Participant: No New Discharge Prescriptions: No Action No Known Home Medications Discharge Medication List No Known Home Medications 07/20/22 [History] Follow up Appointment(s)/Referral(s): None,Stated [Primary Care Provider] - 1-2 days (Please call to set up appointment) Patient Instructions/Handouts: Alcohol Intoxication (DC), Abuse of Alcohol (DC), Alcohol Withdrawal (DC) Activity/Diet/Wound Care/Special Instructions: Activity: As tolerated. Take breaks as needed. Diet: Heart healthy and carb consistent diet. Avoid salts, or foods with hidden salts such as canned or boxed foods and frozen dinners. Extra salt makes your heart work harder and traps the fluid in your body for longer. Special Instructions: Strongly avoid all alcohol use and again as we discussed recommend inpatient drug and alcohol rehabilitation facility. Since you are adamant about being discharged and currently declining inpatient drug and rehabilitation assistance you have been provided with outpatient community resources available to you. You will need to follow up for suture removal with your PCP, return to the ER or go to a urgent care clinic for suture removal on 07/25/22. Thank you for allowing us to participate in your care, it was truly a pleasure having you for our patient!!! Discharge/Stand Alone Forms: AA Meetings [facility], Who Do I Call?, Community Resources, Outpatient Counseling, Inp Substance Abuse Facilities Discharge Disposition: HOME SELF-CARE
== END 2022-07-22 11:58 | disposition home or self-care (01) | DRG 897 ==
LOC: EC 14:22 → 4SSUR 20:13 → OBSVTOIN 07-21 18:29
PROVIDERS: ADMIT Internal Medicine; ATTEND Internal Medicine
PROC: HZ2ZZZZ Detoxification Services for Substance Abuse Treatment (ICD-10-PCS; principal; 2022-07-21)
PROC: 0HQ1XZZ Repair Face Skin, External Approach (ICD-10-PCS; 2022-07-21)
PROC: 3E0234Z Introduction of Serum, Toxoid and Vaccine into Muscle, Percutaneous Approach (ICD-10-PCS; 2022-07-21)
DX: F10.229 Alcohol dependence with intoxication, unspecified (principal); S01.81XA Laceration without foreign body of other part of head, initial encounter; R00.0 Tachycardia, unspecified; I10 Essential (primary) hypertension; F10.231 Alcohol dependence with withdrawal delirium; S01.21XA Laceration without foreign body of nose, initial encounter; K59.09 Other constipation; Z71.41 Alcohol abuse counseling and surveillance of alcoholic; Z71.6 Tobacco abuse counseling; D72.829 Elevated white blood cell count, unspecified; F17.210 Nicotine dependence, cigarettes, uncomplicated; W22.09XA Striking against other stationary object, initial encounter; W19.XXXA Unspecified fall, initial encounter; Y90.8 Blood alcohol level of 240 mg/100 ml or more; Z23 Encounter for immunization; Z93.3 Colostomy status; Z87.19 Personal history of other diseases of the digestive system
CPT/HCPCS: 12013; 36415; 70450; 70486; 72125; 80053; 80306; 80320; 81001; 83735; 84100; 85025; 85027; 85610; 90471; 90715; 93005; 96361; 96372; 96374; 96376; 99285

== ENCOUNTER 2022-07-22 22:55 | Emergency (ER) | payer OTHER ==
[2022-07-22 23:05] VITALS: RESP 18
[2022-07-23] MEDS ORDERED: KETOROLAC 15 MG/ML 1 ML VIAL IM STA (00:03)
--- NOTE | 2022-07-23 00:04 | ED ---
General Adult HPI - General Chief complaint: Alcohol Stated complaint: ETOH Time Seen by Provider: 07/22/22 22:59 Source: patient, EMS Mode of arrival: EMS Limitations: no limitations - History of Present Illness Initial comments: This is a 56-year-old male with a past medical history including abdominal hernias status post colostomy approximately 6 years ago presented to the emergency department via EMS for EtOH. The patient was picked up outside of an [employer] and was reportedly intoxicated so the patient was brought into the emergency department for evaluation. On evaluation, the patient did not report any acute distress or pain and stated that he was just drinking and was told that he was drinking too much. The patient remained stable was able to answer all questions appropriately for myself. The patient denied any other acute pain or complaints. - Related Data Home Medications Medication Instructions Recorded Confirmed No Known Home Medications 07/20/22 07/20/22 Allergies Allergy/AdvReac Type Severity Reaction Status Date / Time hydromorphone [From Dilaudid] Allergy Itching Verified 07/22/22 23:05 nicotine Allergy Itching Verified 07/22/22 23:05 Review of Systems ROS Statement: Those systems with pertinent positive or pertinent negative responses have been documented in the HPI. ROS Other: All systems not noted in ROS Statement are negative. Past Medical History Past Medical History: Hypertension Additional Past Medical History / Comment(s): Pt admitted 08/01/15 with sepsis 2ndary to sigmoid diverticuliti/diarrhea. Other hx: diverticulitis, chronic constipation. Colostomy. History of Any Multi-Drug Resistant Organisms: None Reported Past Surgical History: Bowel Resection Additional Past Surgical History / Comment(s): 08/04/16 exploratory laparotomy lysis of extensive adhesions/sigmoid resection/decending colostomy/repair inci sional ventral hernia. Other surgical hx: 2001 Exploratory laparotomy with ulcer repair, EGD/colonoscopy. Past Anesthesia/Blood Transfusion Reactions: No Reported Reaction Past Psychological History: No Psychological Hx Reported Smoking Status: Current every day smoker Past Alcohol Use History: Daily, Heavy Past Drug Use History: None Reported - Past Family History Father Family Medical History: No Reported History Additional Family Medical History / Comment(s): Father when pt was young of unknown reason. Mother Family Medical History: CVA/TIA Sister(s) Family Medical History: Cancer Additional Family Medical History / Comment(s): pt sister from stomach cancer. General Exam Limitations: no limitations General appearance: alert, in no apparent distress, appears intoxicated Head exam: Present: atraumatic, normocephalic Eye exam: Present: normal appearance, PERRL Pupils: Present: normal accommodation ENT exam: Present: normal exam, normal oropharynx, mucous membranes moist Neck exam: Present: normal inspection, full ROM Respiratory exam: Present: normal lung sounds bilaterally Cardiovascular Exam: Present: regular rate, normal rhythm, normal heart sounds GI/Abdominal exam: Present: distended, hernia (Multiple right-sided periumbilical hernias), other (Left colostomy noted) Extremities exam: Present: normal inspection, full ROM Back exam: Present: normal inspection, full ROM Neurological exam: Present: alert, oriented X3, CN II-XII intact Psychiatric exam: Present: normal affect, normal mood Skin exam: Present: warm, dry Course Vital Signs 07/22/22 23:02 Temperature 97.9 F Pulse Rate 116 H Respiratory 18 Rate Blood Pressure 135/108 O2 Sat by Pulse 98 Oximetry Medical Decision Making - Medical Decision Making Was pt. sent in by a medical professional or institution? @ -Sent by police, EMS Did you speak to anyone other than the patient for history? @ -EMS Did you review nursing and triage notes? @ -Nursing triage notes reviewed Were old charts reviewed? @ -No Differential Diagnosis? @ -Acute alcohol intoxication, altered mental status EKG interpreted by me (3pts min.)? @ -[none] X-rays interpreted by me (1pt min.)? @ -[none] CT interpreted by me (1pt min.)? @ -[none] U/S interpreted by me (1pt. min.)? @ -[none] What testing was considered but not performed? (CT, X-rays, U/S, labs)? Why? @None What meds were considered but not given? Why? @ -[none] Did you discuss the management of the patient with other professionals? @ -No Did you reconcile home meds? @ -[none] Was smoking cessation discussed for >3mins.? @ -Yes Was critical care preformed (if so, how long)? @ -[none] Were there social determinants of health that impacted care today? How? (Homelessness, low income, unemployed, alcoholism, drug addiction, transportation, low edu. Level, literacy, decrease access to med. care, assisted, rehab)? @ -Alcoholism Was there de-escalation of care discussed even if they declined? (Discuss DNR or withdrawal of care, Hospice)? @ -No What co-morbidities impacted this encounter? (DM, HTN, Smoking, COPD, CAD, Cancer, CVA, Hep., AIDS, mental health diagnosis, sleep apnea, morbid obesity)? @ -Previous abdominal surgeries, multiple abdominal hernias, colostomy Was patient admitted / discharged? @ -The patient was seen and evaluated emergency department. Physical exam, the patient was resting in bed without any acute distress. The patient was intoxicated however the patient was able to answer all questions appropriate. The patient had some mild tachycardia initially on arrival but on my evaluation had a normal pulse. The patient did not complain of any acute pain and was intoxicated without any pain or distress. No further workup or imaging was obtained this time. 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 The patient remained stable and was deemed to for discharge. The patient was told to report back to the emergency department if he had any acute pain or distress. The patient was agreeable to this and was discharged home in stable condition with his fiance. Undiagnosed new problem with uncertain prognosis? @ -[none] Drug Therapy requiring intensive monitoring for toxicity (Heparin, Nitro, Insulin, Cardizem)? @ -[none] Were any procedures done? @ -[none] Diagnosis/symptom? @ -Alcohol intoxication Acute, or Chronic, or Acute on Chronic? @ -Acute Uncomplicated (without systemic symptoms) or Complicated (systemic symptoms)? @ -Uncomplicated Side effects of treatment? @ -[none] Exacerbation, Progression, or Severe Exacerbation] @ -[no] Poses a threat to life or bodily function? @ -[no] Disposition Clinical Impression: Alcohol intoxication Disposition: HOME SELF-CARE Condition: Stable Instructions (If sedation given, give patient instructions): Alcohol Intoxication (ED) Is patient prescribed a controlled substance at d/c from ED?: No Referrals: None,Stated [Primary Care Provider] - 1-2 days Time of Disposition: 00:01
[2022-07-23 00:28] VITALS: BP 136/91; PULSE 119; TEMP 98
== END 2022-07-23 00:28 | disposition home or self-care (01) ==
LOC: EC 22:55
DX: F10.129 Alcohol abuse with intoxication, unspecified (principal); I10 Essential (primary) hypertension; F17.200 Nicotine dependence, unspecified, uncomplicated; Z88.5 Allergy status to narcotic agent; Z88.8 Allergy status to other drugs, medicaments and biological substances
CPT/HCPCS: 96372; 99284

== ENCOUNTER 2023-01-09 14:07 | Inpatient (IN) | payer OTHER ==
[2023-01-09] MEDS ORDERED: SODIUM CHLORIDE 0.9% 1,000 ML IV STA ×2 (14:31)
[2023-01-09] MEDS ORDERED: SODIUM CHLORIDE 0.9% 500 ML 500 ML IV STA (14:31)
[2023-01-09] MEDS ORDERED: LORazepam 2 MG/ML INJ IV STA ×2 (14:31→18:24)
--- NOTE | 2023-01-09 14:59 | ED ---
Alcohol HPI - General Chief Complaint: Psychiatric Symptoms Stated Complaint: mental health Time Seen by Provider: 01/09/23 14:31 Source: patient, RN notes reviewed, old records reviewed Mode of arrival: ambulatory Limitations: no limitations - History of Present Illness Initial Comments: This is a 57-year-old male to the emergency department. This patient presents today for evaluation regards to severe anxiety shaking nausea tachycardia weakness not feeling well. History of alcohol abuse with alcohol withdrawal. Patient has no depression no suicidal thoughts. 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) Previous Visits for Alcohol Intoxication?: Yes Recent Trauma: Yes Associated Symptoms: nausea, vomiting, diaphoresis, tremors, depression Treatments Prior to Arrival: none Chronic Alcohol Use: Yes - Related Data Home Medications Medication Instructions Recorded Confirmed Folic Acid 1 mg PO DAILY 01/14/23 01/14/23 Thiamine [Vitamin B-1] 100 mg PO DAILY 01/14/23 01/14/23 Allergies Allergy/AdvReac Type Severity Reaction Status Date / Time hydromorphone [From Dilaudid] Allergy Itching Verified 01/14/23 07:56 nicotine Allergy Itching Verified 01/14/23 07:56 Review of Systems ROS Statement: Those systems with pertinent positive or pertinent negative responses have been documented in the HPI. ROS Other: All systems not noted in ROS Statement are negative. Past Medical History Past Medical History: Hypertension Additional Past Medical History / Comment(s): Pt admitted 08/01/15 with sepsis 2ndary to sigmoid diverticuliti/diarrhea. Other hx: diverticulitis, chronic constipation. Colostomy. History of Any Multi-Drug Resistant Organisms: None Reported Past Surgical History: Bowel Resection Additional Past Surgical History / Comment(s): 08/04/16 exploratory laparotomy lysis of extensive adhesions/sigmoid resection/decending colostomy/repair incisional ventral hernia. Other surgical hx: 2001 Exploratory laparotomy with ulcer repair, EGD/colonoscopy. Past Anesthesia/Blood Transfusion Reactions: No Reported Reaction Past Psychological History: No Psychological Hx Reported Smoking Status: Current every day smoker Past Alcohol Use History: Abuse, Daily, Heavy Past Drug Use History: None Reported - Past Family History Father Family Medical History: No Reported History Additional Family Medical History / Comment(s): Father when pt was young of unknown reason. Mother Family Medical History: CVA/TIA Sister(s) Family Medical History: Cancer Additional Family Medical History / Comment(s): pt sister from stomach cancer. General Exam Limitations: no limitations General appearance: alert, appears intoxicated, anxious Head exam: Present: atraumatic, normocephalic, normal inspection Eye exam: Present: normal appearance, PERRL, EOMI. Absent: scleral icterus, conjunctival injection, periorbital swelling ENT exam: Present: normal exam, mucous membranes moist Neck exam: Present: normal inspection. Absent: tenderness, meningismus, lymphadenopathy Respiratory exam: Present: normal lung sounds bilaterally. Absent: respiratory distress, wheezes, rales, rhonchi, stridor Cardiovascular Exam: Present: normal rhythm, tachycardia, normal heart sounds. Absent: systolic murmur, diastolic murmur, rubs, gallop, clicks GI/Abdominal exam: Present: soft, normal bowel sounds. Absent: distended, tenderness, guarding, rebound, rigid Extremities exam: Present: normal inspection, full ROM, normal capillary refill. Absent: tenderness, pedal edema, joint swelling, calf tenderness Back exam: Present: normal inspection Neurological exam: Present: alert, oriented X3, CN II-XII intact Psychiatric exam: Present: normal affect, normal mood Skin exam: Present: warm, dry, intact, normal color. Absent: rash Course Vital Signs 01/09/23 01/09/23 01/09/23 14:24 20:35 20:54 Temperature 98 F 98.3 F 98.4 F Pulse Rate 120 H 97 Pulse Rate [ 97 Pulse Oximetery ] Respiratory 20 16 16 Rate Blood Pressure 110/75 130/83 Blood Pressure 130/83 [Left Arm] O2 Sat by Pulse 95 98 96 Oximetry - Reevaluation(s) Reevaluation #1: 01/09/23 18:25 Medical record is reviewed Reevaluation #2: 01/09/23 18:25 Patient symptoms are improving Reevaluation #3: 01/09/23 18:25 Patient informed results questions answered Reevaluation #4: 01/09/23 18:25 Was pt. sent in by a medical professional or institution? @ -no Did you speak to anyone other than the patient for history? @ -no Did you review nursing and triage notes? @ -agree Were old charts reviewed? @ -no Differential Diagnosis? @ -prior EKG interpreted by me (3pts min.)? @ -no X-rays interpreted by me (1pt min.)? @ -no CT interpreted by me (1pt min.)? @ -no U/S interpreted by me (1pt. min.)? @ -no What testing was considered but not performed? (CT, X-rays, U/S, labs)? Why? @ -no What meds were considered but not given? Why? @ -no Did you discuss the management of the patient with other professionals? @ -no Did you reconcile home meds? @ -no Was smoking cessation discussed for >3mins.? @ -no Was critical care preformed (if so, how long)? @ -no Were there social determinants of health that impacted care today? How? (Homelessness, low income, unemployed, alcoholism, drug addiction, transportation, low edu. Level, literacy, decrease access to med. care, custodial, rehab)? @ -no Was there de-escalation of care discussed even if they declined? (Discuss DNR or withdrawal of care, Hospice)? @ -no What co-morbidities impacted this encounter? (DM, HTN, Smoking, COPD, CAD, Cancer, CVA, Hep., AIDS, mental health diagnosis, sleep apnea, morbid obesity)? @ -none Was patient admitted / discharged? @ -57 male to the Emergency Room, patient be admitted for acute alcohol withdrawal, CIWA protocol and psychiatric evaluation Admitted Undiagnosed new problem with uncertain prognosis? @ -no Drug Therapy requiring intensive monitoring for toxicity (Heparin, Nitro, Insulin, Cardizem)? @ -no Were any procedures done? @ -no Diagnosis/symptom? @ -Alcoholic travel, DTs Acute, or Chronic, or Acute on Chronic? @ -no Uncomplicated (without systemic symptoms) or Complicated (systemic symptoms)? @ -uncomplicated Side effects of treatment? @ -no Exacerbation, Progression, or Severe Exacerbation] @ -no Poses a threat to life or bodily function? @ -He has significant delirium tremens Reevaluation #5: 01/09/23 18:25 Differential Altered Mental Status: Hypoglycemia, DKA, hypercapnia, ETOH, overdose, CO poisoning, trauma, myxedema coma, HTN encephalopathy, infection, encephalitis, psychosis, intercranial hemorrhage, hepatic encephalopathy, meningitis, CVA, this is not meant to be an all-inclusive list - Consultations Consultation #1: Spoke with admitting physicians will agree to admit this patient Medical Decision Making - Medical Decision Making 57 male to the Emergency Room, patient be admitted for acute alcohol withdrawal, CIWA protocol and psychiatric evaluation - Lab Data Result diagrams: 01/11/23 05:45 01/11/23 05:45 Lab Results 01/09/23 01/09/23 01/09/23 Range/Units 15:18 15:18 15:18 WBC 15.5 H (3.8-10.6) k/uL RBC 4.55 (4.30-5.90) m/uL Hgb 14.6 (13.0-17.5) gm/dL Hct 43.1 (39.0-53.0) % MCV 94.8 (80.0-100.0) fL MCH 32.0 (25.0-35.0) pg MCHC 33.8 (31.0-37.0) g/dL RDW 13.1 (11.5-15.5) % Plt Count 288 (150-450) k/uL MPV 7.4 Neutrophils % 77 % Lymphocytes % 16 % Monocytes % 4 % Eosinophils % 1 % Basophils % 0 % Neutrophils # 11.9 H (1.3-7.7) k/uL Lymphocytes # 2.5 (1.0-4.8) k/uL Monocytes # 0.7 (0-1.0) k/uL Eosinophils # 0.2 (0-0.7) k/uL Basophils # 0.0 (0-0.2) k/uL PT 11.3 (9.0-12.0) sec INR 1.1 (<1.2) Sodium 139 (137-145) mmol/L Potassium 3.8 (3.5-5.1) mmol/L Chloride 103 (98-107) mmol/L Carbon Dioxide 21 L (22-30) mmol/L Anion Gap 15 mmol/L BUN 10 (9-20) mg/dL Creatinine 0.86 (0.66-1.25) mg/dL Est GFR (CKD-EPI)AfAm >90 (>60 ml/min/1.73 sqM) Est GFR (CKD-EPI)NonAf >90 (>60 ml/min/1.73 sqM) Glucose 123 H (74-99) mg/dL Calcium 8.8 (8.4-10.2) mg/dL Phosphorus 3.7 (2.5-4.5) mg/dL Magnesium 1.8 (1.6-2.3) mg/dL Total Bilirubin 0.5 (0.2-1.3) mg/dL AST 25 (17-59) U/L ALT 16 (4-49) U/L Alkaline Phosphatase 104 (38-126) U/L Total Protein 7.3 (6.3-8.2) g/dL Albumin 4.1 (3.5-5.0) g/dL Lipase 34 (23-300) U/L Serum Alcohol 68 mg/dL Disposition Clinical Impression: Acute anxiety, Alcohol intoxication, Essential hypertension, Dehydration, Alcohol withdrawal Disposition: ADMITTED IP TO THIS HOSP Condition: Good Is patient prescribed a controlled substance at d/c from ED?: No Time of Disposition: 18:30
[2023-01-09 15:22] LABS: Basophils % (A) 0 %; Eosinophils # (A) 0.2 k/uL (0-0.7); Eosinophils % (A) 1 %; HCT 43.1 % (39.0-53.0); HGB 14.6 gm/dL (13.0-17.5); Lymphocytes # (A) 2.5 k/uL (1.0-4.8); Lymphocytes % (A) 16 %; MCHC 33.8 g/dL (31.0-37.0); MCV 94.8 fL (80.0-100.0); Mean Platelet Volume 7.4; Monocytes # (A) 0.7 k/uL (0-1.0); Monocytes % (A) 4 %; Neutrophils # (A) 11.9 k/uL (1.3-7.7); Neutrophils % (A) 77 %; Platelet Count 288 k/uL (150-450); RBC 4.55 m/uL (4.30-5.90); RDW 13.1 % (11.5-15.5); WBC 15.5 k/uL (3.8-10.6)
[2023-01-09 15:31] LABS: INR 1.1 (<1.2); Prothrombin Time 11.3 sec (9.0-12.0)
[2023-01-09 15:33] LABS: ALT 16 U/L (4-49); AST 25 U/L (17-59); African American GFR (CKD) >90 (>60 ml/min/1.73 sqM); Albumin 4.1 g/dL (3.5-5.0); Alcohol 68 mg/dL; Alkaline Phosphatase 104 U/L (38-126); Anion Gap 15 mmol/L; Blood Urea Nitrogen 10 mg/dL (9-20); Calcium 8.8 mg/dL (8.4-10.2); Carbon Dioxide 21 mmol/L (22-30); Chloride 103 mmol/L (98-107); Glucose 123 mg/dL (74-99); Lipase 34 U/L (23-300); Magnesium 1.8 mg/dL (1.6-2.3); Non-African American GFR(CKD) >90 (>60 ml/min/1.73 sqM); Phosphorus 3.7 mg/dL (2.5-4.5); Potassium 3.8 mmol/L (3.5-5.1); Sodium 139 mmol/L (137-145); Total Bilirubin 0.5 mg/dL (0.2-1.3); Total Protein 7.3 g/dL (6.3-8.2)
[2023-01-09] MEDS ORDERED: LORazepam 2 MG/ML INJ IV PRN (18:22)
[2023-01-09] MEDS ORDERED: MORPHINE SULFATE 4 MG/ML SYRINGE IV PRN (18:22)
[2023-01-09] MEDS ORDERED: THIAMINE 100 MG/ML 2 ML VIAL IM STA (18:22)
[2023-01-09] MEDS ORDERED: NALOXONE 0.4 MG/ML 1 ML VIAL IV PRN (18:22)
[2023-01-09] MEDS ORDERED: IBUPROFEN 400 MG TAB PO PRN (18:22)
[2023-01-09] MEDS ORDERED: ONDANSETRON 4 MG/2 ML VIAL IVP PRN (18:22)
[2023-01-09] MEDS: SODIUM CHLORIDE 0.9% 1,000 ML IV SCH (18:46)
[2023-01-09] MEDS: LORazepam 2 MG/ML INJ IV PRN (21:37)
[2023-01-10] MEDS: FOLIC ACID 1 MG TAB PO SCH (08:47)
[2023-01-10] MEDS: MULTIVITAMINS, THERA 1 EACH TAB PO SCH (08:47)
[2023-01-10] MEDS: SODIUM CHLORIDE 0.9% 1,000 ML IV SCH ×4 (08:47→19:02)
[2023-01-10] MEDS: LORazepam 2 MG/ML INJ IV PRN ×2 (08:59→13:39)
[2023-01-10] MEDS ORDERED: THIAMINE 100 MG TAB PO SCH (09:00)
[2023-01-10 09:02] LABS: Appearance,Urine Clear (Clear); Bilirubin,Urine Negative (Negative); Blood,Urine Negative (Negative); Color,Urine Yellow; Glucose,Urine (UA) Negative (Negative); Ketones,Urine Negative (Negative); Leukocyte Esterase,Urine Negative (Negative); Nitrite,Urine Negative (Negative); PH, Urine 6.5 (5.0-8.0); Protein,Urine Trace (Negative); Specific Gravity,Urine 1.021 (1.001-1.035)
[2023-01-10 09:26] LABS: Amphetamine Screen,Urine Not Detected (NotDetected); Barbiturate Screen,Urine Not Detected (NotDetected); Benzodiazepines Screen,Urine Detected (NotDetected); Cocaine Screen,Urine Not Detected (NotDetected); Methadone Screen, Urine Not Detected (NotDetected); Opiate Screen,Urine Not Detected (NotDetected); Oxycodone Screen, Urine Not Detected (NotDetected); Phencyclidine Screen,Urine Not Detected (NotDetected); Tricyclic Antidepressant,Urine Not Detected (NotDetected); Urn Cannabinoid Scrn Not Detected (NotDetected)
--- NOTE | 2023-01-10 13:07 | P.HPIM ---
History of Present Illness H&P Date: 01/10/23 History of present illness; patient is a 57-year-old gentleman with no significant past medical history who presented to the hospital because of severe anxiety and shakiness. Patient has history of alcohol abuse with alcohol withdrawal. Patient admits to drinking alcohol regularly . Patient at this time wants to quit drinking. Patient denies any homicidal or suicidal thoughts. Denies any auditory or visual hallucination. Initial lab work done in the ER showed white count 15.5, hemoglobin 14.6, platelet count 288, sodium 139, potassium 3.8, BU and 10, creatinine 0.86, total bilirubin 0.5, AST 25, AST 16 serum alcohol 68 Patient was admitted for further evaluation and treatment REVIEW OF SYSTEMS: CONSTITUTIONAL: No fever, no malaise, no fatigue. Patient shaky and restless HEENT: No recent visual problems or hearing problems. Denied any sore throat. CARDIOVASCULAR: No chest pain, orthopnea, PND, no palpitations, no syncope. PULMONARY: No shortness of breath, no cough, no hemoptysis. GASTROINTESTINAL: No diarrhea, no nausea, no vomiting, no abdominal pain. NEUROLOGICAL: No headaches, no weakness, no numbness. HEMATOLOGICAL: Denies any bleeding or petechiae. GENITOURINARY: Denies any burning micturition, frequency, or urgency. MUSCULOSKELETAL/RHEUMATOLOGICAL: Denies any joint pain, swelling, or any muscle pain. ENDOCRINE: Denies any polyuria or polydipsia. The rest of the 14-point review of systems is negative. PHYSICAL EXAMINATION: GENERAL: The patient is alert and oriented x3, not in any acute distress. Well developed, well nourished. HEENT: Pupils are round and equally reacting to light. EOMI. No scleral icterus. No conjunctival pallor. Normocephalic, atraumatic. No pharyngeal erythema. No thyromegaly. CARDIOVASCULAR: S1 and S2 present. No murmurs, rubs, or gallops. PULMONARY: Chest is clear to auscultation, no wheezing or crackles. ABDOMEN: Soft, nontender, nondistended, normoactive bowel sounds. No palpable organomegaly. Ostomy seen MUSCULOSKELETAL: No joint swelling or deformity. EXTREMITIES: No cyanosis, clubbing, or pedal edema. NEUROLOGICAL: Gross neurological examination did not reveal any focal deficits. SKIN: No rashes. Assessment and plan Alcohol withdrawal in active alcoholic -Monitor vital signs -Monitor CBC -Monitor electrolytes - continue [facility] Protocol with symptom triggered medication management with benzodiazepines. -Continuous IV hydration. Continue high dose thiamine and folic acid -Seizure, fall, aspiration precautions History of ulcerative colitis with colostomy -Colostomy care Past Medical History Past Medical History: Hypertension Additional Past Medical History / Comment(s): Pt admitted 08/01/15 with sepsis 2ndary to sigmoid diverticuliti/diarrhea. Other hx: diverticulitis, chronic constipation. Colostomy. History of Any Multi-Drug Resistant Organisms: None Reported Past Surgical History: Bowel Resection Additional Past Surgical History / Comment(s): 08/04/16 exploratory laparotomy lysis of extensive adhesions/sigmoid resection/decending colostomy/repair incisional ventral hernia. Other surgical hx: 2001 Exploratory laparotomy with ulcer repair, EGD/colonoscopy. Past Anesthesia/Blood Transfusion Reactions: No Reported Reaction Past Psychological History: No Psychological Hx Reported Additional Psychological History / Comment(s): Pt resides alone. He is independent. Pt unable to answer questions at this time d/t ETOH intoxication. B lood ETOH was 68 on 01/09/23. Smoking Status: Current every day smoker Past Alcohol Use History: Abuse, Daily, Heavy Additional Past Alcohol Use History / Comment(s): pt has been sober for one year- started drinking again heavily the last ten days in 2018. Unclear of current ETOH status. Past Drug Use History: None Reported - Past Family History Father Family Medical History: No Reported History Additional Family Medical History / Comment(s): Father when pt was young of unknown reason. Mother Family Medical History: CVA/TIA Sister(s) Family Medical History: Cancer Additional Family Medical History / Comment(s): pt sister from stomach cancer. Medications and Allergies Home Medications Medication Instructions Recorded Confirmed Type No Known Home Medications 07/20/22 01/09/23 History Allergies Allergy/AdvReac Type Severity Reaction Status Date / Time hydromorphone [From Dilaudid] Allergy Itching Verified 01/09/23 18:27 nicotine Allergy Itching Verified 01/09/23 18:27 Physical Exam Vitals: Vital Signs Temp Pulse Pulse Resp BP BP Pulse Ox 01/10/23 07:52 97.9 F 69 19 118/78 99 01/10/23 02:46 98 F 63 16 136/68 97 01/09/23 21:25 98.5 F 94 16 146/81 96 01/09/23 20:54 98.4 F 97 16 130/83 96 01/09/23 20:35 98.3 F 97 16 130/83 98 01/09/23 14:24 98 F 120 H 20 110/75 95 Intake and Output 01/09/23 01/10/23 01/10/23 22:59 06:59 14:59 Other: # Voids 1 Weight 88.451 kg Results CBC & Chem 7: 01/09/23 15:18 01/09/23 15:18 Labs: Abnormal Lab Results - Last 24 Hours (Table) 01/09/23 01/09/23 01/10/23 Range/Units 15:18 15:18 08:50 WBC 15.5 H (3.8-10.6) k/uL Neutrophils # 11.9 H (1.3-7.7) k/uL Carbon Dioxide 21 L (22-30) mmol/L Glucose 123 H (74-99) mg/dL Urine Protein Trace H (Negative) Thrombosis Risk Factor Assmnt - Choose All That Apply Any of the Below Risk Factors Present?: Yes Each Factor Represents 1 point: Age 41-60 years, Obesity (BMI >25) Other Risk Factors: No Other congenital or acquired thrombophilia - If yes, enter type in comment: No Thrombosis Risk Factor Assessment Total Risk Factor Score: 2 Thrombosis Risk Factor Assessment Level: Low Risk
[2023-01-10] MEDS: THIAMINE 100 MG TAB PO SCH ×2 (16:36→21:39)
[2023-01-10] MEDS ORDERED: guaiFENesin SYRUP 100MG/5ML 200 MG/10 ML CUP PO PRN (21:35)
[2023-01-10] MEDS: BENZOCAINE/MENTHOL LOZENG 1 EACH LOZENGE MUCOUS MEM PRN (21:40)
[2023-01-11] MEDS: LORazepam 2 MG/ML INJ IV PRN ×3 (01:13→08:51)
[2023-01-11] MEDS: BENZOCAINE/MENTHOL LOZENG 1 EACH LOZENGE MUCOUS MEM PRN (01:13)
[2023-01-11] MEDS: SODIUM CHLORIDE 0.9% 1,000 ML IV SCH ×2 (06:02→14:18)
[2023-01-11 06:34] LABS: Basophils # (A) 0.1 k/uL (0-0.2); Basophils % (A) 1 %; Eosinophils # (A) 0.2 k/uL (0-0.7); Eosinophils % (A) 2 %; HGB 13.3 gm/dL (13.0-17.5); Lymphocytes # (A) 2.7 k/uL (1.0-4.8); Lymphocytes % (A) 32 %; MCH 32.1 pg (25.0-35.0); MCHC 33.3 g/dL (31.0-37.0); MCV 96.4 fL (80.0-100.0); Mean Platelet Volume 7.9; Monocytes # (A) 0.5 k/uL (0-1.0); Monocytes % (A) 6 %; Neutrophils % (A) 58 %; Platelet Count 239 k/uL (150-450); RBC 4.15 m/uL (4.30-5.90); RDW 12.9 % (11.5-15.5); WBC 8.6 k/uL (3.8-10.6)
[2023-01-11 07:02] LABS: ALT 14 U/L (4-49); AST 19 U/L (17-59); African American GFR (CKD) >90 (>60 ml/min/1.73 sqM); Albumin 3.3 g/dL (3.5-5.0); Albumin/Globulin Ratio 1.1; Alkaline Phosphatase 87 U/L (38-126); Anion Gap 4 mmol/L; Blood Urea Nitrogen 5 mg/dL (9-20); Calcium 8.1 mg/dL (8.4-10.2); Carbon Dioxide 29 mmol/L (22-30); Chloride 104 mmol/L (98-107); Globulin 2.9 g/dL; Glucose 91 mg/dL (74-99); Non-African American GFR(CKD) >90 (>60 ml/min/1.73 sqM); Potassium 3.9 mmol/L (3.5-5.1); Sodium 137 mmol/L (137-145); Total Bilirubin 0.8 mg/dL (0.2-1.3); Total Protein 6.2 g/dL (6.3-8.2)
[2023-01-11] MEDS: MULTIVITAMINS, THERA 1 EACH TAB PO SCH (08:54)
[2023-01-11] MEDS: THIAMINE 100 MG TAB PO SCH (08:54)
[2023-01-11] MEDS: FOLIC ACID 1 MG TAB PO SCH (08:54)
[2023-01-11 12:49] VITALS: BP 137/83; PULSE 73; RESP 18; TEMP 98.5
--- NOTE | 2023-01-11 13:19 | P.DS ---
Providers Date of admission: 01/09/23 18:22 Expected date of discharge: 01/11/23 Attending physician: Zeke Felix Primary care physician: Stated None Hospital Course: Discharge diagnoses; Alcohol detox Alcohol intoxication History of ulcerative colitis with colostomy Hospital course; patient is a 57-year-old gentleman with no significant past medical history who presented to the hospital because of severe anxiety and shakiness. Patient has history of alcohol abuse with alcohol withdrawal. Patient admits to drinking alcohol regularly . Patient at this time wants to quit drinking. Patient denies any homicidal or suicidal thoughts. Denies any auditory or visual hallucination. Initial lab work done in the ER showed white count 15.5, hemoglobin 14.6, platelet count 288, sodium 139, potassium 3.8, BU and 10, creatinine 0.86, total bilirubin 0.5, AST 25, AST 16 serum alcohol 68 Patient was admitted for further evaluation and treatment 01/11. Patient seen and examined. States he feels much better. CIWA scores have been low. Patient keen to go home. Wants to follow-up outpatient with alcohol rehab programs. PHYSICAL EXAMINATION: GENERAL: The patient is alert and oriented x3, not in any acute distress. Well developed, well nourished. HEENT: Pupils are round and equally reacting to light. EOMI. No scleral icterus. No conjunctival pallor. Normocephalic, atraumatic. No pharyngeal erythema. No thyromegaly. CARDIOVASCULAR: S1 and S2 present. No murmurs, rubs, or gallops. PULMONARY: Chest is clear to auscultation, no wheezing or crackles. ABDOMEN: Soft, nontender, nondistended, normoactive bowel sounds. No palpable organomegaly. Ostomy seen MUSCULOSKELETAL: No joint swelling or deformity. EXTREMITIES: No cyanosis, clubbing, or pedal edema. NEUROLOGICAL: Gross neurological examination did not reveal any focal deficits. SKIN: No rashes. Patient Condition at Discharge: Good Plan - Discharge Summary Discharge Rx Participant: No New Discharge Prescriptions: New Thiamine [Vitamin B-1] 100 mg PO DAILY #30 tab Folic Acid 1 mg PO DAILY #30 tab Discharge Medication List Folic Acid 1 mg PO DAILY #30 tab 01/11/23 [Rx] Thiamine [Vitamin B-1] 100 mg PO DAILY #30 tab 01/11/23 [Rx] Follow up Appointment(s)/Referral(s): None,Stated [Primary Care Provider] - 1-2 days Discharge/Stand Alone Forms: AA [facility]lysia Car[facility], [facility], Outpatient Counseling, In Substance Abuse Facilities
== END 2023-01-11 14:21 | disposition home or self-care (01) | DRG 775 ==
LOC: EC 14:07 → 5NMEDONC 18:22
PROVIDERS: ADMIT Hospitalist; ATTEND Hospitalist
DX: F10.129 Alcohol abuse with intoxication, unspecified (principal); F10.139 Alcohol abuse with withdrawal, unspecified; K51.90 Ulcerative colitis, unspecified, without complications; I10 Essential (primary) hypertension; F17.210 Nicotine dependence, cigarettes, uncomplicated; F41.9 Anxiety disorder, unspecified; K59.09 Other constipation; Y90.3 Blood alcohol level of 60-79 mg/100 ml; Z86.19 Personal history of other infectious and parasitic diseases; Z71.6 Tobacco abuse counseling; Z88.5 Allergy status to narcotic agent; Z88.8 Allergy status to other drugs, medicaments and biological substances; Z93.3 Colostomy status
CPT/HCPCS: 36415; 80053; 80306; 80320; 81003; 83690; 83735; 84100; 85025; 85610; 96361; 96372; 96374; 96376; 99285

== ENCOUNTER 2023-01-13 23:04 | Observation (INO) | payer OTHER ==
[2023-01-13] MEDS ORDERED: SODIUM CHLORIDE 0.9% 1,000 ML IV STA (23:14)
[2023-01-13] MEDS ORDERED: LORazepam 2 MG/ML INJ IV STA (23:15)
[2023-01-13 23:40] LABS: Basophils # (A) 0.1 k/uL (0-0.2); Basophils % (A) 1 %; Eosinophils # (A) 0.2 k/uL (0-0.7); Eosinophils % (A) 2 %; HGB 14.6 gm/dL (13.0-17.5); Lymphocytes # (A) 4.1 k/uL (1.0-4.8); Lymphocytes % (A) 36 %; MCHC 33.1 g/dL (31.0-37.0); MCV 96.6 fL (80.0-100.0); Mean Platelet Volume 7.3; Monocytes # (A) 0.6 k/uL (0-1.0); Monocytes % (A) 5 %; Neutrophils # (A) 6.4 k/uL (1.3-7.7); Neutrophils % (A) 55 %; Platelet Count 271 k/uL (150-450); RBC 4.55 m/uL (4.30-5.90); RDW 13.4 % (11.5-15.5); WBC 11.6 k/uL (3.8-10.6)
[2023-01-14 00:01] LABS: ALT 17 U/L (4-49); AST 30 U/L (17-59); African American GFR (CKD) >90 (>60 ml/min/1.73 sqM); Albumin 4.1 g/dL (3.5-5.0); Alkaline Phosphatase 79 U/L (38-126); Anion Gap 17 mmol/L; Blood Urea Nitrogen 10 mg/dL (9-20); Calcium 9.1 mg/dL (8.4-10.2); Carbon Dioxide 19 mmol/L (22-30); Chloride 108 mmol/L (98-107); Glucose 144 mg/dL (74-99); Lipase 100 U/L (23-300); Non-African American GFR(CKD) >90 (>60 ml/min/1.73 sqM); Potassium 3.4 mmol/L (3.5-5.1); Sodium 144 mmol/L (137-145); Total Bilirubin 0.3 mg/dL (0.2-1.3); Total Protein 7.3 g/dL (6.3-8.2)
[2023-01-14 00:18] LABS: Alcohol 377 mg/dL
--- NOTE | 2023-01-14 00:26 | CT ---
EXAM: CT Abdomen and Pelvis With Intravenous Contrast CLINICAL HISTORY: ITS.REASON CT Reason: abdominal pain, colostomy, intoxicated TECHNIQUE: Axial computed tomography images of the abdomen and pelvis with intravenous contrast. CTDI is 25.6 mGy and DLP is 1179.9 mGy-cm. This CT exam was performed using one or more of the following dose reduction techniques: automated exposure control, adjustment of the mA and/or kV according to patient size, and/or use of iterative reconstruction technique. COMPARISON: CT Abdomen Pelvis dated 04/06/2020 FINDINGS: Lung bases: Unremarkable. No mass. No consolidation. ABDOMEN: Liver: Stable 1 cm right hepatic lobe liver cyst. Liver low-density lesion in the left hepatic lobe similar/slightly larger than on the prior. 11 mm. Likely cyst. Gallbladder and bile ducts: Unremarkable. No calcified stones. No ductal dilation. Pancreas: Unremarkable. No mass. No ductal dilation. Spleen: Unremarkable. No splenomegaly. Adrenals: Unremarkable. No mass. Kidneys and ureters: Left renal low-density lesions, likely cysts. No solid mass. No hydronephrosis. Stomach and bowel: Stable left mid abdominal colostomy. Parastomal hernia containing small bowel loops similar to the prior. No obstruction. Ventral hernias containing mostly fat. One contains part of the transverse colon. No obstruction. No mucosal thickening. PELVIS: Appendix: No findings to suggest acute appendicitis. Bladder: Distended urinary bladder. Reproductive: Prostate calcification, stable. ABDOMEN and PELVIS: Intraperitoneal space: Unremarkable. No free air. No significant fluid collection. Bones/joints: No acute fracture. No dislocation. Soft tissues: See above. Vasculature: Unremarkable. No abdominal aortic aneurysm. Lymph nodes: Unremarkable. No enlarged lymph nodes. IMPRESSION: Stable left mid abdominal colostomy. Parastomal hernia containing small bowel loops and ventral hernias similar to the prior. No obstruction.
[2023-01-14] MEDS ORDERED: ONDANSETRON 4 MG/2 ML VIAL IVP PRN (00:56)
[2023-01-14] MEDS ORDERED: NALOXONE 0.4 MG/ML 1 ML VIAL IV PRN (00:56)
--- NOTE | 2023-01-14 00:56 | ED ---
Abdominal Pain HPI - General Chief Complaint: Abdominal Pain Stated Complaint: Abdominal pain Source: patient Mode of arrival: EMS Limitations: language barrier - History of Present Illness Initial Comments: 57-year-old male with past history of sigmoid diverticulitis, chronic co nstipation with colostomy who presents to the emergency department intoxicated and complaining of abdominal pain. Patient called EMS for abdominal pain. Due to his significant intoxication the HPI is limited. Most of the patient's speech is mumbled. Does admit to significant abdominal pain without vomiting. Colostomy bag is empty at this time. Denies taking any medications for the pain. No other alleviating, precipitating or modifying factors - Related Data Previous Rx's Medication Instructions Recorded Folic Acid 1 mg PO DAILY #30 tab 01/11/23 Thiamine [Vitamin B-1] 100 mg PO DAILY #30 tab 01/11/23 Allergies Allergy/AdvReac Type Severity Reaction Status Date / Time hydromorphone [From Dilaudid] Allergy Itching Verified 01/09/23 18:27 nicotine Allergy Itching Verified 01/09/23 18:27 Review of Systems ROS Statement: Those systems with pertinent positive or pertinent negative responses have been documented in the HPI. ROS Other: All systems not noted in ROS Statement are negative. Past Medical History Past Medical History: Hypertension Additional Past Medical History / Comment(s): Pt admitted 08/01/15 with sepsis 2ndary to sigmoid diverticuliti/diarrhea. Other hx: diverticulitis, chronic constipation. Colostomy. History of Any Multi-Drug Resistant Organisms: None Reported Past Surgical History: Bowel Resection Additional Past Surgical History / Comment(s): 08/04/16 exploratory laparotomy lysis of extensive adhesions/sigmoid resection/decending colostomy/repair incisional ventral hernia. Other surgical hx: 2002 Exploratory laparotomy with ulcer repair, EGD/colonoscopy. Past Anesthesia/Blood Transfusion Reactions: No Reported Reaction Past Psychological History: No Psychological Hx Reported Additional Psychological History / Comment(s): Pt resides alone. He is independent. Pt unable to answer questions at this time d/t ETOH intoxication. Blood ETOH was 68 on 01/09/23. Smoking Status: Current every day smoker Past Alcohol Use History: Abuse, Daily, Heavy Additional Past Alcohol Use History / Comment(s): pt has been sober for one year- started drinking again heavily the last ten days in 2018. Unclear of curr ent ETOH status. Past Drug Use History: None Reported - Past Family History Father Family Medical History: No Reported History Additional Family Medical History / Comment(s): Father when pt was young of unknown reason. Mother Family Medical History: CVA/TIA Sister(s) Family Medical History: Cancer Additional Family Medical History / Comment(s): pt sister from stomach cancer. General Exam Limitations: language barrier Course Vital Signs 01/13/23 23:15 Temperature 97.3 F L Pulse Rate 102 H Respiratory 18 Rate Blood Pressure 101/67 O2 Sat by Pulse 95 Oximetry Medical Decision Making - Medical Decision Making Was pt. sent in by a medical professional or institution (, PA, [employer], urgent care, hospital, or shelter...) When possible be specific @ -[No] Did you speak to anyone other than the patient for history (EMS, parent, family, police, friend...)? What history was obtained from this source @ -[No] Did you review nursing and triage notes (agree or disagree)? Why? @ -[I reviewed and agree with nursing and triage notes] Were old charts reviewed (outside hosp., previous admission, EMS record, old EKG, old radiological studies, urgent care reports/EKG's, shelter records)? Report findings @ -[No old charts were reviewed] Differential Diagnosis (chest pain, altered mental status, abdominal pain women, abdominal pain men, vaginal bleeding, weakness, fever, dyspnea, syncope, headache, dizziness, GI bleed, back pain, seizure, CVA, palpatations, mental health, musculoskeletal)? @ -[not applicable] EKG interpreted by me (3pts min.). @ -[As above] X-rays interpreted by me (1pt min.). @ -[None done] CT interpreted by me (1pt min.). @ -[None done] U/S interpreted by me (1pt. min.). @ -[None done] What testing was considered but not performed or refused? (CT, X-rays, U/S, labs)? Why? @ -[None] What meds were considered but not given or refused? Why? @ -[None] Did you discuss the management of the patient with other professionals (professionals i.e. , PA, [employer], lab, RT, psych nurse, social director, inspector aluminum boat, teacher, hydrographical technical officer, rn case manager hospice)? Give summary @ -[No] Was smoking cessation discussed for >3mins.? @ -[No] Was critical care preformed (if so, how long)? @ -[No] Were there social determinants of health that impacted care today? How? (H omelessness, low income, unemployed, alcoholism, drug addiction, transportation, low edu. Level, literacy, decrease access to med. care, long term, rehab)? @ -[No] Was there de-escalation of care discussed even if they declined (Discuss DNR or withdrawal of care, Hospice)? DNR status @ -[No] What co-morbidities impacted this encounter? (DM, HTN, Smoking, COPD, CAD, Cancer, CVA, ARF, Chemo, Hep., AIDS, mental health diagnosis, sleep apnea, morbid obesity)? @ -[None] Was patient admitted / discharged? Hospital course, mention meds given and route, prescriptions, significant lab abnormalities, going to OR and other pertinent info. @ -Upon arrival patient is placed in room 5. A thorough history and physical exam was performed. History is incomplete and difficult as patient is difficult to understand. He does have intense abdominal pain upon palpation. IV is e stablished and laboratory studies are conducted. CT the abdomen and pelvis is performed. Patient significantly intoxicated. Patient will be admitted for alcohol intoxication with reevaluation of his symptoms when sober. Undiagnosed new problem with uncertain prognosis? @ -[No] Drug Therapy requiring intensive monitoring for toxicity (Heparin, Nitro, Insulin, Cardizem)? @ -[No] Were any procedures done? @ -[No] Diagnosis/symptom? @ -[default] Acute, or Chronic, or Acute on Chronic? @ -[default] Uncomplicated (without systemic symptoms) or Complicated (systemic symptoms)? @ -[default] Side effects of treatment? @ -[No] Exacerbation, Progression, or Severe Exacerbation? @ -[No] Poses a threat to life or bodily function? How? (Chest pain, USA, VT, pneumonia, PE, COPD, DKA, ARF, appy, cholecystitis, CVA, Diverticulitis, Homicidal, Suicidal, threat to staff... and all critical care pts) @ -[No] - Lab Data Result diagrams: 01/13/23 23:25 01/13/23 23:25 Lab Results 01/13/23 01/13/23 01/13/23 Range/Units 23:25 23:25 23:25 WBC 11.6 H (3.8-10.6) k/uL RBC 4.55 (4.30-5.90) m/uL Hgb 14.6 (13.0-17.5) gm/dL Hct 44.0 (39.0-53.0) % MCV 96.6 (80.0-100.0) fL MCH 32.0 (25.0-35.0) pg MCHC 33.1 (31.0-37.0) g/dL RDW 13.4 (11.5-15.5) % Plt Count 271 (150-450) k/uL MPV 7.3 Neutrophils % 55 % Lymphocytes % 36 % Monocytes % 5 % Eosinophils % 2 % Basophils % 1 % Neutrophils # 6.4 (1.3-7.7) k/uL Lymphocytes # 4.1 (1.0-4.8) k/uL Monocytes # 0.6 (0-1.0) k/uL Eosinophils # 0.2 (0-0.7) k/uL Basophils # 0.1 (0-0.2) k/uL Sodium 144 (137-145) mmol/L Potassium 3.4 L (3.5-5.1) mmol/L Chloride 108 H (98-107) mmol/L Carbon Dioxide 19 L (22-30) mmol/L Anion Gap 17 mmol/L BUN 10 (9-20) mg/dL Creatinine 0.77 (0.66-1.25) mg/dL Est GFR (CKD-EPI)AfAm >90 (>60 ml/min/1.73 sqM) Est GFR (CKD-EPI)NonAf >90 (>60 ml/min/1.73 sqM) Glucose 144 H (74-99) mg/dL Plasma Lactic Acid John 1.7 (0.7-2.0) mmol/L Calcium 9.1 (8.4-10.2) mg/dL Total Bilirubin 0.3 (0.2-1.3) mg/dL AST 30 (17-59) U/L ALT 17 (4-49) U/L Alkaline Phosphatase 79 (38-126) U/L Total Protein 7.3 (6.3-8.2) g/dL Albumin 4.1 (3.5-5.0) g/dL Lipase 100 (23-300) U/L Serum Alcohol 377 H* mg/dL Disposition Clinical Impression: Abdominal pain, Alcohol intoxication Disposition: ADMITTED IP TO THIS HOSP Condition: Stable Is patient prescribed a controlled substance at d/c from ED?: No Time of Disposition: 00:56 Decision to Admit Reason: Admit from EC Decision Date: 01/14/23 Decision Time: 00:56
[2023-01-14] MEDS: SODIUM CHLORIDE 0.9% 1,000 ML IV SCH ×2 (01:04→13:17)
[2023-01-14] MEDS ORDERED: THIAMINE 100 MG/ML 2 ML VIAL IM STA (01:17)
[2023-01-14] MEDS ORDERED: LORazepam 2 MG/ML INJ IV PRN ×3 (01:17)
--- NOTE | 2023-01-14 02:29 | P.HPIM ---
History of Present Illness H&P Date: 01/14/23 Patient is a 39-year-old male with a PMH of alcohol abuse with alcohol withdrawal seizures, history of perforated diverticulitis status post colostomy several years ago who was brought to the emergency room by EMS for abdominal pain and shakiness. The patient reports that he continues to drink multiple large amounts of beer daily, unwilling to quantify. He also reports mild diffuse abdominal discomfort occurring intermittently over the past several months. Denies experiencing nausea, vomiting, or diarrhea. States that he does not know when his last drink was but that it may be earlier today. Laboratory evaluation in the emergency room was remarkable for alcohol level of 377, WBC count 11.6, potassium 3.4, and glucose [address] abdomen and pelvis was unremarkable. ED documentation reviewed and case discussed with ED provider. Review of systems: Pertinent positives and negatives as discussed in HPI, a complete review of systems was performed and all other systems are negative. Physical examination: Vital signs reviewed General: Disheveled male , no distress, appears older than stated age, normal weight Derm: no unusual rashes/lesions, warm Head: atraumatic, normocephalic, symmetric Eyes: EOMI, no lid lag, anicteric sclera, pupils equal round reactive to light ENT: Nose and ears atraumatic Neck: No cervical lymphadenopathy, trachea midline, supple Mouth: no lip lesion, mucus membranes moist Cardiovascular: S1S2 reg, no murmur, positive dorsalis pedis pulse bilateral, no edema Lungs: CTA bilateral, no rhonchi, no rales, no accessory muscle use Abdominal: soft, nontender to palpation, no guarding, colostomy noted without stool with pink stoma noted Ext: muscle strength 5 out of 5 in all 4 extremities grossly, no gross muscle atrophy, no contractures, Neuro: CN II-XI grossly intact, no gross focal neuro deficits, outstretched hand tremor noted Psych: Alert, oriented, appropriate affect Assessment: Alcohol intoxication, impending withdrawal Hypokalemia Imaging: CT abdomen and pelvis was unremarkable. Data Review: Laboratory evaluation in the emergency room was remarkable for alcohol level of 377, WBC count 11.6, potassium 3.4, and glucose 144 lactic acid 1.7. Plan: CIWA protocol Thiamine, MV IVFs with NS 130 mL/hr Fall precautions DVT prophylaxis: Heparin subq The patient is admitted with an anticipated less than 2 midnight stay for evaluation of EtOH abuse CODE STATUS: Full Code Discussed with: Patient Anticipated discharge place: Home Past Medical History Past Medical History: Hypertension Additional Past Medical History / Comment(s): Pt admitted 08/01/15 with sepsis 2ndary to sigmoid diverticuliti/diarrhea. Other hx: diverticulitis, chronic constipation. Colostomy. History of Any Multi-Drug Resistant Organisms: None Reported Past Surgical History: Bowel Resection Additional Past Surgical History / Comment(s): 08/04/16 exploratory laparotomy lysis of extensive adhesions/sigmoid resection/decending colostomy/repair incisional ventral hernia. Other surgical hx: 2001 Exploratory laparotomy with ulcer repair, EGD/colonoscopy. Past Anesthesia/Blood Transfusion Reactions: No Reported Reaction Past Psychological History: No Psychological Hx Reported Additional Psychological History / Comment(s): Pt resides alone. He is independent. Pt unable to answer questions at this time d/t ETOH intoxication. Blood ETOH was 68 on 01/09/23. Smoking Status: Current every day smoker Past Alcohol Use History: Abuse, Daily, Heavy Additional Past Alcohol Use History / Comment(s): pt has been sober for one year- started drinking again heavily the last ten days in 2018. Unclear of current ETOH status. Past Drug Use History: None Reported - Past Family History Father Family Medical History: No Reported History Additional Family Medical History / Comment(s): Father when pt was young of unknown reason. Mother Family Medical History: CVA/TIA Sister(s) Family Medical History: Cancer Additional Family Medical History / Comment(s): pt sister from stomach cancer. Medications and Allergies Home Medications Medication Instructions Recorded Confirmed Type Folic Acid 1 mg PO DAILY #30 tab 01/11/23 Rx Thiamine [Vitamin B-1] 100 mg PO DAILY #30 tab 01/11/23 Rx Allergies Allergy/AdvReac Type Severity Reaction Status Date / Time hydromorphone [From Dilaudid] Allergy Itching Verified 01/09/23 18:27 nicotine Allergy Itching Verified 01/09/23 18:27 Physical Exam Vitals: Vital Signs Temp Pulse Resp BP Pulse Ox 01/14/23 01:47 103 H 20 107/65 95 01/13/23 23:15 97.3 F L 102 H 18 101/67 95 Intake and Output 01/13/23 01/13/23 01/14/23 14:59 22:59 06:59 Other: Weight 74.843 kg Results CBC & Chem 7: 01/13/23 23:25 01/13/23 23:25 Labs: Abnormal Lab Results - Last 24 Hours (Table) 01/13/23 01/13/23 Range/Units 23:25 23:25 WBC 11.6 H (3.8-10.6) k/uL Potassium 3.4 L (3.5-5.1) mmol/L Chloride 108 H (98-107) mmol/L Carbon Dioxide 19 L (22-30) mmol/L Glucose 144 H (74-99) mg/dL Serum Alcohol 377 H* mg/dL
[2023-01-14 07:32] VITALS: RESP 17
[2023-01-14] MEDS ORDERED: HEPARIN SODIUM,PORCINE/PF 5,000 UNIT/0.5 ML SYRINGE SQ SCH (08:00)
[2023-01-14] MEDS ORDERED: ACETAMINOPHEN TAB 325 MG TAB PO PRN (10:02)
[2023-01-14] MEDS ORDERED: LORazepam 1 MG TAB PO STA (12:52)
[2023-01-14 13:55] VITALS: BP 124/84; PULSE 96; TEMP 98.1
--- NOTE | 2023-01-14 15:48 | P.DS ---
Providers Date of admission: 01/14/23 00:56 Expected date of discharge: 01/14/23 Attending physician: Virginia Dickerson MD Primary care physician: Stated None Hospital Course: Discharge Diagnosis: Alcohol intoxication Hypokalemia alcohol use disorder Hospital Course: 39-year-old male with a PMH of alcohol abuse with alcohol withdrawal seizures, history of perforated diverticulitis status post colostomy several years ago who was brought to the emergency room by EMS for abdominal pain and tremors. Laboratory evaluation in the emergency room was remarkable for alcohol level of 377, WBC count 11.6, potassium 3.4, and glucose [address] abdomen and pelvis was unremarkable. Patient was observed in the hospital while getting sober. He was offered to stay in the hospital to see if he begins to withdraw and manage accordingly. However, he decided to go home instead. He would like to follow up with AA and alcohol rehab outpatient. His gait was personally obeserved, no issues. He was still having mild hand tremors. Alert and oriented 3. Patient seen and examined at bedside. Vital signs reviewed and stable. Vital signs reviewed General: Disheveled male , no distress, appears older than stated age, normal weight Derm: no unusual rashes/lesions, warm Head: atraumatic, normocephalic, symmetric Eyes: EOMI, no lid lag, anicteric sclera, pupils equal round reactive to light ENT: Nose and ears atraumatic Neck: No cervical lymphadenopathy, trachea midline, supple Mouth: no lip lesion, mucus membranes moist Cardiovascular: S1S2 reg, no murmur, positive dorsalis pedis pulse bilateral, no edema Lungs: CTA bilateral, no rhonchi, no rales, no accessory muscle use Abdominal: soft, nontender to palpation, no guarding, colostomy noted without stool with pink stoma noted Ext: muscle strength 5 out of 5 in all 4 extremities grossly, no gross muscle atrophy, no contractures, Neuro: CN II-XI grossly intact, no gross focal neuro deficits, outstretched hand tremor noted Psych: Alert, oriented, appropriate affect A total of 33 minutes of time were spent preparing this complex discharge summary. Patient was discharged on 01/14/23 at 15:32. Patient Condition at Discharge: Stable Plan - Discharge Summary Discharge Rx Participant: No New Discharge Prescriptions: Continue RX: Thiamine [Vitamin B-1] 100 mg PO DAILY RX: Folic Acid 1 mg PO DAILY Discharge Medication List RX: Folic Acid 1 mg PO DAILY 01/14/23 [History] RX: Thiamine [Vitamin B-1] 100 mg PO DAILY 01/14/23 [History] Follow up Appointment(s)/Referral(s): None,Stated [Primary Care Provider] - 1-2 days Patient Instructions/Handouts: Alcohol Intoxication (DC), Abuse of Alcohol (DC) Activity/Diet/Wound Care/Special Instructions: Please see a PCP. Discharge Disposition: HOME SELF-CARE
[2023-01-15] MEDS ORDERED: THIAMINE 100 MG TAB PO SCH (09:00)
== END 2023-01-14 15:48 | disposition home or self-care (01) ==
LOC: EC 23:04 → 6NMEDSUR 01-14 00:56
PROVIDERS: ADMIT Internal Medicine; ATTEND Internal Medicine
DX: F10.129 Alcohol abuse with intoxication, unspecified (principal); E87.6 Hypokalemia; K59.09 Other constipation; I10 Essential (primary) hypertension; F17.200 Nicotine dependence, unspecified, uncomplicated; Y90.8 Blood alcohol level of 240 mg/100 ml or more; Z87.19 Personal history of other diseases of the digestive system; Z93.3 Colostomy status; Z88.5 Allergy status to narcotic agent; Z80.0 Family history of malignant neoplasm of digestive organs
CPT/HCPCS: 96376; 96361; 96374; 99285; 36415; 80053; 83605; 83690; 85025; 74177; G0378; G0480; J2060 ×2; Q9967; 80320